=== PATIENT | female | born 1945 | race Caucasian/White ===

== ENCOUNTER 2018-02-02 08:00 | Outpatient (CLI) | payer MEDICARE, BC ==
[2018-02-02 12:15] LABS: BASOPHILS % (AUTO) 0.8 %; EOSINOPHILS # (AUTO) 0.1 10^3/uL (0.0-0.7); HGB - HEMOGLOBIN 13.8 g/dL (12.0-16.0); LYMPHOCYTES # (AUTO) 1.4 10^3/uL (1.5-3.5); LYMPHOCYTES % (AUTO) 22.5 %; MEAN CORPUSCULAR HEMOGLOBIN 28.7 pg (27.0-31.0); MEAN PLATELET VOLUME 8.8 fL (7.9-10.8); MONOCYTES # (AUTO) 0.5 10^3/uL (0.0-1.0); MONOCYTES % (AUTO) 8.4 %; NEUTROPHILS % (AUTO) 66.3 %; PLT - PLATELET COUNT 241 10^3/uL (130-450); RED BLOOD COUNT 4.82 10^6/uL (4.20-5.40); RED CELL DISTRIBUTION WIDTH 13.5 % (12.0-15.0)
[2018-02-02 12:53] LABS: ALBUMIN 4.2 g/dL (3.2-5.5); ALBUMIN/GLOBULIN RATIO 1.6 (1.0-2.2); ALKALINE PHOSPHATASE 60 IU/L (42-121); ALT ALANINE AMINOTRANSFERASE 17 IU/L (10-60); AST ASPARTATE AMINOTRANSFERASE 19 IU/L (10-42); BILIRUBIN,TOTAL 0.9 mg/dL (0.2-1.0); BUN - BLOOD UREA NITROGEN 18 mg/dL (6-20); CALCIUM 9.2 mg/dL (8.5-10.3); CARBON DIOXIDE - CO2 29 mmol/L (21-32); CHLORIDE 104 mmol/L (101-111); CHOL/HDL RATIO 4.7 (<4.4); CHOLESTEROL 228 mg/dL; CREATININE 0.8 mg/dL (0.4-1.0); GFR - MDRD 71 (>89); GLUCOSE 95 mg/dL (70-100); HDL CHOLESTEROL 49 mg/dL; LDL CHOLESTEROL,CALCULATED 141 mg/dL; LDL/HDL RATIO 2.9 (<4.4); SODIUM 140 mmol/L (135-145); TOTAL PROTEIN 6.8 g/dL (6.7-8.2); VLDL CHOLESTEROL 38 mg/dL
[2018-02-02 12:55] LABS: THYROID STIMULATING HORMONE 1.84 uIU/mL (0.34-5.60)
== END 2018-02-02 08:01 | disposition home or self-care (01) ==
LOC: LAB.WCP 08:00
PROVIDERS: ATTEND Family Medicine
DX: I10 Essential (primary) hypertension (principal); E78.5 Hyperlipidemia, unspecified
CPT/HCPCS: 36415; 80053; 80061; 82306; 82607; 82746; 83036; 83721; 83880; 84443; 85025

== ENCOUNTER 2018-02-04 08:03 | Outpatient (CLI) | payer MEDICARE, BC ==
--- NOTE | 2018-02-05 16:28 | Ultrasound Report ---
ANKLE/BRACHIAL INDICES: 02/04/2018 CLINICAL INDICATION: Venous insufficiency, stasis dermatitis. TECHNIQUE: Real-time sonographic vascular imaging was performed by the sprayer hand through the extremities utilizing both color-flow and Doppler flow analysis. Multiple roofing sales representative static images were saved for review. 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 IMPRESSION: NORMAL ASHWIN'S. MTDD
== END 2018-02-04 08:04 | disposition home or self-care (01) ==
LOC: DI 08:03
PROVIDERS: ATTEND Family Medicine
DX: I83.10 Varicose veins of unspecified lower extremity with inflammation (principal)
CPT/HCPCS: 93922

== ENCOUNTER 2018-11-26 07:33 | Outpatient (CLI) | payer MEDICARE, BC | END 2018-11-26 07:34 | disposition critical access hospital (66) | LOC: EMS 07:33 | PROVIDERS: ATTEND Surgery | DX: R53.1 Weakness (principal); R39.198 Other difficulties with micturition; R68.83 Chills (without fever); R10.30 Lower abdominal pain, unspecified; R19.8 Other specified symptoms and signs involving the digestive system and abdomen | CPT/HCPCS: A0425; A0427 ==

== ENCOUNTER 2018-11-26 08:04 | Inpatient (IN) | payer MEDICARE, BC ==
[2018-11-26] MEDS ORDERED: SODIUM CHLORIDE 0.9% 3,500 ML IV STA (09:00)
[2018-11-26] MEDS ORDERED: VANCOMYCIN INJ 2.5 GM in SODIUM CHLORIDE 0.9% 500 ML IV STA (09:00)
[2018-11-26] MEDS ORDERED: CEFEPIME 2 GM in SODIUM CHLORIDE 0.9% MINIBAG 100 ML IV STA (09:00)
[2018-11-26] MEDS ORDERED: ACETAMINOPHEN 325 MG TABLET PO STA (09:04)
--- NOTE | 2018-11-26 09:07 | ED Physician Documentation ---
History of Present Illness - Stated complaint Stated Complaint: GEN. WEAKNESS - Chief complaint Chief Complaint: Abd Pain - History obtained from History obtained from: Patient, Family () - History of Present Illness Timing: How many days ago (2) - Additonal information Additional information: The patient is a 73-year-old female who presents with generalized weakness that has been progressing over the past 2 days. She has had fever and chills, and was too weak to walk unassisted during the night. She reports urgency of urination, but denies dysuria. She denies cough or shortness of breath. She denies abdominal pain, nausea or vomiting. She has a history of chronic pedal edema with venous stasis ulcers. Ankle arm index done in January 2018 revealed a normal study. Review of Systems Constitutional: reports: Fever, Chills, Fatigue Eyes: denies: Irritation Ears: denies: Tinnitus/ringing Nose: denies: Congestion Throat: denies: Sore throat Cardiac: denies: Chest pain / pressure Respiratory: denies: Dyspnea, Cough GI: denies: Abdominal Pain, Nausea, Vomiting : reports: Hesitancy, Unable to Void. denies: Dysuria Skin: denies: Rash Musculoskeletal: reports: Extremity swelling (chronic). denies: Back pain Neurologic: reports: Generalized weakness. denies: Focal weakness, Numbness, Headache PD PAST MEDICAL HISTORY - Past Medical History Cardiovascular: Hypertension - Present Medications Home Medications: Ambulatory Orders Medication Instructions Recorded Confirmed Acetaminophen [Tylenol Extra 500 mg PO BID 11/26/18 11/26/18 Strength] Aspirin [Adult Aspirin] 81 mg PO DAILY 11/26/18 11/26/18 Carvedilol 25 mg PO BID 11/26/18 11/26/18 Lisinopril 20 mg PO DAILY 11/26/18 11/26/18 Spironolactone 12.5 mg PO DAILY 11/26/18 11/26/18 - Allergies Allergies/Adverse Reactions: Allergies Allergy/AdvReac Type Severity Reaction Status Date / Time No Known Drug Allergies Allergy Verified 11/26/18 08:21 - Living Situation Living Situation: reports: With spouse/s.o. Living Arrangement: reports: At home - Social History Does the pt smoke?: No PD ED PE NORMAL - Vitals Vital signs reviewed: Yes (febrile and hypotensive) - General General: Alert and oriented X 3, Well developed/nourished, Other (overweight) - HEENT HEENT: Atraumatic, Moist mucous membranes, Pharynx benign - Neck Neck: Supple, no meningeal sign, No adenopathy, No JVD - Cardiac Cardiac: RRR, No murmur - Respiratory Respiratory: No respiratory distress, Clear bilaterally - Abdomen Abdomen: Soft, Non tender, Other (rotund abdomen) - Back Back: No CVA TTP, No spinal TTP - Derm Derm: No rash - Extremities Extremities: No calf tenderness / cord, Other (1-2+ pedal edema bilaterally, with venous stasis ulcers bilaterally.) - Neuro Neuro: Alert and oriented X 3, No motor deficit, No sensory deficit, Normal speech, Other (Generalized weakness, without focal motor or sensory deficit.) Eye Opening: Spontaneous Motor: Obeys Commands Verbal: Oriented GCS Score: 15 Results - Vitals Vitals: Vital Signs - 24 hr 11/26/18 11/26/18 11/26/18 08:11 10:14 10:17 Temperature 38.2 C H 37.2 C Heart Rate 93 79 Respiratory 20 20 Rate Blood Pressure 92/59 L 94/49 L O2 Saturation 95 96 11/26/18 11/26/18 11/26/18 11:59 12:49 12:50 Temperature Heart Rate 79 78 78 Respiratory 16 18 18 Rate Blood Pressure 92/50 L 95/54 L 95/52 L O2 Saturation 97 99 99 11/26/18 11/26/18 14:01 14:19 Temperature 37.5 C Heart Rate 78 84 Respiratory 18 24 Rate Blood Pressure 97/65 97/65 O2 Saturation 100 96 Oxygen O2 Source Room air - Labs Labs: Microbiology 11/26/18 13:50 Wound Culture - Preliminary Left Lower Extremity - Wound Laboratory Tests 11/26/18 11/26/18 11/26/18 09:20 09:20 09:20 WBC 23.5 H RBC 4.34 Hgb 12.2 Hct 37.2 MCV 85.6 MCH 28.0 MCHC 32.7 RDW 13.4 Plt Count 227 MPV 8.7 Neut # (Auto) 21.6 H Lymph # (Auto) 0.7 L [place] # (Auto) 1.1 H Eos # (Auto) 0.0 Baso # (Auto) 0.1 Absolute Nucleated RBC 0.02 Nucleated RBC % 0.1 RBC Morph Micro Appear 1+ ANISOCYTOSIS Sodium 134 L Potassium 3.5 Chloride 99 L Carbon Dioxide 25 Anion Gap 10.0 BUN 27 H Creatinine 1.6 H Estimated GFR (MDRD) 32 L Glucose 93 Lactic Acid 0.8 Calcium 8.5 Total Bilirubin 0.8 AST 23 ALT 22 Alkaline Phosphatase 62 Total Protein 6.2 L Albumin 3.4 Globulin 2.8 Albumin/Globulin Ratio 1.2 Lipase 29 Urine Color Urine Clarity Urine pH Ur Specific [place] Urine Protein Urine Glucose (UA) Urine Ketones Urine Occult Blood Urine Nitrite Urine Bilirubin Urine Urobilinogen Ur Leukocyte Esterase Urine RBC Urine WBC Ur Epithelial Cells Ur Squamous Epith Cells Urine Bacteria Urine Casts Ur Microscopic Review Urine Culture Comments 11/26/18 09:41 WBC RBC Hgb Hct MCV MCH MCHC RDW Plt Count MPV Neut # (Auto) Lymph # (Auto) [place] # (Auto) Eos # (Auto) Baso # (Auto) Absolute Nucleated RBC Nucleated RBC % RBC Morph Micro Appear Sodium Potassium Chloride Carbon Dioxide Anion Gap BUN Creatinine Estimated GFR (MDRD) Glucose Lactic Acid Calcium Total Bilirubin AST ALT Alkaline Phosphatase Total Protein Albumin Globulin Albumin/Globulin Ratio Lipase Urine Color DARK YELLOW Urine Clarity HAZY Urine pH 5.0 Ur Specific [place] >=1.030 H Urine Protein 30 H Urine Glucose (UA) NEGATIVE Urine Ketones TRACE Urine Occult Blood NEGATIVE Urine Nitrite NEGATIVE Urine Bilirubin NEGATIVE Urine Urobilinogen 1 (NORMAL) Ur Leukocyte Esterase TRACE H Urine RBC 0-5 Urine WBC 0-3 Ur Epithelial Cells RARE Transitional Ur Squamous Epith Cells RARE Squamous Urine Bacteria Moderate H Urine Casts 0-2 Granular Casts Ur Microscopic Review INDICATED Urine Culture Comments INDICATED - Rads (name of study) CXR Radiology: Prelim report reviewed, EMP read contemporaneously, See rad report (Within limitations of the examination, no acute cardiopulmonary abnormality) PD MEDICAL DECISION MAKING - ED course Complexity details: reviewed old records, reviewed results, re-evaluated patient, considered differential, d/w patient, d/w family, d/w building consultant ED course: The patient's presentation is most consistent with sepsis, with hypotension in the low to mid 90s systolic. The source of infection is not certain, but wounds on her lower legs are the most likely source. Her symptoms and her chest x-ray do not suggest pneumonia, and based on her urinalysis, urinary source is unlikely. Her abdomen is benign on examination. CBC reveals an elevated white count of 23.5. Chemistry panel reveals elevated BUN and creatinine of 27 and 1.6. Lactate level is normal at 0.8. Blood cultures 2 were drawn and are pending. Treatment in the emergency department included administration of 3-1/2 L normal saline IV, acetaminophen 650 mg orally, cefepime 2 g IV, and vancomycin 2.5 g IV. A Marcano catheter was inserted to monitor urine output. She had very little urine output until her third liter of normal saline have been administered. Her blood pressure at that point remained low with systolic blood pressure of 95. Anesthesiology was consulted for central line placement. I discussed her condition with Dr. Pratt, the hospitalist, who accepted her for further evaluation and treatment. She was admitted to the intensive care unit. - Critical Care Time(min): 60 Time Includes: Direct patient care, Review records, Reassess patient, Document care, Coordinate care, Medical consult Data interpretation: Labs, Pulse ox, CXR Procedures excluded from critical care time: EKG Departure - Departure Disposition: 66 [facility] DC/Xfer Clinical Impression: Venous stasis dermatitis of both lower extremities Sepsis Qualifiers: Sepsis type: sepsis due to unspecified organism Qualified Code(s): A41.9 - Sepsis, unspecified organism Wound, open, leg Qualifiers: Encounter type: initial encounter Laterality: left Qualified Code(s): S81.802A - Unspecified open wound, left lower leg, initial encounter Discharge Date/Time: 11/26/18 15:55
[2018-11-26 09:33] LABS: BASOPHILS # (AUTO) 0.1 10^3/uL (0.0-0.1); BASOPHILS % (AUTO) 0.3 %; HGB - HEMOGLOBIN 12.2 g/dL (12.0-16.0); LYMPHOCYTES # (AUTO) 0.7 10^3/uL (1.5-3.5); LYMPHOCYTES % (AUTO) 3.1 %; MEAN CORPUSCULAR HGB CONC 32.7 g/dL (32.0-36.0); MEAN CORPUSCULAR VOLUME 85.6 fL (81.0-99.0); MEAN PLATELET VOLUME 8.7 fL (7.9-10.8); MONOCYTES # (AUTO) 1.1 10^3/uL (0.0-1.0); MONOCYTES % (AUTO) 4.7 %; NEUTROPHILS # (AUTO) 21.6 10^3/uL (1.5-6.6); NEUTROPHILS % (AUTO) 91.9 %; PLT - PLATELET COUNT 227 10^3/uL (130-450); RED BLOOD COUNT 4.34 10^6/uL (4.20-5.40); RED CELL DISTRIBUTION WIDTH 13.4 % (12.0-15.0); WHITE BLOOD COUNT 23.5 x10^3/uL (4.8-10.8)
[2018-11-26 09:41] LABS: ALBUMIN 3.4 g/dL (3.2-5.5); ALBUMIN/GLOBULIN RATIO 1.2 (1.0-2.2); BILIRUBIN,TOTAL 0.8 mg/dL (0.2-1.0); CALCIUM 8.5 mg/dL (8.5-10.3); CREATININE 1.6 mg/dL (0.4-1.0); TOTAL PROTEIN 6.2 g/dL (6.7-8.2)
[2018-11-26 09:53] LABS: RBC MORPHOLOGY (MULTIPLE) 1+ ANISOCYTOSIS (NORMAL)
[2018-11-26 10:32] LABS: GLUCOSE, URINE (UA) NEGATIVE (NEGATIVE); KETONES,URINE (UA) TRACE mg/dL (NEGATIVE); LEUKOCYTE ESTERASE, URINE TRACE (NEGATIVE); NITRITE,URINE NEGATIVE (NEGATIVE); OCCULT BLOOD,URINE NEGATIVE (NEGATIVE); PROTEIN,URINE 30 mg/dL (NEGATIVE); UROBILINOGEN,URINE 1 (NORMAL) E.U./dL (NORMAL)
[2018-11-26 10:37] LABS: BILIRUBIN,URINE NEGATIVE (NEGATIVE); ICTOTEST,URINE NEGATIVE
[2018-11-26 10:38] LABS: CLARITY,URINE HAZY (CLEAR)
[2018-11-26 10:46] LABS: EPITHELIAL CELLS,UR RARE Transitional /HPF (<= Few); RBC,URINE 0-5 /HPF (0-5); SQUAMOUS EPITHELIAL CELL,UR RARE Squamous (<= Few)
[2018-11-26 10:47] LABS: BACTERIA,URINE Moderate /HPF (None Seen); CASTS, URINE 0-2 Granular Casts /LPF
--- NOTE | 2018-11-26 12:43 | XRAY Report ---
Reason: sepsis, uncertain cause Procedure Date: 11/26/2018 Accession Number: [id number] / [id number] Procedure: XR - Chest 1 View X-Ray CPT Code: 83808 FULL RESULT: EXAM: CHEST RADIOGRAPHY EXAM DATE: 11/26/2018 12:20 PM. CLINICAL HISTORY: Sepsis, uncertain cause. COMPARISON: None. TECHNIQUE: 1 view. FINDINGS: Exam limited by semiupright AP portable technique with rotated lordotic positioning. Lungs/Pleura: No focal opacities evident. No pleural effusion. No pneumothorax. Mediastinum: Within exam limitations, the cardiomediastinal contour is normal. Other: None. IMPRESSION: Within the exam limitations, no acute cardiopulmonary abnormality. RADIA
--- NOTE | 2018-11-26 14:51 | HISTORY & PHYSICAL EXAMINATION ---
Chief Complaint - Chief Complaint Chief Complaint: Patient presents with generalized weakness with associated abd pain, fevers History of Present Illness - Admitted From Admitted From:: ED - History Obtained From Records Reviewed: yes History obtained from: Patient Exam Limitations: none - History of Present Illness HPI Comment/Other: The patient is a 73-year-old female With a past medical history of hyperlipidemia, bilateral lower extremity venous stasis dermatitis with edema and open wounds for past 3 months, hypertension, meningitis, prior surgeries of cholecystectomy//craniotomy who presents with generalized weakness that has been progressing over the past 2 days. She has had fever and chills, and was too weak to walk unassisted during the night. She reports urgency of urination, but denies dysuria. She denies cough or shortness of breath. She denies abdominal pain, nausea or vomiting. She has a history of chronic pedal edema with venous stasis ulcers. Ankle arm index done in January 2018 revealed a normal study. Upon further review on labs WBC 23.5, hemoglobin 12.2, platelets of 227, lactic acid 0.8, sodium 134, BUN of 27, creatinine 1.6 with a glucose of 93. Patient's chest x-ray shows no acute cardia pulmonary process. UA showed 3+ protein with trace ketones leukocyte Estrace positive trace with negative nitrites. 0-5 RBCs per high-power field 03 WBCs per high-power field and 0-2 granular casts per high-powered field. Despite 3 L of IV fluid resuscitation and ERP patient continues to have 97 or 65 blood pressure With a map of 76 calculated. However patient will likely require CVP line placement for more accurate mean arterial pressure. Pressor support indicated. Patient will be admitted for sepsis secondary to likely source of venous stasis with coexisting soft tissue infection/cellulitis. 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 - POLST Patient has POLST: No Meds/Allgy - Home Medications Home Medications: Ambulatory Orders Medication Instructions Recorded Confirmed Acetaminophen [Tylenol Extra 500 mg PO BID 11/26/18 11/26/18 Strength] Aspirin [Adult Aspirin] 81 mg PO DAILY 11/26/18 11/26/18 Carvedilol 25 mg PO BID 11/26/18 11/26/18 Lisinopril 20 mg PO DAILY 11/26/18 11/26/18 Spironolactone 12.5 mg PO DAILY 11/26/18 11/26/18 - Allergies Allergies/Adverse Reactions: Allergies Allergy/AdvReac Type Severity Reaction Status Date / Time No Known Drug Allergies Allergy Verified 11/26/18 08:21 Review of Systems - All Other Systems All Other Systems: reports: Reviewed and negative Prior Level of Functionality: Patient has unknown baseline for home ADLs Exam - Vital Signs Vital Signs: Vital Signs x48h Temp Pulse Resp BP Pulse Ox 11/26/18 14:19 37.5 C 84 24 97/65 96 11/26/18 14:01 78 18 97/65 100 11/26/18 12:50 78 18 95/52 L 99 11/26/18 12:49 78 18 95/54 L 99 11/26/18 11:59 79 16 92/50 L 97 11/26/18 10:17 37.2 C 11/26/18 10:14 79 20 94/49 L 96 11/26/18 08:11 38.2 C H 93 20 92/59 L 95 - Physical Exam General Appearance: positive: No acute distress, Alert Eyes Bilateral: positive: Normal inspection, PERRL, EOMI ENT: positive: ENT inspection nml, Pharynx nml, No signs of dehydration Neck: positive: Nml inspection, Thyroid nml, No JVD, Trachea midline, Thyromegaly Respiratory: positive: Chest non-tender, No respiratory distress, Breath sounds nml Cardiovascular: positive: Regular rate & rhythm, No murmur, No gallop. negative: JVD present, Gallop/S4 Peripheral Pulses: positive: Other (1+ DP Right foot, 2+ DP left foot) Abdomen: positive: Non-tender, No organomegaly, Nml bowel sounds, No distention. negative: Tenderness Skin: positive: Color nml, Warm Extremities: positive: Non-tender, Full ROM, Calf tenderness (to right popliteal fossa), Sanam's sign/cords, Other (Bilateral edema with ulcers to R>L with erytheamatous pretibial aspect along with lymphedema and hyperpi gmented/hyperkeratois seent to feet) Neurologic/Psychiatric: positive: Oriented x3, CN's nml (2-12) Sepsis Event Note (H) - Evaluation Current Stage of Sepsis: Septic shock Possible source of Sepsis: positive: Skin/soft tissue (Likely source of infection is bilateral lower extremity infected venous stasis open ulcerative wounds) - Sepsis Criteria Sepsis Criteria: WBC count greater than 10% bands, SBP less than 90 mmHg, Renal: urine output less than 0.5ml/kg/hr for 2 hours or creatinine gr Conclusion/Plan - Problem List (1) Septic shock Conclusion/Plan: Patient was admitted for septic shock as it pertains likely to the source of infection of her bilateral lower extremity stases ulcers that are infected currently received a right IJ by anesthesia to record maps and start early goal directed therapy with aggressive IV fluid resuscitation with LR to run at 200 mL's an hour along with pressor support levo fed to start at 2 mcg/per minute and titrate to a map above 60, IV Zosyn to cover for broad-spectrum empiric antibiotic of choice with wound cultures blood cultures as well as urine culture sent. Query on the fact that patient took her coreg, aldactone, and lisinopril this am and may be somewhat refractory hypotensive as a result. Would HOLD her BP meds as well as aldactone for now. Will maximize and optimize medical management to perfuse kidneys as patient presented with acute renal insufficiency as it relates to patient's continued hypoperfusion and hypo- tension related to septic shock. Patient was given cefepime and vancomycin in the emergency department but continued to have refractory systolic blood pressures in the upper 90s despite aggressive 3 L Normal saline boluses. Lactic acid not elevated. Marcano catheter is in place now with adequate urine output. We will continue to monitor for mental status changes as well as daily labs. Total critical time: 30 minutes (2) Cellulitis Conclusion/Plan: Bilateral cellulitis with chronic venous stasis infected ulcers which have been open for approximately 3 months. Wound culture to follow. Will obtain a wound care consult with the MAC service for further recommendations on possible debridement of tissue. Continue with empiric IV antibiotics with Zosyn. Likely polymicrobial wound culture and may be necessary to obtain a deep tissue biopsy. Qualifiers: Site of cellulitis of extremity: lower extremity Laterality: unspecified laterality (3) Acute renal insufficiency Conclusion/Plan: Likely combined from septic shock and pre-renal component from aldactone, lisinopril and coreg use. Patient has some component of chronic kidney disease as evidence of UA showing 3+ proteins as well as granular casts. However no prior creatinine other than the one on [employer] that showed 0.8. Current creatinine is 1.6. Marcano catheter in place with minimal UO. Obtain a serum uric acid level. Aggressive IV fluid resuscitation as part of early goal-directed therapy for septic shock to perfuse kidneys and maintain map above 60 with pressor support will likely adequately perfuse kidneys and continued renal monitoring and correction of underlying electrolyte disturbances. Avoid nephrotoxic agents. (4) Generalized weakness Conclusion/Plan: Secondary to septic shock. Address underlying infectious etiology. Will likely need to be assessed by physical therapy if patient is unable to adequately sustained gait, balance or strength. (5) Abdominal pain Conclusion/Plan: UA was essentially unremarkable with no suprapubic pain on deep palpation unlikely that this is a UTI. May need to do a retroperitoneal ultrasound to rule out for hydronephrosis stone formations or any other abnormalities or masses. Qualifiers: Abdominal location: generalized Qualified Code(s): R10.84 - Generalized abdominal pain (6) Venous stasis dermatitis of both lower extremities Conclusion/Plan: Superimposed on bilateral cellulitis likely the source of patient's sepsis with likely seeding into the bloodstream. Of note patient had a ankle-brachial index on 02/04/18 was essentially normal. Patient is morbidly obese with a BMI of 42.6 likely predisposing to poor venous return and likely chronic lymphatic edema. (7) Morbid obesity with BMI of 40.0-44.9, adult Conclusion/Plan: Would address patients nutritional caloric intake and overall skilled nursing complications such as diabetes, HTN and other CV comorbidites. (8) Chronic acquired lymphedema Conclusion/Plan: Chronic hyperkeratois/hyperpigmentation as well as edema seen that would otherwise be challenging to treat active infection with BLLE cellulites, would wait to treat infection before placing on JENNIFER's or compression stockings. - Lab Results Fish Bones: 11/26/18 09:20 11/26/18 09:20 - Diagnostic Imaging Results Diagnostic Imaging Results: positive: Final report reviewed - EKG Results EKG Interpreted Independently: No Core Measures - Anticipated LOS I expect patient to be DC'd or transferred within 96 hours.: Yes - Issues Hospital Issues and Management Plan: She will be admitted for septic shock and placed on early goal-directed therapy. - DVT/VTE - Prophylaxis VTE/DVT Device ordered at admit?: No Not Ordered - Medical Reason: Contraindicated (Secondary to infected venous stasis ulcers) VTE/DVT Prophylaxis med ordered at admit?: Yes - Stroke - Rehab Assessment Rehab services assessment to be ordered?: No Not Ordered - Medical Reason: Not indicated - AMI - Statin at Admit Aspirin Prescribed on Admit: No Not Ordered - Medical Reason: Not indicated
[2018-11-26] MEDS ORDERED: HYDROcod/ACETAM 5/325 MG TABLET PO PRN (14:56)
[2018-11-26] MEDS ORDERED: ONDANSETRON 4 MG/2 ML VIAL IVP PRN (14:56)
[2018-11-26] MEDS ORDERED: ONDANSETRON ODT 4 MG TABLET TL PRN (14:56)
[2018-11-26] MEDS ORDERED: PIPERACILLIN/TAZOBACTAM 4.5 GM in SODIUM CHLORIDE 0.9% MINIBAG 100 ML IV STA (15:00)
--- NOTE | 2018-11-26 15:55 | XRAY Report ---
Reason: triple lumen right IJ placed Procedure Date: 11/26/2018 Accession Number: [id number] / [id number] Procedure: XR - Chest for Line Placement CPT Code: FULL RESULT: EXAM: CHEST RADIOGRAPHY EXAM DATE: 11/26/2018 03:23 PM. CLINICAL HISTORY: Triple lumen right IJ placed. COMPARISON: CHEST 1 VIEW 11/26/2018 12:09 PM. TECHNIQUE: 1 view. FINDINGS: Lungs/Pleura: No focal opacities evident. No pleural effusion. No pneumothorax. Mediastinum: Within exam limitations, the cardiomediastinal contour is unchanged, mild borderline cardiomegaly. Other: Right IJ approach central venous catheter terminates with the tip in the SVC. IMPRESSION: Appropriate position of right IJ central venous line with no radiographic evidence of complication. RADIA
[2018-11-26] MEDS: LACTATED RINGERS 1,000 ML IV SCH ×2 (16:50→21:00)
[2018-11-26] MEDS: SODIUM CHLORIDE FLUSH 0.9% 10 ML SYRINGE IVP SCH (18:42)
[2018-11-26] MEDS: FAMOTIDINE 20 MG/2 ML VIAL IVP SCH (21:31)
[2018-11-26] MEDS: PIPERACILLIN/TAZOBACTAM 3.375 GM in SODIUM CHLORIDE 0.9% MINIBAG 100 ML IV SCH (23:45)
--- NOTE | 2018-11-27 00:38 | Ultrasound Report ---
Reason: right calf pain with BL edema Procedure Date: 11/26/2018 Accession Number: [id number] / [id number] Procedure: US - Duplex Ext Veins Bilateral CPT Code: FULL RESULT: EXAM: BILATERAL LOWER EXTREMITY VENOUS ULTRASOUND EXAM DATE: 11/26/2018 11:50 PM. CLINICAL HISTORY: Right calf pain with bilateral edema. COMPARISON: None. TECHNIQUE: Real-time sonographic vascular imaging was performed by the cloth examiner hand through the lower extremities utilizing both color-flow and Doppler spectral analysis. Multiple termite control service representative static images were saved for review. FINDINGS: Right: Common Femoral Vein (CFV): Normal. CFV-GSV Junction: Normal. Profunda Femoral Vein (PFV): Normal. Femoral Vein (FV) Prox: Normal. Femoral Vein (FV) Mid: Normal. Femoral Vein (FV) Dist: Normal. Popliteal Vein: Normal. Posterior Tibial Veins: Normal. Peroneal Veins: Normal. Left: Common Femoral Vein (CFV): Normal. CFV-GSV Junction: Normal. Profunda Femoral Vein (PFV): Normal. Femoral Vein (FV) Prox: Normal. Femoral Vein (FV) Mid: Normal. Femoral Vein (FV) Dist: Normal. Popliteal Vein: Normal. Posterior Tibial Veins: Normal. Peroneal Veins: Normal. Other: Bilateral subcutaneous edema. Images are somewhat degraded due to body habitus and swelling. Prominent right inguinal lymph nodes measuring up to 4.7 x 1.4 cm. IMPRESSION: No evidence for deep venous thrombosis bilaterally. RADIA
[2018-11-27] MEDS: LACTATED RINGERS 1,000 ML IV SCH ×5 (01:05→22:43)
[2018-11-27] MEDS: SODIUM CHLORIDE FLUSH 0.9% 10 ML SYRINGE IVP SCH ×3 (01:12→16:54)
[2018-11-27] MEDS: PIPERACILLIN/TAZOBACTAM 3.375 GM in SODIUM CHLORIDE 0.9% MINIBAG 100 ML IV SCH ×4 (05:30→22:44)
[2018-11-27 05:35] LABS: BASOPHILS % (AUTO) 0.2 %; HGB - HEMOGLOBIN 10.9 g/dL (12.0-16.0); LYMPHOCYTES % (AUTO) 6.2 %; MEAN CORPUSCULAR HEMOGLOBIN 28.4 pg (27.0-31.0); MEAN CORPUSCULAR HGB CONC 33.3 g/dL (32.0-36.0); MEAN CORPUSCULAR VOLUME 85.4 fL (81.0-99.0); MEAN PLATELET VOLUME 8.3 fL (7.9-10.8); MONOCYTES # (AUTO) 1.1 10^3/uL (0.0-1.0); MONOCYTES % (AUTO) 6.8 %; NEUTROPHILS # (AUTO) 14.2 10^3/uL (1.5-6.6); NEUTROPHILS % (AUTO) 86.8 %; PLT - PLATELET COUNT 192 10^3/uL (130-450); RED BLOOD COUNT 3.83 10^6/uL (4.20-5.40); RED CELL DISTRIBUTION WIDTH 13.6 % (12.0-15.0); WHITE BLOOD COUNT 16.4 x10^3/uL (4.8-10.8)
[2018-11-27 05:49] LABS: ALBUMIN 2.8 g/dL (3.2-5.5); CALCIUM 8.1 mg/dL (8.5-10.3); PHOSPHORUS 2.4 mg/dL (2.5-4.6)
[2018-11-27] MEDS: POTASSIUM CHLOR 20 MEQ/100 ML 20 MEQ/100 ML BAG IV SCH ×2 (07:52→08:57)
[2018-11-27] MEDS: NEUTRA-PHOS 250 MG TABLET PO SCH ×2 (08:57→09:37)
[2018-11-27] MEDS: FAMOTIDINE 20 MG/2 ML VIAL IVP SCH ×2 (10:25→19:57)
[2018-11-27] MEDS: POTASSIUM CHLORIDE 20 MEQ TABLET PO SCH (10:38)
[2018-11-27] MEDS: ASPIRIN EC 81 MG TABLET PO SCH (11:06)
[2018-11-27] MEDS: ENOXAPARIN 40 MG/0.4 ML SYRINGE SUBQ SCH (11:17)
[2018-11-27] MEDS: ACETAMINOPHEN 325 MG TABLET PO PRN ×3 (11:27→19:54)
[2018-11-27] MEDS: SODIUM CHLORIDE FLUSH 0.9% 10 ML SYRINGE IVP PRN ×4 (16:55→22:43)
--- NOTE | 2018-11-27 18:09 | MISCELLANEOUS PROVIDER NOTE ---
Miscellaneous Provider Note - - Note: Subjective: Patient feels much better today with generalized weakness and bilateral lower extremity edema still present which she does complain a complaint of a right Calf tenderness after being given an ultrasound to rule out DVT. Otherwise she has no complaints of fevers chills nausea vomiting cough GI or symptoms. Appetite is good. Next Objective: Vital signs are hemodynamically stable afebrile, heart rate of 85, blood pressure 121/69 with a respiratory rate of 18 and 96% O2 saturation on room air General: Patient is morbidly obese and in no acute respiratory distress speaking full sentences. HEENT: No buccal lesions NCAT Neck: No JVD no bruits no lymphadenopathy. Right IJ is clean dry and intact with no surrounding erythema. CV/lungs: RRR. Decreased breath sounds with mild expiratory rhonchi no wheezing no rales no increased work of breath Abdomen: Soft nontender nondistended positive bowel sounds all quadrants no HSM Extremities/skin bilateral erythematous portions pretibial aspect with demarcation of previous drawn line. Ulcerative lesions still present at the right lower aspect of anterior tibia without drainage with no purulent drainage or necrotic borders. Chronic lymphedema with associated hyperpigmentation and hyperkeratosis visible to the pretibial and foot plantar portion of bilateral feet. Neuro: Grossly intact Labs: Reviewed Imaging studies: Reviewed Assessment/plan: (1) Sepsis. Patient presented with septic shock this is now resolving. Map is well above 60 and no need to start any Levophed. White count is now down to 16.4 from 20 3.5K hemoglobin slightly decreased at 10.9 appears to be hemodilution with normocytic normochromic with no bleeding no organ dysfunction otherwise LFTs were normal and improved acute renal insufficiency. (2) Cellulitis Conclusion/Plan: Bilateral cellulitis with chronic venous stasis infected ulcers which have been open for approximately 3 months. Wound culture to follow. Will obtain a wound care consult with the MAC service for further recommendations on possible debridement of tissue. Continue with empiric IV antibiotics with Zosyn. Likely polymicrobial wound culture and may be necessary to obtain a deep tissue biopsy. Qualifiers: Site of cellulitis of extremity: lower extremity Laterality: unspecified laterality (3) Acute renal insufficiency Conclusion/Plan: Significantly improved after aggressive IV fluid resuscitation. We will continue with LR but decrease fluid rate to 150 mL/HR.Likely combined from septic shock and pre-renal component from aldactone, lisinopril and coreg use. Patient has some component of chronic kidney disease as evidence of UA showing 3+ proteins as well as granular casts. Uric acid level was essentially normal. Continue to perfuse kidneys. Avoid nephrotoxic agents. (4) Generalized weakness Conclusion/Plan: We will order physical therapy. Currently has not gotten out of bed but will continue to monitor. Address underlying infectious etiology. (5) Hypokalemia secondary to insensible losses We will continue with LR and replace potassium with oral supplementation. (6) Venous stasis dermatitis of both lower extremities Conclusion/Plan: Patient with bilateral chronic lymphedema superimposed on venous insufficiency likely contributing factors to patient's cellulitis and stasis ulcers. Wound care to continue. Of note patient had a ankle-brachial index on 02/04/18 was essentially normal. Patient is morbidly obese with a BMI of 42.6 likely predisposing to poor venous return and likely chronic lymphatic edema. (7) Morbid obesity with BMI of 40.0-44.9, adult Conclusion/Plan: Would address patients nutritional caloric intake and overall fci complications such as diabetes, HTN and other CV comorbidites. (8) Chronic acquired lymphedema Conclusion/Plan: Patient was previously on compression stockings however currently contraindicated due to existing active bilateral lower extremity cellulitis. Chronic hyperkeratois/hyperpigmentation as well as edema seen that would otherwise be challenging to treat active infection with BLLE cellulites. (9) Reactive lymphadenopathy Secondary to infection, continue with pain control, elevation of RLE as well as addressing underlying cellulitis with IV abx, PT to ambulate and improve venous return. CODE STATUS: DNR.
[2018-11-28] MEDS: SODIUM CHLORIDE FLUSH 0.9% 10 ML SYRINGE IVP SCH ×3 (00:39→17:18)
[2018-11-28] MEDS: ACETAMINOPHEN 325 MG TABLET PO PRN ×2 (04:19→20:33)
[2018-11-28] MEDS: SODIUM CHLORIDE FLUSH 0.9% 10 ML SYRINGE IVP PRN ×9 (04:26→22:22)
[2018-11-28] MEDS: PIPERACILLIN/TAZOBACTAM 3.375 GM in SODIUM CHLORIDE 0.9% MINIBAG 100 ML IV SCH ×3 (04:33→17:14)
[2018-11-28 05:41] LABS: BASOPHILS % (AUTO) 0.3 %; EOSINOPHILS % (AUTO) 0.3 %; HGB - HEMOGLOBIN 10.6 g/dL (12.0-16.0); LYMPHOCYTES # (AUTO) 0.9 10^3/uL (1.5-3.5); LYMPHOCYTES % (AUTO) 5.6 %; MEAN CORPUSCULAR HEMOGLOBIN 28.1 pg (27.0-31.0); MEAN CORPUSCULAR HGB CONC 32.5 g/dL (32.0-36.0); MEAN CORPUSCULAR VOLUME 86.4 fL (81.0-99.0); MEAN PLATELET VOLUME 8.6 fL (7.9-10.8); MONOCYTES # (AUTO) 1.2 10^3/uL (0.0-1.0); MONOCYTES % (AUTO) 7.6 %; NEUTROPHILS # (AUTO) 13.3 10^3/uL (1.5-6.6); NEUTROPHILS % (AUTO) 86.2 %; PLT - PLATELET COUNT 191 10^3/uL (130-450); RED BLOOD COUNT 3.79 10^6/uL (4.20-5.40); RED CELL DISTRIBUTION WIDTH 13.8 % (12.0-15.0); WHITE BLOOD COUNT 15.5 x10^3/uL (4.8-10.8)
[2018-11-28] MEDS: LACTATED RINGERS 1,000 ML IV SCH ×3 (05:41→23:01)
[2018-11-28 05:50] LABS: ALBUMIN 2.6 g/dL (3.2-5.5); CALCIUM 8.2 mg/dL (8.5-10.3); CREATININE 0.7 mg/dL (0.4-1.0); PHOSPHORUS 1.9 mg/dL (2.5-4.6)
[2018-11-28] MEDS: ASPIRIN EC 81 MG TABLET PO SCH (09:06)
[2018-11-28] MEDS: POTASSIUM CHLORIDE 20 MEQ TABLET PO SCH (09:06)
[2018-11-28] MEDS: ENOXAPARIN 40 MG/0.4 ML SYRINGE SUBQ SCH (09:06)
[2018-11-28] MEDS: FAMOTIDINE 20 MG/2 ML VIAL IVP SCH ×2 (09:06→22:18)
[2018-11-28 09:41] LABS: % IRON SATURATION 3 % (20-50); IRON 7 ug/dL (28-170); TOTAL IRON BINDING CAPACITY 218 ug/dL (250-450); TRANSFERRIN 156 mg/dL (192-382)
[2018-11-28] MEDS ORDERED: HYDROCORTISONE 25 MG SUPPOSITORY PR PRN (11:07)
[2018-11-28] MEDS ORDERED: POLYETHYLENE GLYCOL 3350 17 GM PACKET PO PRN (11:09)
[2018-11-28] MEDS: CARVEDILOL 3.125 MG TABLET PO SCH ×2 (12:29→22:20)
[2018-11-28] MEDS: SPIRONOLACTONE 25 MG TABLET PO SCH (12:29)
[2018-11-28] MEDS: DOCUSATE SODIUM 250 MG CAPSULE PO SCH ×2 (12:36→12:37)
[2018-11-28] MEDS: FERRIC GLUCONATE 125 MG in SODIUM CHLORIDE 0.9% 100ML 100 ML IV SCH (12:40)
--- NOTE | 2018-11-28 18:28 | MISCELLANEOUS PROVIDER NOTE ---
Miscellaneous Provider Note - - Note: Subjective: Patient is remarkably better today in terms of her lower extremity pain and swelling however continues to have some issues with her right lower extremity which at times is painful and has been still erythematous and with edema. Objective: Vital signs are hemodynamically stable afebrile, Heart rate 87 bpm, blood pressure 137/68, respiratory rate 20, 93% O2 saturation on room air and exception: Patient is morbidly obese and in no acute respiratory distress. Next HEENT: NCAT next breath neck: No JVD no bruits no lymphadenopathy no thyromegaly next CV/lungs: RRR. No murmurs gallops clicks or rubs. Mild decrease expiratory rhonchi with no rales no wheezing no increased work breath Abdomen: Soft nontender nondistended possible sounds are carcinoid symptoms were extremities/skin: Erythematous anterior tibial region with some calf tenderness to the right versus left the right has ulcerative weepy wounds 2+ pulses dorsalis pedis bilaterally with chronic lymphedema superimposed with hyperpigmentation hyperkeratosis. Demarcation markedly improved on the left versus the right. General: Patient is morbidly obese and in no acute respiratory distress speaking full sentences. HEENT: No buccal lesions NCAT Neck: No JVD no bruits no lymphadenopathy. Neck: no jvd, no bruits CV/lungs: RRR. Decreased breath sounds with mild expiratory rhonchi no wheezing no rales no increased work of breath Abdomen: Soft nontender nondistended positive bowel sounds all quadrants no HSM Extremities/skin bilateral erythematous portions pretibial aspect with demarcation of previous drawn line. Ulcerative lesions still present at the right lower aspect of anterior tibia without drainage with no purulent drainage or necrotic borders. Chronic lymphedema with associated hyperpigmentation and hyperkeratosis visible to the pretibial and foot plantar portion of bilateral feet. Neuro: Grossly intact Labs: Reviewed Imaging studies: Reviewed Assessment/plan: (1) Cellulitis Conclusion/Plan: Septic shock is resolved with a WBC of 15.5. Patient with improvement to erythema and edema to the left versus the right with demarcation of the line. Currently receiving IV Zosyn however growing MSSA to wound culture which would be now D escalated to IV Ancef with antimicrobial stewardship per pharmacy. MAC to follow patient tomorrow and provide further recommendation for wound care. (3) Left bundle branch block with paradoxical septal motion seen on echocardiogram. We will continue with medical management placed back on low- dose Coreg 6.250 g p.o. twice daily. Lisinopril at 20 mg p.o. every afternoon. Patient does have evidence of right ventricular enlargement with a normal ejection fraction of 50-55% on echo with RVSP of 63 mmHg. Likely has underlying MYRON. Patient will likely need a new appointment to see a coach tour driver as patient lives in [place] and likely will need a referral for sleep study. (4) Generalized weakness Conclusion/Plan: We will order physical therapy. Currently has not gotten out of bed but will continue to monitor. Address underlying infectious etiology. (5) Hypophosphatemia secondary to insensible losses. Replace electrolyte. (6) Venous stasis dermatitis of both lower extremities Conclusion/Plan: Patient has no evidence of DVT. There is a reactive right lymph node present. Patient with bilateral chronic lymphedema superimposed on venous insufficiency likely contributing factors to patient's cellulitis and stasis ulcers. Wound care to continue. Of note patient had a ankle-brachial index on 02/04/18 was essentially normal. Patient is morbidly obese with a BMI of 42.6 likely predisposing to poor venous return and likely chronic lymphatic edema. (7) Morbid obesity with BMI of 40.0-44.9, adult Conclusion/Plan: Likely contributing to patient's MYRON undiagnosed. Would address patients nutritional caloric intake and overall terminal make up operator complications such as diabetes, HTN and other CV comorbidites. (8) Chronic acquired lymphedema Conclusion/Plan: Patient was previously on compression stockings however currently contraindicated due to existing active bilateral lower extremity cellulitis. Chronic hyperkeratois/hyperpigmentation as well as edema seen that would otherwise be challenging to treat active infection with BLLE cellulites. Bilateral lower extremity ultrasound shows no DVT other than a right reactive lymph node to the right lower extremity. (9) Undiagnosed obstructive sleep apnea. Will perform a nocturnal pulse oximetry. Likely contributing to patient's right ventricular enlargement with mild pulmonary artery hypertension (10) Normocytic normochromic anemia, Iron panel to follow and if indicated IV iron to start. Would likely benefit from 3 days worth. (11) Internal hemorrhoids with guaiac positive Anusol HC and stool softeners. CODE STATUS: DNR.
[2018-11-28] MEDS ORDERED: ceFAZolin 1 GM in SODIUM CHLORIDE 0.9% MINIBAG 100 ML IV SCH (19:00)
[2018-11-28] MEDS ORDERED: SODIUM CHLORIDE FLUSH 0.9% 10 ML SYRINGE ONE (22:11)
[2018-11-28] MEDS: ceFAZolin 3 GM in SODIUM CHLORIDE 0.9% 100ML 100 ML IV SCH (22:13)
[2018-11-28] MEDS: LISINOPRIL 20 MG TABLET PO SCH (22:21)
[2018-11-28] MEDS: NEUTRA-PHOS 250 MG TABLET PO SCH (22:28)
[2018-11-29] MEDS: SODIUM CHLORIDE FLUSH 0.9% 10 ML SYRINGE IVP SCH ×4 (01:30→21:47)
[2018-11-29] MEDS: SODIUM CHLORIDE FLUSH 0.9% 10 ML SYRINGE IVP PRN ×6 (01:31→21:47)
[2018-11-29 01:41] LABS: BILIRUBIN,URINE NEGATIVE (NEGATIVE); GLUCOSE, URINE (UA) NEGATIVE (NEGATIVE); KETONES,URINE (UA) NEGATIVE (NEGATIVE); LEUKOCYTE ESTERASE, URINE NEGATIVE (NEGATIVE); NITRITE,URINE NEGATIVE (NEGATIVE); OCCULT BLOOD,URINE MODERATE (NEGATIVE); PROTEIN,URINE NEGATIVE (NEGATIVE); UROBILINOGEN,URINE 0.2 (NORMAL) E.U./dL (NORMAL)
[2018-11-29 01:46] LABS: CLARITY,URINE CLEAR (CLEAR)
[2018-11-29 01:48] LABS: BACTERIA,URINE None Seen /HPF (None Seen); RBC,URINE 0-5 /HPF (0-5); SQUAMOUS EPITHELIAL CELL,UR NONE SEEN (<= Few)
[2018-11-29] MEDS: ACETAMINOPHEN 325 MG TABLET PO PRN ×2 (05:04→12:31)
[2018-11-29] MEDS: ceFAZolin 3 GM in SODIUM CHLORIDE 0.9% 100ML 100 ML IV SCH ×3 (05:57→21:44)
[2018-11-29 06:11] LABS: BASOPHILS % (AUTO) 0.3 %; EOSINOPHILS # (AUTO) 0.1 10^3/uL (0.0-0.7); HGB - HEMOGLOBIN 10.9 g/dL (12.0-16.0); LYMPHOCYTES # (AUTO) 1.2 10^3/uL (1.5-3.5); LYMPHOCYTES % (AUTO) 8.6 %; MEAN CORPUSCULAR HEMOGLOBIN 27.9 pg (27.0-31.0); MEAN CORPUSCULAR HGB CONC 32.3 g/dL (32.0-36.0); MEAN CORPUSCULAR VOLUME 86.5 fL (81.0-99.0); MONOCYTES # (AUTO) 1.4 10^3/uL (0.0-1.0); MONOCYTES % (AUTO) 10.5 %; NEUTROPHILS # (AUTO) 10.7 10^3/uL (1.5-6.6); NEUTROPHILS % (AUTO) 79.6 %; PLT - PLATELET COUNT 214 10^3/uL (130-450); RED BLOOD COUNT 3.89 10^6/uL (4.20-5.40); WHITE BLOOD COUNT 13.5 x10^3/uL (4.8-10.8)
[2018-11-29 06:23] LABS: ALBUMIN 2.6 g/dL (3.2-5.5); CALCIUM 8.8 mg/dL (8.5-10.3); CREATININE 0.7 mg/dL (0.4-1.0); PHOSPHORUS 2.1 mg/dL (2.5-4.6)
[2018-11-29] MEDS ORDERED: CARVEDILOL 3.125 MG TABLET PO SCH (07:04)
[2018-11-29] MEDS: NEUTRA-PHOS 250 MG TABLET PO SCH ×3 (08:26→17:24)
[2018-11-29] MEDS: SPIRONOLACTONE 25 MG TABLET PO SCH ×2 (08:28→21:44)
[2018-11-29] MEDS: ASPIRIN EC 81 MG TABLET PO SCH (08:28)
[2018-11-29] MEDS: ENOXAPARIN 40 MG/0.4 ML SYRINGE SUBQ SCH (08:31)
[2018-11-29] MEDS: DOCUSATE SODIUM 250 MG CAPSULE PO SCH (08:34)
[2018-11-29] MEDS: FAMOTIDINE 20 MG/2 ML VIAL IVP SCH ×2 (08:36→21:43)
[2018-11-29] MEDS: FERRIC GLUCONATE 125 MG in SODIUM CHLORIDE 0.9% 100ML 100 ML IV SCH (09:17)
--- NOTE | 2018-11-29 12:05 | MISCELLANEOUS PROVIDER NOTE ---
Miscellaneous Provider Note - - Note: Subjective: Patient With some improvements to bilateral lower extremity swelling and redness, Questionable spiking temps by RN. Patient denies fevers, chest pain, shortness of breath, GI/ symptoms. Objective: Vital signs are hemodynamically stable, Afebrile, Heart rate of 91 bpm, respiratory rate of 23, blood pressure 134/68, breathing at 92% O2 saturation on room air. General: Patient is morbidly obese and in no acute respiratory distress speaking full sentences. HEENT: No buccal lesions NCAT Neck: No JVD no bruits no lymphadenopathy. Neck: no jvd, no bruits CV/lungs: RRR. Decreased breath sounds with mild expiratory rhonchi no wheezing no rales no increased work of breath Abdomen: Soft nontender nondistended positive bowel sounds all quadrants no HSM Extremities/skin; Improvement to bilateral erythematous portions pretibial aspect with demarcation of previous drawn line. Ulcerative lesions still present at the right lower aspect of anterior tibia without drainage with no purulent drainage or necrotic borders. Chronic lymphedema with associated hyperpigmentation and hyperkeratosis visible to the pretibial and foot plantar portion of bilateral feet. Neuro: Grossly intact Labs: Reviewed Imaging studies: Reviewed Assessment/plan: (1) Cellulitis Conclusion/Plan: Septic shock is resolved with a WBC of 15.5.>13.5. Patient still requiring IV antibiotics with questionable spiking of temperatures per RN last night. Zosyn has been discontinued and de-escalation based on MSSA of wound culture currently on IV Ancef to continue. MAC to follow patient and provide further recommendations on underlying ulcerative lesions that are draining. (3) Left bundle branch block with paradoxical septal motion seen on echocardiogram., Preserved ejection fraction. We will continue with medical management Up titration of Coreg 12.5 mg p.o. twice daily. Lisinopril at 20 mg p.o. qpm. Patient does have evidence of right ventricular enlargement with a normal ejection fraction of 50-55% on echo with RVSP of 63 mmHg. Likely has underlying MYRON. Patient will likely need a new appointment to see a clinical support manager as patient lives in [place] and likely will need a referral for sleep study. (4) Generalized weakness Conclusion/Plan: Patient was able to ambulate approximately 100 feet with a front wheel walker. Patient qualifies for home health physical therapy and this will be ordered. Continue with mobility program with physical therapy and has OOB with TID ambulating orders. Address underlying infectious etiology. (5) Hypophosphatemia secondary to insensible losses. Replace electrolyte. (6) Venous stasis dermatitis of both lower extremities Conclusion/Plan: Patient has no evidence of DVT. There is a reactive right lymph node present. Patient with bilateral chronic lymphedema superimposed on venous insufficiency likely contributing factors to patient's cellulitis and stasis ulcers. Wound care to continue. Of note patient had a ankle-brachial index on 02/04/18 was essentially normal. Patient is morbidly obese with a BMI of 42.6 likely predisposing to poor venous return and likely chronic lymphatic edema. (7) Morbid obesity with BMI of 40.0-44.9, adult Conclusion/Plan: Likely contributing to patient's MYRON undiagnosed. Would address patients nutritional caloric intake and overall correction complications such as diabetes, HTN and other CV comorbidites. (8) Chronic acquired lymphedema Conclusion/Plan: Patient was previously on compression stockings however currently contraindicated due to existing active bilateral lower extremity cellulitis. Chronic hyperkeratois/hyperpigmentation as well as edema seen that would otherwise be challenging to treat active infection with BLLE cellulites. Bilateral lower extremity ultrasound shows no DVT other than a right reactive lymph node to the right lower extremity. (9) Undiagnosed obstructive sleep apnea. Nocturnal pulse oximetry was ordered however RT unclear if this test was performed. Likely contributing to patient's right ventricular enlargement with mild pulmonary artery hypertension (10) Normocytic normochromic anemia, Iron panel to follow and if indicated IV iron to start. Would likely benefit from 3 days worth. (11) Internal hemorrhoids with guaiac positive Anusol HC and stool softeners. CODE STATUS: DNR.
[2018-11-29] MEDS: CARVEDILOL 12.5 MG TABLET PO SCH (21:43)
[2018-11-29] MEDS: LISINOPRIL 20 MG TABLET PO SCH (21:43)
[2018-11-30] MEDS: ACETAMINOPHEN 325 MG TABLET PO PRN ×2 (00:24→08:20)
[2018-11-30 05:51] LABS: BASOPHILS % (AUTO) 0.3 %; EOSINOPHILS # (AUTO) 0.1 10^3/uL (0.0-0.7); HGB - HEMOGLOBIN 11.2 g/dL (12.0-16.0); LYMPHOCYTES # (AUTO) 1.3 10^3/uL (1.5-3.5); LYMPHOCYTES % (AUTO) 9.4 %; MEAN CORPUSCULAR HEMOGLOBIN 27.8 pg (27.0-31.0); MEAN CORPUSCULAR HGB CONC 32.4 g/dL (32.0-36.0); MEAN CORPUSCULAR VOLUME 85.7 fL (81.0-99.0); MEAN PLATELET VOLUME 8.7 fL (7.9-10.8); MONOCYTES # (AUTO) 1.3 10^3/uL (0.0-1.0); MONOCYTES % (AUTO) 9.4 %; NEUTROPHILS # (AUTO) 10.7 10^3/uL (1.5-6.6); NEUTROPHILS % (AUTO) 79.9 %; PLT - PLATELET COUNT 249 10^3/uL (130-450); RED BLOOD COUNT 4.04 10^6/uL (4.20-5.40); RED CELL DISTRIBUTION WIDTH 13.8 % (12.0-15.0); WHITE BLOOD COUNT 13.4 x10^3/uL (4.8-10.8)
[2018-11-30] MEDS: ceFAZolin 3 GM in SODIUM CHLORIDE 0.9% 100ML 100 ML IV SCH (05:56)
[2018-11-30] MEDS: SODIUM CHLORIDE FLUSH 0.9% 10 ML SYRINGE IVP PRN ×3 (05:57→08:22)
[2018-11-30 06:04] LABS: ALBUMIN 2.7 g/dL (3.2-5.5); CALCIUM 8.9 mg/dL (8.5-10.3); CREATININE 0.6 mg/dL (0.4-1.0); PHOSPHORUS 2.6 mg/dL (2.5-4.6)
[2018-11-30 08:03] VITALS: BP 152/75
[2018-11-30] MEDS: ENOXAPARIN 40 MG/0.4 ML SYRINGE SUBQ SCH (08:21)
[2018-11-30] MEDS: SPIRONOLACTONE 25 MG TABLET PO SCH (08:21)
[2018-11-30] MEDS: ASPIRIN EC 81 MG TABLET PO SCH (08:21)
[2018-11-30] MEDS: CARVEDILOL 12.5 MG TABLET PO SCH (08:21)
[2018-11-30] MEDS: SODIUM CHLORIDE FLUSH 0.9% 10 ML SYRINGE IVP SCH (08:22)
[2018-11-30] MEDS: FAMOTIDINE 20 MG/2 ML VIAL IVP SCH (08:22)
[2018-11-30] MEDS: NEUTRA-PHOS 250 MG TABLET PO SCH ×2 (08:22→11:55)
[2018-11-30] MEDS: DOCUSATE SODIUM 250 MG CAPSULE PO SCH (08:23)
[2018-11-30] MEDS: FERRIC GLUCONATE 125 MG in SODIUM CHLORIDE 0.9% 100ML 100 ML IV SCH (09:42)
--- NOTE | 2018-11-30 10:35 | Discharge Plan ---
Discharge Plan Disposition: Home Health Service Condition: Stable Prescriptions: Ferrous Gluconate [Iron] 240 mg PO DAILY #30 tablet Sulfamethox/Trimeth 800/160 [Bactrim Ds] 1 tab PO BID #28 tablet Diet: Low Sodium Activity Restrictions: Activity as Tolerated Shower Restrictions: No Assistance Devices: Walker Weight Bearing: Full Weight Instruction Topics: ED CHF Right Side, Chronic Venous Insufficiency, Chronic Venous Insufficiency Ulcer, Hypertension Pulmonary Additional Instructions or Follow Up instructions: You were admitted in septic shock from a blood infection, that likely started in the leg wounds. You are being discharged with several more days of antibiotics, orders for wound care to be done by Home Health nurses and to do rehab with Home Health Physical Therapy and Occupational Therapy. A front wheel walker has been prescribed. New Iron replacement has been ordered for you, take this with Metamucil to help prevent constipation. You need evaluation of Pulmonary Hypertension and Right-sided Heart Failure, including evaluation for sleep apnea. See your PCP in the next 5-10 days for hospital follow-up and the [facility] here as well. If you have new or worsening symptoms, call your PCP or come to the ER. No Smoking: If you smoke, Please STOP! Call for help. Follow-up with: Merritt Chavez MD [Primary Care Provider] -
[2018-11-30] MEDS ORDERED: SULFAMETH/TRIMETH DS 800/160 MG TABLET PO SCH (21:00)
--- NOTE | 2018-11-30 23:52 | DISCHARGE SUMMARY ---
Physician: Marina Tena MD DATE OF ADMISSION: 11/26/2018 DATE OF DISCHARGE: 11/30/2018 HISTORY OF PRESENT ILLNESS: This is a 73-year-old white female with a history of morbid obesity, venous stasis dermatitis of legs and edema, open wounds on the legs for three months, history of hypertension, cardiomyopathy, cholecystectomy, , who presented with rapidly progressive weakness over the previous two days, with fever and chills. too weak to get out of bed without assistance and in the emergency room, she was noted to have leg cellulitis along with venous stasis ulcers of the lower extremities and hypotension. Her blood pressure was 65 systolic. She started to get aggressive IV saline hydration, which only improved her blood pressure into the 90 range. Blood tests showed a white count of 23.5 with greater than 10% bands, lactic acid was normal, BUN of 27, creatinine 1.6, and the patient was admitted to the ICU for management of septic shock with cellulitis and leg ulcers as the presumed source. HOSPITAL COURSE AND DISCHARGE DIAGNOSES 1. Septic shock. The patient required IV pressors, along with IV crystalloids. On the second day, the pressors were able to be titrated to off and she maintain a blood pressure in the 120s. She was fully cultured; the blood cultures had no growth throughout the course. The patient was placed on empiric iv Vancomycin with cellulitis being the presumed source. She was eventually moved out of the ICU and started physical therapy. She did have the strength to get out of bed and ambulate in her room, although required a new front-wheeled walker. When she was discharged, it was to home under the care of Home Health with a nurse, PT and OT. 2. Cellulitis. The lower extremities, on presentation were red, warm, and she had management of these first by ICU nurses and then by the [facility] nurse and was sent home with orders to have her wounds rinsed, patted dry, apply Xeroform gauze to the wounds, wrap the entire lower extremities with Kerlix, then apply Tubigrip size E over the entire lower extremity from the base of the toes to below the knee. This was to be done bilaterally. 3. Leg ulcer. A culture was taken of this wound and grew methicillin-sensitive Staphylococcus aureus. She was on IV Vancomycin for her entire course of four days here. She was transitioned to oral antibiotics for an additional 2 weeks of treatment. Per this Staph sensitivities, Bactrim-DS was chosen as the antibiotic. She is to see her PCP or may come to the [facility] in follow- up. 4. Acute kidney injury. Her admission, BUN and creatinine were 27 and 1.6, which improved daily with the IV hydration until at discharge, her BUN was 10 and creatinine 0.6. 5. Generalized weakness. The patient reported regaining some of her strength at least to arise out of bed, but was to undergo physical therapy with Home Health. A [id number] exam was done and she was felt to be homebound. 6. Iron deficiency anemia. Her hemoglobin on admission was 12.2, which dropped to 10.6 at its lowest and she underwent lab test and was found to have iron deficiency anemia. She was given IV iron replacement and sent home with oral ferrous gluconate 240 mg daily for at least a one-month course. She was advised to see her PCP in followup of this anemia. 7. Venous stasis dermatitis of both legs. The patient describes a long history of this, likely secondary to her morbid obesity and poor venous return. 8. Morbid obesity, BMI 40-44.9. The patient herself admits to excessive calorie intake and minimal activity in the house. 9. Chronic acquired lymphedema. This may be a separate problem or related to the above problem. She was advised to keep her legs elevated to aid in venous return whenever possible and was kept on her diuretic. 10. Pulmonary hypertension. As part of the septic shock workup, she underwent an Echo while here, which showed normal LV size, LVH, LVEF lower limits of normal at 50-55%. The right ventricle was moderately enlarged, but RV function was normal. There was associated pulmonary hypertension measured at 63 mmHg. The impression was that she might have undiagnosed sleep apnea because of her morbid obesity leading to these findings on Echo of cor pulmonale with pulmonary hypertension. She should have workup for these diagnoses; she was made aware of that. LABORATORY AND IMAGING: Reviewed and summarized above. ALLERGIES: NONE. MEDICATIONS AT DISCHARGE 1. Tylenol 500 mg p.o. b.i.d. p.r.n. 2. Baby aspirin daily. 3. Carvedilol 25 mg b.i.d. 4. Lisinopril 20 mg daily. 5. Spironolactone 12.5 mg daily. 6. Ferrous gluconate 240 mg daily. 7. Trimethoprim sulfa 1 p.o. b.i.d. for a 2-week course. CONDITION AT DISCHARGE: Stable. PHYSICAL EXAMINATION VITAL SIGNS: Blood pressure 120/65, heart rate 83 in sinus rhythm, respiratory rate 20, afebrile, room air saturation 97%. HEENT: Unremarkable. NECK: Obese, JVD cannot be appreciated therefore. LUNGS: Chest clear, but very distant breath sounds. HEART: Sounds distant. BREASTS: Pendulous. ABDOMEN: Obese with a pannus, soft, nontender. I cannot rule out organomegaly. EXTREMITIES: 2+ lymphedema to the groin. The lower extremities of both legs are in bandages, from the knees down to the base of her toes. NEUROLOGIC: Grossly intact. FOLLOWUP: She is advised to see her PCP in five to seven days and to start evaluation of the pulmonary hypertension and possible sleep apnea. She was offered to return to [facility] and [facility]. CODE STATUS: DNR (this is from a previous Advanced Directive in her record). Time required to complete this entire discharge, dictation, chart review, patient education, prescription orders: 60 minutes. cc: Merritt Chavez MD TD: 11/30/2018 20:03 MTDNina
[2018-12-01] MEDS ORDERED: FERROUS GLUCONATE 324 MG TABLET PO SCH (08:00)
== END 2018-11-30 12:55 | disposition home health service (06) | DRG 871 ==
LOC: ED 08:04 → ICU 14:56 → MS3 11-27 15:39
PROVIDERS: ADMIT Family Medicine; ATTEND Family Medicine
PROC: 02HV33Z Insertion of Infusion Device into Superior Vena Cava, Percutaneous Approach (ICD-10-PCS; principal; 2018-11-26)
DX: A41.9 Sepsis, unspecified organism (principal); I10 Essential (primary) hypertension; A41.01 Sepsis due to Methicillin susceptible Staphylococcus aureus; R65.21 Severe sepsis with septic shock; L03.116 Cellulitis of left lower limb; L03.115 Cellulitis of right lower limb; L97.829 Non-pressure chronic ulcer of other part of left lower leg with unspecified severity; L97.819 Non-pressure chronic ulcer of other part of right lower leg with unspecified severity; Z68.42 Body mass index [BMI] 45.0-49.9, adult; I42.9 Cardiomyopathy, unspecified; N17.9 Acute kidney failure, unspecified; I27.23 Pulmonary hypertension due to lung diseases and hypoxia; G47.33 Obstructive sleep apnea (adult) (pediatric); I12.9 Hypertensive chronic kidney disease with stage 1 through stage 4 chronic kidney disease, or unspecified chronic kidney disease; N18.9 Chronic kidney disease, unspecified; I87.2 Venous insufficiency (chronic) (peripheral); E66.01 Morbid (severe) obesity due to excess calories; I89.0 Lymphedema, not elsewhere classified; I44.7 Left bundle-branch block, unspecified; D50.9 Iron deficiency anemia, unspecified; E87.6 Hypokalemia; E83.39 Other disorders of phosphorus metabolism; E78.5 Hyperlipidemia, unspecified; R10.84 Generalized abdominal pain; K64.8 Other hemorrhoids; L85.9 Epidermal thickening, unspecified; Z66 Do not resuscitate; Z86.61 Personal history of infections of the central nervous system; Z79.82 Long term (current) use of aspirin
CPT/HCPCS: 36415; 51702; 51798; 71045; 80053; 80069; 81001; 82272; 83540; 83605; 83690; 83735; 83880; 84466; 84550; 85025; 85379; 87040; 87070; 87086; 87150; 87181; 87205; 93306; 93970; 96361; 96365; 96367; 97110; 97116; 97161; 97530; 99284; 99291; A9270; J1650; J2916; J3370; J7120; 36556; 81003

== ENCOUNTER 2019-01-05 10:50 | Outpatient (CLI) | payer MEDICARE, BC | END 2019-01-05 10:51 | disposition home or self-care (01) | LOC: DI 10:50 | PROVIDERS: ATTEND Internal Medicine Cardiovascular Disease | DX: I27.20 Pulmonary hypertension, unspecified (principal); I51.7 Cardiomegaly | CPT/HCPCS: 93306 ==

== ENCOUNTER 2019-08-10 09:47 | Day surgery (SDC) | payer MEDICARE, BC ==
[2019-08-10] MEDS ORDERED: LACTATED RINGERS 1,000 ML IV ONE (09:56)
[2019-08-10] MEDS ORDERED: MIDAZOLAM 2 MG/2 ML VIAL IVP ONE (10:50)
[2019-08-10] MEDS ORDERED: fentaNYL 250 MCG/5 ML VIAL IVP ONE (10:50)
[2019-08-10 11:56] VITALS: BP 132/84
[2019-08-10] MEDS ORDERED: IOVERSOL 320 100 ML VIAL IVP ONE ×2 (12:05→14:11)
[2019-08-10] MEDS ORDERED: IOVERSOL 320 50 ML VIAL ONE (12:05)
[2019-08-10 12:52] LABS: BILIRUBIN,TOTAL 0.7 mg/dL (0.2-1.0); CALCIUM 9.3 mg/dL (8.5-10.3); CREATININE 0.8 mg/dL (0.4-1.0); TOTAL PROTEIN 6.9 g/dL (6.7-8.2)
[2019-08-10 12:53] LABS: ALBUMIN 4.2 g/dL (3.2-5.5); ALBUMIN/GLOBULIN RATIO 1.6 (1.0-2.2)
[2019-08-10] MEDS ORDERED: IOVERSOL 320 50 ML VIAL PO ONE (14:11)
--- NOTE | 2019-08-10 15:21 | CT Report ---
Reason: Sigmoid Colon MAss Procedure Date: 08/10/2019 Accession Number: [id number] / [id number] Procedure: CT - Abdomen/Pelvis W CPT Code: Final Report FULL RESULT: EXAM: CT ABDOMEN AND PELVIS EXAM DATE: 08/10/2019 02:06 PM. CLINICAL HISTORY: Sigmoid colonic mass. COMPARISONS: None. TECHNIQUE: Routine helical CT imaging was performed through the abdomen and pelvis. IV contrast: 100 mL Optiray 320. Enteric contrast: Yes. Reconstructions: Coronal and sagittal. In accordance with CT protocol optimization, one or more of the following dose reduction techniques were utilized for this exam: automated exposure control, adjustment of mA and/or KV based on patient size, or use of iterative reconstructive technique. FINDINGS: Lung Bases: Unremarkable. Liver: Normal. No masses. Gallbladder/Bile Ducts: Status post cholecystectomy. Spleen: Normal. Pancreas: Normal. Adrenal Glands: Normal. Kidneys: The left kidney contains simple cysts as well as hypodensities too small to characterize and a 1.3 x 1.4 cm left upper pole fat-containing mass with radiographic features most consistent with angiomyolipoma. Peritoneal Cavity/Bowel: The known distal sigmoid mass measures approximately 4 cm in length with a maximal colonic caliber of 3.8 cm, circumferential mass. The distal end of the mass is approximately 15-16 cm from the external anus, please note that this estimate is given a general localization and not accurate enough for staging or surgical approach decisions. There is a fat-containing approximally 2.8 cm wide right lower quadrant ventral abdominal wall hernia as well as a fat and bowel-containing infraumbilical ventral abdominal hernia with the neck measuring approximately 3.7 cm near midline. There is no small bowel obstruction. There is no free air or free fluid. By size criteria, there is no abdominopelvic lymphadenopathy. Pelvic Organs: Remaining pelvic organs are within normal limits. A few prominent pelvic lymph nodes do not meet size criteria. Vasculature: No aneurysms or other significant abnormality. Bones: No aggressive osseous lesions are detected. Other: None. IMPRESSION: Distal sigmoid mass near the rectal sigmoid junction, circumferential in nature for length of approximately [address] No evidence of hepatic metastases or locoregional lymphadenopathy by size criteria. 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 [facility]
== END 2019-08-10 09:48 | disposition home or self-care (01) ==
LOC: SDS 09:47
PROVIDERS: ATTEND Surgery
PROC: 3E0H8GC Introduction of Other Therapeutic Substance into Lower GI, Via Natural or Artificial Opening Endoscopic (ICD-10-PCS; 2019-08-10)
PROC: 0DBN8ZX Excision of Sigmoid Colon, Via Natural or Artificial Opening Endoscopic, Diagnostic (ICD-10-PCS; principal; 2019-08-10 11:00)
DX: Z12.11 Encounter for screening for malignant neoplasm of colon (principal); C18.7 Malignant neoplasm of sigmoid colon; K57.30 Diverticulosis of large intestine without perforation or abscess without bleeding; R23.3 Spontaneous ecchymoses; G47.30 Sleep apnea, unspecified; I27.20 Pulmonary hypertension, unspecified; I10 Essential (primary) hypertension
CPT/HCPCS: 36415; 45380; 45381; 74177; 80053; 82378; J3010; J7120; Q9967

== ENCOUNTER 2019-08-25 15:35 | Outpatient (CLI) | payer MEDICARE, BC | END 2019-08-25 15:36 | disposition home or self-care (01) | LOC: RT 15:35 | PROVIDERS: ATTEND Nurse Anesthetist, Certified Registered | DX: Z01.810 Encounter for preprocedural cardiovascular examination (principal); I27.20 Pulmonary hypertension, unspecified | CPT/HCPCS: 93005 ==

== ENCOUNTER 2019-08-30 07:23 | Inpatient (IN) | payer MEDICARE, BC ==
[~2019-08-30 07:23] MED LIST: CEFOTETAN DISODIUM 1 GM VIAL ONE; metroNIDAZOLE 500 MG/100 ML 500 MG/100 ML BAG ONE
[2019-08-30] MEDS ORDERED: LACTATED RINGERS 1,000 ML IV ONE ×3 (07:33→12:04)
[2019-08-30] MEDS ORDERED: BUPIVACAINE 0.5% PF 30 ML VIAL ONE (07:43)
[2019-08-30] MEDS ORDERED: LIDOCAINE 1%-EPI 1:100000 20 ML MDV ONE (07:43)
--- NOTE | 2019-08-30 07:53 | ANESTHESIA ---
Pre-Anesthesia VS, & Labs - Diagnosis colon cancer, incision hernia - Procedure laparoscopic colectomy, incisional hernia repair Vital Signs: Temp Pulse Resp BP Pulse Ox 36.3 C L 71 14 143/71 H 99 08/30/19 07:34 08/30/19 07:34 08/30/19 07:34 08/30/19 07:34 08/30/19 07:34 Height 5 ft 7 in Weight (kg) 117.4 kg Body Mass Index 41.1 - Is Patient ?: No Home Medications and Allergies Home Medications: Ambulatory Orders Cholecalciferol (Vitamin D3) [Vitamin D3] 2,000 unit PO DAILY 08/25/19 Multivitamin [Multiple Vitamins] 1 each PO DAILY 08/25/19 Vitamin E 400 unit PO DAILY 08/25/19 Acetaminophen [Tylenol Extra Strength] 500 mg PO BID 11/26/18 Lisinopril 20 mg PO DAILY 11/26/18 Spironolactone 12.5 mg PO DAILY 11/26/18 carvediloL [Carvedilol] 25 mg PO BID 11/26/18 Cholecalciferol (Vitamin D3) [Vitamin D3] 2,000 unit PO DAILY 08/25/19 Multivitamin [Multiple Vitamins] 1 each PO DAILY 08/25/19 Vitamin E 400 unit PO DAILY 08/25/19 Allergies/Adverse Reactions: Allergies Allergy/AdvReac Type Severity Reaction Status Date / Time No Known Drug Allergies Allergy Verified 08/17/19 09:27 Anes History & Medical History - Anesthetic History Anesthesia Complications: reports: No previous complications Family history of Anesthesia Complications: Denies Family history of Malignant Hyperthermia: Denies - Medical History Cardiovascular: reports: Hypertension, Other (left bundle branch block) Pulmonary: reports: Sleep apnea Gastrointestinal: reports: GERD, Other Urinary: reports: Incontinence, Other Neuro: reports: None Musculoskeletal: reports: Osteoarthritis Endocrine/Autoimmune: reports: None Skin: reports: Other Smoking Status: Never smoker Psychosocial: reports: No issues indicated - Surgical History General: Cholecystectomy, Colonoscopy Gynecologic: section Neurologic: Craniotomy (march 2017) Results - EKG Results EKG Comparison: Reviewed EKG (EKG shows left bundle branch block. pt reports she has had left BBB since she was 57 years old. Denies ever having a heart attack, denies chest pain /pressure.) Exam General: Alert, Oriented x3, Cooperative, No acute distress Dental: WNL Mouth Openin Fingerbreadth Neck Mobility: Normal Mallampati classification: II Thyromental Distance: 4-6 cm Respiratory: Lungs clear, Normal breath sounds, No respiratory distress, No accessory muscle use Cardiovascular: Regular rate, Normal S1, Normal S2, No murmurs Abdomen: Normal bowel sounds, Soft, No tenderness, No hepatospenomegaly, No masses Extremities: No clubbing, No cyanosis, No edema, Normal pulses, No tenderness/swelling Neurological: Normal gait, Normal speech, Strength at 5/5 X4 ext, Normal tone, Sensation intact, Cranial nerves 3-12 NL, Reflexes 2+ Mental/Cognitive Status: Alert/Oriented X3, Normal for patient Cognitive Status: Within normal limits Plan Anesthesia Type: General Consent for Procedure(s) Verified and Reviewed: Yes Code Status: Attempt Resuscitation ASA classification: 2-Mild systemic disease Is this case an emergency?: No
[2019-08-30] MEDS ORDERED: LIDOCAINE 1%-EPI 1:100000 20 ML MDV SUBQ ONE (09:55)
[2019-08-30] MEDS ORDERED: BUPIVACAINE 0.5% PF 30 ML VIAL INFIL ONE (09:55)
[2019-08-30] MEDS ORDERED: SUGAMMADEX 200 MG/2 ML VIAL IVP ONE (11:33)
[2019-08-30] MEDS ORDERED: ONDANSETRON 4 MG/2 ML VIAL IVP PRN ×2 (11:42→12:26)
[2019-08-30] MEDS ORDERED: LORazepam 2 MG/ML VIAL IVP PRN (11:42)
[2019-08-30] MEDS ORDERED: ceFAZolin 2 GM in SODIUM CHLORIDE 0.9% 100ML 100 ML IV SCH (12:00)
[2019-08-30] MEDS ORDERED: metroNIDAZOLE 500 MG/100 ML 500 MG/100 ML BAG IV SCH (12:00)
[2019-08-30] MEDS ORDERED: NALBUPHINE 10 MG/ML AMP IVP PRN (12:26)
[2019-08-30] MEDS ORDERED: diphenhydrAMINE INJ 50 MG/ML VIAL IVP PRN (12:26)
[2019-08-30] MEDS ORDERED: ROPIVACAINE 0.2% 200 MG/100 ML BAG EP PRN (12:26)
--- NOTE | 2019-08-30 12:57 | OPERATIVE REPORT ---
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 Tumor is at the distal end Estimated Blood Loss (mL): 150 Indications: Biopsy proven malignancy at the recto-sigmoid junction Findings: Final anastamosis 9 cm from the anal verge. Complications: Unable to complete the procedure laparoscopically due to multiple abdominal wall hernias and patient body habitus - Other Other Information/Narrative: After obtaining informed consent, the patient was brought to the operating room and placed in the supine position on the operating table. Following successful induction of general endotracheal anesthesia, appropriate padding of all bony prominences and placement of appropriate monitors, the patient was placed in lithotomy position and the abdomen prepped and draped in the standard surgical fashion. A time out was held per SCOPE protocol. All elements of the surgical safety checklist were followed before, during, and after the procedure. Following infiltration with local anesthetic to create a field block, an incision was created over the hernia and carried gently through the skin. The hernia sack was entered carefully and was found to contain omentum and small bowel. The opening in the fascia was noted to be 6 x 4 cm. The omentum was eased back into the abdominal cavity. Palpation of the abdominal wall revealed a second midline hernia superior to the first and two other right upper quadrant abdominal wall defects. A 10 mm port was placed in the midline 10 cm superior to the umbilicus. A hand port was placed in the defect and the abdomen was insufflated to 15 mm of mercury pressure. The patient was placed in Trendelenbe rg position with the left side rotated toward the floor. The camera was placed in the abdominal cavity and we noted fairly dense adhesions in the right upper quadrant. We were able to address these sharply and visualize the pelvis. The sigmoid colon was identified and multiple very large diverticula were noted. No displayed significant inflammation. We moved the small bowel gently into the right upper quadrant in an effort to improve exposure. The recto-sigmoid junction was identified. The peritoneal reflection was gently incised allowed greater mobility of the colon and subsequent visualization of the tattoo. The surgeon's hand was then placed in the abdominal cavity and the rectosigmoid junction and tumor were palpated. Multiple attempts were made to reposition ports and personnel to provide adequate visualization of the operative site but we were not successful. Attempt was made to identify the left ureter and NORA but we were not able to do so due to the amount of associated adipose tissue. At this time, we made the decision to abort laparoscopy and proceed with open low anterior resection. Following infiltration with local anesthetic, a lower midline incision was created and carried throught the skin and subcutaneous tissue. The fascia was opened sharply and the abdomen entered under direct vision. A Corey retractor was placed and lap were placed strategically to provide bowel and bladder retraction. The sigmoid colon was examined carefully. A window was created in the mesentery in the mid sigmod colon. A HUMAIRA stapling device was used to ligate and divide the bowel at this location. This site was chosen because it allowed us to include the largest divertula and most abnormal appearing bowel while allowing adequate sigmoid colon to remain for anastamosis. Once the bowel was divided, the mesentery of the sigmoid colon was divided straight down to the root of the mesentery using the Ligasure device. The retroperitoneum on the left was reflected laterally and we were able to identify the left ureter as it crossed the iliac artery and continued caudally. It was carefully preserved. We continued with mesorectal excision dividing the vessels in the presacral space. We continued the dissection until the entire mass was palpable and visible. Lateral attachments were dealt with using the Ligasure. The anterior peritoneum was then incised allowing greater mobility and elevation of the palpable tumor. This allowed placement of the the Contour stapling device. The rectum was divided and the specimen liberated. It was opened on the back table revealing at least a 1.5 cm distal margin from gross tumor. The pelvis was irrigated with saline solution and aspirated free off all fluid and particulate matter. The proximal end of the colon was now prepared for reanastamosis. With [place] clamps on the end of the colon at the staple line, the overlying fat and EpiPen disease were carefully dissected from its surface. A pursestring device was used to place a 2-0 Prolene pursestring suture approximately 5 mm proximal to the staple line. The staple line was then removed and the bowel held onto with [place] clamps. EEA sizers were then used to determine the appropriate size of reconstructing stapler. The largest permissible opening was 25 mm. We therefore selected this extraintestinal anastomotic device for reconstruction. TheDisc was placed into the bowel and the pursestring device closed over the stem. The pelvis was checked once again for hemostasis. The pursestring device was tied so that the sutures marked the right lateral aspect of the bowel allowing us to avoid twisting. Dr. Moreira went below. The 25 mm EEA stapling device was then lubricated and placed in the patient's anus.It was advanced to the stapled and of the rectum, approximately 10 cm from the anal verge. Watching from the internal viewpoint, the anvil was then brought through the bowel wall anteriorly. Once it was completely through, the disc was snapped onto the anvil and the device closed and fired. The donuts were checked on the back table and were found to be complete. The anastomosis was then checked for leaks using both dilute Betadine solution and air. In both cases, the bowel was noted to be distended but no leaks were identified.The bowel was then desufflated. The abdomen was irrigated with warm saline solution and aspirated free of all fluid and particulate matter.The abdominal incision was extended somewhat superiorly to include the entire hernia sac. The hernia sac was stripped out of the subcutaneous tissue. The incision was then closed with running looped PDS suture from either end. The subcutaneous tissue was irrigated with warm saline solution. Skin clips were applied in the skin. All sponge, needle, and instrument counts were correct at the conclusion of the case. The patient was allowed to awake from anesthesia without difficulty and taken to the post anesthesia care unit in good condition.
[2019-08-30] MEDS: LACTATED RINGERS 1,000 ML IV SCH (13:09)
[2019-08-30] MEDS ORDERED: SODIUM CHLORIDE FLUSH 0.9% 10 ML SYRINGE ONE ×4 (13:13→17:25)
[2019-08-30] MEDS: ACETAMINOPHEN 325 MG TABLET PO SCH ×3 (13:26→21:01)
[2019-08-30] MEDS ORDERED: ROPIVACAINE 0.5% PF 20 ML AMPULE ONE ×2 (15:19)
--- NOTE | 2019-08-30 16:30 | ANESTHESIA PROCEDURE NOTE ---
Diagnosis: post op pain after colectomy Height and Weight: Height 5 ft 7 in Weight (kg) 117.4 kg Body Mass Index 41.1 Vital Signs: Temp Pulse Resp BP Pulse Ox 34.8 C L 76 16 118/67 97 08/30/19 14:00 08/30/19 15:00 08/30/19 15:00 08/30/19 15:00 08/30/19 15:00 Allergies No Known Drug Allergies Allergy (Verified 08/17/19 09:27) Requesting Provider: laura ASA classification: 2-Mild systemic disease Anes. Monitoring and Equipment: Non-invasive BP, Pulse oximetery Anes. Procedure Start Time: 15:00 Anes. Procedure Stop Time: 16:15 Procedure Notes: patient had a lower thorax epidural placed in the OR by an bus cleaner. Pt transferred to the room and I went to start the epidural pump, but upon aspirating the catheter, blood was noticed. I pulled the catheter back but continued to get blood upon aspiration. I Spoke with the the patient and her family about the need to remove the epidural catheter. I Spoke with the patient about bilateral tap block for pain control, pt and her both agreed. TAP block done using US, 150mm stimuplux needle ( patient is obese with BMI 40.5) cleaned the site with chloroprep using sterile technique. Used 20ml of ropivacain 0.5% diluted with 20 ml of NS on each side for TAP block
[2019-08-30] MEDS: metroNIDAZOLE 500 MG/100 ML 500 MG/100 ML BAG IV SCH (17:25)
[2019-08-30] MEDS: ceFAZolin 2 GM in SODIUM CHLORIDE 0.9% 100ML 100 ML IV SCH ×2 (17:37→20:03)
[2019-08-30] MEDS: ENOXAPARIN 40 MG/0.4 ML SYRINGE SUBQ SCH (21:01)
[2019-08-31] MEDS: metroNIDAZOLE 500 MG/100 ML 500 MG/100 ML BAG IV SCH (00:17)
[2019-08-31] MEDS: ACETAMINOPHEN 325 MG TABLET PO SCH ×6 (00:17→20:33)
[2019-08-31] MEDS: LACTATED RINGERS 1,000 ML IV SCH ×2 (01:26→20:33)
[2019-08-31] MEDS: ceFAZolin 2 GM in SODIUM CHLORIDE 0.9% 100ML 100 ML IV SCH (01:26)
[2019-08-31 05:23] LABS: BASOPHILS % (AUTO) 0.4 %; EOSINOPHILS % (AUTO) 0.1 %; HGB - HEMOGLOBIN 12.3 g/dL (12.0-16.0); LYMPHOCYTES % (AUTO) 11.7 %; MEAN CORPUSCULAR HEMOGLOBIN 28.6 pg (27.0-31.0); MEAN CORPUSCULAR HGB CONC 31.9 g/dL (32.0-36.0); MEAN CORPUSCULAR VOLUME 89.5 fL (81.0-99.0); MEAN PLATELET VOLUME 10.1 fL (7.9-10.8); MONOCYTES # (AUTO) 0.9 10^3/uL (0.0-1.0); NEUTROPHILS # (AUTO) 6.9 10^3/uL (1.5-6.6); NEUTROPHILS % (AUTO) 77.4 %; PLT - PLATELET COUNT 239 10^3/uL (130-450); RED CELL DISTRIBUTION WIDTH 13.3 % (12.0-15.0); WHITE BLOOD COUNT 8.9 x10^3/uL (4.8-10.8)
[2019-08-31 05:30] LABS: CALCIUM 8.4 mg/dL (8.5-10.3); CREATININE 0.7 mg/dL (0.4-1.0)
[2019-08-31] MEDS ORDERED: SODIUM CHLORIDE FLUSH 0.9% 10 ML SYRINGE ONE ×2 (06:17→10:50)
[2019-08-31] MEDS: PANTOPRAZOLE 40 MG VIAL IVP SCH (06:21)
--- NOTE | 2019-08-31 07:30 | PROVIDER PROGRESS NOTE ---
Subjective - General Admit Date: 08/30/19 Procedure Date: 08/30/19 Post Op Days: 1 Procedure Performed: Low Anterior Resection - Review of Systems Wound/Incisions: positive: Dressing dry and intact General: positive: No symptoms HEENT: positive: No symptoms Pulmonary: positive: No symptoms Cardiovascular: positive: No symptoms Gastrointestinal: positive: Abdominal pain (At incision site. Patient reports pain only with movement). negative: Nausea, Vomiting Genitourinary: positive: No symptoms Musculoskeletal: positive: Back pain Skin: positive: No symptoms Objective - Patient Data Reviewed Vital Signs: Yes Vital Signs: Vital Signs x48h Temp Pulse Resp BP Pulse Ox 08/31/19 04:00 37.0 C 102 H 16 122/72 98 08/31/19 00:00 36.6 C 102 H 16 122/66 97 Weight: Weight 08/29/19 08/30/19 08/31/19 23:59 23:59 23:59 Weight (kg) 117.4 kg Intake & Output: Intake and Output Totals x24h 08/29/19 08/30/19 08/31/19 23:59 23:59 23:59 Intake Total 1875 814.167 Output Total 870 350 Balance 1005 464.167 - Lab Results Lab Results: 08/31/19 05:15 08/31/19 05:15 Other Lab Results: Lab Results x24hrs 08/31/19 08/31/19 08/30/19 Range/Units 05:15 05:15 21:09 WBC 8.9 (4.8-10.8) x10^3/uL RBC 4.30 (4.20-5.40) 10^6/uL Hgb 12.3 (12.0-16.0) g/dL Hct 38.5 (37.0-47.0) % MCV 89.5 (81.0-99.0) fL MCH 28.6 (27.0-31.0) pg MCHC 31.9 L (32.0-36.0) g/dL RDW 13.3 (12.0-15.0) % Plt Count 239 (130-450) 10^3/uL MPV 10.1 (7.9-10.8) fL Neut # (Auto) 6.9 H (1.5-6.6) 10^3/uL Lymph # (Auto) 1.0 L (1.5-3.5) 10^3/uL Dewitt # (Auto) 0.9 (0.0-1.0) 10^3/uL Eos # (Auto) 0.0 (0.0-0.7) 10^3/uL Baso # (Auto) 0.0 (0.0-0.1) 10^3/uL Absolute Nucleated RBC 0.00 x10^3/uL Nucleated RBC % 0.0 /100WBC Sodium 139 (135-145) mmol/L Potassium 3.6 (3.5-5.0) mmol/L Chloride 107 (101-111) mmol/L Carbon Dioxide 26 (21-32) mmol/L Anion Gap 6.0 (6-13) BUN 16 (6-20) mg/dL Creatinine 0.7 (0.4-1.0) mg/dL Estimated GFR (MDRD) 82 L (>89) Glucose 107 H (70-100) mg/dL POC Whole Bld Glucose 118 H (70 - 100) mg/dL Calcium 8.4 L (8.5-10.3) mg/dL 08/30/19 Range/Units 18:30 WBC (4.8-10.8) x10^3/uL RBC (4.20-5.40) 10^6/uL Hgb (12.0-16.0) g/dL Hct (37.0-47.0) % MCV (81.0-99.0) fL MCH (27.0-31.0) pg MCHC (32.0-36.0) g/dL RDW (12.0-15.0) % Plt Count (130-450) 10^3/uL MPV (7.9-10.8) fL Neut # (Auto) (1.5-6.6) 10^3/uL Lymph # (Auto) (1.5-3.5) 10^3/uL Dewitt # (Auto) (0.0-1.0) 10^3/uL Eos # (Auto) (0.0-0.7) 10^3/uL Baso # (Auto) (0.0-0.1) 10^3/uL Absolute Nucleated RBC x10^3/uL Nucleated RBC % /100WBC Sodium (135-145) mmol/L Potassium (3.5-5.0) mmol/L Chloride (101-111) mmol/L Carbon Dioxide (21-32) mmol/L Anion Gap (6-13) BUN (6-20) mg/dL Creatinine (0.4-1.0) mg/dL Estimated GFR (MDRD) (>89) Glucose (70-100) mg/dL POC Whole Bld Glucose 81 (70 - 100) mg/dL Calcium (8.5-10.3) mg/dL - Current Medications Current Medications: Current Medications Generic Name Dose Route Start Last Admin Trade Name Freq PRN Reason Stop Dose Admin Acetaminophen 650 mg 08/30/19 13:00 08/31/19 05:10 Tylenol PO 650 mg Q4HR JEM Administration Enoxaparin Sodium 40 mg 08/30/19 21:00 08/30/19 21:01 Lovenox SUBQ 40 mg Q24H JEM Administration Lactated Ringer's 1,000 mls @ 50 mls/hr 08/30/19 12:00 08/31/19 01:26 Lr IV 50 mls/hr .Q20H JEM Administration Pantoprazole Sodium 40 mg 08/31/19 07:00 08/31/19 06:21 Protonix IVP 40 mg QDAC JEM Administration - Physical Exam Wound/Incisions: positive: Dressing dry and intact, Drainage (minimal shadow drainage) General Appearance: positive: Alert, Mild distress Eyes Bilateral: positive: Normal inspection, PERRL ENT: positive: ENT inspection nml, Pharynx nml, No signs of dehydration Neck: positive: Nml inspection Respiratory: positive: Chest non-tender, No respiratory distress, Breath sounds nml Cardiovascular: positive: Regular rate & rhythm Abdomen: positive: Tenderness (appropriately tender with hypo active bowel sounds) Skin: positive: Color nml, No rash Neurologic/Psychiatric: positive: Oriented x3, CN's nml (2-12) ABX Reporting Has patient been on IV antibiotics over the past 48 hours?: Yes Impression/Plan - Problem List Problem List: 1. Epidural stopped working last evening and patient received a VINCE block. It worked well overnight but has since worn off. She reports she is uncomfortable only when she moves - Will give IV hydromorphone prn and start Oxycodone when she is tolerating po 2. D/c aleman catheter this AM 3. Continue ERAS protocol
--- NOTE | 2019-08-31 08:45 | PHARMACY PROGRESS NOTE ---
- Best Possible Medication History Admit Date and Time: 08/30/19 0723 Processed by: Nursing Medication History completed: Yes As the person ultimately responsible for medication therapy, providers are able to order a medication from an existing home medication list in [facility] via the "Reconcile Routine" prior to Confirmation of that medication by bioinformatics support specialist. Such practice is discouraged except when the physician, in their clinical judgment, deems that a medical need exists for a medication without regard to previous use.
[2019-08-31] MEDS ORDERED: HYDROmorphone 0.5 MG/0.5 ML SYRINGE IVP PRN (10:32)
[2019-08-31] MEDS: oxyCODONE 5 MG TABLET PO PRN ×3 (12:05→20:33)
[2019-08-31] MEDS ORDERED: PROPOFOL 200 MG/20 ML VIAL IVP ONE (14:16)
[2019-08-31] MEDS ORDERED: ePHEDrine 50 MG/ML VIAL IVP ONE (14:16)
[2019-08-31] MEDS ORDERED: ROCURONIUM 50 MG/5 ML VIAL IVP ONE (14:16)
[2019-08-31] MEDS ORDERED: MIDAZOLAM 2 MG/2 ML VIAL IVP ONE (14:16)
[2019-08-31] MEDS ORDERED: fentaNYL 100 MCG/2 ML VIAL IVP ONE (14:16)
[2019-08-31] MEDS ORDERED: NEOSTIGMINE 1 MG/1 ML 10 ML MDV IVP ONE (14:16)
[2019-08-31] MEDS: ENOXAPARIN 40 MG/0.4 ML SYRINGE SUBQ SCH (20:33)
[2019-09-01] MEDS: ACETAMINOPHEN 325 MG TABLET PO SCH ×6 (02:00→23:35)
[2019-09-01] MEDS ORDERED: SODIUM CHLORIDE FLUSH 0.9% 10 ML SYRINGE ONE ×2 (05:54→23:29)
[2019-09-01] MEDS: PANTOPRAZOLE 40 MG VIAL IVP SCH (06:01)
[2019-09-01] MEDS: POLYETHYLENE GLYCOL 3350 17 GM PACKET PO SCH (08:32)
--- NOTE | 2019-09-01 10:13 | PROVIDER PROGRESS NOTE ---
Subjective - General Admit Date: 08/30/19 Procedure Date: 08/30/19 Post Op Days: 2 Procedure Performed: Low Anterior Resection - Review of Systems Wound/Incisions: positive: Dressing dry and intact, Drainage (minimal shadow drainage) General: positive: No symptoms HEENT: positive: No symptoms Pulmonary: positive: No symptoms Cardiovascular: positive: No symptoms Gastrointestinal: positive: Abdominal pain (At incision site. Patient reports pain only with movement). negative: Nausea, Vomiting Genitourinary: positive: No symptoms Musculoskeletal: positive: Back pain Skin: positive: No symptoms - Other Other Information/Narrative: Pain is better every day. Afebrile. No flatus but feels lots of movement in her abdomen. Objective - Patient Data Vital Signs: Vital Signs x48h Temp Pulse Resp BP Pulse Ox 09/01/19 07:58 36.2 C L 106 H 20 141/87 H 95 09/01/19 03:53 36.4 C L 100 18 147/94 H 93 Weight: Weight 08/30/19 08/31/19 09/01/19 23:59 23:59 23:59 Weight (kg) 117.4 kg Intake & Output: Intake and Output Totals x24h 08/30/19 08/31/19 09/01/19 23:59 23:59 23:59 Intake Total 1875 2730.000 614.167 Output Total 870 400 350 Balance 1005 2330.000 264.167 - Lab Results Lab Results: 08/31/19 05:15 08/31/19 05:15 Other Lab Results: Lab Results x24hrs 09/01/19 08/31/19 08/31/19 Range/Units 07:44 20:34 16:37 POC Whole Bld Glucose 86 88 88 (70 - 100) mg/dL 08/31/19 Range/Units 11:20 POC Whole Bld Glucose 85 (70 - 100) mg/dL - Current Medications Current Medications: Current Medications Generic Name Dose Route Start Last Admin Trade Name Freq PRN Reason Stop Dose Admin Acetaminophen 650 mg 08/30/19 13:00 09/01/19 06:01 Tylenol PO 650 mg Q4HR JEM Administration Enoxaparin Sodium 40 mg 08/30/19 21:00 08/31/19 20:33 Lovenox SUBQ 40 mg Q24H JEM Administration Hydromorphone HCl 0.5 mg 08/31/19 10:32 08/31/19 10:54 Dilaudid Inj Syringe IVP 0.5 mg Q30M PRN Administration Breakthrough Pain Oxycodone HCl 5 mg 08/31/19 10:31 08/31/19 20:33 Roxicodone PO 5 mg Q4HR PRN Administration PAIN Pantoprazole Sodium 40 mg 08/31/19 07:00 09/01/19 06:01 Protonix IVP 40 mg QDAC JEM Administration Polyethylene Glycol 17 gm 09/01/19 09:00 09/01/19 08:32 Miralax PO 17 gm DAILY JEM Administration - Physical Exam Wound/Incisions: positive: Healing well General Appearance: positive: No acute distress, Alert Eyes Bilateral: positive: Normal inspection, PERRL, EOMI ENT: positive: ENT inspection nml, Pharynx nml, No signs of dehydration Neck: positive: Nml inspection, Thyroid nml, No JVD Respiratory: positive: Chest non-tender, No respiratory distress, Breath sounds nml Cardiovascular: positive: Regular rate & rhythm, No murmur Abdomen: positive: Nml bowel sounds, Tenderness, Other (soft and appropriately tender with normal active bowel sounds) Back: positive: Nml inspection Skin: positive: Color nml Neurologic/Psychiatric: positive: Oriented x3, CN's nml (2-12) Impression/Plan - Problem List Problem List: Healing well pod #2 after low anterior resection. Increase activity today and walk in the halls. Discontinue IV fluid. Try to stay to only oral pain medications. Plan for discharge to home tomorrow if she continues to do well.
[2019-09-01] MEDS: ENOXAPARIN 40 MG/0.4 ML SYRINGE SUBQ SCH (20:27)
[2019-09-01] MEDS: carvediloL 12.5 MG TABLET PO SCH (20:27)
[2019-09-01] MEDS ORDERED: lisinopriL 20 MG TABLET PO SCH (21:00)
[2019-09-02] MEDS: ACETAMINOPHEN 325 MG TABLET PO SCH ×3 (02:58→11:22)
[2019-09-02] MEDS: PANTOPRAZOLE 40 MG VIAL IVP SCH (06:31)
[2019-09-02] MEDS: carvediloL 12.5 MG TABLET PO SCH (08:30)
[2019-09-02] MEDS: POLYETHYLENE GLYCOL 3350 17 GM PACKET PO SCH (08:31)
[2019-09-02] MEDS ORDERED: lisinopriL 20 MG TABLET PO SCH (09:00)
[2019-09-02] MEDS ORDERED: SPIRONOLACTONE 25 MG TABLET PO SCH (09:00)
[2019-09-02 09:28] LABS: BASOPHILS % (AUTO) 0.4 %; EOSINOPHILS # (AUTO) 0.3 10^3/uL (0.0-0.7); EOSINOPHILS % (AUTO) 2.9 %; HGB - HEMOGLOBIN 11.8 g/dL (12.0-16.0); LYMPHOCYTES # (AUTO) 1.1 10^3/uL (1.5-3.5); LYMPHOCYTES % (AUTO) 11.2 %; MEAN CORPUSCULAR HEMOGLOBIN 28.7 pg (27.0-31.0); MEAN CORPUSCULAR HGB CONC 32.2 g/dL (32.0-36.0); MEAN CORPUSCULAR VOLUME 89.3 fL (81.0-99.0); MEAN PLATELET VOLUME 10.3 fL (7.9-10.8); MONOCYTES # (AUTO) 0.8 10^3/uL (0.0-1.0); MONOCYTES % (AUTO) 8.2 %; NEUTROPHILS # (AUTO) 7.3 10^3/uL (1.5-6.6); NEUTROPHILS % (AUTO) 76.7 %; PLT - PLATELET COUNT 254 10^3/uL (130-450); RED BLOOD COUNT 4.11 10^6/uL (4.20-5.40); RED CELL DISTRIBUTION WIDTH 13.3 % (12.0-15.0); WHITE BLOOD COUNT 9.6 x10^3/uL (4.8-10.8)
[2019-09-02 09:41] LABS: CREATININE 0.6 mg/dL (0.4-1.0)
[2019-09-02 11:41] VITALS: BP 114/57
--- NOTE | 2019-09-02 12:20 | Discharge Plan ---
Discharge Plan Problem Reviewed?: Yes Disposition: Home, Self Care Condition: Good Prescriptions: oxyCODONE [Roxicodone] 5 mg PO Q4HR PRN #30 tablet PRN Reason: Pain Polyethylene Glycol 3350 [Miralax] 17 gm PO DAILY #30 packet Diet: Regular Activity Restrictions: do not lift more than 10 pounds Shower Restrictions: No Driving Restrictions: Yes (do not drive until followup appointment) Weight Bearing: Full Weight Assessment: Improving daily after low anterior resection No Smoking: If you smoke, Please STOP! Call for help. Follow-up with: Marcelino Snyder MD [Provider Admit Priv/Credential] -
--- NOTE | 2019-09-02 12:25 | DISCHARGE SUMMARY ---
"Discharge Summary Admit Date: 08/30/19 Discharge Date: 09/02/19 Discharging Provider: Claudio Primary Care Provider: Scott Carlson Status: Attempt Resuscitation Condition at Discharge: Good Discharge Disposition: 01 Home, Self Care - DIAGNOSES Admission Diagnoses: Colon Cancer Discharge Diagnoses with Status of Each Condition: Improving daily after low anterior resection - HPI History of Present Illness: Malka is a wonderful 74 year old lady who recently underwent colonoscopy and was found to have a mass at 15 - 20 cm from the anal verge. 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 - CONSULTS | PROCEDURES Consultations: None Procedures: Low Anterior Colon Resection - HOSPITAL COURSE Hospital Course: The patient was admitted through outpatient surgery and had an uneventful procedure. She was returned to the med/surg unit postoperatively for convalesence and supportive care. She has done remarkably well. Pain control is adequate with oral medications and she is ambulating without assistance. Bowel function has returned and she is urinating without difficulty. She is tolerating a regular diet. - ALLERGIES Allergies/Adverse Reactions: Allergies Allergy/AdvReac Type Severity Reaction Status Date / Time No Known Drug Allergies Allergy Verified 08/17/19 09:27 - MEDICATIONS Home Medications: Ambulatory Orders Medication Instructions Recorded Confirmed Acetaminophen [Tylenol Extra 500 mg PO BID 11/26/18 08/30/19 Strength] Lisinopril 20 mg PO DAILY 11/26/18 08/30/19 Spironolactone 12.5 mg PO DAILY 11/26/18 08/30/19 carvediloL [Carvedilol] 25 mg PO BID 11/26/18 08/30/19 Cholecalciferol (Vitamin D3) 2,000 unit PO DAILY 08/25/19 08/30/19 [Vitamin D3] Multivitamin [Multiple Vitamins] 1 each PO DAILY 08/25/19 08/30/19 Vitamin E 400 unit PO DAILY 08/25/19 08/30/19 Polyethylene Glycol 3350 [Miralax] 17 gm PO DAILY #30 packet 09/02/19 Spironolactone [Aldactone] 12.5 mg PO DAILY tablet 09/02/19 carvediloL [Coreg] 25 mg PO BID tablet 09/02/19 oxyCODONE [Roxicodone] 5 mg PO Q4HR PRN #30 tablet 09/02/19 - PHYSICAL EXAM AT DISCHARGE General Appearance: positive: No acute distress, Alert, Mild distress Eyes Bilateral: positive: PERRL, EOMI ENT: positive: ENT inspection nml, Pharynx nml, No signs of dehydration Neck: positive: Nml inspection, Thyroid nml, No JVD, Trachea midline Respiratory: positive: Chest non-tender, No respiratory distress, Breath sounds nml Cardiovascular: positive: Regular rate & rhythm, No murmur Peripheral Pulses: positive: 0, Other Abdomen: positive: Other (Appropriately tender to palpation. Active bowel sounds. The wounds edges are clan and dry and well approximated. ) Extremities: positive: Pedal edema (trace) - LABS Result Diagrams: 09/02/19 09:25 09/02/19 09:25 - QUALITY (Female Hip Fx Only) Was patient sent home on osteoporosis medication?: No - FOLLOW UP Follow Up: [facility] next Thursday. - TIME SPENT Time Spent in Discharge (Minutes): 30"
== END 2019-09-02 13:18 | disposition home or self-care (01) | DRG 330 ==
LOC: MS2 07:23
PROVIDERS: ADMIT Surgery; ATTEND Surgery
PROC: 0DBN0ZZ Excision of Sigmoid Colon, Open Approach (ICD-10-PCS; principal; 2019-08-30 08:30)
PROC: 0DJD4ZZ Inspection of Lower Intestinal Tract, Percutaneous Endoscopic Approach (ICD-10-PCS; 2019-08-30 08:30)
DX: C19 Malignant neoplasm of rectosigmoid junction (principal); Z68.41 Body mass index [BMI] 40.0-44.9, adult; C77.5 Secondary and unspecified malignant neoplasm of intrapelvic lymph nodes; K43.2 Incisional hernia without obstruction or gangrene; K57.30 Diverticulosis of large intestine without perforation or abscess without bleeding; I10 Essential (primary) hypertension; G47.30 Sleep apnea, unspecified; I27.20 Pulmonary hypertension, unspecified; E66.01 Morbid (severe) obesity due to excess calories; Z79.899 Other long term (current) drug therapy; Z90.49 Acquired absence of other specified parts of digestive tract; Z53.31 Laparoscopic surgical procedure converted to open procedure
CPT/HCPCS: 36415; 80048; 85025; A9270; J1170; J1650; J7120

== ENCOUNTER 2019-09-03 14:05 | Inpatient (IN) | payer MEDICARE, BC ==
[2019-09-03] MEDS ORDERED: SODIUM CHLORIDE 0.9% 1,000 ML IV ONE (14:23)
[2019-09-03] MEDS ORDERED: ONDANSETRON 4 MG/2 ML VIAL IVP STA (14:23)
--- NOTE | 2019-09-03 14:24 | ED Physician Documentation ---
PD HPI ABD PAIN - Stated complaint Stated Complaint: POST SURGICAL COMPLICATIONS - Chief complaint Chief Complaint: Abd Pain - History obtained from History obtained from: Patient - History of Present Illness Timing - onset: Last night (She is a few bit days out from a colon resection for cancer. She was released from the hospital last night, she was passing gas. Last evening she started having vomiting and diarrhea. Pain is minimal. She had some dark vomitus. She was called in some Zofran and Reglan, they helped for a while but is worse now. Feeling weak and dizzy.) Review of Systems Ten Systems: 10 systems reviewed and negative Constitutional: denies: Fever, Chills Cardiac: denies: Chest pain / pressure, Palpitations Respiratory: denies: Dyspnea, Cough GI: reports: Abdominal Pain, Nausea, Vomiting, Diarrhea PD PAST MEDICAL HISTORY - Past Medical History Cardiovascular: Hypertension, Other (left bundle branch block) Respiratory: Sleep apnea Neuro: None Endocrine/Autoimmune: None GI: GERD, Other : Incontinence, Other HEENT: Chronic vision loss, Macular degeneration Psych: None Musculoskeletal: Osteoarthritis Derm: Other - Past Surgical History Past Surgical History: Yes General: Cholecystectomy, Colonoscopy /[employer]: section Neuro: Craniotomy (march 2017) - Present Medications Home Medications: Ambulatory Orders Medication Instructions Recorded Confirmed Acetaminophen [Tylenol Extra 500 mg PO BID 11/26/18 08/30/19 Strength] Lisinopril 20 mg PO DAILY 11/26/18 08/30/19 Spironolactone 12.5 mg PO DAILY 11/26/18 08/30/19 carvediloL [Carvedilol] 25 mg PO BID 11/26/18 08/30/19 Cholecalciferol (Vitamin D3) 2,000 unit PO DAILY 08/25/19 08/30/19 [Vitamin D3] Multivitamin [Multiple Vitamins] 1 each PO DAILY 08/25/19 08/30/19 Vitamin E 400 unit PO DAILY 08/25/19 08/30/19 Polyethylene Glycol 3350 [Miralax] 17 gm PO DAILY #30 packet 09/02/19 Spironolactone [Aldactone] 12.5 mg PO DAILY tablet 09/02/19 carvediloL [Coreg] 25 mg PO BID tablet 09/02/19 oxyCODONE [Roxicodone] 5 mg PO Q4HR PRN #30 tablet 09/02/19 - Allergies Allergies/Adverse Reactions: Allergies Allergy/AdvReac Type Severity Reaction Status Date / Time No Known Drug Allergies Allergy Verified 09/03/19 14:08 - Social History Does the pt smoke?: No Smoking Status: Never smoker Does the pt drink ETOH?: No Does the pt have substance abuse?: No - Immunizations Immunizations are current?: Yes - POLST Patient has POLST: No PD ED PE NORMAL - Vitals Vital signs reviewed: Yes - General General: Alert and oriented X 3, No acute distress - HEENT HEENT: PERRL, EOMI - Neck Neck: Supple, no meningeal sign, No bony TTP - Cardiac Cardiac: RRR, No murmur - Respiratory Respiratory: No respiratory distress, Clear bilaterally - Abdomen Abdomen: Other (Surgical incisions upper and lower in the midline are well approximated with candelaria, no evidence of infection. Belly is soft with somewhat diminished tinkling bowel tones but not absent. No tenderness.) - Back Back: No CVA TTP, No spinal TTP - Derm Derm: Other (Venous stasis changes of the legs) - Extremities Extremities: No edema - Neuro Neuro: Alert and oriented X 3, Normal speech Results - Vitals Vitals: Vital Signs - 24 hr 09/03/19 09/03/19 09/03/19 14:08 14:55 16:07 Temperature 36.6 C Heart Rate 124 H 110 H 114 H Respiratory 14 18 18 Rate Blood Pressure 121/75 110/67 111/61 O2 Saturation 95 93 94 Oxygen O2 Source [With Activity] Room air O2 Source [Without Activity] Room air O2 Source Room air - Labs Labs: Laboratory Tests 09/03/19 09/03/19 14:35 14:35 WBC 12.5 H RBC 4.69 Hgb 13.1 Hct 41.9 MCV 89.3 MCH 27.9 MCHC 31.3 L RDW 13.5 Plt Count 382 MPV 9.9 Neut # (Auto) 10.5 H Lymph # (Auto) 1.0 L [place] # (Auto) 0.9 Eos # (Auto) 0.1 Baso # (Auto) 0.1 Absolute Nucleated RBC 0.00 Nucleated RBC % 0.0 Sodium 138 Potassium 3.6 Chloride 96 L Carbon Dioxide 29 Anion Gap 13.0 BUN 27 H Creatinine 0.9 Estimated GFR (MDRD) 62 L Glucose 120 H Calcium 10.0 Total Bilirubin 1.2 H AST 36 ALT 32 Alkaline Phosphatase 63 Total Protein 6.9 Albumin 3.5 Globulin 3.4 Albumin/Globulin Ratio 1.0 Lipase 45 PD MEDICAL DECISION MAKING - ED course ED course: 74-year-old woman with postoperative nausea vomiting, potentially an ileus. She was treated with some Zofran and IV fluids, still having a lot of nausea and subsequently Reglan. We tried a GI cocktail to, but had a large volume of emesis and Dr. Snyder will place her in observation. Departure - Departure Disposition: ED Place in Observation Clinical Impression: Postoperative ileus, Intractable nausea and vomiting Condition: Stable
[2019-09-03 14:42] LABS: BASOPHILS # (AUTO) 0.1 10^3/uL (0.0-0.1); BASOPHILS % (AUTO) 0.4 %; EOSINOPHILS # (AUTO) 0.1 10^3/uL (0.0-0.7); EOSINOPHILS % (AUTO) 0.6 %; HGB - HEMOGLOBIN 13.1 g/dL (12.0-16.0); LYMPHOCYTES % (AUTO) 7.6 %; MEAN CORPUSCULAR HEMOGLOBIN 27.9 pg (27.0-31.0); MEAN CORPUSCULAR HGB CONC 31.3 g/dL (32.0-36.0); MEAN CORPUSCULAR VOLUME 89.3 fL (81.0-99.0); MEAN PLATELET VOLUME 9.9 fL (7.9-10.8); MONOCYTES # (AUTO) 0.9 10^3/uL (0.0-1.0); MONOCYTES % (AUTO) 7.1 %; NEUTROPHILS # (AUTO) 10.5 10^3/uL (1.5-6.6); NEUTROPHILS % (AUTO) 83.7 %; PLT - PLATELET COUNT 382 10^3/uL (130-450); RED BLOOD COUNT 4.69 10^6/uL (4.20-5.40); RED CELL DISTRIBUTION WIDTH 13.5 % (12.0-15.0); WHITE BLOOD COUNT 12.5 x10^3/uL (4.8-10.8)
[2019-09-03 14:57] LABS: ALBUMIN 3.5 g/dL (3.2-5.5); BILIRUBIN,TOTAL 1.2 mg/dL (0.2-1.0); CREATININE 0.9 mg/dL (0.4-1.0); TOTAL PROTEIN 6.9 g/dL (6.7-8.2)
[2019-09-03] MEDS ORDERED: METOCLOPRAMIDE 10 MG/2 ML VIAL IVP STA (15:45)
[2019-09-03] MEDS ORDERED: LIDOCAINE VISCOUS 2% 15 ML UDC MM STA (16:25)
[2019-09-03] MEDS ORDERED: MAG HYDROX/AL HYDROX/SIMETH 30 ML UDC PO STA (16:25)
[2019-09-03] MEDS: D5NS W/20 MEQ KCL 1,000 ML IV SCH (17:45)
[2019-09-03] MEDS: PANTOPRAZOLE 40 MG VIAL IVP SCH (17:45)
[2019-09-03] MEDS: METOCLOPRAMIDE 10 MG/2 ML VIAL IVP SCH (17:45)
[2019-09-03] MEDS: SODIUM CHLORIDE FLUSH 0.9% 10 ML SYRINGE IVP SCH (17:46)
[2019-09-03] MEDS ORDERED: NON FORMULARY MED (Carvedilol [Carvedilol] 25 MG) PO SCH (21:00)
[2019-09-03] MEDS: carvediloL 12.5 MG TABLET PO SCH (21:09)
[2019-09-03] MEDS: ONDANSETRON 4 MG/2 ML VIAL IVP PRN (21:19)
[2019-09-04] MEDS: METOCLOPRAMIDE 10 MG/2 ML VIAL IVP SCH ×4 (00:30→18:16)
[2019-09-04] MEDS: SODIUM CHLORIDE FLUSH 0.9% 10 ML SYRINGE IVP SCH ×3 (00:31→15:52)
[2019-09-04] MEDS: D5NS W/20 MEQ KCL 1,000 ML IV SCH ×3 (03:11→22:19)
[2019-09-04] MEDS: PANTOPRAZOLE 40 MG VIAL IVP SCH (05:59)
[2019-09-04] MEDS: SODIUM CHLORIDE FLUSH 0.9% 10 ML SYRINGE IVP PRN ×2 (05:59→18:17)
--- NOTE | 2019-09-04 06:13 | XRAY Report ---
Reason: nausea and vomiting Procedure Date: 09/04/2019 Accession Number: [id number] / [id number] Procedure: XR - Abdomen 2 View X-Ray CPT Code: 30391 Final Report FULL RESULT: EXAM: ABDOMEN RADIOGRAPHY EXAM DATE: 09/04/2019 06:03 AM. CLINICAL HISTORY: Nausea and vomiting. COMPARISON: None. TECHNIQUE: 2 views. FINDINGS: Lung Bases: Unremarkable. Bowel Gas Pattern: There is moderate gas distention of the stomach with air-fluid levels and there are a few loops of mid small bowel with air-fluid levels. There is some air seen in the rectum. There is no free or the gallbladder has been resected. Other: None. IMPRESSION: Findings most compatible with changes of ileus. [facility]
[2019-09-04] MEDS: carvediloL 12.5 MG TABLET PO SCH ×2 (08:10→22:18)
[2019-09-04] MEDS: ENOXAPARIN 40 MG/0.4 ML SYRINGE SUBQ SCH (08:10)
[2019-09-04] MEDS: ONDANSETRON 4 MG/2 ML VIAL IVP PRN ×2 (10:52→17:06)
[2019-09-04] MEDS: LORazepam 2 MG/ML VIAL IVP PRN ×3 (11:26→18:16)
--- NOTE | 2019-09-04 11:31 | SURGERY HX AND PHYSICAL(T) ---
Surgical History & Physical - Chief Complaint/HPI Chief Complaint: Nausea and vomitin History of Present Illness: Patient discharged on post op day 3. Initially did well at home and then developed nausea and vomiting. She has only been taking tylenol for pain. Continues to pass a small amount of flatus and has had a couple of diarrhea stools. Took Zofran and reglan at home and it wasn't effective so she presented to the ED. She is afebrile. Labs in the ED were reassurring. Xrays consistent with mild ileus. - PMH/PSH/Social Hx Does the pt have a hx of MRSA?: No Neurological History: None Eyes, Ears, Nose, Throat: Chronic vision loss, Macular degeneration Cardiovascular: Hypertension, Other Respiratory: Sleep apnea Skin: Other Endocrine/Autoimmune: None Gastrointestinal: GERD, Other Is Patient ?: No Urinary: Incontinence, Other Musculoskeletal: Osteoarthritis Psychiatric: None General: Cholecystectomy, Bowel surgery, Colonoscopy Neurologic: Craniotomy Smoking Status: Never smoker Does the pt drink ETOH?: No Does the pt have substance abuse?: No - Home Meds and Allergies Home Medications: Acetaminophen [Tylenol Extra Strength] 500 mg PO BID 11/26/18 Lisinopril 20 mg PO DAILY 11/26/18 Cholecalciferol (Vitamin D3) [Vitamin D3] 2,000 unit PO DAILY 08/25/19 Multivitamin [Multiple Vitamins] 1 each PO DAILY 08/25/19 Vitamin E 400 unit PO DAILY 08/25/19 Allergies/Adverse Reactions: Allergies Allergy/AdvReac Type Severity Reaction Status Date / Time No Known Drug Allergies Allergy Verified 09/03/19 14:08 - Review of Systems Constitutional: Fatigue, Weakness, Poor appetite. No: Fever, Chills HEENT: No: Headaches, Visual changes, Dysphasia, Sore throat Skin: No: Bruising, Rash Cardiac: HTN. No: Syncope Respiratory: No: Shortness of breath Gastrointestinal: Nausea, Vomiting, Flatus, Diarrhea. No: Difficulty swallowing, Abdominal pain Gentinourinary: No: Dysuria, Frequency Neurological: No: Dizziness Musculoskeletal: No: Muscle pain - Vital Signs Heart Rate: 116 Blood Pressure: 106/70 Temperature: 36.9 C Respiratory Rate: 16 O2 Saturation: 93 Weight (kg): 116.5 kg Height: 1.7 m - Physical Exam General Appearance: positive: Alert, Moderate distress, Lethargic Eyes Bilatera: positive: Normal inspection, PERRL, EOMI ENT: positive: ENT inspection nml, Pharynx nml, No signs of dehydration Neck: positive: Nml inspection, Thyroid nml, No JVD, Trachea midline Respiratory: positive: Chest non-tender, No respiratory distress, Breath sounds nml Cardiovascular: positive: Regular rate & rhythm Peripheral Pulses: positive: 0 Abdomen: positive: Other (Appropriately tender to palpation. No rebound. Hypoactive bowel tones but present.) Back: positive: Nml inspection Skin: positive: Color nml Extremities: positive: Non-tender, Nml appearance Neurologic/Psychiatric: positive: Oriented x3, CN's nml (2-12) - Patient Review Patient Review: Problems were reviewed with the patient during this visit. Medications were reviewed with the patient during this visit. Allergies were reviewed this patient during this visit. Pertinent Tests Reviewed: All pertitent test for this patient were reviewed. - Assessment & Plan Assessment and Plan: Post operative ileus after low anterior resection. Admit for hydration, nausea control, bowel rest, and supportive care. Recheck labs in the AM.
[2019-09-05] MEDS: METOCLOPRAMIDE 10 MG/2 ML VIAL IVP SCH ×3 (00:06→12:49)
[2019-09-05] MEDS: SODIUM CHLORIDE FLUSH 0.9% 10 ML SYRINGE IVP PRN ×3 (00:07→12:49)
[2019-09-05] MEDS: SODIUM CHLORIDE FLUSH 0.9% 10 ML SYRINGE IVP SCH ×3 (00:07→17:06)
[2019-09-05 05:43] LABS: BASOPHILS # (AUTO) 0.1 10^3/uL (0.0-0.1); BASOPHILS % (AUTO) 0.5 %; EOSINOPHILS # (AUTO) 0.3 10^3/uL (0.0-0.7); EOSINOPHILS % (AUTO) 2.9 %; HGB - HEMOGLOBIN 11.2 g/dL (12.0-16.0); LYMPHOCYTES # (AUTO) 1.2 10^3/uL (1.5-3.5); LYMPHOCYTES % (AUTO) 12.7 %; MEAN CORPUSCULAR HEMOGLOBIN 28.2 pg (27.0-31.0); MEAN CORPUSCULAR HGB CONC 30.9 g/dL (32.0-36.0); MEAN CORPUSCULAR VOLUME 91.4 fL (81.0-99.0); MEAN PLATELET VOLUME 9.9 fL (7.9-10.8); MONOCYTES % (AUTO) 10.4 %; NEUTROPHILS % (AUTO) 73.1 %; PLT - PLATELET COUNT 322 10^3/uL (130-450); RED BLOOD COUNT 3.97 10^6/uL (4.20-5.40); RED CELL DISTRIBUTION WIDTH 13.3 % (12.0-15.0); WHITE BLOOD COUNT 9.5 x10^3/uL (4.8-10.8)
[2019-09-05 05:55] LABS: ALBUMIN 2.9 g/dL (3.2-5.5); ALKALINE PHOSPHATASE 67 IU/L (42-121); ALT ALANINE AMINOTRANSFERASE 29 IU/L (10-60); AST ASPARTATE AMINOTRANSFERASE 25 IU/L (10-42); BILIRUBIN,TOTAL 0.4 mg/dL (0.2-1.0); BUN - BLOOD UREA NITROGEN 22 mg/dL (6-20); CARBON DIOXIDE - CO2 30 mmol/L (21-32); CHLORIDE 107 mmol/L (101-111); CREATININE 0.7 mg/dL (0.4-1.0); GFR - MDRD 82 (>89); GLUCOSE 109 mg/dL (70-100); SODIUM 144 mmol/L (135-145); TOTAL PROTEIN 5.7 g/dL (6.7-8.2)
[2019-09-05] MEDS: PANTOPRAZOLE 40 MG VIAL IVP SCH (06:17)
[2019-09-05] MEDS: D5NS W/20 MEQ KCL 1,000 ML IV SCH ×2 (08:18→17:38)
[2019-09-05] MEDS: carvediloL 12.5 MG TABLET PO SCH ×2 (09:09→21:04)
[2019-09-05] MEDS: ENOXAPARIN 40 MG/0.4 ML SYRINGE SUBQ SCH (09:09)
--- NOTE | 2019-09-05 12:00 | PROVIDER PROGRESS NOTE ---
Subjective - Prog Note Date Prog Note Date: 09/05/19 Prog Note Time: 11:55 - Subjective Pt reports feeling: Improved Subjective: Patient reports feeling much better today. Nausea has resolved and she is passing flatus and having diarrhea. She denies any abdominal pain. She says she is missing her bicycle and her knees are feeling stiff and weak. She feels a bit unsteady Current Medications - Current Medications Current Medications: Medications Summary Carvedilol (Coreg) 25 mg PO BID [facility] Last Admin: 09/05/19 09:09 Dose: 25 mg Enoxaparin Sodium (Lovenox) 40 mg SUBQ DAILY [facility] Last Admin: 09/05/19 09:09 Dose: 40 mg Subcutaneous Injection Site Document 09/05/19 09:09 KF (Rec: 09/05/19 09:09 KF [id number]) Site Subcutaneous Injection Site Left Abdomen Potassium Chloride/Dextrose/Sod Cl () 1,000 mls @ 100 mls/hr IV .Q10H [facility] Last Admin: 09/05/19 08:18 Dose: 100 mls/hr Medication Titration Document 09/05/19 08:18 KF (Rec: 09/05/19 08:18 KF [id number]) Titration Intake Container Volume 1,000 Elapsed Time 38h 33m Titration Dosing IV Rate 100 Increase/Decrease Started/Running Cumulative Dose Not Applicable Total Intake (Rx) 3,855 Volume Adjustment/Waste 0 Lorazepam (Ativan Inj (Vial)) 0.5 mg IVP Q2H PRN PRN Reason: Nausea / Vomiting Last Admin: 09/04/19 18:16 Dose: 0.5 mg CIWA-Ar Score Document 09/04/19 18:16 WF (Rec: 09/04/19 18:16 WF [id number]) Regimen Current Score Not Applicable Re-Assess: General PRN Medication Reasses Document 09/04/19 18:46 (Rec: 09/04/19 18:50 AH [id number]) Reassessment Effective/Ineffective Effective Metoclopramide HCl (Reglan Inj) 10 mg IVP Q6HR [facility] Last Admin: 09/05/19 06:17 Dose: 10 mg Ondansetron HCl (Zofran Inj) 4 mg IVP Q6HR PRN PRN Reason: Nausea / Vomiting Last Admin: 09/04/19 17:06 Dose: 4 mg Re-Assess: General PRN Medication Reasses Document 09/04/19 17:36 WF (Rec: 09/04/19 18:15 [id number]) Reassessment Effective/Ineffective Ineffective Pantoprazole Sodium (Protonix) 40 mg IVP QDAC [facility] Last Admin: 09/05/19 06:17 Dose: 40 mg Sodium Chloride (Normal Saline Flush 0.9%) 10 ml IVP PRN PRN PRN Reason: NEEDED PER PROVIDER ORDERS Last Admin: 09/05/19 06:17 Dose: 10 ml Sodium Chloride (Normal Saline Flush 0.9%) 10 ml IVP 0100,0900,1700 JEM Last Admin: 09/05/19 08:19 Dose: Not Given Non-Admin Reason: Patient has fluids running Discontinued Medications Al Hydroxide/Mg Hydroxide (Mylanta Plus) 30 ml PO ONCE STA Stop: 09/03/19 16:26 Last Admin: 09/03/19 16:29 Dose: 30 ml Sodium Chloride (Normal Saline 0.9%) 1,000 mls @ 0 mls/hr IV .Q0M ONE Stop: 09/03/19 14:24 Last Infusion: 09/03/19 17:09 Dose: 0 mls/hr Medication Titration Document 09/03/19 17:09 RB (Rec: 09/03/19 17:09 RB [id number]) Titration Intake Titration Intake 1,000 Cumulative Intake 1,000 Container Volume 0 Elapsed Time 2h 22m Titration Dosing IV Rate 0 Increase/Decrease Infused Cumulative Dose Not Applicable Total Intake (Rx) 1,000 Volume Adjustment/Waste 0 Lidocaine HCl (Xylocaine Viscous 2%) 10 ml MM ONCE STA Stop: 09/03/19 16:26 Last Admin: 09/03/19 16:29 Dose: 10 ml Metoclopramide HCl (Reglan Inj) 10 mg IVP ONCE STA Stop: 09/03/19 15:46 Last Admin: 09/03/19 15:50 Dose: 10 mg Metoclopramide HCl (Reglan Inj) 5 mg IVP Q6HR [facility] Last Admin: 09/04/19 18:16 Dose: 5 mg Ondansetron HCl (Zofran Inj) 4 mg IVP ONCE STA Stop: 09/03/19 14:24 Last Admin: 09/03/19 14:47 Dose: 4 mg Objective - Vital Signs/Intake & Output Reviewed Vital Signs: Yes Vital Signs: Vital Signs x48h Temp Pulse Resp BP Pulse Ox 09/05/19 08:37 36.6 C 101 H 13 116/65 94 09/05/19 04:14 36.5 C 101 H 19 133/71 H 95 Intake & Output: Intake & Output 09/02/19 09/03/19 09/04/19 09/05/19 23:59 23:59 23:59 23:59 Intake Total 1000 3256.666 998.334 Output Total 875 1440 250 Balance 125 1816.666 748.334 - Objective General Appearance: positive: No acute distress, Alert Eyes Bilateral: positive: Normal inspection, PERRL, EOMI ENT: positive: ENT inspection nml, No signs of dehydration Neck: positive: Nml inspection, No JVD Respiratory: positive: Chest non-tender, No respiratory distress, Breath sounds nml Cardiovascular: positive: Regular rate & rhythm, No murmur Abdomen: positive: Non-tender, Nml bowel sounds, Other (Incision is clean and dry) Skin: positive: Color nml, No rash Extremities: positive: Non-tender. negative: Pedal edema Neurologic/Psychiatric: positive: Oriented x3, CN's nml (2-12) - Lab Results Fish Bones: 09/05/19 05:15 09/05/19 05:15 Other Labs: Lab Results x24hrs 09/05/19 09/05/19 Range/Units 05:15 05:15 WBC 9.5 (4.8-10.8) x10^3/uL RBC 3.97 L (4.20-5.40) 10^6/uL Hgb 11.2 L (12.0-16.0) g/dL Hct 36.3 L (37.0-47.0) % MCV 91.4 (81.0-99.0) fL MCH 28.2 (27.0-31.0) pg MCHC 30.9 L (32.0-36.0) g/dL RDW 13.3 (12.0-15.0) % Plt Count 322 (130-450) 10^3/uL MPV 9.9 (7.9-10.8) fL Neut # (Auto) 7.0 H (1.5-6.6) 10^3/uL Lymph # (Auto) 1.2 L (1.5-3.5) 10^3/uL [place] # (Auto) 1.0 (0.0-1.0) 10^3/uL Eos # (Auto) 0.3 (0.0-0.7) 10^3/uL Baso # (Auto) 0.1 (0.0-0.1) 10^3/uL Absolute Nucleated RBC 0.00 x10^3/uL Nucleated RBC % 0.0 /100WBC Sodium 144 (135-145) mmol/L Potassium 3.8 (3.5-5.0) mmol/L Chloride 107 (101-111) mmol/L Carbon Dioxide 30 (21-32) mmol/L Anion Gap 7.0 (6-13) BUN 22 H (6-20) mg/dL Creatinine 0.7 (0.4-1.0) mg/dL Estimated GFR (MDRD) 82 L (>89) Glucose 109 H (70-100) mg/dL Calcium 9.0 (8.5-10.3) mg/dL Ionized Calcium NO Total Bilirubin 0.4 (0.2-1.0) mg/dL AST 25 (10-42) IU/L ALT 29 (10-60) IU/L Alkaline Phosphatase 67 (42-121) IU/L Total Protein 5.7 L (6.7-8.2) g/dL Albumin 2.9 L (3.2-5.5) g/dL Globulin 2.8 (2.1-4.2) g/dL Albumin/Globulin Ratio 1.0 (1.0-2.2) Assessment/Plan - Problem List (1) Postoperative ileus Impression: Improving but not ready for discharge. We will advance her to a soft diet today. Will consult PT for ambulation. Continue all current medications. Change to inpatient status.
[2019-09-05] MEDS: LORazepam 2 MG/ML VIAL IVP PRN ×2 (17:35→19:56)
[2019-09-05] MEDS: ONDANSETRON 4 MG/2 ML VIAL IVP PRN (19:17)
[2019-09-05] MEDS ORDERED: METOCLOPRAMIDE 10 MG/2 ML VIAL IVP SCH ×2 (22:00)
[2019-09-06] MEDS: SODIUM CHLORIDE FLUSH 0.9% 10 ML SYRINGE IVP SCH ×4 (02:24→23:56)
[2019-09-06] MEDS: METOCLOPRAMIDE 10 MG/2 ML VIAL IVP SCH ×4 (03:03→21:00)
[2019-09-06] MEDS: D5NS W/20 MEQ KCL 1,000 ML IV SCH ×2 (04:22→15:52)
[2019-09-06] MEDS: SODIUM CHLORIDE FLUSH 0.9% 10 ML SYRINGE IVP PRN ×2 (06:14→13:49)
[2019-09-06] MEDS: PANTOPRAZOLE 40 MG VIAL IVP SCH (06:14)
[2019-09-06] MEDS: ENOXAPARIN 40 MG/0.4 ML SYRINGE SUBQ SCH (08:50)
[2019-09-06] MEDS: carvediloL 12.5 MG TABLET PO SCH ×2 (08:50→21:00)
--- NOTE | 2019-09-06 09:06 | PROVIDER PROGRESS NOTE ---
Subjective - Prog Note Date Prog Note Date: 09/06/19 Prog Note Time: 09:04 - Subjective Pt reports feeling: Improved Subjective: Another episode of emesis last evening but feeling better now. Ate about 50% of breakfast and denies any nausea thus far. Denies any pain. Continues to pass flatus and have diarrhea Current Medications - Current Medications Current Medications: Medications Summary Carvedilol (Coreg) 25 mg PO BID [facility] Last Admin: 09/06/19 08:50 Dose: 25 mg Enoxaparin Sodium (Lovenox) 40 mg SUBQ DAILY [facility] Last Admin: 09/06/19 08:50 Dose: 40 mg Subcutaneous Injection Site Document 09/06/19 08:50 KF (Rec: 09/06/19 08:50 KF [id number]) Site Subcutaneous Injection Site Left Abdomen Potassium Chloride/Dextrose/Sod Cl () 1,000 mls @ 100 mls/hr IV .Q10H [facility] Last Admin: 09/06/19 04:22 Dose: 100 mls/hr Medication Titration Document 09/06/19 04:22 [facility] (Rec: 09/06/19 04:22 DMS [id number]) Titration Intake Container Volume 1,000 Elapsed Time 57h 53m Titration Dosing IV Rate 100 Increase/Decrease Started/Running Cumulative Dose Not Applicable Total Intake (Rx) 5,788.333 Volume Adjustment/Waste 0 Lorazepam (Ativan Inj (Vial)) 0.5 mg IVP Q2H PRN PRN Reason: Nausea / Vomiting Last Admin: 09/05/19 19:56 Dose: 0.5 mg CIWA-Ar Score Document 09/05/19 19:56 (Rec: 09/05/19 19:56 [id number]) Regimen Current Score Not Applicable Re-Assess: General PRN Medication Reasses Document 09/05/19 20:26 (Rec: 09/05/19 21:04 [id number]) Reassessment Effective/Ineffective Effective Metoclopramide HCl (Reglan Inj) 10 mg IVP Q6H [facility] Last Admin: 09/06/19 08:50 Dose: 10 mg Ondansetron HCl (Zofran Inj) 4 mg IVP Q6HR PRN PRN Reason: Nausea / Vomiting Last Admin: 09/05/19 19:17 Dose: 4 mg Re-Assess: General PRN Medication Reasses Document 09/05/19 19:47 (Rec: 09/05/19 21:01 [id number]) Reassessment Effective/Ineffective Ineffective Pantoprazole Sodium (Protonix) 40 mg IVP QDAC [facility] Last Admin: 09/06/19 06:14 Dose: 40 mg Sodium Chloride (Normal Saline Flush 0.9%) 10 ml IVP PRN PRN PRN Reason: NEEDED PER PROVIDER ORDERS Last Admin: 09/06/19 06:14 Dose: 10 ml Sodium Chloride (Normal Saline Flush 0.9%) 10 ml IVP 0100,0900,1700 [facility] Last Admin: 09/06/19 08:44 Dose: Not Given Non-Admin Reason: Patient has fluids running Discontinued Medications Al Hydroxide/Mg Hydroxide (Mylanta Plus) 30 ml PO ONCE STA Stop: 09/03/19 16:26 Last Admin: 09/03/19 16:29 Dose: 30 ml Sodium Chloride (Normal Saline 0.9%) 1,000 mls @ 0 mls/hr IV .Q0M ONE Stop: 09/03/19 14:24 Last Infusion: 09/03/19 17:09 Dose: 0 mls/hr Medication Titration Document 09/03/19 17:09 RB (Rec: 09/03/19 17:09 RB [id number]) Titration Intake Titration Intake 1,000 Cumulative Intake 1,000 Container Volume 0 Elapsed Time 2h 22m Titration Dosing IV Rate 0 Increase/Decrease Infused Cumulative Dose Not Applicable Total Intake (Rx) 1,000 Volume Adjustment/Waste 0 Lidocaine HCl (Xylocaine Viscous 2%) 10 ml MM ONCE STA Stop: 09/03/19 16:26 Last Admin: 09/03/19 16:29 Dose: 10 ml Metoclopramide HCl (Reglan Inj) 10 mg IVP ONCE STA Stop: 09/03/19 15:46 Last Admin: 09/03/19 15:50 Dose: 10 mg Metoclopramide HCl (Reglan Inj) 5 mg IVP Q6HR [facility] Last Admin: 09/04/19 18:16 Dose: 5 mg Metoclopramide HCl (Reglan Inj) 10 mg IVP Q6HR [facility] Last Admin: 09/05/19 12:49 Dose: 10 mg Metoclopramide HCl (Reglan Inj) 10 mg IVP Q6HR [facility] Last Admin: 09/05/19 21:20 Dose: 10 mg Ondansetron HCl (Zofran Inj) 4 mg IVP ONCE STA Stop: 09/03/19 14:24 Last Admin: 09/03/19 14:47 Dose: 4 mg Objective - Vital Signs/Intake & Output Reviewed Vital Signs: Yes Vital Signs: Vital Signs x48h Temp Pulse Resp BP Pulse Ox 09/06/19 07:40 37.0 C 97 18 112/59 L 92 Intake & Output: Intake & Output 09/03/19 09/04/19 09/05/19 09/06/19 23:59 23:59 23:59 23:59 Intake Total 1000 3256.666 2431.667 1240 Output Total 875 1440 2200 475 Balance 125 1816.666 231.667 765 - Objective General Appearance: positive: No acute distress, Alert Eyes Bilateral: positive: Normal inspection, PERRL, EOMI ENT: positive: ENT inspection nml, Pharynx nml, No signs of dehydration Neck: positive: Nml inspection, No JVD Respiratory: positive: Chest non-tender, No respiratory distress, Breath sounds nml Cardiovascular: positive: Regular rate & rhythm Abdomen: positive: Non-tender, Nml bowel sounds, No distention, Other (Incision is clean and dry the edges are well approximated. No erythema and no drainage). negative: Guarding, Rebound Skin: positive: Color nml Extremities: positive: Non-tender, Nml appearance, Pedal edema (trace only) Neurologic/Psychiatric: positive: Oriented x3, CN's nml (2-12) - Lab Results Fish Bones: 09/05/19 05:15 09/05/19 05:15 Assessment/Plan - Problem List (1) Postoperative ileus Impression: Improving but not resolved. She had taken minimal PO and we are still battling nausea. Will check stool for c.diff. Continue reglan and zofran. Continue soft mechanical diet as patient reports she felt hungry this AM and scambled eggs settled well. Recheck labs in the AM.
[2019-09-06] MEDS ORDERED: IOVERSOL 320 100 ML VIAL IVP ONE ×2 (09:48→13:37)
[2019-09-06] MEDS: ONDANSETRON 4 MG/2 ML VIAL IVP PRN (13:49)
--- NOTE | 2019-09-06 13:57 | CT Report ---
Reason: Post colectomy ileus Procedure Date: 09/06/2019 Accession Number: [id number] / [id number] Procedure: CT - Abdomen/Pelvis W CPT Code: Addended Final Report FULL RESULT: EXAM: CT ABDOMEN AND PELVIS EXAM DATE: 09/06/2019 10:50 AM. CLINICAL HISTORY: Post colectomy ileus. COMPARISONS: ABDOMEN/PELVIS W/ 08/10/2019 1:42 PM. TECHNIQUE: Routine helical CT imaging was performed through the abdomen and pelvis. IV contrast: OPTI 320 100ML. Enteric contrast: No. Reconstructions: Coronal and sagittal. In accordance with CT protocol optimization, one or more of the following dose reduction techniques were utilized for this exam: automated exposure control, adjustment of mA and/or KV based on patient size, or use of iterative reconstructive technique. FINDINGS: Lung Bases: Unremarkable. Solid organs: The liver is without evidence of an enhancing mass. There are postoperative changes consistent with the Colace ectomy. The spleen, pancreas, and adrenal glands are without evidence of a mass. Kidneys are without evidence of a mass or hydronephrosis. A fatty lesion is noted in the superior pole of the left kidney measuring approximately 1.4 cm (image 28 series 3). 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 The appearance is similar to the previous study. Peritoneal Cavity/Bowel: The stomach is distended. Moderately dilated loops of small bowel are seen within the abdomen and upper pelvis. There appears to be a transition zone in the upper pelvis (image 58 through 51 of series 3). The appendix is normal in appearance. Diverticulosis of the visualized colon is noted without evidence of diverticulitis. There are postoperative changes consistent with a partial colectomy. Gas density and fluid are noted at the surgical site within the anterior abdominal wall. Pelvic Organs: No mass or cyst is seen within the pelvis. Vasculature: There is no periaortic or pelvic lymphadenopathy. Bones: Degenerative changes of the thoracic and lumbar spine are noted IMPRESSION: Dilated stomach and small bowel with a transition zone in the upper pelvis. This may be secondary to an obstruction and less likely an ileus. 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 [facility] ADDENDUM: 09/06/19 15:16 The above call report findings of a possible small bowel obstruction were discussed with Dr. Moreira by Dr. Romi Raymond at 03:16 PM on 09/06/2019.
[2019-09-06] MEDS ORDERED: BENZOCAINE/MENTHOL LOZENGE MM PRN (16:01)
--- NOTE | 2019-09-06 16:08 | PROVIDER PROGRESS NOTE ---
Subjective - Prog Note Date Prog Note Date: 09/06/19 Prog Note Time: 16:06 - Subjective Pt reports feeling: Worse Subjective: Patient vomited 1200 mls after a soft breakfast and lunch. CT scan shows early small bowel obstruction with a transition zone in the upper pelvis. NGT will be placed. Will request a PICC line and start TPN. May consider gastrograffin challenge tomorrow or Thursday. Objective - Vital Signs/Intake & Output Vital Signs: Vital Signs x48h Temp Pulse Resp BP Pulse Ox 09/06/19 15:50 36.9 C 86 18 119/65 93 Intake & Output: Intake & Output 09/03/19 09/04/19 09/05/19 09/06/19 23:59 23:59 23:59 23:59 Intake Total 1000 3256.666 2431.667 2460 Output Total 875 1440 2200 1875 Balance 125 1816.666 231.667 585 - Lab Results Fish Bones: 09/05/19 05:15 09/05/19 05:15
--- NOTE | 2019-09-06 19:46 | XRAY Report ---
Reason: NG TUBE PLACEMENT Procedure Date: 09/06/2019 Accession Number: [id number] / [id number] Procedure: XR - Chest for Line Placement CPT Code: Final Report FULL RESULT: EXAM: CHEST RADIOGRAPHY EXAM DATE: 09/06/2019 05:02 PM. CLINICAL HISTORY: NG TUBE PLACEMENT. COMPARISON: CHEST 1 VIEW 11/26/2018 3:14 PM. TECHNIQUE: 1 view. FINDINGS: Lungs/Pleura: No focal opacities evident. No pleural effusion. No pneumothorax. Mediastinum: There is aortic unfolding. The heart and mediastinum appear otherwise unremarkable. Other: NG tube is seen terminating inferior to the lower limit of the image, consistent with appropriate NG tube position. The tip of the NG tube is not visualized. IMPRESSION: NG tube terminates in the stomach. Its tip has not been identified but [facility]
[2019-09-07] MEDS: D5NS W/20 MEQ KCL 1,000 ML IV SCH ×2 (02:24→13:14)
[2019-09-07] MEDS: SODIUM CHLORIDE FLUSH 0.9% 10 ML SYRINGE IVP SCH ×2 (04:06→06:03)
[2019-09-07] MEDS: METOCLOPRAMIDE 10 MG/2 ML VIAL IVP SCH ×4 (04:06→21:23)
[2019-09-07 05:49] LABS: BASOPHILS # (AUTO) 0.1 10^3/uL (0.0-0.1); BASOPHILS % (AUTO) 0.8 %; EOSINOPHILS # (AUTO) 0.4 10^3/uL (0.0-0.7); EOSINOPHILS % (AUTO) 5.2 %; HGB - HEMOGLOBIN 10.9 g/dL (12.0-16.0); LYMPHOCYTES # (AUTO) 1.2 10^3/uL (1.5-3.5); LYMPHOCYTES % (AUTO) 14.9 %; MEAN CORPUSCULAR HEMOGLOBIN 28.4 pg (27.0-31.0); MEAN CORPUSCULAR HGB CONC 30.9 g/dL (32.0-36.0); MEAN CORPUSCULAR VOLUME 91.9 fL (81.0-99.0); MONOCYTES # (AUTO) 0.9 10^3/uL (0.0-1.0); MONOCYTES % (AUTO) 11.3 %; NEUTROPHILS # (AUTO) 5.6 10^3/uL (1.5-6.6); NEUTROPHILS % (AUTO) 67.3 %; PLT - PLATELET COUNT 317 10^3/uL (130-450); RED BLOOD COUNT 3.84 10^6/uL (4.20-5.40); RED CELL DISTRIBUTION WIDTH 13.2 % (12.0-15.0); WHITE BLOOD COUNT 8.3 x10^3/uL (4.8-10.8)
[2019-09-07 05:54] LABS: CREATININE 0.6 mg/dL (0.4-1.0)
[2019-09-07] MEDS: PANTOPRAZOLE 40 MG VIAL IVP SCH (06:03)
[2019-09-07] MEDS: carvediloL 12.5 MG TABLET PO SCH ×2 (08:48→21:20)
[2019-09-07] MEDS: ENOXAPARIN 40 MG/0.4 ML SYRINGE SUBQ SCH (08:49)
[2019-09-07] MEDS: SODIUM CHLORIDE FLUSH 0.9% 10 ML SYRINGE IVP PRN ×4 (08:49→21:24)
--- NOTE | 2019-09-07 11:31 | ANESTHESIA PROCEDURE NOTE ---
Anesth Central Line Template - Central Line Central Line Preparation: Consent Obtained, Time out completed, Ultrasound used, Sterile prep and drape Central line type: Other Central line catheter tip site resides: Superior vena cava (SVC) (lower 1/3) Central line aftercare: Secured, Placement confirmed, No complications, Pt tolerated well Other Info/Details: After informed consent obtained and time-out completed, the patient's right arm was prepped. She has a history of a previously placed right PICC. Full sterile gown, gloves, mask and drape utilized. The right brachial vein was identified under ultrasound and accessed 3 times, but was unable to advance the wire. The left arm was prepped and draped. The left brachial vein was identified under ultrasound and was accessed with 20G needle. The wire advanced with ease. A 5Fr peel away sheath was inserted over the wire and wire was removed. The PICC was trimmed to 45cm and wire tracking indicated the tip was directed towards the heart. Confirmation of the tip in the 1/3 lower SVC was obtained using P-wave analysis. There were 0cm of catheter exposed. Both ports aspirated blood and were flushed with normal saline. Line was secured with stat lock and opsite. Patient tolerated the procedure well.
--- NOTE | 2019-09-07 11:50 | PROVIDER PROGRESS NOTE ---
Subjective - Prog Note Date Prog Note Date: 09/07/19 Prog Note Time: 11:48 - Subjective Pt reports feeling: Improved Subjective: Denies any pain or nausea today. PICC has been placed by anesthesia. Continues to pass flatus and had a small, soft bowel movement this AM early. Reports she slept ok. Current Medications - Current Medications Current Medications: Active Medications Generic Name Dose Route Start Last Admin Trade Name Freq PRN Reason Stop Dose Admin Carvedilol 25 mg 09/03/19 21:00 09/07/19 08:48 Coreg PO 25 mg BID JEM Administration Enoxaparin Sodium 40 mg 09/04/19 09:00 09/07/19 08:49 Lovenox SUBQ 40 mg DAILY JEM Administration Potassium Chloride/Dextrose/Sod Cl 1,000 mls @ 100 mls/hr 09/03/19 17:00 09/07/19 02:24 IV 100 mls/hr .Q10H JEM Administration Acetaminophen 100 mls @ 400 mls/hr 09/03/19 16:49 Ofirmev IV Q6HR PRN PAIN Lorazepam 0.5 mg 09/03/19 16:47 09/05/19 19:56 Ativan Inj (Vial) IVP 0.5 mg Q2H PRN Administration Nausea / Vomiting Metoclopramide HCl 10 mg 09/06/19 02:43 09/07/19 08:49 Reglan Inj IVP 10 mg Q6H JEM Administration Ondansetron HCl 4 mg 09/03/19 16:40 09/06/19 13:49 Zofran Inj IVP 4 mg Q6HR PRN Administration Nausea / Vomiting Pantoprazole Sodium 40 mg 09/03/19 17:00 09/07/19 06:03 Protonix IVP 40 mg QDAC JEM Administration Sodium Chloride 10 ml 09/03/19 16:40 09/07/19 08:49 Normal Saline Flush 0.9% IVP 10 ml PRN PRN Administration NEEDED PER PROVIDER ORDERS Sodium Chloride 10 ml 09/03/19 17:00 09/07/19 06:03 Normal Saline Flush 0.9% IVP 10 ml 0100,0900,1700 JEM Administration Throat Lozenges 1 lozenge 09/06/19 16:01 Cepacol MM Q2HR PRN Mouth Sore Pain Acetaminophen [Tylenol Extra Strength] 500 mg PO BID 11/26/18 Lisinopril 20 mg PO DAILY 11/26/18 Cholecalciferol (Vitamin D3) [Vitamin D3] 2,000 unit PO DAILY 08/25/19 Multivitamin [Multiple Vitamins] 1 each PO DAILY 08/25/19 Vitamin E 400 unit PO DAILY 08/25/19 Objective - Vital Signs/Intake & Output Reviewed Vital Signs: Yes Vital Signs: Vital Signs x48h Temp Pulse Resp BP Pulse Ox 09/07/19 08:00 37.0 C 87 18 119/56 L 93 Intake & Output: Intake & Output 09/04/19 09/05/19 09/06/19 09/07/19 23:59 23:59 23:59 23:59 Intake Total 3256.666 2431.667 2550 1030 Output Total 1440 2200 3025 1150 Balance 1816.666 231.667 -475 -120 - Objective General Appearance: positive: No acute distress, Alert Eyes Bilateral: positive: Normal inspection, PERRL, EOMI Respiratory: positive: Chest non-tender, No respiratory distress, Breath sounds nml Cardiovascular: positive: Regular rate & rhythm Abdomen: positive: Non-tender, Nml bowel sounds, Other (Incision is clean and dry. Patient reports some itching) - Lab Results Fish Bones: 09/07/19 05:20 09/07/19 05:20 Other Labs: Lab Results x24hrs 09/07/19 09/07/19 Range/Units 05:20 05:20 WBC 8.3 (4.8-10.8) x10^3/uL RBC 3.84 L (4.20-5.40) 10^6/uL Hgb 10.9 L (12.0-16.0) g/dL Hct 35.3 L (37.0-47.0) % MCV 91.9 (81.0-99.0) fL MCH 28.4 (27.0-31.0) pg MCHC 30.9 L (32.0-36.0) g/dL RDW 13.2 (12.0-15.0) % Plt Count 317 (130-450) 10^3/uL MPV 10.0 (7.9-10.8) fL Neut # (Auto) 5.6 (1.5-6.6) 10^3/uL Lymph # (Auto) 1.2 L (1.5-3.5) 10^3/uL [place] # (Auto) 0.9 (0.0-1.0) 10^3/uL Eos # (Auto) 0.4 (0.0-0.7) 10^3/uL Baso # (Auto) 0.1 (0.0-0.1) 10^3/uL Absolute Nucleated RBC 0.00 x10^3/uL Nucleated RBC % 0.0 /100WBC Sodium 142 (135-145) mmol/L Potassium 3.5 (3.5-5.0) mmol/L Chloride 106 (101-111) mmol/L Carbon Dioxide 30 (21-32) mmol/L Anion Gap 6.0 (6-13) BUN 12 (6-20) mg/dL Creatinine 0.6 (0.4-1.0) mg/dL Estimated GFR (MDRD) 98 (>89) Glucose 102 H (70-100) mg/dL Calcium 9.0 (8.5-10.3) mg/dL Assessment/Plan - Problem List (1) Postoperative ileus Impression: Symptomatically improved today. Will start TPN tonight. Try gastrograffin challenge in AM if she does well today. Repeat labs.
[2019-09-07] MEDS: FAT EMULSION 20% 250 ML IV SCH (19:20)
[2019-09-07] MEDS: TPN (CLINIMIX E 5/15) 2,000 ML with MULTIVITAMIN 10 ML, TRACE ELEMENTS V CONC 1 ML IV SCH ×3 (19:24)
[2019-09-08] MEDS: METOCLOPRAMIDE 10 MG/2 ML VIAL IVP SCH ×4 (03:03→21:02)
[2019-09-08] MEDS: SODIUM CHLORIDE FLUSH 0.9% 10 ML SYRINGE IVP PRN ×2 (06:54→21:02)
[2019-09-08] MEDS: PANTOPRAZOLE 40 MG VIAL IVP SCH (06:54)
[2019-09-08] MEDS: ENOXAPARIN 40 MG/0.4 ML SYRINGE SUBQ SCH (09:10)
[2019-09-08] MEDS: SODIUM CHLORIDE FLUSH 0.9% 10 ML SYRINGE IVP SCH ×3 (09:10→18:21)
[2019-09-08] MEDS: carvediloL 12.5 MG TABLET PO SCH ×2 (09:10→21:02)
[2019-09-08 11:35] LABS: ALBUMIN 2.9 g/dL (3.2-5.5); ALBUMIN/GLOBULIN RATIO 1.1 (1.0-2.2); ALKALINE PHOSPHATASE 69 IU/L (42-121); ALT ALANINE AMINOTRANSFERASE 34 IU/L (10-60); AST ASPARTATE AMINOTRANSFERASE 32 IU/L (10-42); BILIRUBIN,TOTAL < 0.2 mg/dL (0.2-1.0); BUN - BLOOD UREA NITROGEN 13 mg/dL (6-20); CALCIUM 8.8 mg/dL (8.5-10.3); CARBON DIOXIDE - CO2 30 mmol/L (21-32); CHLORIDE 104 mmol/L (101-111); CREATININE 0.6 mg/dL (0.4-1.0); GFR - MDRD 98 (>89); GLUCOSE 138 mg/dL (70-100); MAGNESIUM 1.9 mg/dL (1.7-2.8); PHOSPHORUS 2.7 mg/dL (2.5-4.6); PREALBUMIN 23 mg/dL (18-45); SODIUM 141 mmol/L (135-145); TOTAL PROTEIN 5.6 g/dL (6.7-8.2)
--- NOTE | 2019-09-08 14:19 | PROVIDER PROGRESS NOTE ---
Subjective - Prog Note Date Prog Note Date: 09/08/19 Prog Note Time: 14:17 - Subjective Pt reports feeling: Improved Subjective: Feeling well today. Denies any nausea and reports copious flatus and one bowel movement today. She "sneezed out" her NGT last evening and it has not been replaced. Taking ice chips only. Reports a lot of "gurgling" and movement in her abdomen today. An occasional pain in the right lower quadrant but minimal at worst. Current Medications - Current Medications Current Medications: Active Medications Generic Name Dose Route Start Last Admin Trade Name Freq PRN Reason Stop Dose Admin Carvedilol 25 mg 09/03/19 21:00 09/08/19 09:10 Coreg PO 25 mg BID JEM Administration Enoxaparin Sodium 40 mg 09/04/19 09:00 09/08/19 09:10 Lovenox SUBQ 40 mg DAILY JEM Administration Acetaminophen 100 mls @ 400 mls/hr 09/03/19 16:49 Ofirmev IV Q6HR PRN PAIN Multivitamins 10 ml/ Chromium/ 2,011 mls @ 83 mls/hr 09/07/19 19:00 09/08/19 07:30 Copper/Manganese/Seleni/Zn 1 IV 83 mls/hr ml/ Amino Ac/Electrol/Dextrose Q24H JEM Infusion /Calcium Protocol Fat Emulsion Intravenous 250 mls @ 21 mls/hr 09/07/19 19:00 09/08/19 07:15 Intralipid 20% IV Infused Q24H JEM Infusion Lorazepam 0.5 mg 09/03/19 16:47 09/05/19 19:56 Ativan Inj (Vial) IVP 0.5 mg Q2H PRN Administration Nausea / Vomiting Metoclopramide HCl 10 mg 09/06/19 02:43 09/08/19 14:14 Reglan Inj IVP 10 mg Q6H JEM Administration Ondansetron HCl 4 mg 09/03/19 16:40 09/06/19 13:49 Zofran Inj IVP 4 mg Q6HR PRN Administration Nausea / Vomiting Pantoprazole Sodium 40 mg 09/03/19 17:00 09/08/19 06:54 Protonix IVP 40 mg QDAC JEM Administration Sodium Chloride 10 ml 09/03/19 16:40 09/08/19 06:54 Normal Saline Flush 0.9% IVP 20 ml PRN PRN Administration NEEDED PER PROVIDER ORDERS Sodium Chloride 10 ml 09/03/19 17:00 09/08/19 14:14 Normal Saline Flush 0.9% IVP 10 ml 0100,0900,1700 JEM Administration Throat Lozenges 1 lozenge 09/06/19 16:01 Cepacol MM Q2HR PRN Mouth Sore Pain Acetaminophen [Tylenol Extra Strength] 500 mg PO BID 11/26/18 Lisinopril 20 mg PO DAILY 11/26/18 Cholecalciferol (Vitamin D3) [Vitamin D3] 2,000 unit PO DAILY 08/25/19 Multivitamin [Multiple Vitamins] 1 each PO DAILY 08/25/19 Vitamin E 400 unit PO DAILY 08/25/19 Objective - Vital Signs/Intake & Output Reviewed Vital Signs: Yes Vital Signs: Vital Signs x48h Temp Pulse Resp BP Pulse Ox 09/08/19 08:25 37.5 C 82 18 136/71 H 93 Intake & Output: Intake & Output 09/05/19 09/06/19 09/07/19 09/08/19 23:59 23:59 23:59 23:59 Intake Total 2431.667 2550 2640 734 Output Total 2200 3025 1450 200 Balance 231.667 -475 1190 534 - Objective General Appearance: positive: No acute distress, Alert, Mild distress Eyes Bilateral: positive: Normal inspection, PERRL, EOMI ENT: positive: ENT inspection nml, Pharynx nml, No signs of dehydration Respiratory: positive: Chest non-tender, No respiratory distress, Breath sounds nml Cardiovascular: positive: Regular rate & rhythm Abdomen: positive: Non-tender, Nml bowel sounds, Other (Incision is clean and dry.) Back: positive: Nml inspection Extremities: positive: Nml appearance Neurologic/Psychiatric: positive: Oriented x3, CN's nml (2-12) - Lab Results Fish Bones: 09/07/19 05:20 09/08/19 11:13 Other Labs: Lab Results x24hrs 09/08/19 09/08/19 09/08/19 Range/Units 11:13 11:01 07:29 Sodium 141 (135-145) mmol/L Potassium 3.4 L (3.5-5.0) mmol/L Chloride 104 (101-111) mmol/L Carbon Dioxide 30 (21-32) mmol/L Anion Gap 7.0 (6-13) BUN 13 (6-20) mg/dL Creatinine 0.6 (0.4-1.0) mg/dL Estimated GFR (MDRD) 98 (>89) Glucose 138 H (70-100) mg/dL POC Whole Bld Glucose 127 H 101 H (70 - 100) mg/dL Calcium 8.8 (8.5-10.3) mg/dL Phosphorus 2.7 (2.5-4.6) mg/dL Magnesium 1.9 (1.7-2.8) mg/dL Total Bilirubin < 0.2 L (0.2-1.0) mg/dL AST 32 (10-42) IU/L ALT 34 (10-60) IU/L Alkaline Phosphatase 69 (42-121) IU/L Total Protein 5.6 L (6.7-8.2) g/dL Albumin 2.9 L (3.2-5.5) g/dL Globulin 2.7 (2.1-4.2) g/dL Albumin/Globulin Ratio 1.1 (1.0-2.2) Prealbumin 23 (18-45) mg/dL Triglycerides 161 H ( - 149) mg/dL 09/08/19 09/08/19 Range/Units 05:40 00:04 Sodium (135-145) mmol/L Potassium (3.5-5.0) mmol/L Chloride (101-111) mmol/L Carbon Dioxide (21-32) mmol/L Anion Gap (6-13) BUN (6-20) mg/dL Creatinine (0.4-1.0) mg/dL Estimated GFR (MDRD) (>89) Glucose (70-100) mg/dL POC Whole Bld Glucose 111 H 103 H (70 - 100) mg/dL Calcium (8.5-10.3) mg/dL Phosphorus (2.5-4.6) mg/dL Magnesium (1.7-2.8) mg/dL Total Bilirubin (0.2-1.0) mg/dL AST (10-42) IU/L ALT (10-60) IU/L Alkaline Phosphatase (42-121) IU/L Total Protein (6.7-8.2) g/dL Albumin (3.2-5.5) g/dL Globulin (2.1-4.2) g/dL Albumin/Globulin Ratio (1.0-2.2) Prealbumin (18-45) mg/dL Triglycerides ( - 149) mg/dL Assessment/Plan - Problem List (1) Postoperative ileus Impression: Generally improving. Will continue NPO with TPN today. Plan to recheck xrays in the AM. Had planned for gastrograffin challenge but will hold off as she no longer has an NGT. If nausea and vomiting recurs, will consider replacing it. She has been participating well with PT and has been walking in the halls frequently. Overall, slow but steady improvement
[2019-09-08] MEDS: FAT EMULSION 20% 250 ML IV SCH (18:21)
[2019-09-08] MEDS: TPN (CLINIMIX E 5/15) 2,000 ML with MULTIVITAMIN 10 ML, TRACE ELEMENTS V CONC 1 ML IV SCH ×3 (18:21)
[2019-09-09] MEDS: SODIUM CHLORIDE FLUSH 0.9% 10 ML SYRINGE IVP SCH ×3 (01:06→16:15)
[2019-09-09] MEDS: METOCLOPRAMIDE 10 MG/2 ML VIAL IVP SCH ×4 (02:35→20:58)
[2019-09-09 06:00] LABS: ALBUMIN 2.7 g/dL (3.2-5.5); ALBUMIN/GLOBULIN RATIO 1.1 (1.0-2.2); BILIRUBIN,TOTAL 0.2 mg/dL (0.2-1.0); CALCIUM 8.6 mg/dL (8.5-10.3); CREATININE 0.5 mg/dL (0.4-1.0); PHOSPHORUS 3.6 mg/dL (2.5-4.6); TOTAL PROTEIN 5.2 g/dL (6.7-8.2)
[2019-09-09] MEDS: PANTOPRAZOLE 40 MG VIAL IVP SCH (06:30)
[2019-09-09] MEDS: ENOXAPARIN 40 MG/0.4 ML SYRINGE SUBQ SCH (08:02)
[2019-09-09] MEDS: carvediloL 12.5 MG TABLET PO SCH ×2 (08:02→21:04)
[2019-09-09] MEDS: ACETAMINOPHEN 1,000 MG/100 ML 100 ML IV PRN ×2 (08:03→21:11)
[2019-09-09] MEDS: POTASSIUM CHLOR 10 MEQ/100 ML 10 MEQ/100 ML BAG IV SCH ×4 (09:59→13:41)
--- NOTE | 2019-09-09 13:38 | XRAY Report ---
Reason: Post operative ileus/bowel obstruction Procedure Date: 09/09/2019 Accession Number: [id number] / [id number] Procedure: XR - Abdomen 2 View X-Ray CPT Code: 23480 Final Report FULL RESULT: EXAM: ABDOMEN RADIOGRAPHY EXAM DATE: 09/09/2019 09:35 AM. CLINICAL HISTORY: Post operative ileus/bowel obstruction. COMPARISON: ABDOMEN 2 VIEW 09/04/2019 5:26 AM ABDOMEN/PELVIS W/ 09/06/2019 10:40 AM. TECHNIQUE: 2 views. FINDINGS: Lung Bases: Minimal basilar opacities. Bowel Gas Pattern: Mild decrease in fluid and gaseous distention of small bowel. Mild gaseous distention of the colon. No portal venous gas or pneumatosis. Status post cholecystectomy. Small volume of stool in the colon. Free Air: None. Other: Surgical candelaria are noted. Degenerative changes of the lower thoracic and lumbar spine. IMPRESSION: 1. Mild decrease in gaseous distention of the small bowel. 2. No free air. RADIA
[2019-09-09] MEDS: SODIUM CHLORIDE FLUSH 0.9% 10 ML SYRINGE IVP PRN ×3 (14:46→21:02)
[2019-09-09] MEDS: TPN (CLINIMIX E 5/15) 2,000 ML with MULTIVITAMIN 10 ML, TRACE ELEMENTS V CONC 1 ML IV SCH ×3 (19:52)
[2019-09-09] MEDS: FAT EMULSION 20% 250 ML IV SCH (19:58)
[2019-09-10] MEDS: SODIUM CHLORIDE FLUSH 0.9% 10 ML SYRINGE IVP SCH ×3 (01:48→20:03)
[2019-09-10] MEDS: SODIUM CHLORIDE FLUSH 0.9% 10 ML SYRINGE IVP PRN ×2 (02:42→06:30)
[2019-09-10] MEDS: METOCLOPRAMIDE 10 MG/2 ML VIAL IVP SCH ×3 (02:42→14:11)
[2019-09-10] MEDS: PANTOPRAZOLE 40 MG VIAL IVP SCH (06:30)
[2019-09-10] MEDS: ENOXAPARIN 40 MG/0.4 ML SYRINGE SUBQ SCH (09:19)
[2019-09-10] MEDS: carvediloL 12.5 MG TABLET PO SCH ×2 (09:20→20:03)
[2019-09-10 10:09] LABS: ALBUMIN 2.9 g/dL (3.2-5.5); ALBUMIN/GLOBULIN RATIO 1.1 (1.0-2.2); BILIRUBIN,TOTAL 0.4 mg/dL (0.2-1.0); CALCIUM 8.6 mg/dL (8.5-10.3); CREATININE 0.7 mg/dL (0.4-1.0); TOTAL PROTEIN 5.6 g/dL (6.7-8.2)
[2019-09-10] MEDS: ACETAMINOPHEN 1,000 MG/100 ML 100 ML IV PRN (14:11)
--- NOTE | 2019-09-10 15:36 | PROVIDER PROGRESS NOTE ---
Assessment/Plan - Problem List (1) Small bowel obstruction due to postoperative adhesions Assessment/Plan: clinically resolving; doing well; plan: advance diet; d/c tpn, OOB more, oral meds. - Current Meds Current Meds: Current Medications Generic Name Dose Route Start Last Admin Trade Name Freq PRN Reason Stop Dose Admin Carvedilol 25 mg 09/03/19 21:00 09/10/19 09:20 Coreg PO 25 mg BID JEM Administration Enoxaparin Sodium 40 mg 09/04/19 09:00 09/10/19 09:19 Lovenox SUBQ 40 mg DAILY JEM Administration Lorazepam 0.5 mg 09/03/19 16:47 09/05/19 19:56 Ativan Inj (Vial) IVP 0.5 mg Q2H PRN Administration Nausea / Vomiting Ondansetron HCl 4 mg 09/03/19 16:40 09/06/19 13:49 Zofran Inj IVP 4 mg Q6HR PRN Administration Nausea / Vomiting Sodium Chloride 10 ml 09/03/19 16:40 09/10/19 06:30 Normal Saline Flush 0.9% IVP 20 ml PRN PRN Administration NEEDED PER PROVIDER ORDERS Sodium Chloride 10 ml 09/03/19 17:00 09/10/19 09:21 Normal Saline Flush 0.9% IVP 10 ml 0100,0900,1700 JEM Administration - Lab Result Fish Bone Diagrams: 09/07/19 05:20 09/10/19 09:50 - Diagnostic Imaging Results Diagnostic Imaging Results: Final report reviewed, Read independently (plain films yesterday show significant improvement with gas in both small and large bowel with minimal a/f levels in small bowel and minimal small bowel dilation.) - Additional Planning Condition/Complexity: Improved My Orders: My Active Orders 09/10/19 15:31 Miscellaenous Nursing Order [RC] ONCE Acetaminophen [Tylenol] 650 mg PO Q4HR PRN 09/10/19 15:32 Miscellaenous Nursing Order [RC] ONCE 09/11/19 05:00 CBC - COMP BLD CT W/AUTO DIFF [HEME] DAILYLAB Plan Discussed with:: Patient Time Spent: 15-30 minutes Subjective - Subjective Patient Reports: Feeling Better, Resting Comfortably, No Complaints (no abd pain, nause or vomiting; passing small soft nonbloody stools; tolerating cl liq well po) Objective Vital Signs: Vital Signs - 24 hr 09/09/19 09/09/19 09/10/19 16:20 21:05 00:15 Temperature 36.8 C 37.1 C 37.0 C Heart Rate [ 74 84 86 Brachial] Respiratory 18 16 18 Rate Blood Pressure 132/78 H [Left Brachial artery] Blood Pressure 134/62 H 124/62 [Right Brachial artery] Blood Pressure [Right Radial artery] O2 Saturation 98 97 94 09/10/19 07:53 Temperature 37.2 C Heart Rate [ 78 Brachial] Respiratory 18 Rate Blood Pressure [Left Brachial artery] Blood Pressure [Right Brachial artery] Blood Pressure 124/64 [Right Radial artery] O2 Saturation 97 Oxygen O2 Source [With Activity] Room air O2 Source [Without Activity] Room air O2 Source Room air I&O (Last 24 Hrs): Intake and Output Totals x24h 09/08/19 09/09/19 09/10/19 23:59 23:59 23:59 Intake Total 1634.55 2961 460 Output Total 200 Balance 1434.55 2961 460 General: Alert, Oriented x3, Cooperative, No acute distress HEENT: Mucous membr. moist/pink Neck: No JVD Neuro: Alert Cardiovascular: Regular rate, Normal S1, Normal S2 Respiratory: Chest non-tender, No respiratory distress, Breath sounds nml Abdomen: Normal bowel sounds, Soft, No tenderness, No hepatospenomegaly, No masses, Other (incisions healing well; marked truncal obesity) Extremities: No edema, No tenderness/swelling Skin: No rashes - Results Results: Laboratory Results WBC 8.3 x10^3/uL (4.8-10.8) 09/07/19 05:20 RBC 3.84 10^6/uL (4.20-5.40) L 09/07/19 05:20 Hgb 10.9 g/dL (12.0-16.0) L 09/07/19 05:20 Hct 35.3 % (37.0-47.0) L 09/07/19 05:20 MCV 91.9 fL (81.0-99.0) 09/07/19 05:20 MCH 28.4 pg (27.0-31.0) 09/07/19 05:20 MCHC 30.9 g/dL (32.0-36.0) L 09/07/19 05:20 RDW 13.2 % (12.0-15.0) 09/07/19 05:20 Plt Count 317 10^3/uL (130-450) 09/07/19 05:20 MPV 10.0 fL (7.9-10.8) 09/07/19 05:20 Neut # (Auto) 5.6 10^3/uL (1.5-6.6) 09/07/19 05:20 Lymph # (Auto) 1.2 10^3/uL (1.5-3.5) L 09/07/19 05:20 [place] # (Auto) 0.9 10^3/uL (0.0-1.0) 09/07/19 05:20 Eos # (Auto) 0.4 10^3/uL (0.0-0.7) 09/07/19 05:20 Baso # (Auto) 0.1 10^3/uL (0.0-0.1) 09/07/19 05:20 Absolute Nucleated RBC 0.00 x10^3/uL 09/07/19 05:20 Nucleated RBC % 0.0 /100WBC 09/07/19 05:20 Sodium 140 mmol/L (135-145) 09/10/19 09:50 Potassium 3.6 mmol/L (3.5-5.0) 09/10/19 09:50 Chloride 102 mmol/L (101-111) 09/10/19 09:50 Carbon Dioxide 28 mmol/L (21-32) 09/10/19 09:50 Anion Gap 10.0 (6-13) 09/10/19 09:50 BUN 18 mg/dL (6-20) 09/10/19 09:50 Creatinine 0.7 mg/dL (0.4-1.0) 09/10/19 09:50 Estimated GFR (MDRD) 82 (>89) L 09/10/19 09:50 Glucose 109 mg/dL (70-100) H 09/10/19 09:50 POC Whole Bld Glucose 137 mg/dL (70 - 100) H 09/10/19 11:58 Calcium 8.6 mg/dL (8.5-10.3) 09/10/19 09:50 Ionized Calcium NO 09/05/19 05:15 Phosphorus 3.6 mg/dL (2.5-4.6) 09/09/19 05:25 Magnesium 2.0 mg/dL (1.7-2.8) 09/09/19 05:25 Total Bilirubin 0.4 mg/dL (0.2-1.0) 09/10/19 09:50 AST 20 IU/L (10-42) 09/10/19 09:50 ALT 28 IU/L (10-60) 09/10/19 09:50 Alkaline Phosphatase 74 IU/L (42-121) 09/10/19 09:50 Total Protein 5.6 g/dL (6.7-8.2) L 09/10/19 09:50 Albumin 2.9 g/dL (3.2-5.5) L 09/10/19 09:50 Globulin 2.7 g/dL (2.1-4.2) 09/10/19 09:50 Albumin/Globulin Ratio 1.1 (1.0-2.2) 09/10/19 09:50 Prealbumin 23 mg/dL (18-45) 09/09/19 05:25 Triglycerides 269 mg/dL (-149) H 09/09/19 05:25 Lipase 45 U/L (22-51) 09/03/19 14:35 - Procedures Procedures: Procedures EXCISION OF SIGMOID COLON, ENDO, DIAGN (08/10/19) INSERTION OF INFUSION DEV INTO SUP VENA CAVA, PERC APPROACH (11/26/18) INTRODUCTION OF OTH THERAP SUBST INTO LOW GI, ENDO (08/10/19) ABX Reporting Has patient been on IV antibiotics over the past 48 hours?: No
[2019-09-11] MEDS ORDERED: SODIUM CHLORIDE FLUSH 0.9% 10 ML SYRINGE IVP PRN (04:23)
[2019-09-11] MEDS: ACETAMINOPHEN 325 MG TABLET PO PRN ×4 (05:03→20:59)
[2019-09-11] MEDS: SODIUM CHLORIDE FLUSH 0.9% 10 ML SYRINGE IVP PRN ×2 (05:04→09:53)
[2019-09-11] MEDS: SODIUM CHLORIDE FLUSH 0.9% 10 ML SYRINGE IVP SCH ×3 (05:05→17:16)
[2019-09-11 05:27] LABS: BASOPHILS # (AUTO) 0.1 10^3/uL (0.0-0.1); BASOPHILS % (AUTO) 0.6 %; EOSINOPHILS # (AUTO) 0.4 10^3/uL (0.0-0.7); EOSINOPHILS % (AUTO) 4.2 %; HGB - HEMOGLOBIN 10.8 g/dL (12.0-16.0); LYMPHOCYTES # (AUTO) 1.9 10^3/uL (1.5-3.5); LYMPHOCYTES % (AUTO) 20.2 %; MEAN CORPUSCULAR HEMOGLOBIN 27.8 pg (27.0-31.0); MEAN CORPUSCULAR HGB CONC 30.9 g/dL (32.0-36.0); MEAN PLATELET VOLUME 10.8 fL (7.9-10.8); MONOCYTES # (AUTO) 0.7 10^3/uL (0.0-1.0); MONOCYTES % (AUTO) 7.1 %; NEUTROPHILS # (AUTO) 6.2 10^3/uL (1.5-6.6); NEUTROPHILS % (AUTO) 67.4 %; PLT - PLATELET COUNT 353 10^3/uL (130-450); RED BLOOD COUNT 3.89 10^6/uL (4.20-5.40); RED CELL DISTRIBUTION WIDTH 13.4 % (12.0-15.0); WHITE BLOOD COUNT 9.3 x10^3/uL (4.8-10.8)
[2019-09-11 05:42] LABS: ALBUMIN 2.9 g/dL (3.2-5.5); ALBUMIN/GLOBULIN RATIO 1.1 (1.0-2.2); BILIRUBIN,TOTAL 0.3 mg/dL (0.2-1.0); CALCIUM 9.1 mg/dL (8.5-10.3); CREATININE 0.6 mg/dL (0.4-1.0); PHOSPHORUS 3.6 mg/dL (2.5-4.6); TOTAL PROTEIN 5.5 g/dL (6.7-8.2)
[2019-09-11] MEDS: carvediloL 12.5 MG TABLET PO SCH ×2 (09:52→21:00)
[2019-09-11] MEDS: ENOXAPARIN 40 MG/0.4 ML SYRINGE SUBQ SCH (09:53)
--- NOTE | 2019-09-11 11:16 | PROVIDER PROGRESS NOTE ---
Subjective - General Admit Date: 09/05/19 Procedure Date: 08/30/19 Post Op Days: 12 Procedure Performed: low anterior resection - Review of Systems Wound/Incisions: positive: Healing well, No drainage General: positive: No symptoms Pulmonary: positive: No symptoms Cardiovascular: positive: No symptoms Gastrointestinal: positive: Other (occ mild crampy pains) Musculoskeletal: positive: Joint pain, Other (c/o diffuse left upper ext swelling over the past several days; no pain; has PICC in E x 4 days) Objective - Patient Data Reviewed Vital Signs: Yes Vital Signs: Vital Signs x48h Temp Pulse Resp BP Pulse Ox 09/11/19 08:27 36.4 C L 87 18 123/62 95 Weight: Weight 09/09/19 09/10/19 09/11/19 23:59 23:59 23:59 Weight (kg) 117 kg 118 kg Intake & Output: Intake and Output Totals x24h 09/09/19 09/10/19 09/11/19 23:59 23:59 23:59 Intake Total 2961 3443 590 Balance 2961 3443 590 - Lab Results Lab Results: 09/11/19 04:30 09/11/19 04:30 Other Lab Results: Lab Results x24hrs 09/11/19 09/11/19 09/11/19 Range/Units 05:07 04:30 04:30 WBC 9.3 (4.8-10.8) x10^3/uL RBC 3.89 L (4.20-5.40) 10^6/uL Hgb 10.8 L (12.0-16.0) g/dL Hct 35.0 L (37.0-47.0) % MCV 90.0 (81.0-99.0) fL MCH 27.8 (27.0-31.0) pg MCHC 30.9 L (32.0-36.0) g/dL RDW 13.4 (12.0-15.0) % Plt Count 353 (130-450) 10^3/uL MPV 10.8 (7.9-10.8) fL Neut # (Auto) 6.2 (1.5-6.6) 10^3/uL Lymph # (Auto) 1.9 (1.5-3.5) 10^3/uL [place] # (Auto) 0.7 (0.0-1.0) 10^3/uL Eos # (Auto) 0.4 (0.0-0.7) 10^3/uL Baso # (Auto) 0.1 (0.0-0.1) 10^3/uL Absolute Nucleated RBC 0.00 x10^3/uL Nucleated RBC % 0.0 /100WBC Sodium 140 (135-145) mmol/L Potassium 3.4 L (3.5-5.0) mmol/L Chloride 102 (101-111) mmol/L Carbon Dioxide 30 (21-32) mmol/L Anion Gap 8.0 (6-13) BUN 15 (6-20) mg/dL Creatinine 0.6 (0.4-1.0) mg/dL Estimated GFR (MDRD) 98 (>89) Glucose 78 (70-100) mg/dL POC Whole Bld Glucose 79 (70 - 100) mg/dL Calcium 9.1 (8.5-10.3) mg/dL Phosphorus 3.6 (2.5-4.6) mg/dL Magnesium 2.0 (1.7-2.8) mg/dL Total Bilirubin 0.3 (0.2-1.0) mg/dL AST 19 (10-42) IU/L ALT 25 (10-60) IU/L Alkaline Phosphatase 72 (42-121) IU/L Total Protein 5.5 L (6.7-8.2) g/dL Albumin 2.9 L (3.2-5.5) g/dL Globulin 2.6 (2.1-4.2) g/dL Albumin/Globulin Ratio 1.1 (1.0-2.2) Prealbumin 22 (18-45) mg/dL Triglycerides 371 H ( - 149) mg/dL 09/11/19 09/10/19 09/10/19 Range/Units 00:14 21:51 21:16 WBC (4.8-10.8) x10^3/uL RBC (4.20-5.40) 10^6/uL Hgb (12.0-16.0) g/dL Hct (37.0-47.0) % MCV (81.0-99.0) fL MCH (27.0-31.0) pg MCHC (32.0-36.0) g/dL RDW (12.0-15.0) % Plt Count (130-450) 10^3/uL MPV (7.9-10.8) fL Neut # (Auto) (1.5-6.6) 10^3/uL Lymph # (Auto) (1.5-3.5) 10^3/uL [place] # (Auto) (0.0-1.0) 10^3/uL Eos # (Auto) (0.0-0.7) 10^3/uL Baso # (Auto) (0.0-0.1) 10^3/uL Absolute Nucleated RBC x10^3/uL Nucleated RBC % /100WBC Sodium (135-145) mmol/L Potassium (3.5-5.0) mmol/L Chloride (101-111) mmol/L Carbon Dioxide (21-32) mmol/L Anion Gap (6-13) BUN (6-20) mg/dL Creatinine (0.4-1.0) mg/dL Estimated GFR (MDRD) (>89) Glucose (70-100) mg/dL POC Whole Bld Glucose 104 H 102 H 71 (70 - 100) mg/dL Calcium (8.5-10.3) mg/dL Phosphorus (2.5-4.6) mg/dL Magnesium (1.7-2.8) mg/dL Total Bilirubin (0.2-1.0) mg/dL AST (10-42) IU/L ALT (10-60) IU/L Alkaline Phosphatase (42-121) IU/L Total Protein (6.7-8.2) g/dL Albumin (3.2-5.5) g/dL Globulin (2.1-4.2) g/dL Albumin/Globulin Ratio (1.0-2.2) Prealbumin (18-45) mg/dL Triglycerides ( - 149) mg/dL 09/10/19 09/10/19 09/10/19 Range/Units 20:49 16:41 11:58 WBC (4.8-10.8) x10^3/uL RBC (4.20-5.40) 10^6/uL Hgb (12.0-16.0) g/dL Hct (37.0-47.0) % MCV (81.0-99.0) fL MCH (27.0-31.0) pg MCHC (32.0-36.0) g/dL RDW (12.0-15.0) % Plt Count (130-450) 10^3/uL MPV (7.9-10.8) fL Neut # (Auto) (1.5-6.6) 10^3/uL Lymph # (Auto) (1.5-3.5) 10^3/uL [place] # (Auto) (0.0-1.0) 10^3/uL Eos # (Auto) (0.0-0.7) 10^3/uL Baso # (Auto) (0.0-0.1) 10^3/uL Absolute Nucleated RBC x10^3/uL Nucleated RBC % /100WBC Sodium (135-145) mmol/L Potassium (3.5-5.0) mmol/L Chloride (101-111) mmol/L Carbon Dioxide (21-32) mmol/L Anion Gap (6-13) BUN (6-20) mg/dL Creatinine (0.4-1.0) mg/dL Estimated GFR (MDRD) (>89) Glucose (70-100) mg/dL POC Whole Bld Glucose 70 98 137 H (70 - 100) mg/dL Calcium (8.5-10.3) mg/dL Phosphorus (2.5-4.6) mg/dL Magnesium (1.7-2.8) mg/dL Total Bilirubin (0.2-1.0) mg/dL AST (10-42) IU/L ALT (10-60) IU/L Alkaline Phosphatase (42-121) IU/L Total Protein (6.7-8.2) g/dL Albumin (3.2-5.5) g/dL Globulin (2.1-4.2) g/dL Albumin/Globulin Ratio (1.0-2.2) Prealbumin (18-45) mg/dL Triglycerides ( - 149) mg/dL - Current Medications Current Medications: Current Medications Generic Name Dose Route Start Last Admin Trade Name Freq PRN Reason Stop Dose Admin Acetaminophen 650 mg 09/10/19 15:31 09/11/19 09:52 Tylenol PO 650 mg Q4HR PRN Administration Pain or Fever > 38C (100.4F) Carvedilol 25 mg 09/03/19 21:00 09/11/19 09:52 Coreg PO 25 mg BID JEM Administration Enoxaparin Sodium 40 mg 09/04/19 09:00 09/11/19 09:53 Lovenox SUBQ 40 mg DAILY JEM Administration Lorazepam 0.5 mg 09/03/19 16:47 09/05/19 19:56 Ativan Inj (Vial) IVP 0.5 mg Q2H PRN Administration Nausea / Vomiting Ondansetron HCl 4 mg 09/03/19 16:40 09/06/19 13:49 Zofran Inj IVP 4 mg Q6HR PRN Administration Nausea / Vomiting Sodium Chloride 10 ml 09/03/19 16:40 09/11/19 09:53 Normal Saline Flush 0.9% IVP 10 ml PRN PRN Administration NEEDED PER PROVIDER ORDERS Sodium Chloride 10 ml 09/03/19 17:00 09/11/19 09:53 Normal Saline Flush 0.9% IVP 10 ml 0100,0900,1700 JEM Administration Sodium Chloride 20 ml 09/11/19 04:23 09/11/19 05:04 Normal Saline Flush 0.9% IVP 20 ml PRN PRN Administration After Blood Draw - Physical Exam Wound/Incisions: positive: Healing well, No drainage General Appearance: positive: No acute distress Eyes Bilateral: positive: Normal inspection ENT: positive: ENT inspection nml Neck: positive: Nml inspection Respiratory: positive: Chest non-tender, No respiratory distress, Breath sounds nml Cardiovascular: positive: Regular rate & rhythm, No murmur Abdomen: positive: Non-tender, Nml bowel sounds, Other (obese, incisions healing well) Skin: positive: Warm, Dry. negative: Cyanosis Extremities: positive: No pedal edema, Other (LUE mildly diffusely swollen, nontender; PICC exit site in medial aspect of upper arm). negative: Calf tenderness Neurologic/Psychiatric: positive: Oriented x3 Comments/Other: tolerating full liq diet well and passing flatus and stool. Impression/Plan - Problem List Problem List: 1. Resolving postop SBO 2. LUE edema in same arm as PICC; need to assess for LUE DVT Plan: advance to regular diet, avoiding nuts and fresh veggies; increase activity; US LUE
--- NOTE | 2019-09-11 12:57 | Ultrasound Report ---
Reason: LUE welling; s/p PICC Procedure Date: 09/11/2019 Accession Number: [id number] / [id number] Procedure: US - Duplex Ext Veins Left CPT Code: Final Report FULL RESULT: EXAM: LEFT UPPER EXTREMITY VENOUS ULTRASOUND EXAM DATE: 09/11/2019 12:38 PM. CLINICAL HISTORY: JUAN CARLOS pan; s/p PICC. COMPARISON: None. TECHNIQUE: Real-time sonographic vascular imaging was performed by the freight and passenger agent through the upper extremity utilizing both color-flow and Doppler spectral analysis. Multiple practice representative static images were saved for review. FINDINGS: Internal Jugular Vein (IJV): Normal. Subclavian Vein (SCV): Normal. Axillary Vein : Mildly limited visualization on color imaging. No definite thrombus seen. Cephalic Vein (superficial vein): Normal. Basilic Vein (superficial vein): Normal. Brachial Vein: Normal. Contralateral Side: Subclavian Vein: Normal. Other: Left upper extremity PICC is noted. IMPRESSION: 1. Left upper arm PICC. 2. No evidence for deep vein thrombosis. RADIA
[2019-09-12] MEDS: SODIUM CHLORIDE FLUSH 0.9% 10 ML SYRINGE IVP SCH ×2 (02:07→12:44)
[2019-09-12] MEDS: ACETAMINOPHEN 325 MG TABLET PO PRN ×2 (06:08→11:29)
[2019-09-12 09:07] VITALS: BP 128/68
[2019-09-12] MEDS: carvediloL 12.5 MG TABLET PO SCH (09:08)
[2019-09-12] MEDS: ENOXAPARIN 40 MG/0.4 ML SYRINGE SUBQ SCH (09:08)
[2019-09-12] MEDS ORDERED: PETROLATUM WHITE 5 GM PACKET TOP PRN (11:50)
--- NOTE | 2019-09-12 12:04 | Discharge Plan ---
Discharge Plan Problem Reviewed?: Yes Disposition: Home, Self Care Condition: Good Diet: Regular Activity Restrictions: Do not lift more than 10 pounds Shower Restrictions: No Plan of Treatment: Discharge to care of family for continued convalesence. Has appointment with Oncology already scheduled Care Goals: Improve strength Assessment: Improving daily after low anterior resection complicated by post operative small bowel obstruction. Obstruction has resolved No Smoking: If you smoke, Please STOP! Call for help. Follow-up with: ASHTYN RM MD [Primary Care Provider] - Marcelino Snyder MD [Provider Admit Priv/Credential] -
--- NOTE | 2019-09-12 12:05 | DISCHARGE SUMMARY ---
"Discharge Summary Admit Date: 09/03/19 Discharge Date: 09/12/19 Discharging Provider: Claudio Primary Care Provider: Scott Carlson Status: Attempt Resuscitation Condition at Discharge: Good Discharge Disposition: 01 Home, Self Care - DIAGNOSES Admission Diagnoses: Post operative ileus after low anterior resection Discharge Diagnoses with Status of Each Condition: Post operative small bowel obstruction - resolved - HPI History of Present Illness: Patient discharged on post op day 3 after an uncomplicated low anterior resection for biopsy proven colo-rectal cancer. Initially did well at home and then developed nausea and vomiting. She has only been taking tylenol for pain. Continues to pass a small amount of flatus and has had a couple of diarrhea stools. Took Zofran and reglan at home and it wasn't effective so she presented to the ED. She is afebrile. Labs in the ED were reassurring. Xrays consistent with mild ileus. - CONSULTS | PROCEDURES Consultations: Anesthesia service Procedures: Imaging Bowel rest Supportive care PICC line placement for TPN - HOSPITAL COURSE Hospital Course: The patient was admitted and placed on reglan. Her nausea improved during the day but then would return every evening with large volume emesis. CT scan of the abdomen and pelvis revealed findings consistent with post operative small bowel obstruction. The patient had a PICC line placed and TPN was started. She improved daily and continued to have bowel movements. Nausea completely resolved and she was able to tolerate a regular diet. She is discharged to her home in the care of her family. We will see her back in our office in 2 weeks. She already has an appointment scheduled with Oncology . - ALLERGIES Allergies/Adverse Reactions: Allergies Allergy/AdvReac Type Severity Reaction Status Date / Time No Known Drug Allergies Allergy Verified 09/03/19 14:08 - MEDICATIONS Home Medications: Ambulatory Orders Medication Instructions Recorded Confirmed Acetaminophen [Tylenol Extra 500 mg PO BID 11/26/18 09/04/19 Strength] Lisinopril 20 mg PO DAILY 11/26/18 09/04/19 Cholecalciferol (Vitamin D3) 2,000 unit PO DAILY 08/25/19 09/04/19 [Vitamin D3] Multivitamin [Multiple Vitamins] 1 each PO DAILY 08/25/19 09/04/19 Vitamin E 400 unit PO DAILY 08/25/19 09/04/19 Polyethylene Glycol 3350 [Miralax] 17 gm PO DAILY #30 packet 09/02/19 09/04/19 Spironolactone [Aldactone] 12.5 mg PO DAILY tablet 09/02/19 09/04/19 carvediloL [Coreg] 25 mg PO BID tablet 09/02/19 09/04/19 oxyCODONE [Roxicodone] 5 mg PO Q4HR PRN #30 tablet 09/02/19 09/04/19 - PHYSICAL EXAM AT DISCHARGE General Appearance: positive: No acute distress, Alert Eyes Bilateral: positive: Normal inspection, PERRL, EOMI ENT: positive: ENT inspection nml, Pharynx nml, No signs of dehydration Neck: positive: Nml inspection, Thyroid nml, No JVD Respiratory: positive: Chest non-tender, No respiratory distress, Breath sounds nml Cardiovascular: positive: Regular rate & rhythm, No murmur, No gallop Peripheral Pulses: positive: 0 Abdomen: positive: Non-tender, Nml bowel sounds, Other (Incisions are clean, dry and in tact) Back: positive: Nml inspection Skin: positive: Color nml Extremities: positive: Non-tender Neurologic/Psychiatric: positive: Oriented x3, CN's nml (2-12) - LABS Result Diagrams: 09/11/19 04:30 09/11/19 04:30 - SEPSIS Current Stage of Sepsis: Ruled out - QUALITY (Female Hip Fx Only) Was patient sent home on osteoporosis medication?: No - FOLLOW UP Follow Up: [address] Snyder - TIME SPENT Time Spent in Discharge (Minutes): 30"
== END 2019-09-12 13:43 | disposition home or self-care (01) | DRG 389 ==
LOC: ED 14:05 → MS2 16:40 → OBSVTOIN 09-05 11:48
PROVIDERS: ADMIT Surgery; ATTEND Surgery
PROC: 02HV33Z Insertion of Infusion Device into Superior Vena Cava, Percutaneous Approach (ICD-10-PCS; principal; 2019-09-07)
PROC: B548ZZA Ultrasonography of Superior Vena Cava, Guidance (ICD-10-PCS; 2019-09-07)
DX: K56.7 Ileus, unspecified (principal); K91.30 Postprocedural intestinal obstruction, unspecified as to partial versus complete; C19 Malignant neoplasm of rectosigmoid junction; Y83.6 Removal of other organ (partial) (total) as the cause of abnormal reaction of the patient, or of later complication, without mention of misadventure at the time of the procedure; Y92.234 Operating room of hospital as the place of occurrence of the external cause; I10 Essential (primary) hypertension; G47.30 Sleep apnea, unspecified; K57.30 Diverticulosis of large intestine without perforation or abscess without bleeding; K21.9 Gastro-esophageal reflux disease without esophagitis; Z90.49 Acquired absence of other specified parts of digestive tract; H35.30 Unspecified macular degeneration; M19.90 Unspecified osteoarthritis, unspecified site; R60.9 Edema, unspecified; Z79.899 Other long term (current) drug therapy
CPT/HCPCS: 36415; 74019; 74177; 80048; 80053; 83690; 83735; 84100; 84134; 84478; 85025; 93971; 96361; 96372; 96374; 96375; 96376; 97116; 97161; 99284; 99285; A9270; C1751; J0131; J1650; J2060; J2765; J3490; Q9967; 71045

== ENCOUNTER 2020-08-02 11:11 | Day surgery (SDC) | payer MEDICARE, BC ==
[2020-08-02] MEDS ORDERED: fentaNYL 100 MCG/2 ML VIAL IVP ONE (11:12)
[2020-08-02] MEDS ORDERED: MIDAZOLAM 2 MG/2 ML VIAL IVP ONE (11:12)
[2020-08-02] MEDS: LACTATED RINGERS 1,000 ML IV ONE ×2 (11:42→13:25)
[2020-08-02 13:49] VITALS: BP 108/52
== END 2020-08-02 11:12 | disposition home or self-care (01) ==
LOC: SDS 11:11
PROVIDERS: ATTEND Surgery
DX: Z08 Encounter for follow-up examination after completed treatment for malignant neoplasm (principal); Z85.038 Personal history of other malignant neoplasm of large intestine; Z90.49 Acquired absence of other specified parts of digestive tract; Z98.0 Intestinal bypass and anastomosis status; K57.30 Diverticulosis of large intestine without perforation or abscess without bleeding; I10 Essential (primary) hypertension; G47.33 Obstructive sleep apnea (adult) (pediatric)
CPT/HCPCS: 45378; J7120

== ENCOUNTER 2020-10-22 07:00 | Outpatient (CLI) | payer MEDICARE, BC | END 2020-10-22 23:59 | disposition home or self-care (01) | LOC: LAB 07:00 | PROVIDERS: ATTEND Surgery | DX: Z01.812 Encounter for preprocedural laboratory examination (principal); C18.9 Malignant neoplasm of colon, unspecified; Z20.822 Contact with and (suspected) exposure to COVID-19 ==

== ENCOUNTER 2020-10-25 10:48 | Day surgery (SDC) | payer MEDICARE, BC ==
[2020-10-25] MEDS ORDERED: LACTATED RINGERS 1,000 ML IV ONE ×2 (11:13→14:25)
--- NOTE | 2020-10-25 11:48 | ANESTHESIA ---
Pre-Anesthesia VS, & Labs - Diagnosis colon CA - Procedure port placement Vital Signs: Temp Pulse Resp BP Pulse Ox 36.2 C L 78 16 168/88 H 96 10/25/20 11:07 10/25/20 11:07 10/25/20 11:07 10/25/20 11:07 10/25/20 11:07 Height: 5 ft 7 in Weight (kg): 116 kg Body Mass Index: 40.0 BMI Classification: Morbidly Obese - NPO >8 hours - Is Patient ?: No - Lab Results Lab results reviewed: Yes Home Medications and Allergies Home Medications: Ambulatory Orders Aspirin [Aspirin EC] 81 mg PO DAILY 10/22/20 Acetaminophen [Tylenol] 650 mg PO DAILY 10/25/20 lisinopriL [Lisinopril] 20 mg PO DAILY 11/26/18 Multivitamin [Multiple Vitamins] 1 each PO DAILY 08/25/19 Vitamin E (Dl,Tocopheryl Acet) [Vitamin E] 400 unit PO DAILY 08/25/19 Aspirin [Aspirin EC] 81 mg PO DAILY 10/22/20 Acetaminophen [Tylenol] 650 mg PO DAILY 10/25/20 Allergies/Adverse Reactions: Allergies Allergy/AdvReac Type Severity Reaction Status Date / Time No Known Drug Allergies Allergy Verified 10/17/20 13:22 Anes History & Medical History - Anesthetic History Anesthesia Complications: reports: No previous complications Family history of Anesthesia Complications: Denies Family history of Malignant Hyperthermia: Denies - Medical History Cardiovascular: reports: Hypertension, High cholesterol Pulmonary: reports: None Gastrointestinal: reports: Colon polyps Urinary: reports: None Neuro: reports: None, Other (hx bacterial menegitis resulting in decreased mobilty t/o body and "New arthritic pains") Musculoskeletal: reports: Rheumatoid arthritis Endocrine/Autoimmune: reports: None Skin: reports: None Smoking Status: Never smoker Psychosocial: reports: No issues indicated History of Cancer?: Yes (colon) - Surgical History General: Cholecystectomy, Bowel surgery Gynecologic: section Neurologic: Other Exam General: Alert, Oriented x3, Cooperative Dental: WNL Mouth Openin Fingerbreadth Neck Mobility: Normal Mallampati classification: II Thyromental Distance: 4-6 cm Respiratory: Lungs clear, Normal breath sounds, No respiratory distress Cardiovascular: Regular rate Neurological: Normal speech Mental/Cognitive Status: Alert/Oriented X3, Normal for patient Cognitive Status: Within normal limits Plan Anesthesia Type: MAC Consent for Procedure(s) Verified and Reviewed: Yes Code Status: Attempt Resuscitation ASA classification: 3-Severe systemic disease Is this case an emergency?: No
[2020-10-25] MEDS ORDERED: PROPOFOL 200 MG/20 ML VIAL IVP ONE ×2 (12:42→14:14)
[2020-10-25] MEDS ORDERED: MIDAZOLAM 2 MG/2 ML VIAL ONE (12:42)
[2020-10-25] MEDS ORDERED: LIDOCAINE-MPF 2% 5 ML VIAL ONE (12:42)
[2020-10-25] MEDS ORDERED: fentaNYL 100 MCG/2 ML VIAL ONE (12:42)
[2020-10-25] MEDS ORDERED: BUPIVACAINE 0.5% PF 30 ML VIAL INFIL ONE ×2 (12:48→14:19)
[2020-10-25] MEDS ORDERED: LIDOCAINE 2%-EPI 1:100000 20 ML MDV SUBQ ONE ×2 (12:49→14:19)
[2020-10-25] MEDS ORDERED: LIDOCAINE 2%-EPI 1:100000 20 ML MDV ONE (12:56)
[2020-10-25] MEDS ORDERED: BUPIVACAINE 0.5% PF 30 ML VIAL ONE (12:57)
[2020-10-25] MEDS ORDERED: ceFAZolin 1 GM VIAL ONE (13:44)
[2020-10-25] MEDS ORDERED: ONDANSETRON 4 MG/2 ML VIAL IVP PRN ×2 (13:49→14:40)
[2020-10-25] MEDS ORDERED: ePHEDrine 50 MG/ML VIAL IVP PRN (13:49)
[2020-10-25] MEDS ORDERED: ATROPINE ABBOJECT 1 MG/10 ML SYRINGE IVP PRN (13:49)
[2020-10-25] MEDS ORDERED: METOCLOPRAMIDE 10 MG/2 ML VIAL IVP PRN (13:49)
[2020-10-25] MEDS ORDERED: NALOXONE 0.4 MG/ML VIAL IVP PRN (13:49)
[2020-10-25] MEDS ORDERED: fentaNYL 100 MCG/2 ML VIAL IVP PRN (13:49)
[2020-10-25] MEDS ORDERED: HYDROmorphone 0.5 MG/0.5 ML SYRINGE IVP PRN (13:49)
[2020-10-25] MEDS ORDERED: MORPHINE 2 MG/ML CARPUJECT IVP PRN (13:49)
[2020-10-25] MEDS ORDERED: LACTATED RINGERS 1,000 ML IV SCH (14:00)
[2020-10-25] MEDS ORDERED: oxyCODONE 5 MG TABLET PO PRN (14:40)
--- NOTE | 2020-10-25 14:44 | OPERATIVE REPORT ---
Operative Report - General Procedure Date: 10/25/20 Planned Procedure: 1. Ultrasound-guided left internal jugular central venous access 2. Radiographically assisted left internal jugular central venous catheter placement 3. Left Mediport placement Pre-Op Diagnosis: Metastatic colorectal cancer; need for reliable central venous access Procedure Performed: 1. Ultrasound-guided left internal jugular central venous access 2. Radiographically assisted left internal jugular central venous catheter placement 3. Left Mediport placement Post Op Diagnosis: Same; line at the atriocaval junction - Procedure Note Primary Surgeon: Valentin Secondary Surgeon: Edward Anesthesia Provider: Homer Anesthesia Technique: Local, MAC Pathology: None Estimated Blood Loss (mL): 10 Indications: Need for reliable central venous access in anticipation of palliative chemotherapy in the setting of stage IV colon cancer. Findings: 1. Left internal jugular successfully cannulated ultrasonographically 2. Left internal jugular central venous catheter with line within the atriocaval junction Complications: NONE - Other Other Information/Narrative: Report pending.
[2020-10-25 15:26] VITALS: BP 136/71
--- NOTE | 2020-10-25 15:54 | XRAY Report ---
PROCEDURE: Post Port Placement 1V CXR INDICATIONS: LINE PLACEMENT TECHNIQUE: One view of the chest was acquired. COMPARISON: CT chest dated 10/10/2020 FINDINGS: Surgical changes and devices: Left chest wall Port-A-Cath tip is seen projecting in the expected loca tion of SVC.. Lungs and pleura: No pleural effusions or pneumothorax. Mild pulmonary vascular congestion is seen. No definite focal infiltrate. Mediastinum: Mediastinal contours appear normal. Heart size is enlarged. Bones and chest wall: No suspicious bony lesions. Overlying soft tissues appear unremarkable. IMPRESSION: Left chest wall Port-A-Cath tip is in SVC. No gross pneumothorax. Mild pulmonary vascular congestion. Reviewed by: Agusto Steven MD on 10/25/2020 2:53 PM AKST Approved by: Agusto Steven MD on 10/25/2020 2:53 PM AKST Station ID: [id number]
== END 2020-10-25 10:49 | disposition home or self-care (01) ==
LOC: SDS 10:48
PROVIDERS: ATTEND Surgery
DX: C18.9 Malignant neoplasm of colon, unspecified (principal); E66.01 Morbid (severe) obesity due to excess calories; Z68.41 Body mass index [BMI] 40.0-44.9, adult; I10 Essential (primary) hypertension; I27.20 Pulmonary hypertension, unspecified; G47.30 Sleep apnea, unspecified; D50.9 Iron deficiency anemia, unspecified
CPT/HCPCS: 36561; 71045; C1788; J7120

== ENCOUNTER 2020-12-13 14:00 | Outpatient (CLI) | payer MEDICARE, BC ==
--- NOTE | 2020-12-13 15:59 | CONSULTATION NOTE ---
Palliative Care Consultation - Referral Referring Provider: Gilda Stoll PA-C Time of Visit: [id number] Referral setting: Home Referral Reason: Metastatic stage IV of sigmoid colon - Information Sources Records reviewed: Previous records reviewed History/Review of Systems obtained from: Patient, Family (spouse, Waqas and daughter, Mahi) Exam limitations: No limitations - History of Present Illness Brief History of Present Illness: This is a 75-year-old female who was seen and evaluated today within her home for initial palliative care consultation with her and daughter present due to relapsed newly metastatic sigmoid: Adenocarcinoma and advance care planning. In 2018 the patient noted blood on toilet paper after defecation for several months before undergoing a evaluation. In July 2019 she was diagnosed with stage IIIb moderately differentiated adenocarcinoma of the sigmoid colon with final pathology after tumor resection August 2019 as pT3N1A. 1 out of 11 lymph node were positive. She declined to undergo adjunctive chemotherapy and was on a monitoring schedule for follow-up. On chest CT she was noted to have pulmonary nodules x2 with request for follow-up in February 2021 for surveillance. In July 2020 the patient was due for a repeat colonoscopy with no concerning findings. And on August 02, 2020 her CEA was 39.4 with recommendation for repeat check for potential serologic relapse with chest CT, abdomen and pelvis. October 10, 2020 her CEA increased to [address] of the chest and pelvis displayed evidence for recurrence with multiple hepatic lesions greater than 20 as well as pulmonary metastases. She underwent a liver biopsy October 29, 2020 that was positive for metastatic adenocarcinoma of colonic origin. She began FOLFOX treatment on 11/21/2020 with CEA 118.5 and on 12/05 the CEA decreased to 57.5. She reports her bowel movements are regular. She initially experienced constipation with use of ondenstran This is been controlled with increasing her MiraLAX to 1 cap from half a cap and use of Colace on the days of her chemotherapy treatment. She denies any blood with defecation or on toilet paper. There has been no change to her appetite. She denies abdominal pain. Her clothes are fitting her well. She does report some cold sensitivity since initiation of FOLFOX and recently the cold was too much for her taking a container of grapes out of the fridge rater resulting in her drop in the container. She does have gloves available for her use besides refrigerator but has not utilized them. 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 She reports that the discomfort intensifies after chemotherapy but it is very intermittent and not prolonged and at the present time she does not wish to initiate any medication for this. She has been told that she has some mild anemia and her daughter has obtained folic acid and vitamin B12 supplementation to begin for management. She does report that in the past she had some anemia due to blood loss and was taking ferrous sulfate but did not tolerate that type of supplementation. Prior to initiation of FOLFOX therapy she was on her exercise bike outside on a routine basis however, due to increased cold sensitivity after beginning FOLFOX therapy she has had a reduction in her outdoor activity due to the sensitivity. She is reporting today that she is utilizing the exercise bike approximately 20 minutes/day. She has not been out for any additional walks with her spouse. Due to a past injury to her right knee with potential ACL tear she does have some underlying gait impairment on the right side due to that right knee. The patient is seen and examined today her kitchen table appears well groomed, no evidence of acute distress and is articulate. Medical/Surgical History - Past Medical History Cardiovascular: reports: Hypertension, High cholesterol, Other (pulmonary HTN; LBBB) Respiratory: reports: Other (MYRON) Neuro: Other (meningoencephalcele; bacterial spinal meningitis 2016) Endocrine/Autoimmune: reports: None GI: reports: Colon polyps, Other : reports: None HEENT: reports: Macular degeneration Psych: reports: None Derm: reports: Herpes zoster MRSA Hx?: No Other Past Medical History: Iron Deficiency Anemia; Skull deterioration above left ear; Stage IIIb moderately differentiated adenocarcinoma of sigmoid colon 07/2109 with relapsed metastatic sigmoid colon adenocarcinoma 09/2020; septic shock due to cellulitis from chronic venous stasis ulcers 11/2018. 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 Support System: Grew up in [place], [place]. 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 She has made all her and her 's own clothes for years. She and her have been for 51 years. They have one daughter, Mahi, who is the patient's gericare aide teacher and coordinator with contact number [phone]. Her daughter is an [employer] school counsellor. The patient and her moved to [facility] on the property of her daughter's property in 2018 after she had bacterial spinal menginitis. She has one grandson, Michael. She presently enjoys paint by numbers that she tweaks to personalize and building small modules. The patient's daughter plans to attend appointments with the patient when she meets with Dr. Su for ease of care coordination and management. The patient's spouse will attend appointments with the patient on opposite weeks. Family History - Family History Family History: Mother: , Father: , Sister: Family History Comment/Other: Father-Alzheimer's dementia Mother-Dementia Sister-Down Syndrome Medications/Allergies - Medications Home Medications: Ambulatory Orders Medication Instructions Recorded Confirmed lisinopriL [Lisinopril] 20 mg PO DAILY 11/26/18 12/16/20 Multivitamin [Multiple Vitamins] 1 each PO DAILY 08/25/19 12/16/20 Vitamin E (Dl,Tocopheryl Acet) 400 unit PO DAILY 08/25/19 12/16/20 [Vitamin E] Spironolactone [Aldactone] 12.5 mg PO DAILY tablet 09/02/19 12/16/20 carvediloL [Coreg] 25 mg PO BID tablet 09/02/19 12/16/20 Acetaminophen [Tylenol] 650 mg PO DAILY 10/25/20 12/16/20 Lidocaine/Prilocain 2.5% Cream 5 applic TOP UD #1 gm 11/13/20 12/16/20 [Emla 2.5% Cream] Olanzapine [Zyprexa] 5 mg PO UD #24 tab 11/13/20 12/16/20 Ondansetron HCl [Zofran] 4 mg PO Q6HR PRN #30 tab 11/13/20 12/16/20 Prochlorperazine Maleate 10 mg PO Q6HR PRN #30 tab 11/13/20 12/16/20 [Compazine] polyethylene glycoL 3350 [Miralax] 8.5 g PO DAILY 12/16/20 12/16/20 - Allergies Allergies/Adverse Reactions: Allergies Allergy/AdvReac Type Severity Reaction Status Date / Time No Known Drug Allergies Allergy Verified 12/16/20 13:47 Review of Systems - Constitutional Constitutional: reports: Weight stable (clothes are fitting well). denies: Fever - Eyes Eyes: reports: Corrective lenses. denies: Irritation - Ears, Nose & Throat Ears, Nose & Throat: reports: Hearing loss (after skull detrioration) - Cardiovascular Cardiovascular: denies: Palpitations, Chest pain - Respiratory Respiratory: denies: Cough - Gastrointestinal Gastrointestinal: reports: Good appetite. denies: Constipation (controlled, see HPI), Diarrhea, Rectal bleeding, Black stools, Nausea (controlled during chemo with zofran) - Genitourinary Genitourinary: denies: Dysuria - Musculoskeletal Musculoskeletal: reports: Stiffness, Assistive devices - Integumentary Integumentary: denies: Rash - Neurological Neurological: reports: Other (neuropathy to hands, intermittent). denies: Headache, Dizziness - Psychiatric Psychiatric: denies: Depression - Hematologic/Lymphatic Hematologic/Lymph: reports: Anemia (mild anemia due to chemotherapy) - All Other Systems All Other Systems: reports: Reviewed and negative Physical Exam - Vital Signs Temperature: 36.7 C Pulse Rate: 73 O2 Saturation: 98 (on RA) Blood Pressure: 125/82 (left wrist) - Physical Exam General Appearance: positive: No acute distress, Alert, Other (overweight) Eyes Bilateral: positive: Normal inspection ENT: positive: No signs of dehydration, Other (B/l TMs intact without effusion or scarring noted) Neck: positive: Trachea midline. negative: Lymphadenopathy (R), Lymphadenopathy (L) Cardiovascular: positive: Regular rate & rhythm. negative: No murmur Respiratory: positive: No respiratory distress, Breath sounds nml. negative: Rales Abdomen: positive: Non-tender, Soft, Nml bowel sounds, Obese. negative: Guarding Skin: positive: Other (venous stasis dermatitis to BLE with hypopigmentation 2/2 scarring from ulcers to BLE; defined, well healed scar to left chestwall from port placement.) Extremities: positive: No pedal edema (compression stockings in place BLE) Neurologic/Psychiatric: positive: Oriented x3, Other (resversed in affect; ambulates with mild gait ataxia) Palliative Care - POLST Patient has POLST: No Pain: Comment (mild, arthritis to knees) Drowsiness/Sedation: Mild (1-3) (occurs following chemo) Nausea: None Anorexia: None Dyspnea: None Depression: None Anxiety: None Feelings of wellbeing/Perceived Quality of Life: Good Constipation: No, Managed - Palliative Care Discussion: The patient has unfortunately developed relapsed newly metastatic sigmoid colon adenocarcinoma after she had a tumor resection in August 2019. With her full fax palliative treatment she reports fatigue following the therapy and increased neuropathic pain that is intermittent and not to the point that she wishes to introduce a new medication such as gabapentin at the present time. Overall, she presently has minimal symptom burden related to her oncologic diagnosis. However, the patient's daughter and previous encounter had reported separately that the patient often will minimize her symptoms even when directly asked. She has had some functional decline with the initiation of FOLFOX treatment due to her increased sensitivity to cold where she is not utilizing her exercise stationary bike like she wants was. She is not inclined to relocate her exercise bike into the home environment where she would have increased warmth and reduction of her symptoms. We will continue to encourage utilization of her exercise bike inside for comfort and maintaining her energy and physical functioning. In regards to her recent diagnosis of metastatic stage IV sigmoid colon adenocarcinoma the patient is very pragmatic in her plan moving forward. She plans to complete chemotherapy and with repeat imaging in February for discussion and reassessment for the next steps. The patient presently is only looking at each steps moving forward and does not wish to look further into the future at this time beyond her present step. Results - Lab Results Lab results reviewed: Yes Lab and Imaging Results: 12/05/2020 CEA 57.5 11/21/2020 CEA 118.5 10/10/2020 CEA 72.6 Impression and Recommendations - Palliative Care Impression: This is a 75-year-old female who presents with relapse newly metastatic stage IV sigmoid colon adenocarcinoma of the sigmoid colon with pulmonary and hepatic metastases presently undergoing FOLFOX therapy. She has some underlying cold sensitivity and neuropathy that she is managing related to her treatment. Otherwise, at the present time she has minimal symptom burden that she is reporting. Has her diagnosis is palliative and not curative she will need continue to advance care planning as she allows moving forward. Palliative care will continue to provide support for symptom management, care coordination, and anticipatory guidance. Recommendations/Counseling Done: 1. Relapsed newly metastatic sigmoid colon adenocarcinoma. Diagnosed 09/2020. Began FOLFOX therapy with initial treatment 11/21/2020. Continue to be followed by oncology for management with restaging planned in February 2021. Discussed maintaining some degree of physical activity during her FOLFOX therapy to reduce fatigue symptoms and maintaining her strength. 2. Constipation due to Zofran. Controlled being managed with increase of MiraLAX from half a cap to 1 cap on in therapy days and utilization of Colace also on therapy days. Reviewed with the patient, spouse and daughter the utilization of MiraLAX for "much" and senna for" push" and dose titration for symptom management. 3. Neuropathy to bilateral hands. Potentially exacerbated by FOLFOX therapy. Intermittent. Likely has some underlying carpal tunnel syndrome however, Tinel's sign negative today. Introduced to the patient today if symptoms worsen then would consider utilization of medication such as gabapentin for symptom management in the future. 4.Advance care planning. Patient has a living will in place. She is pragmatic in her treatment plan moving forward only looking ahead one step. At the present time, she is focused on completing her FOLFOX therapy and restaging in February 2021 and not looking past that. Given her diagnosis and treatment is palliative in nature and not curative we will need to provide advanced care planning in the future. However, we will need to build rapport with the patient prior to introduction of advance care planning and to follow her lead regarding introduction of these topics. The patient's daughter, Mahi is very supportive and is taking the lead in management of the patient's medical concerns and is the patient's advocate. Total time spent 70 minutes with greater than 50% of this spent in counseling and coordination of care with the patient, daughter and spouse; review of palliative philosophy;examination of patient; review of pain and symptom management and anticipatory guidance. Disclaimer: The chart note was formulated using voice recognition technology and unfortunately sound alike errors may occur.
== END 2020-12-13 14:01 | disposition home or self-care (01) ==
LOC: PC 14:00
PROVIDERS: ATTEND Nurse Practitioner Family
DX: Z51.5 Encounter for palliative care (principal); C18.7 Malignant neoplasm of sigmoid colon; C78.7 Secondary malignant neoplasm of liver and intrahepatic bile duct; C78.00 Secondary malignant neoplasm of unspecified lung; K59.03 Drug induced constipation; T45.0X5A Adverse effect of antiallergic and antiemetic drugs, initial encounter; Z79.899 Other long term (current) drug therapy; G62.9 Polyneuropathy, unspecified
CPT/HCPCS: 99344

== ENCOUNTER 2021-01-02 09:52 | Outpatient (CLI) | payer MEDICARE, BC ==
--- NOTE | 2021-01-02 17:10 | CONSULTATION NOTE ---
Palliative Care Follow Up - Referral Referring Provider: Gilda Stoll PA-C Time of Visit: [id number] [place] [facility] [place] Reason: Joint Pain/Nasal dryness/Metastatic stage IV of sigmoid colon - Information Sources Records reviewed: Previous records reviewed History/Review of Systems obtained from: Patient, Family (daughter, Mahi) Exam limitations: No limitations - History of Present Illness Update Brief HPI Update: This is a steve 75-year-old female who is seen in the oncology clinic for follow-up regarding joint pain with underlying osteoarthritis, nasal dryness, and advanced care planning due to metastatic sigmoid adenocarcinoma. Please see detailed history dictated in HPI from 12/13/2020. The patient is presently on FOLFOX treatment that was initiated on 12/19/2020. Her CEA a on 11/21 was 118.5 and today has decreased to 63.9. With each FOLFOX treatment she had been noticing increased joint discomfort more specifically with her hands and knees. She has some likely underlying carpal tunnel with neuropathy. She was initiated by this ELECTRICAL TECH/PROJECT MANAGER 1 Voltaren gel to be applied to the affected joints as needed. She has noted great improvement with initiation. She also continues on acetaminophen routinely during the day. She reports that she continues to exercise regularly on her stationary bike. She has not had any recent falls. She reports that her bowel movements are regular and formed with out noted diarrhea. She does have approximately 3-4 bowel movements per day. Since initiation of FOLFOX therapy she has noticed some increased fatigue that tends to occur 3 to 4 days after her initial treatment which may be due to the waning of her initial dose of dexamethasone. She is able to fall asleep easily during the night but does toss and turn sometimes. She does have at least one episode of nocturia during the night. She typically has difficulty falling back asleep easily after getting up initially. She had been told previously that she may have MYRON but has never had a formal sleep study. She snores during the night but does not have morning headaches. She does note some nasal dryness and has been using Neosporin with a Q-tip. She has not had any epistaxis but has had some Trace amount of blood intermittently due to the dryness.She has also had some cracking and dryness to her hands and has begun utilizing Aquaphor with positive effect. 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 Support System: The patient grew up in [place]. She and her , Waqas have been for 51 years. They have 1 daughter, Mahi smith was the patient's assistant child care teacher coordinator with contact number [phone]. The patient and her moved to [facility] on the property of her daughter in 2017 after she had bacterial spinal meningitis. She has 1 grandson, Michael. The patient's daughter attends provider appointments to provide ease of care coordination and management. Medications/Allergies - Medications Home Medications: Ambulatory Orders Medication Instructions Recorded Confirmed lisinopriL [Lisinopril] 20 mg PO DAILY 11/26/18 01/02/21 Multivitamin [Multiple Vitamins] 1 each PO DAILY 08/25/19 01/02/21 Vitamin E (Dl,Tocopheryl Acet) 400 unit PO DAILY 08/25/19 01/02/21 [Vitamin E] Spironolactone [Aldactone] 12.5 mg PO DAILY tablet 09/02/19 01/02/21 carvediloL [Coreg] 25 mg PO BID tablet 09/02/19 01/02/21 Acetaminophen [Tylenol] 500 mg PO QID MDD NTE 3g/day 10/25/20 01/02/21 Lidocaine/Prilocain 2.5% Cream 5 applic TOP UD #1 gm 11/13/20 12/16/20 [Emla 2.5% Cream] Olanzapine [Zyprexa] 5 mg PO UD #24 tab 11/13/20 12/16/20 Ondansetron HCl [Zofran] 4 mg PO Q6HR PRN #30 tab 11/13/20 12/16/20 Prochlorperazine Maleate 10 mg PO Q6HR PRN #30 tab 11/13/20 12/16/20 [Compazine] polyethylene glycoL 3350 [Miralax] 8.5 g PO DAILY 12/16/20 01/02/21 Diclofenac Sodium [Voltaren] 2 - 4 g TP TID PRN MDD NTE 12/20/20 01/02/21 32g/day/all sources Naproxen Sodium [Aleve] 220 mg PO BID PRN 01/02/21 01/02/21 - Allergies Allergies/Adverse Reactions: Allergies Allergy/AdvReac Type Severity Reaction Status Date / Time No Known Drug Allergies Allergy Verified 01/02/21 10:39 Review of Systems - Constitutional Constitutional: reports: Fatigue, Weight stable. denies: Fever - Eyes Eyes: reports: Corrective lenses. 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 denies: Nosebleeds - Cardiovascular Cardiovascular: denies: Chest pain - Respiratory Respiratory: denies: Cough - Gastrointestinal Gastrointestinal: reports: Other (Decreased appetite reported). denies: Constipation (controlled), Rectal bleeding, Nausea (controlled during chemo with zofran) - Genitourinary Genitourinary: denies: Dysuria - Musculoskeletal Musculoskeletal: reports: Stiffness, Joint pain (specfically to knees and hands), Assistive devices (uses cane) - Integumentary Integumentary: reports: Dryness (to hands, see HPI, improved) - Neurological Neurological: reports: Other (neuropathy to hands, intermittent--not worsened per her report and remains at baseline). denies: Headache - Endocrine Endocrine: denies: Diabetes type 2 - Hematologic/Lymphatic Hematologic/Lymph: reports: Anemia (mild anemia due to chemotherapy) - All Other Systems All Other Systems: reports: Reviewed and negative Physical Exam - Vital Signs Temperature: 36.5 C Pulse Rate: 74 O2 Saturation: 97 (on RA) Blood Pressure: 144/64 (left wrist) - Physical Exam General Appearance: positive: No acute distress, Alert, Other (overweight) Eyes Bilateral: positive: Other (+corrective lenses) ENT: positive: No signs of dehydration Neck: positive: Trachea midline Cardiovascular: positive: Regular rate & rhythm Respiratory: positive: No respiratory distress, Breath sounds nml. negative: Rales Abdomen: positive: Non-tender, Soft, Nml bowel sounds, Obese. negative: Guarding Skin: positive: Other (venous stasis dermatitis to BLE with hypopigmentation 2/2 scarring from ulcers to BLE; +left chestwall port) Extremities: positive: No pedal edema (compression stockings in place BLE) Neurologic/Psychiatric: positive: Oriented x3, Mood/affect nml (will defer some questions to be answered by her daughter, more relaxed during this visit), Other ( ambulates with mild gait ataxia) Palliative Care - POLST Patient has POLST: No Pain: Pain improved (with routine tylenol and use of voltaren gel) Tiredness/Fatigue: Mild (1-3) Drowsiness/Sedation: None Nausea: None Anorexia: Mild (1-3) Dyspnea: None Depression: None Anxiety: None Feelings of wellbeing/Perceived Quality of Life: Good Sleep: Variable sleep pattern (see HPI) Constipation: Managed - Palliative Care Discussion: The patient is pleased with her positive response to the use of Voltaren gel application to her affected joints that are causing underlying arthritic pain. Discussed that this is multifactorial due to her chemotherapy as well as underlying arthritic pain. Recommended use of [id number] NSAID such as Aleve to be utilized as needed as an additional tool in the patient's toolbox for managing her symptoms but to ensure that she takes this with food. Discussed at length with the patient and her daughter regarding healthy choices to optimize her function. This includes routine exercise, lack of processed foods with more whole foods, drinking fluids throughout the day as well as adequate sleep. Discussed that with the patient's underlying fatigue this may be due to not only her chemotherapy but also underlying MYRON. The patient has not pursued a sleep study in the past and advised that she may obtain at home if she so desires and would help coordinate with this. The patient is not open to moving forward with this at this time. Results - Lab Results Lab results reviewed: Yes Lab and Imaging Results: 01/02/2021 Sodium 145, potassium 4.3, BUN 16, creatinine 0.6, AST 26, ALT 23, alk phos 76, WBC 5.8, hemoglobin 12.1, hematocrit 38.5, platelet 190, and neutrophil count 9.8, TSH 1.53 CEA 63.9 12/19/2020 CEA 66.9 Impression and Recommendations - Palliative Care Impression: This is a steve 75-year-old female who presents with relapsed metastatic stage IV sigmoid colon adenocarcinoma with pulmonary and hepatic metastases presently undergoing FOLFOX therapy. She is moving forward with managing her symptoms due to chemotherapy. She has underlying arthritic pain specifically to her hands and knees that have responded well to topical Voltaren gel. She continues to overall have minimal symptom burden. Palliative care will continue to build rapport, provide support for symptom management, care coordination and anticipatory guidance. Recommendations/Counseling Done: 1. Arthritic pain to hands and knees. Multifactorial has the patient is undergoing chemotherapy and has underlying arthritis prior to initiation. Continue routine acetaminophen not to exceed 3000 mg daily from all sources. Continue as needed use of Voltaren gel topically has prescribed. Introduced today the use of naproxen 220 mg twice a day as needed for pain for additional relief and strongly encouraged to take with food to minimize GI upset with understanding verbalized. Continued encouragement of routine exercise for mobilization, general strengthening and wellbeing. 2. Nasal dryness. Recommended use of a white are nasal gel which is o [id number] to provide moisturization to the inside of the patient's naris. Would discontinue Neosporin. 3. Xerosis. Most specifically to the patient's hands. Has responded well to application of Aquaphor. Recommended continuation of Aquaphor with utilization of cotton gloves in the evening to lock in moisture locally. No evidence hand- foot syndrome. 4.Neuropathy to bilateral hands. Presently remains stable and intermittent. Patient may have underlying carpal tunnel syndrome. Strongly encouraged the patient is in make providers aware if she is having worsening symptoms to interv hemalatha with symptom management with use of medication such as gabapentin and patient verbalized understanding. 5. Advanced care planning. Patient has a living will in place. Discussed ways to optimize the patient's wellbeing as she undergoes treatment with chemotherapy such as whole food eating, avoidance of processed foods, continued exercise, sleep hygiene and made recommendations regarding healthy recipes as well as utilization of Meals on Wheels. The patient has a Letter to remain independent but does appreciate the support that her daughter, Mahi has been providing and taking the lead in her medical management. Supportive listening provided and will continue to build rapport. Total time spent 55 minutes with greater than 50% of the spent in counseling and coordination of care with the patient and her daughter, Mahi; examination of patient; review of pain and symptom management as well as anticipatory guidance. Disclaimer: The chart note was formulated using voice recognition technology and unfortunately sound alike errors may occur.
== END 2021-01-02 09:53 | disposition home or self-care (01) ==
LOC: PC 09:52
PROVIDERS: ATTEND Nurse Practitioner Family
DX: Z51.5 Encounter for palliative care (principal); M25.542 Pain in joints of left hand; M25.541 Pain in joints of right hand; M25.562 Pain in left knee; M25.561 Pain in right knee; T45.1X5A Adverse effect of antineoplastic and immunosuppressive drugs, initial encounter; M17.0 Bilateral primary osteoarthritis of knee; M19.042 Primary osteoarthritis, left hand; M19.041 Primary osteoarthritis, right hand; J34.89 Other specified disorders of nose and nasal sinuses; L85.3 Xerosis cutis; G62.9 Polyneuropathy, unspecified; R53.83 Other fatigue; G47.33 Obstructive sleep apnea (adult) (pediatric); C18.7 Malignant neoplasm of sigmoid colon; C78.00 Secondary malignant neoplasm of unspecified lung; C78.7 Secondary malignant neoplasm of liver and intrahepatic bile duct
CPT/HCPCS: 99215

== ENCOUNTER 2021-01-16 11:55 | Outpatient (CLI) | payer MEDICARE, BC ==
--- NOTE | 2021-01-16 14:50 | CONSULTATION NOTE ---
Palliative Care Follow Up - Referral Referring Provider: Gilda Stoll PA-C Time of Visit: [id number] Referral setting: [facility] [place] Referral Reason: Skin rash/Generalized skin/Nasal dryness/metastatic stage IV of sigmoid - Information Sources Records reviewed: Previous records reviewed History/Review of Systems obtained from: Patient, Family (spouse, Waqas present) Exam limitations: No limitations - History of Present Illness Update Brief HPI Update: This is a steve 75-year-old female who was seen in the oncology clinic for follow-up regarding recent rash to her bilateral cheeks and chest wall, nasal dryness, and review of skin care regimen at the request of the patient and her daughter/advocate Mahi in the setting of metastatic sigmoid adenocarcinoma. Please see detailed history dictated in HPI from 12/13/2020. The patient is presently on FOLFOX treatment that was initiated on 12/19/2020. Her CEA on 11/21 was 2018.5 and today it is 64.1. Discussed with 5-FU there is an increased risk of photosensitivity and she is at risk of developing phototoxic reactions which is clearly present on her bilateral cheeks and left upper chest wall. The patient reports that last week she was utilizing her exercise bike that is on the [employer] and the son was streaming in hitting her on the left side. Since that time she has been more diligent about applying sunscreen that her daughter, Mahi has purchased for her that is broad-spectrum. Yesterday evening she went outside when the sun was lower after 4 PM. She also relates she is having increased difficulty intermittently with swallowing. She never has any difficulty with With breathing. She notes that this started developing after she was intubated in October 2016 when she developed bacterial spinal meningitis. She took approximately 3 days to be extubated per her spouse's report. After that time he was very intermittent that she would feel like there was a closure spasm going on in the back of her throat when she was swallowing food items. In the last 6 months or so the frequency has increased and sometimes it will be once a day. And now it can either be water or food is a trigger. She denies any food getting caught. She is scheduled to see ENT and was referred by her PCP early next week for further evaluation. She reports to early satiety in the evening around dinnertime. If she consumes something past 7 PM she will have increased reflux and need to be more propped up prior to bed. She is also reporting a decrease in her overall taste. She has been utilizing [place] nasal gel that has been effective for her nasal dryness. She is also having some cracking to her fingertips and has been applying Aquaphor to her hands. She denies any peeling of the skin to the palms of her hands or feet. She does have a history of peripheral neuropathy to her bilateral hands with some symptoms of carpal tunnel likely contributing. She reports that her symptoms are stable and not troublesome and she does not wish to proceed with any oral medication at this time. Patient is seen in the treatment chair with premedications infusing to her left chest wall port. Well groomed and no evidence of distress. 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 Social History - Living Situation Living arrangement: At home Living Situation: With spouse/s.o. Support System: The patient grew up in [place]. She and her , Waqas have been for 51 years. They have 1 daughter, Mahi who is the patient's health care attorney coordinator with contact number [phone]. The patient and her moved to [facility] on the property of her daughter in 2017 after she recovered from bacterial spinal meningitis. She has 1 grandson, Michael. The patient tries to be active on her exercise bike that she has outside on their porch. Medications/Allergies - Medications Home Medications: Ambulatory Orders Medication Instructions Recorded Confirmed lisinopriL [Lisinopril] 20 mg PO DAILY 11/26/18 01/02/21 Multivitamin [Multiple Vitamins] 1 each PO DAILY 08/25/19 01/02/21 Vitamin E (Dl,Tocopheryl Acet) 400 unit PO DAILY 08/25/19 01/02/21 [Vitamin E] Spironolactone [Aldactone] 12.5 mg PO DAILY tablet 09/02/19 01/02/21 carvediloL [Coreg] 25 mg PO BID tablet 09/02/19 01/02/21 Acetaminophen [Tylenol] 500 mg PO QID MDD NTE 3g/day 10/25/20 01/02/21 Lidocaine/Prilocain 2.5% Cream 5 applic TOP UD #1 gm 11/13/20 12/16/20 [Emla 2.5% Cream] Olanzapine [Zyprexa] 5 mg PO UD #24 tab 11/13/20 12/16/20 Ondansetron HCl [Zofran] 4 mg PO Q6HR PRN #30 tab 11/13/20 12/16/20 Prochlorperazine Maleate 10 mg PO Q6HR PRN #30 tab 11/13/20 12/16/20 [Compazine] polyethylene glycoL 3350 [Miralax] 8.5 g PO DAILY 12/16/20 01/02/21 Diclofenac Sodium [Voltaren] 2 - 4 g TP TID PRN MDD NTE 12/20/20 01/02/21 32g/day/all sources Naproxen Sodium [Aleve] 220 mg PO BID PRN 01/02/21 01/02/21 - Allergies Allergies/Adverse Reactions: Allergies Allergy/AdvReac Type Severity Reaction Status Date / Time No Known Drug Allergies Allergy Verified 01/02/21 10:39 Review of Systems - Constitutional Constitutional: reports: Fatigue, Weight stable. 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 denies: Nosebleeds - Cardiovascular Cardiovascular: denies: Chest pain - Respiratory Respiratory: denies: Cough, Wheezing - Gastrointestinal Gastrointestinal: reports: Other (Decreased appetite reported with decreased taste). denies: Abdominal pain, Constipation, Nausea (controlled during chemo with zofran), Vomiting - Genitourinary Genitourinary: denies: Dysuria - Musculoskeletal Musculoskeletal: reports: Stiffness, Joint pain, Assistive devices (uses cane) - Integumentary Integumentary: reports: Dryness (to hands, see HPI) - Neurological Neurological: reports: Other (neuropathy to hands, intermittent--not worsened pe r her report and remains at baseline). denies: Headache - Endocrine Endocrine: denies: Diabetes type 2 - Hematologic/Lymphatic Hematologic/Lymph: reports: Anemia (mild anemia due to chemotherapy) - All Other Systems All Other Systems: reports: Reviewed and negative Physical Exam - Vital Signs Temperature: 36.5 C Pulse Rate: 73 O2 Saturation: 98 (on RA) Blood Pressure: 126/67 - Physical Exam General Appearance: positive: No acute distress, Alert, Other (overweight) Eyes Bilateral: positive: Other (+corrective lenses) ENT: positive: No signs of dehydration Neck: positive: Trachea midline Cardiovascular: positive: Regular rate & rhythm Respiratory: positive: No respiratory distress, Breath sounds nml. negative: Rales Abdomen: positive: Non-tender, Soft, Nml bowel sounds, Obese. negative: Guarding Skin: positive: Other (venous stasis dermatitis to BLE with hypopigmentation 2/2 scarring from ulcers to BLE; +left chestwall port; +erythema to b/l cheeks and left chestwall consistent with a phototoxic reaction to sun exposure with no blistering or weeping; mild cracking to fingertips; no peeling to palms hands or feet) Extremities: positive: No pedal edema (compression stockings in place BLE) Neurologic/Psychiatric: positive: Oriented x3, Mood/affect nml Palliative Care - POLST Patient has POLST: No Pain: Comment (Pain stable) Nausea: None Anorexia: Mild (1-3) Dyspnea: None Depression: None Anxiety: None Feelings of wellbeing/Perceived Quality of Life: Good (Offers up no concerns) Sleep: Other (Falls asleep easily but has nocturia wakes her up appx 2-3AM then difficult to fall back to sleep) Constipation: Managed - Palliative Care Discussion: The patient clearly presents with a phototoxic reaction due to her 5a few due t o sun exposure with erythema to her bilateral cheeks and chest wall. The patient has education from this provider as well as her daughter in wearing sunscreen application as well as utilizing hat. The patient relays that this is not something that has been part of her routine even living in [place] in the past and will take time to adjust but given this recent exposure she plans to be diligent and has a hat available in multiple places for easy access. She is being diligent in applying her sunscreen for daytime use and additional application if she is going to have more further direct exposure. The patient is demonstrating some evidence of dysphagia that may be due to her past history of intubation but this is not entirely clear. She has had no breathing alterations during the incidences of dysphagia with either liquids or solids. She is expressing some difficulty with administration of her medications and advised to utilize putting them in either pudding, applesauce or a substance which is jelly for ease of administration and strongly encouraged follow-up with ENT for further evaluation and management. Provided supportive listening and setting gentle expectations regarding side effects of chemotherapy. Results - Lab Results Lab results reviewed: Yes Impression and Recommendations - Palliative Care Impression: A 75-year-old female who presents with relapsed metastatic stage IV sigmoid colon adenocarcinoma with pulmonary and hepatic metastases presently undergoing FOLFOX therapy. She unfortunately has had a phototoxic reaction due to sun exposure and the erythematous rash to her bilateral cheeks and left chest wall are slowly resolving and she is starting to implement routine sunscreen application into her routine. She is having some evidence of dysphagia that is becoming more recurrent and strongly encouraged follow-up with ENT for further evaluation as her past history of intubation and will be contributing to her symptomatology. Supportive listening provided. Palliative care will continue to build rapport, provide symptom support for symptom management, care coordination and anticipatory guidance. Recommendations/Counseling Done: 1. Phototoxic reaction to bilateral cheeks and left chest wall due to sun exposure and due to chemotherapy. May continue to apply hydrocortisone 1% cream to affected areas to reduce pruritus. Would continue to utilize broad-spectrum sunscreen to limit sun exposure. Would also utilize SPF to lips in the form of lipstick or Chapstick. Discussed with the patient to avoid midday sun exposure when the sun is at its most prominent between 10 AM and 3 PM. Continue utilization of a hat when outside for further reduction of sun exposure. 2. Dysphagia. Intermittent with either liquids or solids. No respiratory concerns reported. Patient has a history of prior intubation that may be contributing. Having increased difficulty with swallowing her pills. Made recommendation of taking her medications with applesauce, pudding, or jelly to coat her throat when swallowing. Strongly encouraged follow-up with ENT with appointment pending early next week. 3. Xerosis most pacifically to fingertips. Continued encouragement of application of Aquaphor for hydration and moisturization to be continued. Strongly encouraged continue oral hydration throughout the day. 4. Taste changes. Normal lie a this symptom in the setting of chemotherapy. Advised the patient to continue small frequent meals throughout the day for calories consumption. 5. Neuropathy to bilateral hands. Presently remains stable and intermittent. Patient may have underlying carpal tunnel symptoms. Again strongly encouraged the patient to make providers aware if she has any worsening symptoms to intervene with symptom management the use of medication such as gabapentin or pregabalin and the patient verbalized understanding. Follow-up May 12th or PRN. Total time spent 40 minutes with greater than 50% of this spent in counseling and coordination of care with patient and spouse, Waqas; examination of patient; review of labwork; review of pain and symptom management and anticipatory guidance. Disclaimer: The chart note was formulated using voice recognition technology and unfortunately sound alike errors may occur.
== END 2021-01-16 11:56 | disposition home or self-care (01) ==
LOC: PC 11:55
PROVIDERS: ATTEND Nurse Practitioner Family
DX: Z51.5 Encounter for palliative care (principal); G62.9 Polyneuropathy, unspecified; R43.8 Other disturbances of smell and taste; L56.0 Drug phototoxic response; R21 Rash and other nonspecific skin eruption; L27.1 Localized skin eruption due to drugs and medicaments taken internally; T45.1X5A Adverse effect of antineoplastic and immunosuppressive drugs, initial encounter; L25.8 Unspecified contact dermatitis due to other agents; X32.XXXA Exposure to sunlight, initial encounter; Y93.A1 Activity, exercise machines primarily for cardiorespiratory conditioning; Y92.008 Other place in unspecified non-institutional (private) residence as the place of occurrence of the external cause; R13.10 Dysphagia, unspecified; C18.7 Malignant neoplasm of sigmoid colon; C78.7 Secondary malignant neoplasm of liver and intrahepatic bile duct; L85.3 Xerosis cutis; Z79.899 Other long term (current) drug therapy
CPT/HCPCS: 99215

== ENCOUNTER 2021-01-30 13:10 | Outpatient (CLI) | payer MEDICARE, BC ==
--- NOTE | 2021-01-30 15:20 | CONSULTATION NOTE ---
Palliative Care Follow Up - Referral Referring Provider: Gilda Stoll PA-C Time of Visit: [id number] Referral setting: [facility] Referral Reason: Arthralgias/Dysphagia/Neuropathy/Metastatic stage IV of sigmoid - Information Sources Records reviewed: Previous records reviewed History/Review of Systems obtained from: Patient, Family (daughter, Mahi) Exam limitations: No limitations - History of Present Illness Update Brief HPI Update: This is a steve 75-year-old female who was seen in the [facility] clinic for follow-up due to her arthralgias, cold sensitivity and neuropathy, dysphagia, in the setting of metastatic sigmoid adenocarcinoma with her daughter/advocate Mahi present. Please see detailed history dictated in HPI from 12/13/2020. The patient is presently on FOLFOX treatment that was initiated on 12/19/2020 is on cycle 6 today. She continues to report the greatest symptoms Due to her FOLFOX treatment beginning on Thursday to Thursday. This last cycle, cycle 5 she had increased difficulty walking and reported extra fatigue. She had to cut back on her stationary bicycle to 15 minutes due to discomfort. She is using Voltaren gel application to her bilateral knees in the morning and evening with positive effect. She is using Aleve on an approximate once daily basis again, to positive effect. She reports that the Voltaren gel typically works in about 20 minutes. She reports to feeling "more stiff" with each cycle of FOLFOX. She continues to have ongoing cold sensitivity in her hands and feet as well as some neuropathy. She continues to declining oral medication management as it is tolerable to her. She been having increased difficulty with swallowing. She is now noting increas ed symptoms with a swing in cold items. The initial difficulty began after she was intubated in October 2016 and has gotten progressively worse where she feels like there is a spasm. She never has any difficulty with breathing. She is now reporting that the discomfort per is occurring on a weekly basis 1 before it was much more intermittent and months would go at a time. She has been seen and evaluated by ENT and likely laryngoscopy preformed in office without abnormality per the patient and daughter's report with recommendation to follow- up with INTERNET SALES REPRESENTATIVE as well as a sleep study. Is to have a sleep study for potential MYRON in the past have been recommended but the patient has declined. She continues to report early CAD in the evening around dinnertime. She is more heavy in food consumption earlier in the day. She reports to increased gurgling later in the evening. It has been suggested that she trial a PPI in the evening for postprandial acid reflux symptoms. The patient is open to trialing something [id number] versus a prescription. She typically has an increase in her bowel movements on Thursday and Thursday after completion of her FOLFOX. No reports of blood in her stools. She denies nausea or vomiting. She has also developed a loss of taste and smell which is also contributing to her appetite. Her daughter has gotten her protein drinks to try for additional calorie supplementation. Lastly, the patient is reporting gum irritation intermittently with no sores. She reports that it is more of an awareness of her mouth. No gum bleeding. The patient is seen in the treatment pair with infusion into her left chest wall port. Well groomed no evidence of distress. 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 Social History - Living Situation Living arrangement: At home Living Situation: With spouse/s.o. Support System: Grew up in [place]. She and her , Waqas have been for 51 years. They have 1 daughter, Mahi who is the patient's critical care registered nurse coordinator with contact number [phone]. The patient and her moved to [facility] on the property of third daughter in 2017 after the patient recovered from bacterial spinal meningitis. She has 1 grandson, Michael. The patient continues to be active on her exercise bike that she uses outside on the porch. She has been compliant with watching the sun, you wearing her hat and utilizing sunscreen to prevent reoccurrence of sunburn due to photosensitivity from chemotherapy. Since daughterMahi will be out of town March 21 to March 29 and would appreciate palliative care to check in in follow-up. Medications/Allergies - Medications Home Medications: Ambulatory Orders Medication Instructions Recorded Confirmed lisinopriL [Lisinopril] 20 mg PO DAILY 11/26/18 01/30/21 Multivitamin [Multiple Vitamins] 1 each PO DAILY 08/25/19 01/30/21 Vitamin E (Dl,Tocopheryl Acet) 400 unit PO DAILY 08/25/19 01/30/21 [Vitamin E] Spironolactone [Aldactone] 12.5 mg PO DAILY tablet 09/02/19 01/30/21 carvediloL [Coreg] 25 mg PO BID tablet 09/02/19 01/30/21 Acetaminophen [Tylenol] 500 mg PO QID MDD NTE 3g/day 10/25/20 01/30/21 Lidocaine/Prilocain 2.5% Cream 5 applic TOP UD #1 gm 11/13/20 01/30/21 [Emla 2.5% Cream] Olanzapine [Zyprexa] 5 mg PO UD #24 tab 11/13/20 01/30/21 Ondansetron HCl [Zofran] 4 mg PO Q6HR PRN #30 tab 11/13/20 01/30/21 Prochlorperazine Maleate 10 mg PO Q6HR PRN #30 tab 11/13/20 01/30/21 [Compazine] polyethylene glycoL 3350 [Miralax] 8.5 g PO DAILY 12/16/20 01/30/21 Diclofenac Sodium [Voltaren] 2 - 4 g TP TID PRN MDD NTE 12/20/20 01/30/21 32g/day/all sources Naproxen Sodium [Aleve] 220 mg PO BID PRN 01/02/21 01/30/21 Omeprazole Magnesium 20 mg PO .BEFORE DINNER 01/30/21 01/30/21 - Allergies Allergies/Adverse Reactions: Allergies Allergy/AdvReac Type Severity Reaction Status Date / Time No Known Drug Allergies Allergy Verified 01/30/21 10:51 Review of Systems - Constitutional Constitutional: reports: Fatigue, Poor appetite, Weight stable. 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 denies: Abdominal pain, Constipation, Nausea (controlled during chemo with zofran), Vomiting - Genitourinary Genitourinary: denies: Dysuria - Musculoskeletal Musculoskeletal: reports: Stiffness, Joint pain, Assistive devices (uses cane) - Integumentary Integumentary: reports: Other (resolution of sunburn) - Neurological Neurological: reports: Other (neuropathy to hands, intermittent--at baseline). denies: Headache - Endocrine Endocrine: reports: Intolerance to cold - Hematologic/Lymphatic Hematologic/Lymph: reports: Anemia (anemia due to chemotherapy) - All Other Systems All Other Systems: reports: Reviewed and negative (ROS supplemented by patient's daughter, Mahi) Physical Exam - Vital Signs Temperature: 36.3 C Pulse Rate: 70 O2 Saturation: 97 (on RA at rest) Blood Pressure: 139/80 (right wrist) - Physical Exam General Appearance: positive: No acute distress, Alert, Other (overweight) Eyes Bilateral: positive: Other (+corrective lenses) ENT: positive: No signs of dehydration. negative: Pharyngeal erythema, Oral lesions Neck: positive: Trachea midline Cardiovascular: positive: Regular rate & rhythm Respiratory: positive: No respiratory distress, Breath sounds nml Abdomen: positive: Non-tender, Soft, Nml bowel sounds, Obese. negative: Distended Skin: positive: Other (venous stasis dermatitis to BLE with hypopigmentation 2/2 scarring from ulcers to BLE; +left chestwall port) Extremities: positive: No pedal edema (compression stockings in place BLE) Neurologic/Psychiatric: positive: Oriented x3, Mood/affect nml Palliative Care - POLST Patient has POLST: No Pain: Comment (Pain stable but reports increased "stiffness" with each FOLFOX cycle) Tiredness/Fatigue: Moderate (4-6) Drowsiness/Sedation: None Nausea: None Anorexia: Moderate (4-6) Dyspnea: None Sleep: Other (6 hours of "good sleep") Constipation: No, Managed - Palliative Care Discussion: With a cycle of FOLFOX therapy the patient is having increased symptom burden that she does not always adequately expressed to her daughter and . The patient's daughter, Mahi is a very strong advocate for the patient and Mahi can only relay what has been told to her through the patient. The patient herself is not 1 to complain and often is very stoic and therefore would consider some of her symptoms may be more pronounced than an ROP utilized. However, the patient is not in acute distress and is taking things day by day. She expresses being grateful for the presence of her daughter to recall information for her from each of her doctors appointments. Both the patient and daughter are anxious for the patient's next CT scan to have restaging and knowing "where we go from here" with her management. 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 She presents with symptom burden of neuropathy, treatment related anemia, and arthralgias in the setting of underlying osteoarthritis with decreased in calorie consumption due to chemotherapy. Normalized the patient's symptoms for both her and her daughter. Supportive listening provided. She continues to have some evidence of dysphagia and has been seen by ENT with recommendations of a sleep study as well as INTERNET SALES REPRESENTATIVE. Palliative care will continue to build rapport, provide symptom management, care coordination and anticipatory guidance. Recommendations/Counseling Done: 1. GERD, postprandial typically in the evening hours. Recommend initiation of omeprazole 20 mg taken 30 minutes prior to the evening meal to per provide support in the evening and overnight. Continue to encourage small frequent meals. 2. Decreased oral intake due to taste changes in the setting of chemotherapy. She is also experiencing smell changes which would also impact her ability to enjoy food. Encourage small frequent meals. Recommendation of a protein drink or utilization of pea protein powder in the evenings for additional calorie support as lunch tends to be her largest meal. Albumin remains stable. We will continue to monitor. 3. Arthralgias, most pacifically to bilateral knees. Treatment related and underlying osteoarthritis. Continue topical Voltaren gel as prescribed. May continue to use of Aleve as needed with food and to attempt to use sparingly. Continue acetaminophen To exceed 3000 mg daily from all sources. Continue routine exercise for mobilization, general strengthening and wellbeing. Introduced the role of duloxetine at a low dose not only for her underlying neuropathy but osteoarthritis as well. Patient declines utilization at this time but may consider in the future. 4. Dysphagia. Intermittent with either liquids or solids. No respiratory concerns reported. This began in after she was intubated. Has made switch to either chewable or liquid forms of medications that are feasible. Continue to utilize applesauce or pudding to coat her throat when swallowing. Status post ENT with no abnormalities noted. Follow-up with INTERNET SALES REPRESENTATIVE as recommended for additional support. Labs newly metastatic sigmoid colon adenocarcinoma. Diagnosed 09/2020. Began FOLFOX therapy with initial treatment 11/21/2020. Continue to be followed by oncology for management with restaging planned in February [address] scan on 02/19 with follow-up with oncologist 02/27 for review and plan moving forward. Although she is tolerating treatment she does is experiencing symptom burden from the effects of chemotherapy. Of note, she is reporting oral discomfort with no evidence of mucositis mucositis oral or oral lesions. Strongly encouraged the patient to make her daughter aware of any symptomatology that may require dose reduction of her chemotherapy with understanding verbalized. Also introduced the role of salt water swishes using 1 teaspoon of salt dissolved in 4 cups of water to swish and spit if needed 3 times per day and follow-up as needed. Offered to have palliative care follow up on a different day after meeting with oncology but both the patient and daughter declined and wished to have palliative care follow up in the afternoon of 02/27. 5. Advanced care planning. Patient has living will in place. She continues to be a stoic individual nod relying likely all of her symptom burden to all parties. Her daughter, Mahi continues to be a strong advocate for the patient. Will continue to build rapport and tease out goals of care most pacifically in light of this next step with restaging for plan moving forward. Supportive listening provided. Total time spent 60 minutes with greater than 50% of this spent in counseling and coordination of care with patient, daughter and oncology team; examination of patient; review of labwork with patient and daughter; review of pain and symptom management and anticipatory guidance. Disclaimer: The chart note was formulated using voice recognition technology and unfortunately sound alike errors may occur.
== END 2021-01-30 13:11 | disposition home or self-care (01) ==
LOC: PC 13:10
PROVIDERS: ATTEND Nurse Practitioner Family
DX: Z51.5 Encounter for palliative care (principal); R13.10 Dysphagia, unspecified; G62.9 Polyneuropathy, unspecified; C18.7 Malignant neoplasm of sigmoid colon; C78.7 Secondary malignant neoplasm of liver and intrahepatic bile duct; C78.00 Secondary malignant neoplasm of unspecified lung; Z74.09 Other reduced mobility; M19.90 Unspecified osteoarthritis, unspecified site; K21.9 Gastro-esophageal reflux disease without esophagitis; R43.9 Unspecified disturbances of smell and taste; H91.90 Unspecified hearing loss, unspecified ear; H54.7 Unspecified visual loss; R53.83 Other fatigue; T45.1X5A Adverse effect of antineoplastic and immunosuppressive drugs, initial encounter; Z79.899 Other long term (current) drug therapy
CPT/HCPCS: 99215

== ENCOUNTER 2021-02-13 09:45 | Outpatient (CLI) | payer MEDICARE, BC ==
--- NOTE | 2021-02-13 15:04 | CONSULTATION NOTE ---
Palliative Care Follow Up - Referral Referring Provider: Gilda Stoll PA-C Time of Visit: [id number] [place] [facility] [place] Reason: Arthalgias/BLE edema/Neuropathy/Metastatic stage IV of sigmoid - Information Sources Records reviewed: Previous records reviewed History/Review of Systems obtained from: Patient, Family (spouse, Waqas) Exam limitations: No limitations - History of Present Illness Update Brief HPI Update: This is a steve 75-year-old female who was seen in the [facility] [place] for follow-up due to her arthralgias, neuropathy, and bilateral lower extremity edema in the setting of metastatic sigmoid adenocarcinoma with her spouse, Waqas present. Please see detailed history dictated in HPI from 12/13/2020. The patient is presently on FOLFOX treatment that was initiated on 12/19/2020. She continues to report fatigue and decrease in taste with a lack of appetite. Her CEA continues to slowly trend down. Before she began FOLFOX treatment her CEA was 118.5 and presently today is 46. The patient continues to report feeling "stiff" with her joints. She is still able to get up out of a chair and do activities that she enjoys. Previously introduced use of duloxetine for management of her arthralgias as well as her underlying neuropathy however, the patient does not perceive her burden to be too high to initiate oral medications at this point in time and she is fearful of potential side effects. Therefore, she was just to continue to utilize her scheduled acetaminophen and as needed as Aleve. She also has Voltaren gel which she applies with positive effect which makes her less stiff and if there is any localized pain it resolves the pain. The patient's daughter had reached out to this [facility] over a week ago with increased lower extremity edema. The patient was initiated on furosemide 20 mg daily in addition to her spironolactone 12.5 mg daily. The patient perceived that she was having increased dryness in her nose and tearing to her eye due to the addition of furosemide and stop therapy only to find that her edema returns and therefore resumed the furosemide. Today, the patient reports that swelling has gone down in her hands to positive benefit. She also reports that the edema in her lower extremities appears to be less. She also relays that the swelling in her right lower extremity has always been slightly more than her left lower extremity due to a past injury. In the last 4 days she reports to her left eye tearing. She is not having any blurred vision or double vision. She denies any foreign body sensation. There has not been any discharge from the left eye. She notes that it is improved. She denies increased sensitivity to pollens given the seasonal change. Patient is seen in treatment chair in the [facility] with her left chest wall port access. Well groomed and no evidence of distress. 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 Social History - Living Situation Living arrangement: At home Living Situation: With spouse/s.o. Support System: Grew up in [place]. She and her , Waqas have been for 51 years. They have 1 daughter, Mahi who is the patient's healthcare management coordinator with contact number [phone]. The patient and her moved to [facility] on the property of third daughter in 2017 after the patient recovered from bacterial spinal meningitis. She has 1 grandson, Michael. The patient continues to be active on her exercise bike that she uses outside on the porch. She is presently working on care including a jacket for herself and is lining it. With the reduction in the swelling to her hands she has increased dexterity to work on this project. Medications/Allergies - Medications Home Medications: Ambulatory Orders Medication Instructions Recorded Confirmed lisinopriL [Lisinopril] 20 mg PO DAILY 11/26/18 01/30/21 Multivitamin [Multiple Vitamins] 1 each PO DAILY 08/25/19 01/30/21 Vitamin E (Dl,Tocopheryl Acet) 400 unit PO DAILY 08/25/19 01/30/21 [Vitamin E] Spironolactone [Aldactone] 12.5 mg PO DAILY tablet 09/02/19 01/30/21 carvediloL [Coreg] 25 mg PO BID tablet 09/02/19 01/30/21 Acetaminophen [Tylenol] 500 mg PO QID MDD NTE 3g/day 10/25/20 01/30/21 Lidocaine/Prilocain 2.5% Cream 5 applic TOP UD #1 gm 11/13/20 01/30/21 [Emla 2.5% Cream] Olanzapine [Zyprexa] 5 mg PO UD #24 tab 11/13/20 01/30/21 Ondansetron HCl [Zofran] 4 mg PO Q6HR PRN #30 tab 11/13/20 01/30/21 Prochlorperazine Maleate 10 mg PO Q6HR PRN #30 tab 11/13/20 01/30/21 [Compazine] polyethylene glycoL 3350 [Miralax] 8.5 g PO DAILY 12/16/20 01/30/21 Diclofenac Sodium [Voltaren] 2 - 4 g TP TID PRN MDD NTE 12/20/20 01/30/21 32g/day/all sources Naproxen Sodium [Aleve] 220 mg PO BID PRN 01/02/21 01/30/21 Furosemide [Lasix] 20 mg PO DAILY 02/13/21 02/13/21 - Allergies Allergies/Adverse Reactions: Allergies Allergy/AdvReac Type Severity Reaction Status Date / Time No Known Drug Allergies Allergy Verified 01/30/21 10:51 Review of Systems - Constitutional Constitutional: reports: Fatigue, Poor appetite, Other (weight appx 261 today; previous at home on 02/04 weight 263lb). 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 denies: Nosebleeds - Cardiovascular Cardiovascular: reports: Edema. denies: Chest pain, Lightheadedness - Respiratory Respiratory: denies: SOB at rest - Gastrointestinal Gastrointestinal: reports: Other (decreased smell and taste with GERD symptoms in evening and did not continue PPI in the evenings). denies: Abdominal pain, Constipation, Nausea (controlled during chemo with zofran), Vomiting - Genitourinary Genitourinary: denies: Dysuria - Musculoskeletal Musculoskeletal: reports: Stiffness, Joint pain (most specifically b/l knees), Assistive devices (uses cane) - Integumentary Integumentary: reports: Other (dryness to fingers using aquaphor at night) - Neurological Neurological: reports: Other (neuropathy to fingers at baseline; cold sensitivity to b/l fingertips with left greater than right). denies: Headache - Endocrine Endocrine: reports: Intolerance to cold - Hematologic/Lymphatic Hematologic/Lymph: reports: Anemia (anemia due to chemotherapy) - All Other Systems All Other Systems: reports: Reviewed and negative Physical Exam - Vital Signs Temperature: 36.6 C Pulse Rate: 64 O2 Saturation: 99 (on RA) Blood Pressure: 135/76 - Physical Exam General Appearance: positive: No acute distress, Alert, Other (overweight) Eyes Bilateral: positive: PERRL, No lid inflammation, Other (+tearing to left eye without discharge and mild injection to left conjunctiva) ENT: positive: No signs of dehydration Neck: positive: Trachea midline Cardiovascular: positive: Regular rate & rhythm Respiratory: positive: No respiratory distress, Breath sounds nml. negative: Rales Abdomen: positive: Non-tender, Soft, Nml bowel sounds, Obese. negative: Distended Skin: positive: Other (+left chestwall port) Extremities: positive: Pedal edema (+1 BLE edema with RLE slightly larger than LLE (baseline) with compression stockings in place) Neurologic/Psychiatric: positive: Oriented x3, Mood/affect nml Palliative Care - POLST Patient has POLST: No Pain: Comment (Pain 1/10 to b/l knees that is controlled with routine acetaminophen, as needed aleeve and) Tiredness/Fatigue: Mild (1-3) Drowsiness/Sedation: None Nausea: None Anorexia: Mild (1-3) Dyspnea: None Depression: None Anxiety: None Feelings of wellbeing/Perceived Quality of Life: Fair Constipation: Managed - Palliative Care Discussion: The patient herself perceives that she is doing as well as can be expected with her full fax therapy and symptom burden. She does note arthralgias most specifically to her bilateral knees due to treatment as well as underlying ost eoarthritis. However, the patient does not perceive these as symptoms that warrant an oral treatment at this time when duloxetine was introduced for control of her arthralgias and underlying neuropathy. She is still able to do activities that she enjoys and reports some increased stiffness but otherwise feels her symptoms are manageable. She is someone that is pragmatic and evaluate your symptoms in the moment it does not wish to look too far ahead. If she requires increased assistance for management of her symptoms in the future she will readdress initiation with palliative care and is aware that that this is a potential Tool in the tool box to optimize her comfort but at the present time medication side effects outweigh the benefits for the patient at this moment in time. She has resumed taking and completing furosemide 20 mg daily for a total of 7 doses in addition to her daily scheduled spironolactone 12.5 mg for her underlying lower extremity edema and some edema noted to her bilateral hands. The patient has noted benefit from initiation of furosemide and as it is contributing to her quality of life and comfort for her to be able to continue to so and utilize her hands and ease of donning and doffing her compression stockings will continue utilizing furosemide 20 mg daily moving forward in addition to her spironolactone. The patient recognizes that her daughter only wants the best for her and "wants everything to be better." The patient herself is one that she needs to weigh if the symptoms are bothersome enough after some time to request us instance and she recognizes and appreciates her daughter's care and advocacy. In discussion with the patient's daughter, separately via phone call with the patient's permission Mahi notes that she and her parents have begun discussion regarding some further advance care planning moving forward. The patient wishes to receive when it is needed additional caregiving services within their home environment versus facility placement. They have also completed living clement and Mahi will bring copies of this to the next appointment. Mahi herself recognizes that the patient's cancer diagnosis and chemotherapy is palliative in nature however, the patient to her family is giving indication that with her CEA numbers trending down that she will "beat this." We will need to further explore the patient's understanding regarding her treatments and her willingness to discuss her treatment related to her diagnosis. Impression and Recommendations - Palliative Care Impression: This is a steve 75-year-old female with relapsed metastatic stage IV sigmoid colon adenocarcinoma with pulmonary and hepatic metastases presently undergoing FOLFOX therapy. She continues with symptom burden of neuropathy, cold sensitivity to her distal fingers, treatment related anemia and arthralgias in the setting of underlying osteoarthritis. She has had a recent increase in bilateral lower extremity edema as well as hand edema that has responded to addition of furosemide 20 mg daily and will continue this moving forward. The patient is a pragmatic individual and wishes to focus on the here and now in her decision-making. Supportive listening provided. Palliative care will continue to build rapport, provide symptom management, care coordination and an ticipatory guidance. Recommendations/Counseling Done: 1. Bilateral lower extremity edema and edema to bilateral hands. Presently approximately 261 pounds. Has responded well to initiation of furosemide 20 mg daily. We will continue furosemide 20 mg daily in addition to her spironolactone 12.5 mg daily. Potassium remains stable at 3.7 today. Recommended utilization of 4 ounces of orange juice every other day for potassium supplementation and patient amenable. We will continue to monitor. Rx for furosemide 20 mg quantity of 90 sent to [facility] pharmacy. 2. Arthralgias, most specifically to bilateral knees. Treatment related and underlying osteoarthritis. Patient does not wish to initiate duloxetine at the present time after reviewing side effects in weighing benefits versus burdens she is still able to perform tasks that she finds enjoyable. When the burdens of the arthralgias outweigh the potential side effects of the duloxetine then she would be open to a trial of the medication. She does have duloxetine in the home for a tool in her toolbox but would wish to have a discussion with palliative care before proceeding. At the present time, patient feels that her symptoms are well managed with her present regimen. Continue topical Voltaren gel as prescribed. Continue to use Aleve as needed with food and to use sparingly. Continue acetaminophen not to exceed 3000 mg daily from all sources. Continue routine exercise for mobilization, general strengthening and wellbeing. Continue to monitor. 3.Left eye tearing. No evidence of bacterial conjunctivitis. Patient denies any seasonal allergies and there are no visual changes. Unclear if this is may be some underlying allergic conjunctivitis. However, the patient perceives that her symptoms are getting better. Recommended that she may utilize [id number] artificial tears to the left eye for any irritation and for soothing effect. Patient continue to monitor and notify if any new or worsening symptoms. 4. Relapsed metastatic sigmoid colon adenocarcinoma. Diagnosed 09/2020. Began FOLFOX therapy with initial treatment 12/19/2020. CEA 46 on 02/13/2021. Continue to be followed by oncology for management with restaging planned in early February 2021. 5. Advanced care planning. Patient has living will in place. Request that copies be brought to next visit. Continue to gently introduce the role of advanced care planning with the patient and have discussions with the patient based on her own readiness regarding therapy being palliative versus curative in nature. Supportive listening provided to the patient and spouse today. Total time spent 45 minutes with greater than 50% of the spent in counseling coordination of care with the patient, spouse and oncology team; examination of the patient; review of symptom management and medication side effects of duloxetine; review of pain and symptom management and anticipatory guidance. Contacted the patient's daughter, Mahi with the patient's permission at [phone] to review plan of care and discussion during office visit today. Mahi recognizes that the patient's treatment is palliative in nature and supportive listening provided to carry regarding caregiver burden and support for both her parents. Disclaimer: The chart note was formulated using voice recognition technology and unfortunately sound alike errors may occur.
== END 2021-02-13 09:46 | disposition home or self-care (01) ==
LOC: PC 09:45
PROVIDERS: ATTEND Nurse Practitioner Family
DX: Z51.5 Encounter for palliative care (principal); R60.0 Localized edema; M17.0 Bilateral primary osteoarthritis of knee; C18.7 Malignant neoplasm of sigmoid colon; C78.7 Secondary malignant neoplasm of liver and intrahepatic bile duct; C78.00 Secondary malignant neoplasm of unspecified lung; D64.81 Anemia due to antineoplastic chemotherapy; T45.1X5A Adverse effect of antineoplastic and immunosuppressive drugs, initial encounter; G62.9 Polyneuropathy, unspecified; R20.3 Hyperesthesia; Z79.899 Other long term (current) drug therapy
CPT/HCPCS: 99215

== ENCOUNTER 2021-02-22 11:06 | Emergency (ER) | payer MEDICARE, BC ==
--- OUTSIDE RECORDS SUMMARY | 2021-02-22 11:09 | EXTERNAL MEDICAL SUMMARY RPT | Continuity of Care Document ---
:1945 Demographics Phone Unavailable Preferred Language Iraqi Marital Status Unknown Islam Affiliation Unknown Race Unknown Ethnic Group Unknown Author Organization [place] Address [address] [phone] Phone Care Team Providers Name Role Phone Unavailable Unavailable Allergies Encounters Medications Problems date description facility [id number] Chronic venous hypertension (idiopathic ) with ulcer of [facility] left Results
--- OUTSIDE RECORDS SUMMARY | 2021-02-22 11:31 | EXTERNAL MEDICAL SUMMARY RPT | Continuity of Care Document ---
:1945 Demographics Phone Unavailable Preferred Language Yi Marital Status Unknown Orthodox Affiliation Unknown Race Unknown Ethnic Group Unknown Author Organization [place] Address [address] [phone] Phone Care Team Providers Name Role Phone Merritt Unavailable Unavailable Allergies Encounters Medications Problems date description facility [id number] Chronic venous hypertension (idiopathic ) with ulcer of [facility] left Results
[2021-02-22] MEDS ORDERED: cephALEXin 250 MG CAPSULE PO STA (11:41)
[2021-02-22 12:32] LABS: BASOPHILS % (AUTO) 0.6 %; EOSINOPHILS # (AUTO) 0.1 10^3/uL (0.0-0.7); EOSINOPHILS % (AUTO) 2.3 %; HCT - HEMATOCRIT 33.3 % (37.0-47.0); HGB - HEMOGLOBIN 10.6 g/dL (12.0-16.0); LYMPHOCYTES # (AUTO) 1.3 10^3/uL (1.5-3.5); LYMPHOCYTES % (AUTO) 28.1 %; MEAN CORPUSCULAR HEMOGLOBIN 29.9 pg (27.0-31.0); MEAN CORPUSCULAR HGB CONC 31.8 g/dL (32.0-36.0); MEAN CORPUSCULAR VOLUME 93.8 fL (81.0-99.0); MEAN PLATELET VOLUME 10.3 fL (7.9-10.8); MONOCYTES # (AUTO) 0.6 10^3/uL (0.0-1.0); MONOCYTES % (AUTO) 12.8 %; NEUTROPHILS # (AUTO) 2.7 10^3/uL (1.5-6.6); NEUTROPHILS % (AUTO) 55.8 %; PLT - PLATELET COUNT 143 10^3/uL (130-450); RED BLOOD COUNT 3.55 10^6/uL (4.20-5.40); RED CELL DISTRIBUTION WIDTH 19.5 % (12.0-15.0); WHITE BLOOD COUNT 4.8 x10^3/uL (4.8-10.8)
[2021-02-22 12:41] LABS: ALBUMIN 3.3 g/dL (3.2-5.5); ALBUMIN/GLOBULIN RATIO 1.4 (1.0-2.2); BILIRUBIN,TOTAL 0.4 mg/dL (0.2-1.0); CALCIUM 9.1 mg/dL (8.5-10.3); CREATININE 0.6 mg/dL (0.4-1.0); POTASSIUM 3.5 mmol/L (3.5-5.0); TOTAL PROTEIN 5.7 g/dL (6.7-8.2)
[2021-02-22 13:32] VITALS: BP 158/71
--- NOTE | 2021-02-22 13:32 | ED Physician Documentation ---
History of Present Illness - Stated complaint Stated Complaint: FT SWELLING/BLEEDING - Chief complaint Chief Complaint: Ext Problem - History obtained from History obtained from: Patient - Additonal information Additional information: 75-year-old woman with stage IV colon cancer on chemotherapy presents with bleeding, and swelling to the left foot after injuring it a month ago. She was sent from the oncology clinic for evaluation. 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 Neuro: Craniotomy - Present Medications Home Medications: Ambulatory Orders Medication Instructions Recorded Confirmed lisinopriL [Lisinopril] 20 mg PO DAILY 11/26/18 02/22/21 Multivitamin [Multiple Vitamins] 1 each PO DAILY 08/25/19 02/22/21 Vitamin E (Dl,Tocopheryl Acet) 400 unit PO DAILY 08/25/19 02/22/21 [Vitamin E] Spironolactone [Aldactone] 12.5 mg PO DAILY tablet 09/02/19 02/22/21 carvediloL [Coreg] 25 mg PO BID tablet 09/02/19 02/22/21 Acetaminophen [Tylenol] 500 mg PO QID MDD NTE 3g/day 10/25/20 02/22/21 Lidocaine/Prilocain 2.5% Cream 5 applic TOP UD #1 gm 11/13/20 02/22/21 [Emla 2.5% Cream] OLANZapine [Zyprexa] 5 mg PO UD #24 tab 11/13/20 02/22/21 Ondansetron HCl [Zofran] 4 mg PO Q6HR PRN #30 tab 11/13/20 02/22/21 Prochlorperazine Maleate 10 mg PO Q6HR PRN #30 tab 11/13/20 02/22/21 [Compazine] polyethylene glycoL 3350 [Miralax] 8.5 g PO DAILY 12/16/20 02/22/21 Diclofenac Sodium [Voltaren] 2 - 4 g TP TID PRN MDD NTE 12/20/20 02/22/21 32g/day/all sources Naproxen Sodium [Aleve] 220 mg PO DAILY 01/02/21 02/22/21 Furosemide [Lasix] 20 mg PO DAILY 02/13/21 02/22/21 Aspirin [[place] Aspirin] 1 tab PO DAILY 02/22/21 02/22/21 Mupirocin 2% Oint [Bactroban 2% 1 applic TOP BID #50 gm 02/22/21 Oint] cephALEXin [Keflex] 500 mg PO Q6H #28 02/22/21 - Allergies Allergies/Adverse Reactions: Allergies Allergy/AdvReac Type Severity Reaction Status Date / Time No Known Drug Allergies Allergy Verified 02/22/21 11:19 - Social History Does the pt smoke?: No Smoking Status: Never smoker Does the pt drink ETOH?: No Does the pt have substance abuse?: No - Immunizations Immunizations are current?: Yes - POLST Patient has POLST: No PD ED PE NORMAL - Vitals Vital signs reviewed: Yes - General General: Alert and oriented X 3, No acute distress, Well developed/nourished - HEENT HEENT: Atraumatic, PERRL, EOMI - Derm Derm: Other (erythema to L first toec/w cellulitis with toenail thickening) - Extremities Extremities: No deformity - Neuro Neuro: No motor deficit, No sensory deficit Results - Vitals Vitals: Vital Signs - 24 hr 02/22/21 02/22/21 11:12 13:32 Temperature 36.5 C 37.1 C Heart Rate 74 76 Respiratory 16 18 Rate Blood Pressure 158/76 H 158/71 H O2 Saturation 99 100 Oxygen O2 Source [With Activity] Room air O2 Source [Without Activity] Room air O2 Source Room air - Labs Labs: Laboratory Tests 02/22/21 02/22/21 12:11 12:11 WBC 4.8 RBC 3.55 L Hgb 10.6 L Hct 33.3 L MCV 93.8 MCH 29.9 MCHC 31.8 L RDW 19.5 H Plt Count 143 MPV 10.3 Neut # (Auto) 2.7 Lymph # (Auto) 1.3 L Cameron # (Auto) 0.6 Eos # (Auto) 0.1 Baso # (Auto) 0.0 Absolute Nucleated RBC 0.00 Nucleated RBC % 0.0 Sodium 141 Potassium 3.5 Chloride 107 Carbon Dioxide 25 Anion Gap 9.0 BUN 19 Creatinine 0.6 Estimated GFR (MDRD) 98 Glucose 99 Calcium 9.1 Total Bilirubin 0.4 AST 26 ALT 19 Alkaline Phosphatase 84 Total Protein 5.7 L Albumin 3.3 Globulin 2.4 Albumin/Globulin Ratio 1.4 Lipase 153 H PD MEDICAL DECISION MAKING - ED course ED course: 75-year-old woman presents with mild cellulitis and thickening of the toenail. I recommended warm soapy foot soaks over the next couple of days until she can follow-up with podiatry. Also will prescribe antibiotics. Return precautions given. Departure - Departure Disposition: Home, Self Care Clinical Impression: Cellulitis, Peripheral vascular disease Instructions: Cellulitis Dc Prescriptions: Mupirocin 2% Oint [Bactroban 2% Oint] 1 applic TOP BID #50 gm cephALEXin [Keflex] 500 mg PO Q6H #28 Comments: You were seen in the emergency department for cellulitis of the lower extremities. You should follow-up with your primary doctor for referral to podiatry. Take your antibiotics as prescribed. Your platelet levels were normal. Return if you have any new or worsening symptoms or other concerns. Cori Chinchilla DPM Validation Scientist [address] [place] Discharge Date/Time: 02/22/21 13:53
== END 2021-02-22 13:53 | disposition home or self-care (01) ==
LOC: ED 11:06
DX: L03.032 Cellulitis of left toe (principal); I73.9 Peripheral vascular disease, unspecified; C18.9 Malignant neoplasm of colon, unspecified; I10 Essential (primary) hypertension
CPT/HCPCS: 36415; 80053; 83690; 85025; 96374; 99283; A9270

== ENCOUNTER 2021-03-11 15:10 | Outpatient (CLI) | payer MEDICARE, BC ==
--- NOTE | 2021-03-11 17:14 | CONSULTATION NOTE ---
Palliative Care Follow Up - Referral Referring Provider: Gilda Stoll PA-C Time of Visit: [id number] Referral setting: Home Referral Reason: Arthalgias/Metastatic stage IV of sigmoid - Information Sources Records reviewed: Previous records reviewed History/Review of Systems obtained from: Patient, Family (daughterMahi and spouse,Waqas) - History of Present Illness Update Brief HPI Update: This is a steve 75-year-old female who was seen within her home today for follow-up regarding arthralgias, neuropathy, advance care planning in the setting and metastatic sigmoid adenocarcinoma with her spouse, Waqas and daughter, Mahi present. Please see detailed history dictated in HPI from 12/13/2020 for full details. Patient recently underwent repeat CT scan of her abdomen/pelvis for restaging on 02/19 that demonstrated improvement of her numerous liver metastases and she continues to have a steady, slow reduction of her CEA level to 41.9 on prior to treatment was 118.5. She continues on FOLFOX every 14 days with oxaliplatin at 20% reduction. She continues to report stiffness more specifically to her knees and arthralgias. However, she states that she is still able to do the tasks that she wants to do and enjoy. 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 She does not always want to ask for help and wants to maintain her ability to be independent. She had recently cut out her daily walking because of increased fatigue and has now gotten back into it again and is slow and steady. She utilizes a cane for stability. She has not had any falls. She reports that she has some tingling in her toes she does not have any loss of sensation and is able to feel the ground when she is placing her feet. She does report that when all the tips of her fingers of her left hand these are all completely numb. She does have tingling to her right hand without numbness. She is still not open to the idea of trying duloxetine for assistance not only with her arthralgia but also her underlying neuropathy as the symptoms are not troublesome enough for her to take another medication. She does find the V oltaren gel effective when applied to her knees. She is requesting a refill today. She recently had a soft tissue infection to her foot and completed antibiotic course. She is still applying mupirocin ointment that was recommended by wound care whom she saw at [facility]. She also has a dressing to her right morales and right fourth finger. She is to follow-up on Thursday with wound care and podiatry referral has been placed for further consultation. Patient is seen in her recliner in the living room of her home. Well-groomed no evidence of acute distress. 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 Social History - Living Situation Living arrangement: At home Living Situation: With spouse/s.o. Support System: Grew up in [place]. She and her , Waqas have been for 51 years. They have 1 daughter, Mahi who is the patient's health care social worker coordinator with contact number [phone]. The patient and her moved to [facility] on the property of third daughter in 2017 after the patient recovered from bacterial spinal meningitis. She has 1 grandson, Michael. Medications/Allergies - Medications Home Medications: Ambulatory Orders Medication Instructions Recorded Confirmed lisinopriL [Lisinopril] 20 mg PO DAILY 11/26/18 03/08/21 Multivitamin [Multiple Vitamins] 1 each PO DAILY 08/25/19 03/08/21 Vitamin E (Dl,Tocopheryl Acet) 400 unit PO DAILY 08/25/19 03/08/21 [Vitamin E] Spironolactone [Aldactone] 12.5 mg PO DAILY tablet 09/02/19 03/08/21 carvediloL [Coreg] 25 mg PO BID tablet 09/02/19 03/08/21 Acetaminophen [Tylenol] 500 mg PO QID MDD NTE 3g/day 10/25/20 03/08/21 Lidocaine/Prilocain 2.5% Cream 5 applic TOP UD #1 gm 11/13/20 03/08/21 [Emla 2.5% Cream] OLANZapine [Zyprexa] 5 mg PO UD #24 tab 11/13/20 03/08/21 Ondansetron HCl [Zofran] 4 mg PO Q6HR PRN #30 tab 11/13/20 03/08/21 Prochlorperazine Maleate 10 mg PO Q6HR PRN #30 tab 11/13/20 03/08/21 [Compazine] polyethylene glycoL 3350 [Miralax] 8.5 g PO DAILY 12/16/20 03/08/21 Diclofenac Sodium [Voltaren] 2 - 4 g TP TID PRN MDD NTE 12/20/20 03/08/21 32g/day/all sources Naproxen Sodium [Aleve] 220 mg PO DAILY 01/02/21 03/08/21 Furosemide [Lasix] 20 mg PO DAILY 02/13/21 03/08/21 Aspirin [Louann Aspirin] 1 tab PO DAILY 02/22/21 03/08/21 Mupirocin 2% Oint [Bactroban 2% 1 applic TOP BID #50 gm 02/22/21 03/08/21 Oint] - Allergies Allergies/Adverse Reactions: Allergies Allergy/AdvReac Type Severity Reaction Status Date / Time No Known Drug Allergies Allergy Verified 02/27/21 10:11 Review of Systems - Constitutional Constitutional: reports: Fatigue, Weight stable. 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 denies: Dry mouth - Cardiovascular Cardiovascular: reports: Edema (controlled with compression hose to BLE and diuretics). denies: Chest pain, Lightheadedness - Respiratory Respiratory: denies: Wheezing - Gastrointestinal Gastrointestinal: denies: Abdominal pain, Abdominal distention, Constipation, Diarrhea, Nausea (controlled during chemo with zofran), Vomiting - Genitourinary Genitourinary: denies: Dysuria - Musculoskeletal Musculoskeletal: reports: Stiffness, Joint pain (most specifically b/l knees), Assistive devices (uses cane) - Integumentary Integumentary: reports: Other (resolved cellulitus to right foot and following wound care with podiatry referral pending) - Neurological Neurological: reports: Numbness (see HPI for full details) - Psychiatric Psychiatric: denies: Depression - Endocrine Endocrine: reports: Intolerance to cold - Hematologic/Lymphatic Hematologic/Lymph: reports: Anemia (anemia due to chemotherapy) - All Other Systems All Other Systems: reports: Reviewed and negative Physical Exam - Vital Signs Temperature: 36.5 C Pulse Rate: 75 O2 Saturation: 98 (on RA) Blood Pressure: 139/77 (right wrist) - Physical Exam General Appearance: positive: No acute distress, Alert, Other (overweight) Eyes Bilateral: positive: Other (+corrective lenses) ENT: positive: No signs of dehydration Neck: positive: Trachea midline Cardiovascular: positive: Regular rate & rhythm, No murmur Respiratory: positive: No respiratory distress, Breath sounds nml. negative: Rales Abdomen: positive: Non-tender, Soft, Nml bowel sounds, Obese. negative: Organomegaly, Distended Skin: positive: Wound (scab to posterior aspect of right 4th finger without erythema along the margins or s/s of infection; dressing to right morales without s/s of infection), Other (+left chestwall port) Extremities: positive: Pedal edema (+trace BLE edema with RLE slightly larger than LLE (baseline) with compression stockings in place) Neurologic/Psychiatric: positive: Oriented x3, Other (Became tearful when discussing advanced care planning) Palliative Care - POLST Patient has POLST: No Pain: Comment (Pain to b/l knees that is controlled with routine acetaminophen and PRN voltargen gel and PRN aleeve) Tiredness/Fatigue: Mild (1-3) Sleep: Sleeps well Constipation: No - Palliative Care Discussion: Patient continues to perceive that she is doing well in regards to chemotherapy and symptom burden. Her take away is from her last oncologist visit was that she was responding to therapy and not much was change in medication regimen. The patient herself perceives the things right now are "livable." When questions were relayed regarding chemotherapy and forward in the future the patient had some surprise regarding reorientation at her permission that the chemotherapy is not curative in intent given the advancement of her metastatic disease. We will continue to check in with the patient weighing benefits versus burdens. The patient vocalized that if the burdens of chemotherapy began to outweigh the benefits than she is willing to have the vocal about this with her healthcare team. Due to recent events resulting in her having to be seen in the emergency department for cellulitis the summer her frustrations that she is not always felt that her voice is heard within the medical community. She relays that she has a sense of what needs to be done or not done for herself and wishes that others would hear her more thoroughly as she knows what is important and if not. The patient overall does not feel that any of the symptoms that she is experiencing warrant additional medication today and take medications that would contribute to burden. She does not wish to do well on anything and wishes to keep moving forward. 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 She continues to have symptom burden of neuropathy, treatment related anemia and arthralgias in the setting osteoarthritis. She does not wish to do well on anything and continues to desire putting 1 foot instead of the other forward. Palliative care will continue to build rapport, provide symptom management, care coordination and anticipatory guidance. Recommendations/Counseling Done: 1. Arthralgias, specifically to bilateral knees. Treatment related underlying osteoarthritis. Patient continues to not wish to initiate duloxetine at this time after she had reviewed side effects and will benefits versus burdens. She is able to still perform tasks that she enjoys and gives meaning in her life and therefore does not perceive that this warrants medication at this time. She continues to report that her present regimen is effective. Continue Voltaren gel as prescribed and Rx with refills sent to [facility] pharmacy at patient's request. Continue acetaminophen not to exceed 3000 mg daily from all sources. To use Aleve as needed with food sparingly. Continue routine exercise regimen. Continue to monitor. 2. Soft tissue infection. Has completed oral antibiotic therapy, resolving, and followed by wound care at [facility]. Reviewed signs and symptoms of infection with understanding verbalized when to contact for reevaluation or assessment. 3. Bilateral lower extremity edema. Appears euvolemic. Continue furosemide 20 mg daily. Continue spironolactone 12.5 mg daily. Continue utilization of orange juice for potassium supplementation. Continue compression stockings to bilateral lower extremities apply in the morning and remove in the evening. Continue elevation of lower extremities when at rest. Continue to monitor. 4. Relapsed metastatic sigmoid colon adenocarcinoma. Diagnosed 09/2020. Began FOLFOX therapy with initial treatment 12/19/2020. Review today with the patient, daughter and spouse that her present regimen with chemotherapy is not curable and this is an ongoing process. Highlighted that at a certain point the burdens of chemotherapy may outweigh the benefits and at that time the patient verbalizes that she would speak up to make all healthcare providers and her family aware. Continues to have a steady, slow decline of her CEA. Continue to be followed by oncology. 5.Advance care planning. Patient reports that she has a living will in place, designated healthcare power of real estate attorney as well as DN [place]. Not accessible in the home today however, the patient's daughter is to provide copies to this SENIOR TECHNICAL PROJECT MANAGER for her reference. Supported the patient in her willingness to be vulnerable and sharing how she does not often feel that her voice is heard with medical staff as well as between her and her family. Assisted with acknowledging the patient's concerns and developing the start of tools to ensure that the patient feels that her opinion is a valued and supported. Total time spent 60 minutes with greater than 50% of the spent in counseling and coordination of care with the patient, spouse, and daughter Mahi; review of chemotherapy not being curative in reviewing pathophysiology of her diagnosis; review of symptom management and medication side effects; anticipatory guidance. Disclaimer: The chart note was formulated using voice recognition technology and unfortunately sound alike errors may occur.
== END 2021-03-11 15:11 | disposition home or self-care (01) ==
LOC: PC 15:10
PROVIDERS: ATTEND Nurse Practitioner Family
DX: Z51.5 Encounter for palliative care (principal); M25.562 Pain in left knee; M25.561 Pain in right knee; T45.1X5A Adverse effect of antineoplastic and immunosuppressive drugs, initial encounter; R60.0 Localized edema; C18.7 Malignant neoplasm of sigmoid colon; C78.00 Secondary malignant neoplasm of unspecified lung; C78.7 Secondary malignant neoplasm of liver and intrahepatic bile duct; Z79.899 Other long term (current) drug therapy
CPT/HCPCS: 99350

== ENCOUNTER 2021-03-27 08:58 | Outpatient (CLI) | payer MEDICARE, BC ==
--- NOTE | 2021-03-27 19:33 | CONSULTATION NOTE ---
Palliative Care Follow Up - Referral Referring Provider: Gilda Stoll PA-C Time of Visit: [id number] Referral setting: [facility] Referral Reason: Arthalgias/Neuropathy/Metastatic stage IV of sigmoid - Information Sources Records reviewed: Previous records reviewed History/Review of Systems obtained from: Patient, Family (spouse,Waqas), Other (Dr. Su, oncologist) Exam limitations: No limitations - History of Present Illness Update Brief HPI Update: This is a steve 75-year-old female who was seen within her home today for follow-up regarding arthralgias, neuropathy, in the setting of metastatic sigmoid adenocarcinoma with her spouse, Waqas present. Please see detailed history dictated in HPI from 12/13/2020 for full details. Last week, the patient was reporting double vision out of her right lateral gaze and oncology was made aware with CT of the head ordered due to her underlying metastatic colon cancer. She had a head CT performed on 03/21 that demonstrated no acute intracranial process and no areas of abnormal enhancement to suggest metastatic disease. Today, the patient reports that approximately 3 years ago she did develop herpes zoster to the right side of her face and scalp that did also result in shooting pain to her optic nerves. The area around her right eye was numb for approximately 2 years and in the last year she has regained sensation to that area. The patient's last CT scan of her abdomen/pelvis for restaging on 02/19 that demonstrated improvement of her numerous liver metastases. Her CEA today is 43.1 and prior to treatment her CEA was 118.5. She continues on FOLFOX every 14 days with oxaliplatin at 20% reduction. Today she reports with her that there may be a possible drug change in the future if her CEA increases which would then result in a repeat CT scan. She reports to feeling more fatigue first thing in the morning and is not as ready as she once was to get up and perform tasks. 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 She opted to initiate duloxetine 20 mg daily approximately 2 weeks ago and has noticed a mild improvement with her overall arthralgias but has not noticed an improvement as of yet to her neuropathy. She notes tingling most specifically to the tips of the finger on her left left hand versus her right. She periodically will be gripping something too tightly and then will drop things. She is also aware of her potential for falling and has now opted to utilize her cane when going outside. She continues to utilize her exercise bike on a daily basis however, the length of time has reduced from 25 minutes to 15 minutes/day. She reports that after that time her knees begin to get stiff. She has had a positive response to Voltaren gel and she uses this daily and finds that this allows her to be more flexible. Her overall lower extremity edema is much improved on visualization as well as per patient report. She continues on furosemide and spironolactone for management with stable renal function. Overall, the patient feels that she is doing quite well in navigating and managing. She is appreciative of the time that Dr. Su spends with her as well as palliative care to help navigate her options. Patient is seen in the [facility] treatment chair. Well-groomed no evidence of acute distress. 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 Social History - Living Situation Living arrangement: At home Living Situation: With spouse/s.o. Support System: Grew up in [place]. She and her , Waqas have been for 51 years. They have 1 daughter, Mahi who is the patient's director of healthcare systems coordinator with contact number [phone]. The patient and her moved to [facility] on the property of third daughter in 2017 after the patient recovered from bacterial spinal meningitis. She has 1 grandson, Michael. The patient's daughter, Mahi is presently out of town and was able to be present via telephone call for the oncology appointment with Dr. Su to have additional questions answered and addressed. Medications/Allergies - Medications Home Medications: Ambulatory Orders Medication Instructions Recorded Confirmed lisinopriL [Lisinopril] 20 mg PO DAILY 11/26/18 03/27/21 Multivitamin [Multiple Vitamins] 1 each PO DAILY 08/25/19 03/27/21 Vitamin E (Dl,Tocopheryl Acet) 400 unit PO DAILY 08/25/19 03/27/21 [Vitamin E] Spironolactone [Aldactone] 12.5 mg PO DAILY tablet 09/02/19 03/27/21 carvediloL [Coreg] 25 mg PO BID tablet 09/02/19 03/27/21 Acetaminophen [Tylenol] 500 mg PO QID MDD NTE 3g/day 10/25/20 03/27/21 Lidocaine/Prilocain 2.5% Cream 5 applic TOP UD #1 gm 11/13/20 03/27/21 [Emla 2.5% Cream] OLANZapine [Zyprexa] 5 mg PO UD #24 tab 11/13/20 03/27/21 Ondansetron HCl [Zofran] 4 mg PO Q6HR PRN #30 tab 11/13/20 03/27/21 Prochlorperazine Maleate 10 mg PO Q6HR PRN #30 tab 11/13/20 03/27/21 [Compazine] polyethylene glycoL 3350 [Miralax] 8.5 g PO DAILY 12/16/20 03/27/21 Diclofenac Sodium [Voltaren] 2 - 4 g TP TID PRN MDD NTE 12/20/20 03/27/21 32g/day/all sources Naproxen Sodium [Aleve] 220 mg PO DAILY 01/02/21 03/27/21 Furosemide [Lasix] 20 mg PO DAILY 02/13/21 03/27/21 Aspirin [[place] Aspirin] 1 tab PO DAILY 02/22/21 03/27/21 Mupirocin 2% Oint [Bactroban 2% 1 applic TOP BID #50 gm 02/22/21 03/27/21 Oint] DULoxetine [Cymbalta] 20 mg PO DAILY 03/27/21 03/27/21 - Allergies Allergies/Adverse Reactions: Allergies Allergy/AdvReac Type Severity Reaction Status Date / Time No Known Drug Allergies Allergy Verified 03/27/21 10:13 Review of Systems - Constitutional Constitutional: reports: Fatigue (see HPI), Weight stable. 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 denies: Mouth lesions - Cardiovascular Cardiovascular: reports: Edema (controlled with compression hose to BLE and diuretics--improved). denies: Chest pain - Respiratory Respiratory: reports: Other (throat spasm, intermittent with liquids or solids s/p ENTevaluation and began after intubation) - Gastrointestinal Gastrointestinal: denies: Abdominal pain, Abdominal distention, Constipation, Diarrhea, Nausea (controlled during chemo with zofran), Vomiting, Early satiety - Genitourinary Genitourinary: denies: Dysuria - Musculoskeletal Musculoskeletal: reports: Stiffness, Joint pain (most specifically b/l knees), Assistive devices (uses cane more frequently,see HPI) - Integumentary Integumentary: reports: Other (scheduled to see podiatry in April after recent cellulitis) - Neurological Neurological: reports: Numbness (see HPI for full details) - Endocrine Endocrine: reports: Intolerance to cold - Hematologic/Lymphatic Hematologic/Lymph: reports: Anemia (anemia due to chemotherapy) - All Other Systems All Other Systems: reports: Reviewed and negative Physical Exam - Vital Signs Temperature: 36.3 C Pulse Rate: 58 O2 Saturation: 98 Blood Pressure: 122/67 - Physical Exam General Appearance: positive: No acute distress, Alert, Other (overweight) Eyes Bilateral: positive: Other (+corrective lenses) ENT: positive: No signs of dehydration Neck: positive: Trachea midline Cardiovascular: positive: Regular rate & rhythm Respiratory: positive: No respiratory distress, Breath sounds nml. negative: Rales Abdomen: positive: Non-tender, Soft, Nml bowel sounds, Obese. negative: Distended Skin: positive: Other (+left chestwall port). negative: Wound Extremities: positive: Pedal edema (+trace BLE edema with RLE slightly larger than LLE (baseline) with compression stockings in place-much improved) Neurologic/Psychiatric: positive: Oriented x3, Mood/affect nml Palliative Care - POLST Patient has POLST: No Pain: Comment (Controlled with routine acetaminophen and use of voltaren gel for knees with PRN aleeve) Tiredness/Fatigue: Mild (1-3) Sleep: Sleeps well Constipation: No, Managed - Palliative Care Discussion: With recent reports ofDouble vision with no abnormalities noted on CT of the head the patient expresses relief. She is also feeling optimistic as her CEA trended back down but does it relay understanding that if her CEA were to trend up this would warrant restaging and modification to her chemotherapy regimen. She does report feeling that evaluation of her double vision was rushed and when exploring further today if pursuing any symptoms that are reported if she would prefer to have this go through herself versus to her daughter as she has been the designated advocate, the patient declines and wishes to have things continue to go through her daughter Mahi. The patient's spouse appears to have greater understanding in regards to the nature of the patient's disease being metastatic and not curable. The patient continues to perceive that she will have resolution of her cancer diagnosis. Continue to provide gentle support and reorienting regarding management of her cancer diagnosis now being a life long journey and process. 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 She continues to have symptom burden of neuropathy, treatment related anemia and arthralgias in the setting of osteoporosis. She has recently started duloxetine and has noted some minor improvement and provided encouragement for continuation to monitor her response. Palliative care will continue to build rapport, provide symptom management, care coordination and anticipatory guidance. Recommendations/Counseling Done: 1. Double vision with lateral gaze. Status post head CT on 03/21/2021 without evidence of metastatic disease or acute intracranial process. Symptomatology likely related to history of herpes zoster on the affected right side more specifically to the patient's optic nerve. Provide supportive care. 2. Neuropathy to bilateral hands. Has had dose reduction of oxaliplatin him. Continue to avoid extreme hot and cold due to sensitivity. Patient has initiated duloxetine 20 mg daily approximately 2 weeks ago. Continue to monitor her response and adjust dose accordingly for comfort and symptom management. 3. Arthralgias, most specifically to bilateral knees. Treatment related and due to underlying osteoarthritis. Continue topical Voltaren gel as prescribed. May continue use of Aleve as needed with food and to attempt to use sparingly. Continue acetaminophen not to exceed 3000 mg daily from all sources. Continued encouragement of routine exercise for mobilization, general strengthening and well being. And encourage continued use of duloxetine for underlying arthralgias. Encourage use of cane during ambulation for support. Offered physical therapy for balance and strengthening however, declines today but aware to readdress if open in the future. 4. Bilateral lower extremity edema. Overall appears euvolemic. Continue furosemide 20 mg daily. Continue spironolactone 12.5 mg daily. Continue compression stockings to bilateral lower extremities applied in the morning and removed in the evening. Continue elevation of lower extremities when at rest. Renal function remains stable. Continue to monitor. 5. Relapsed metastatic sigmoid colon adenocarcinoma. Diagnosed 09/2020. Began FOLFOX therapy with initial treatment 12/19/2020. Reviewed today with the patient and spouse that the chemotherapy is not curative in nature and is an ongoing process. Patient verbalized understanding that if CEA were to elevate this would require restaging and a new chemotherapy regimen. Continue to be followed by oncology. 6. Advanced care planning. Patient has a living will in place. Presently does not have a POLST and will continue to build rapport and address in the future. 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 Patient at times expresses that she may feel overwhelmed with medical information and may need to sit on the information before posing her questions. Provided support and normalization of the patient's feelings regarding disease process and feeling overwhelmed and providing an open space for the patient and her family to have her questions answered and addressed. Total time spent 50 minutes with greater than 50% of the spent in counseling and coordination of care with the patient and spouse, Waqas as well as coordination with oncologist; review of imaging and highlights from conversation with oncologist regarding plan of care with chemotherapy moving forward; review of symptom management and medication side effects, anticipatory guidance and supportive listening. Disclaimer: The chart note was formulated using voice recognition technology and unfortunately sound alike errors may occur.
== END 2021-03-27 08:59 | disposition home or self-care (01) ==
LOC: PC 08:58
PROVIDERS: ATTEND Nurse Practitioner Family
DX: Z51.5 Encounter for palliative care (principal); M25.562 Pain in left knee; M25.561 Pain in right knee; G62.0 Drug-induced polyneuropathy; T45.1X5A Adverse effect of antineoplastic and immunosuppressive drugs, initial encounter; H53.2 Diplopia; R60.0 Localized edema; C18.7 Malignant neoplasm of sigmoid colon; C78.7 Secondary malignant neoplasm of liver and intrahepatic bile duct; Z79.899 Other long term (current) drug therapy
CPT/HCPCS: 99215

== ENCOUNTER 2021-06-05 09:14 | Outpatient (CLI) | payer MEDICARE, BC ==
--- NOTE | 2021-06-05 11:31 | CONSULTATION NOTE ---
Palliative Care Follow Up - Referral Referring Provider: Gilda Stoll PA-C Time of Visit: [id number] [place] [facility] [place] Reason: Neuropathy/Fatigue/Right great toenail/Metastatic stage IV of sigmoid - Information Sources Records reviewed: Previous records reviewed History/Review of Systems obtained from: Patient, Family (spouse, Waqas) Exam limitations: No limitations - History of Present Illness Update Brief HPI Update: This is a steve 75-year-old female who was seen within [place] [facility] [place] for follow-up regarding arthralgias, peripheral neuropathy, concern regarding right great toenail in the setting of metastatic sigmoid adenocarcinoma with her spouse, Waqas present. Please see detailed history dictated in HPI from 12/13/2020 for full details. Patient had a repeat CT scan on 05/29 with review with oncologist that demonstrated improvement of hepatic lesions but increasing pulmonary nodularity. She remains off oxaliplatin due to neuropathy. She is to begin Avastin to her regimen today. She does report some trepidation about being able to void on demand and will request that urine specimen kits be provided to the patient at each [facility] [place] to be able to bring a specimen in on her next appointment prior to her fusion. She is to have a follow-up CT of her chest in 6 weeks for reevaluation of pulmonary nodularity. Last week on Thursday, the patient had acute diarrhea for approximately 24 hours that "caught her off guard." She had loose stools approximately every 1-1 and half hours. No nausea, vomiting, fever or abdominal pain. This is subsequently resolved. She continues to report neuropathy to both her hands and her feet. In her hands it is bilateral for the first 3 fingers distally. For her feet she finds that she often feels that she is slowing down to walk to ensure that her foot placement is accurate. She utilizes a cane when she is out of the home. She does not feel that she needs one in the house. She has not had any falls or near falls. She continues to report that her knees are stiff in the morning and she takes her Tylenol routinely that is effective. She typically takes 1 Aleve in the morning and not throughout the day. If she is too stiff despite getting up for the morning and loosening her joints she will then apply Voltaren gel with great success. She continues to try to utilize her stationary bike with pedaling on a routine basis but the extent of time on this has been reduced due to her fatigue. She is no longer walking at [facility] as the distance between resting points are too great. She does express concerns regarding her right great toe. It was cauterized by the steel fabricator and she notices some "drop-off" without drainage, redness, or tenderness. She is requesting this be evaluated today. Patient is seen in back treatment chair, well groomed and no evidence of acute distress. 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 Social History - Living Situation Living arrangement: At home Living Situation: With spouse/s.o. Support System: Grew up in [place]. She and her , Waqas have been for 51 years. They have 1 daughter, Mahi who is the patient's women's health care nurse practitioner coordinator with contact number [phone]. The patient and her moved to [facility] on the property of third daughter in 2017 after the patient recovered from bacterial spinal meningitis. She has 1 grandson, Michael. Enjoys her craft projects and sewing at home. Medications/Allergies - Medications Home Medications: Ambulatory Orders Medication Instructions Recorded Confirmed lisinopriL [Lisinopril] 20 mg PO DAILY 11/26/18 05/29/21 Multivitamin [Multiple Vitamins] 1 each PO DAILY 08/25/19 05/29/21 Vitamin E (Dl,Tocopheryl Acet) 400 unit PO DAILY 08/25/19 05/29/21 [Vitamin E] Spironolactone [Aldactone] 12.5 mg PO DAILY tablet 09/02/19 05/29/21 carvediloL [Coreg] 25 mg PO BID tablet 09/02/19 05/29/21 Acetaminophen [Tylenol] 500 mg PO QID MDD NTE 3g/day 10/25/20 05/29/21 Lidocaine/Prilocain 2.5% Cream 5 applic TOP UD #1 gm 11/13/20 05/29/21 [Emla 2.5% Cream] OLANZapine [Zyprexa] 5 mg PO UD #24 tab 11/13/20 05/29/21 Ondansetron HCl [Zofran] 4 mg PO Q6HR PRN #30 tab 11/13/20 05/29/21 Prochlorperazine Maleate 10 mg PO Q6HR PRN #30 tab 11/13/20 05/29/21 [Compazine] polyethylene glycoL 3350 [Miralax] 8.5 g PO DAILY 12/16/20 05/29/21 Diclofenac Sodium [Voltaren] 2 - 4 g TP TID PRN MDD NTE 12/20/20 05/29/21 32g/day/all sources Naproxen Sodium [Aleve] 220 mg PO DAILY 01/02/21 05/29/21 Furosemide [Lasix] 20 mg PO DAILY 02/13/21 05/29/21 Aspirin [[place] Aspirin] 1 tab PO DAILY 02/22/21 05/29/21 Mupirocin 2% Oint [Bactroban 2% 1 applic TOP BID #50 gm 02/22/21 05/29/21 Oint] DULoxetine [Cymbalta] 30 mg PO DAILY 03/27/21 05/29/21 - Allergies Allergies/Adverse Reactions: Allergies Allergy/AdvReac Type Severity Reaction Status Date / Time No Known Drug Allergies Allergy Verified 05/08/21 09:37 Review of Systems - Constitutional Constitutional: reports: Fatigue, Weight stable. denies: Fever, Poor appetite - Eyes Eyes: reports: Corrective lenses - Ears, Nose & Throat Ears, Nose & Throat: reports: Hearing loss. denies: Dentures - Cardiovascular Cardiovascular: reports: Edema. denies: Chest pain - Respiratory Respiratory: denies: Cough - Gastrointestinal Gastrointestinal: reports: Diarrhea (see HPI for details). denies: Abdominal pain, Nausea, Vomiting - Genitourinary Genitourinary: reports: Nocturia. denies: Dysuria - Musculoskeletal Musculoskeletal: reports: Stiffness, Joint pain (most specifically b/l knees), Assistive devices (uses cane more frequently,see HPI) - Integumentary Integumentary: reports: Other (right greattoe nail s/p Cauterized) - Neurological Neurological: reports: General weakness, Numbness (see HPI). denies: Headache, Dizziness - Endocrine Endocrine: reports: Intolerance to cold - Hematologic/Lymphatic Hematologic/Lymph: reports: Anemia (anemia due to chemotherapy) - All Other Systems All Other Systems: reports: Reviewed and negative Physical Exam - Vital Signs Temperature: 36.2 C Pulse Rate: 57 Blood Pressure: 121/63 - Physical Exam General Appearance: positive: No acute distress, Alert Eyes Bilateral: positive: Normal inspection, Other (+corrective lenses) ENT: positive: No signs of dehydration Neck: positive: Trachea midline Cardiovascular: positive: Regular rate & rhythm, No murmur, Other (Left chest wall port) Respiratory: positive: No respiratory distress, Breath sounds nml Abdomen: positive: Non-tender, Soft, Nml bowel sounds, Obese. negative: Distended Skin: positive: Other (Right greattoe nail with evidence of toenail not fully adherent to nailbed and dark debris to tip of nail resembling fabric from shoe without evidence of erythema, drainage or s/s of infection to skin) Extremities: positive: Pedal edema (Trace with compression hose in place) Neurologic/Psychiatric: positive: Oriented x3, Mood/affect nml Palliative Care - POLST Patient has POLST: No Pain: Comment (Controlled with routine acetaminophen, once daily aleeve, and use of voltaren gel for knees PRN) Tiredness/Fatigue: Moderate (4-6) Drowsiness/Sedation: Mild (1-3) Nausea: None Anorexia: None Feelings of wellbeing/Perceived Quality of Life: Fair Sleep: Sleeps well (once able to fall asleep) Constipation: Managed Performance Status: Patient feels that she is slowing down. Remains ambulatory and will utilize a cane outside of the home. No recent falls. Increased difficulty with preparing meals reported by patient's spouse although patient does not perceive this. Remains overall independent in IADLs and ADLs. Daughter is filling Medisets. - Palliative Care Discussion: Patient recognizes recent findings regarding CT scan of the abdomen, pelvis and chest. Today, she is to begin a Avastin therapy and to monitoring while on this therapy with both patient and spouse regarding concern for elevated blood pressure and risk for stroke with monitoring urine for proteinuria and blood pressure checks. Patient has a home blood pressure monitor and will continue to monitor her blood pressure at home. For ease and comfort, the patient will void prior to her [facility] appointment and infusion and will be provided urinary specimen cups each visit to use. The patient continues to report her greatest concern and symptom is related to neuropathy. This is impacting her ability to prepare meals and have a good physician relations representative on items that she is utilizing. Is amenable to doing a trial increase of duloxetine from 20 mg to 30 mg daily. Offered physical therapy for balance however, patient declines. Spouse brought up wanting to trial Meals on Wheels however, this is not something that the patient is presently amenable to but was open to allowing a this SECURITY AUDITOR to provide contact information for Meals on Wheels. It is important to note, that for a change to occur it is best to have the patient initiate the idea and have an open conversation. She prefers not to feel pushed in to a change or modification. 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 She continues to have primary symptom of neuropathy and arthralgias in the setting of osteoarthritis. Today, she is to begin Avastin with her regimen of intervention. Palliative care will continue to build rapport, provide symptom management, care coordination and anticipatory guidance. Recommendations/Counseling Done: 1. Right great toenail. No signs or symptoms of infection. Debris noted appears to be due to history of cauterization by steel fabricator as well as fabric adhering to the patient's jacket now. Will benefit for from follow-up with steel fabricator as scheduled. Reviewed signs and symptoms of infection and when to report. 2. Neuropathy to bilateral hands and feet. Persistent but has stabilized. Discussed and set expectations that though this was likely due to oxaliplatin him this may never completely resolve due to underlying nerve damage to set expectations. But would expect this to gradually improve over months. Patient amenable to increasing duloxetine from 20 mg to 30 mg daily. Reviewed purpose, dose and side effects with patient with understanding verbalized. New Rx sent to [facility] pharmacy at patient's request. Advised may take 2 to 3 weeks to see effect of medication. 3. Arthralgias, most specifically to bilateral knees. Treatment related and due to underlying osteoarthritis. Continue topical Voltaren gel as prescribed. May continue to use Aleve as needed with food and in an attempt to use sparingly. Continue acetaminophen not to exceed 3000 mg daily from all sources. Continued to encourage routine exercise for mobilization, general strengthening and wellbeing. Offered physical therapy for balance and strengthening however, declines. Continue to utilize cane when out of the home for support. We will continue use of duloxetine for under lying arthralgias. 4. Relapsed metastatic sigmoid colon adenocarcinoma. Diagnosed 09/2020. Began FOLFOX therapy with initial treatment 12/19/2020. Is to begin Avastin therapy today. Is to have a repeat CT of the chest in approximately 5 weeks time to reevaluate pulmonary nodularity for disease progression. Reviewed potential side effects of Avastin today and advised to monitor blood pressure at home with a goal blood pressure less than 150/90. Advised to check blood pressure every other day and record. If elevated to contact. Will request to have urine specimen cup be provided at each [facility] [place] so patient may bring in urine specimen from home for ease with each infusion for monitoring while on Avastin. Continue to be followed by oncology. 5. Advanced care planning. Patient has a living will in place. Patient does not have a POLST and will need to continue to build rapport and readdress in the future. Patient prefers to have new ideas and changes occur from her rather than feeling suggestions be placed upon her. Patient was not open to trialing Meals on Wheels despite 's suggestion today but was open to having contact information provided. Total time spent 55 minutes with greater than 50% of the spent in counseling coordination of care with the patient and spouse, Waqas as well as coordination with the [facility] staff; review of medical records and lab work; review of symptom management and medication side effects; anticipatory guidance and supportive listening. Disclaimer: The chart note was formulated using voice recognition technology and unfortunately sound alike errors may occur.
== END 2021-06-05 09:15 | disposition home or self-care (01) ==
LOC: PC 09:14
PROVIDERS: ATTEND Nurse Practitioner Family
DX: Z51.5 Encounter for palliative care (principal); G62.9 Polyneuropathy, unspecified; M17.0 Bilateral primary osteoarthritis of knee; C18.7 Malignant neoplasm of sigmoid colon; C79.9 Secondary malignant neoplasm of unspecified site; Z79.899 Other long term (current) drug therapy
CPT/HCPCS: 99215

== ENCOUNTER 2021-06-27 15:15 | Outpatient (CLI) | payer MEDICARE, BC ==
--- NOTE | 2021-06-27 19:08 | CONSULTATION NOTE ---
Palliative Care Follow Up - Referral Referring Provider: Gilda Stoll PA-C/Sterling Su MD Time of Visit: [id number] Referral setting: Home Referral Reason: Neuropathy/Metastatic stage IV of sigmoid/Advanced Care Planning - Information Sources Records reviewed: Previous records reviewed History/Review of Systems obtained from: Patient, Family (daughterMahi and spouse, Waqas) Exam limitations: No limitations - History of Present Illness Update Brief HPI Update: This is a steve 76-year-old female who is seen and evaluated today within her home regarding arthralgias, peripheral neuropathy, metastatic sigmoid adenocarcinoma and advance care planning with her spouse, Waqas and daughter, Mahi present. Please see detailed history dictated in HPI from 12/13/2020 for full details. Patient had a repeat CT scan on 05/29 that demonstrated improvement of hepatic lesions but increasing pulmonary nodularity. She remains off oxaliplatin him due to neuropathy. She has begun Avastin due to the results of her CT scan on 05/29. She had a repeat CT of the chest on 06/26/2021 with review of results with oncology on 07/05. She reports that she has some underlying fear regarding the results of the CT scan but is hopeful as her CEA levels have been trending down since addition of the Avastin. Last CEA on 06/19 was 23.3 and on 06/05 was 37.8. She continues to report neuropathy to both her hands and feet. On 06/05 her duloxetine was increased to 30 mg. She has not noticed any difference since he increase of the duloxetine. She has found that now all of her fingers are affected with the neuropathy versus previously just being a few of her fingers with the left hand being greater than the right. The neuropathy in her feet remains at baseline. She is now amenable to using a walker and she concedes that it was something that she should have agreed to sooner. She continues to have stiffness in her knees in the morning and takes her Tylenol routinely which is effective as well as utilization of her Voltaren gel. She has found quite beneficial as the addition of the Voltaren gel for her stiffness in her knees. She continues to utilize her stationary bike pedaling on a routine basis however, her daily time is typically between 15 to 20 minutes and she has a goal to get back to 25 minutes. Since initiation of Avastin she has been monitoring her blood pressure and it has ranged as follows: 146/76, 146/78, 144/76, 134/79, 134/72, 147/84. She has typically been taking on a regular basis and given that her blood pressure has been below 150/90 would recommend decreasing to once weekly evaluation and patient amenable. She is to follow-up with her tank riveter next week regarding her right great toenail with a hematoma that is growing out. The patient is seen out of bed in her recliner chair, well groomed and no evidence of acute distress. 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 Social History - Living Situation Living arrangement: At home Living Situation: With spouse/s.o. Support System: Grew up in [place]. She and her , Waqas have been for 51 years. They have 1 daughter, Mahi who is the patient's coronary care unit nurse coordinator with contact number [phone]. The patient and her moved to [facility] on the property of third daughter in 2017 after the patient recovered from bacterial spinal meningitis. She has 1 grandson, Michael. She has finished her project of sewing a jacket that she proudly showed off today. She continues to work on her [employer] projects. Medications/Allergies - Medications Home Medications: Ambulatory Orders Medication Instructions Recorded Confirmed lisinopriL [Lisinopril] 20 mg PO DAILY 11/26/18 05/29/21 Multivitamin [Multiple Vitamins] 1 each PO DAILY 08/25/19 05/29/21 Vitamin E (Dl,Tocopheryl Acet) 400 unit PO DAILY 08/25/19 05/29/21 [Vitamin E] Spironolactone [Aldactone] 12.5 mg PO DAILY tablet 09/02/19 05/29/21 carvediloL [Coreg] 25 mg PO BID tablet 09/02/19 05/29/21 Acetaminophen [Tylenol] 500 mg PO QID MDD NTE 3g/day 10/25/20 05/29/21 Lidocaine/Prilocain 2.5% Cream 5 applic TOP UD #1 gm 11/13/20 05/29/21 [Emla 2.5% Cream] OLANZapine [Zyprexa] 5 mg PO UD #24 tab 11/13/20 05/29/21 Ondansetron HCl [Zofran] 4 mg PO Q6HR PRN #30 tab 11/13/20 05/29/21 Prochlorperazine Maleate 10 mg PO Q6HR PRN #30 tab 11/13/20 05/29/21 [Compazine] polyethylene glycoL 3350 [Miralax] 8.5 g PO DAILY 12/16/20 05/29/21 Diclofenac Sodium [Voltaren] 2 - 4 g TP TID PRN MDD NTE 12/20/20 05/29/21 32g/day/all sources Naproxen Sodium [Aleve] 220 mg PO DAILY 01/02/21 05/29/21 Furosemide [Lasix] 20 mg PO DAILY 02/13/21 05/29/21 Aspirin [[place] Aspirin] 1 tab PO DAILY 02/22/21 05/29/21 Mupirocin 2% Oint [Bactroban 2% 1 applic TOP BID #50 gm 02/22/21 05/29/21 Oint] DULoxetine [Cymbalta] 30 mg PO DAILY 03/27/21 05/29/21 - Allergies Allergies/Adverse Reactions: Allergies Allergy/AdvReac Type Severity Reaction Status Date / Time No Known Drug Allergies Allergy Verified 05/08/21 09:37 Review of Systems - Constitutional Constitutional: reports: Fatigue (increased fatigue and resting---has been allowing her family to assist more with underwriting director.), Weight loss (reports a weight loss down to 239lb). denies: Fever - Eyes Eyes: reports: Corrective lenses - Ears, Nose & Throat Ears, Nose & Throat: reports: Hearing loss. denies: Hearing aids, Dentures - Cardiovascular Cardiovascular: reports: Edema (controlled with compression hose and oral diuretics). denies: Chest pain - Respiratory Respiratory: denies: Cough - Gastrointestinal Gastrointestinal: reports: Early satiety (mild in evening), Other (Reports appetite slightly decreased but overall close to baseline. Largest meal is lunch.). denies: Abdominal pain, Constipation, Nausea, Vomiting - Genitourinary Genitourinary: reports: Nocturia. denies: Dysuria - Musculoskeletal Musculoskeletal: reports: Stiffness, Joint pain (most specifically b/l knees), Assistive devices (rollator and cane) - Integumentary Integumentary: reports: Other (right greattoe nail s/p Cauterized) - Neurological Neurological: reports: General weakness, Numbness (see HPI). denies: Headache - Psychiatric Psychiatric: denies: Depression (Finds albert in waking up everyday and continues to enjoy her daily activities) - Endocrine Endocrine: reports: Intolerance to cold - Hematologic/Lymphatic Hematologic/Lymph: reports: Anemia (anemia due to chemotherapy) - All Other Systems All Other Systems: reports: Reviewed and negative Physical Exam - Vital Signs Temperature: 36.5 C Pulse Rate: 64 O2 Saturation: 97 (on RA) Blood Pressure: 136/78 (left wrist) - Physical Exam General Appearance: positive: No acute distress, Alert Eyes Bilateral: positive: Other (+corrective lenses) ENT: positive: No signs of dehydration Neck: positive: Trachea midline Cardiovascular: positive: Regular rate & rhythm, Other (Left chest wall port) Respiratory: positive: No respiratory distress, Breath sounds nml. negative: Rales Abdomen: positive: Non-tender, Soft, Nml bowel sounds, Obese. negative: Distended Skin: positive: Other (Right greattoe nail with evidence of toenail not fully adherent to nailbed and hematoma that is growing out and showing new nail at most distal aspect) Extremities: positive: Pedal edema (Trace BLE edema with compression hose in place) Neurologic/Psychiatric: positive: Oriented x3, Mood/affect nml, Other (Appropriately tearful when discussing terminality of diagnosis indepedently without family present.) Palliative Care - POLST Patient has POLST: No Pain: Comment (Controlled with routine acetaminophen, once daily aleeve and use of voltaren gel and cymbalta 30mg daily) Tiredness/Fatigue: Moderate (4-6) Drowsiness/Sedation: Mild (1-3) Nausea: None Anorexia: Mild (1-3) Feelings of wellbeing/Perceived Quality of Life: Fair Sleep: Sleeps well Constipation: Managed Performance Status: Perceives herself slowing down. Resume remains ambulatory and will utilize a cane outside of the home and now in the last week has a Rollator. She intends to use the Rollator to be able to be more independent and increase her activity outside of the home. No recent falls. Increased difficulty with preparing meals and is now allowing increased assistance from both her spouse and daughter for tasks within the home. Overall, remains independent in IADLs and ADLs. Her daughter is feeling metastatic and managing medications. She continues to manage the finances. - Palliative Care Discussion: Patient has tolerated addition of Avastin to her regiment. Her blood pressure remains less than 150/90 upon review of her blood glucose log. She finds it assistive to be able to provide her urine sample to be obtained at home and provide to the [facility] clinic as less stressful to void on demand. Independently, without her family present the patient was quite open today about excepting her diagnosis as being terminal. She watched both her parents and her 's parents at end of life and provided assistance with that oversight. She has found that she is at peace and excepting of her impending . She is hoping for additional time but if this is not the case she is obstructing of any continued time that she has left. She is a very analytical individual and sees things in black and white. She is now finding that with her cancer diagnosis that everything tends to be chandler. She has found that she has to shift and reset her expectations. By shifting her expectations this has allowed her to accept increased assistance from her spouse and her daughter with increased assistance with underwriting director and items. She does not feel that her daughter and spouse are as accepting of her potential terminal diagnosis. She wants her family to be taken care of when she is no longer present. She continues to wish to maintain her identity but allowing her daughter take a little bit more control in oversight and management as this is a way for her to process the changes and the patient has noticed a shift in dynamics for the better between mother and daughter. 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 She continues to primarily have symptom burden of peripheral neuropathy, fatigue, and arthralgias in the setting of osteoarthritis. Avastin has been added to her regimen of intervention and has been tolerating well with blood pressure below 150/90. Palliative care will continue to build rapport, explore goals of care, provide symptom management, care coordination and anticipatory guidance. Recommendations/Counseling Done: 1. Neuropathy to bilateral hands and feet. Persistent and And slightly worsened to bilateral hands. Discussed again expectations due to oxaliplatin and time to take time for any time of improvement. Presently on duloxetine 30 mg daily. Discussed increasing dose of duloxetine but at the present time, patient prefers to remain on present dose and readdress at next palliative care follow-up. Continue to follow. 2. Arthralgias. Most pacifically to bilateral knees. Treatment related and due to underlying osteoarthritis. Continue topical Voltaren gel as prescribed. May continue to use Aleve as needed with food in any in an attempt to use sparingly. Continue acetaminophen not to exceed 3000 mg daily from all sources. Continue to encourage routine exercise for mobilization, general strengthening and wellbeing. Continue to utilize Rollator specifically out of the home for support. Also continue duloxetine 30 mg daily for underlying arthralgias. 3. Relapsed metastatic sigmoid colon adenocarcinoma. Diagnosed 09/2020. Began FOLFOX therapy with initial treatment 12/19/2020. Began Avastin therapy on 06/05/2021. Had repeat CT of the chest when 06/26 to reevaluate pulmonary nodule Celerity for disease progression and follow-up with oncology on 07/05. To helen will to monitor her blood pressure at home on a weekly basis with a goal blood pressure less than 150/90. She is to contact if blood pressure above 150/90. Continue to obtain urine specimen at home and provide to back at each clinic visit. Continue to be followed by oncology. 4. Advanced care planning. Patient has living will in place. Does not have a POLST in place and will need to continue to build rapport and readiness in the future. Patient was very open in discussion today with this palliative care provider and relating her acknowledgment that she has a terminal diagnosis and she is accepting of this and has found peace. She did articulate that she is an individual that is quite analytical and sees things more and [id number] and recognizes that there is variability in her prognosis and life expectancy in a chandler area and she is learning to adjust her expectations regarding this. Normalized her feelings regarding loss of a prolonged future. Empathetic listening provided. She wishes to prepare and provide support to her family for a time when she is not able to be present. Palliative care to continue to offer support to the patient in these difficult discussions and available for any assistance with family mediation if possible and desired. Total time spent 90 minutes with greater than 50% of the spent in counseling and coordination of care with the patient, spouse Waqas and daughter, Mahi; review of the lab work; review of blood pressure log; supportive and empathetic listening; review of expectations and advance care planning; symptom management, anticipatory guidance. Disclaimer: The chart note was formulated using voice recognition technology and unfortunately sound alike errors may occur.
== END 2021-06-27 15:16 | disposition home or self-care (01) ==
LOC: PC 15:15
PROVIDERS: ATTEND Nurse Practitioner Family
DX: Z51.5 Encounter for palliative care (principal); C18.7 Malignant neoplasm of sigmoid colon; C78.7 Secondary malignant neoplasm of liver and intrahepatic bile duct; C78.00 Secondary malignant neoplasm of unspecified lung; G62.9 Polyneuropathy, unspecified; M17.0 Bilateral primary osteoarthritis of knee
CPT/HCPCS: 99350

== ENCOUNTER 2021-07-31 14:10 | Outpatient (CLI) | payer MEDICARE, BC ==
--- NOTE | 2021-07-31 15:00 | CONSULTATION NOTE ---
Palliative Care Follow Up - Referral Referring Provider: Gilda Stoll PA-C/Dr. Sterling Su Time of Visit: [id number] Referral setting: [facility] [place] [facility] Referral Reason: Neuropathy/Arthalgias due to OA/Metastatic stage IV of sigmoid - Information Sources Records reviewed: Previous records reviewed History/Review of Systems obtained from: Patient, Family (spouse, Waqas) Exam limitations: No limitations - History of Present Illness Update Brief HPI Update: This is a steve 76-year-old female who was seen and evaluated today at [facility] [place] clinic for follow-up regarding arthralgias, peripheral neuropathy, and metastatic sigmoid adenocarcinoma with her spouse, Waqas present. Provider wore N95 mask. Please see detailed history dictated in HPI from 12/13/2020. Patient's most recent CT scan demonstrated mild progression of bilateral pulmonary nodules and she continues on maintenance treatment with 5-FU infusional and Avastin with a cycle every 14 days. She has had trending down of her CEA with last result on 07/17 at 13.9. She is to have a repeat CT chest and pelvis for full restaging in early August 2021 and follow-up with her oncologist. She developed treatment related neuropathy and cold sensitivity to her hands secondary to oxaliplatin. She has had resolution of the cold sensitivity. She continues with neuropathy symptoms to her hands feet. On last evaluation with palliative care on 06/27 her duloxetine was increased to 30 mg daily. She states that her neuropathy is now down all the way into her toes. However, she does report that she has noticed an improvement in her overall neuropathy. She does perceive numbness. She has returned to being able to do some crafts. She is using a walker when she leaves the home. She is also watching where she is placing her feet for avoidance of a fall as she recognizes that this could lead to an adverse event. She is using her stationary bicycle most days. No fa lls reported. She continues to have stiffness in her knees in the morning and takes Tylenol routinely which is effective as well as utilization of Voltaren gel. She is requesting a refill of Voltaren gel today. She continues to monitor her blood pressure at home given initiation of Avastin. Blood pressure has been as follows 136/74, 144/85, 146/82, 144/88. Patient denies headache, chest pain, or dizziness. She does have a history of hypertension. Expressed that on Thursday she experienced a hot flash that was similar to when she had been through menopause that only lasted a few minutes. Patient is food infusion chair, well groomed and no evidence of acute distress. 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 Social History - Living Situation Living arrangement: At home Living Situation: With spouse/s.o. Support System: Grew up in [place]. She and her , Waqas have been for 51 years. They have 1 daughter, Mahi who is the patient's home care rn coordinator with contact number [phone]. The patient and her moved to [facility] on the property of third daughter in 2017 after the patient recovered from bacterial spinal meningitis. She has 1 grandson, Michael. Is working on her [employer] project presently, but takes more time to complete due to neuropathy in her hands. Medications/Allergies - Medications Home Medications: Ambulatory Orders Medication Instructions Recorded Confirmed lisinopriL [Lisinopril] 20 mg PO DAILY 11/26/18 07/03/21 Multivitamin [Multiple Vitamins] 1 each PO DAILY 08/25/19 07/03/21 Vitamin E (Dl,Tocopheryl Acet) 400 unit PO DAILY 08/25/19 07/03/21 [Vitamin E] Spironolactone [Aldactone] 12.5 mg PO DAILY tablet 09/02/19 07/03/21 carvediloL [Coreg] 25 mg PO BID tablet 09/02/19 07/03/21 Acetaminophen [Tylenol] 500 mg PO QID MDD NTE 3g/day 10/25/20 07/03/21 Lidocaine/Prilocain 2.5% Cream 5 applic TOP UD #1 gm 11/13/20 07/03/21 [Emla 2.5% Cream] OLANZapine [Zyprexa] 5 mg PO UD #24 tab 11/13/20 07/03/21 Ondansetron HCl [Zofran] 4 mg PO Q6HR PRN #30 tab 11/13/20 07/03/21 Prochlorperazine Maleate 10 mg PO Q6HR PRN #30 tab 11/13/20 07/03/21 [Compazine] polyethylene glycoL 3350 [Miralax] 8.5 g PO DAILY 12/16/20 07/03/21 Diclofenac Sodium [Voltaren] 2 - 4 g TP TID PRN MDD NTE 12/20/20 07/03/21 32g/day/all sources Naproxen Sodium [Aleve] 220 mg PO DAILY 01/02/21 07/03/21 Furosemide [Lasix] 20 mg PO DAILY 02/13/21 07/03/21 Aspirin [[place] Aspirin] 1 tab PO DAILY 02/22/21 07/03/21 Mupirocin 2% Oint [Bactroban 2% 1 applic TOP BID #50 gm 02/22/21 07/03/21 Oint] DULoxetine [Cymbalta] 30 mg PO DAILY 03/27/21 07/03/21 - Allergies Allergies/Adverse Reactions: Allergies Allergy/AdvReac Type Severity Reaction Status Date / Time No Known Drug Allergies Allergy Verified 05/08/21 09:37 Review of Systems - Constitutional Constitutional: reports: Fatigue (will take naps during the day), Weight stable. denies: Fever, Poor appetite - Eyes Eyes: reports: Corrective lenses - Ears, Nose & Throat Ears, Nose & Throat: reports: Hearing loss. denies: Hearing aids, Dentures - Cardiovascular Cardiovascular: reports: Edema (controlled with compression hose and oral diuretics). denies: Chest pain - Respiratory Respiratory: denies: Cough - Gastrointestinal Gastrointestinal: reports: Good appetite. denies: Abdominal pain, Abdominal d istention, Constipation, Change in bowel habits, Nausea, Vomiting - Genitourinary Genitourinary: reports: Nocturia. denies: Dysuria - Musculoskeletal Musculoskeletal: reports: Stiffness, Joint pain (most specifically b/l knees), Assistive devices (rollator and cane) - Neurological Neurological: reports: General weakness, Numbness (see HPI). denies: Headache, Dizziness - Psychiatric Psychiatric: denies: Depression - Endocrine Endocrine: denies: Intolerance to cold - Hematologic/Lymphatic Hematologic/Lymph: reports: Anemia (due to chemotherapy--stable) - All Other Systems All Other Systems: reports: Reviewed and negative Physical Exam - Vital Signs Temperature: 36.3 C Pulse Rate: 62 O2 Saturation: 95 (on RA) Blood Pressure: 139/86 (left arm) - Physical Exam General Appearance: positive: No acute distress, Alert Eyes Bilateral: positive: Other (+corrective lenses) ENT: positive: No signs of dehydration Neck: positive: Trachea midline Cardiovascular: positive: Regular rate & rhythm, No murmur, Other (Left chest wall port) Respiratory: positive: No respiratory distress, Breath sounds nml Abdomen: positive: Non-tender, Soft, Nml bowel sounds, Obese. negative: Distended Skin: positive: Dryness Extremities: positive: Pedal edema (Trace BLE edema with compression hose in place) Neurologic/Psychiatric: positive: Oriented x3, Mood/affect nml Palliative Care - POLST Patient has POLST: No Pain: Location (B/l knees), Severity (2/10), Comment (Controlled with routine acetaminohen, once daily aleeve and use of voltaren gel and cymbalta 30mg daily.) Tiredness/Fatigue: None Drowsiness/Sedation: None Nausea: None Anorexia: Mild (1-3) Dyspnea: None Depression: None Anxiety: None Feelings of wellbeing/Perceived Quality of Life: Good Sleep: Sleeps well Constipation: No, Managed - Palliative Care Discussion: Open discussion today given last conversation with the patient recognizing her terminal diagnosis to have more quality time outside of the home with her spouse. Suggestion made for weekly car rides to places that they enjoy. However, the patient prefers not to have an agenda and is quite happy the day of coming up with the plan. She does prefer to be doing something even if she is sitting. She prefers that if she is sitting she wants to be reading or performing any task such as finances or her crafts. She has repeat staging in August 2021 and as she is an analytical and [id number] individual would prefer time to process the results after her oncology appointment and allow palliative care to [place] back around to address any questions or concerns after the fact to assist with aligning treatment goals with personal fracture preferences and goals of care. 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 She continues to primarily have symptom burden related to peripheral neuropathy and arthralgias in the setting of arthritic osteoarthritis. Palliative care will continue to build rapport, explore goals of care, provide symptom management, care coordination and anticipatory guidance. Recommendations/Counseling Done: 1. Arthralgias. Most pacifically to bilateral knees. Treatment related and due to underlying osteoarthritis. Continue topical Voltaren gel as prescribed new Rx sent to [facility] pharmacy per patient request. Continue to use Aleve as needed with food and attempt to use sparingly. Continue acetaminophen not to exceed 3000 mg daily from all sources as needed. Continue to encourage routine exercise for mobilization, general strengthening and wellbeing. Continue duloxetine 30 mg daily for underlying arthralgias with positive benefit. Continue to monitor. Fall precautions. 2. Neuropathy to bilateral hands and feet. Mildly improved. Continue to set expectations due to history of oxaliplatin and time to see improvement. Presently on duloxetine 30 mg daily. Continue to monitor in room to increase if needed to optimize patient's comfort. 3. Relapsed metastatic sigmoid colon adenocarcinoma. Diagnosed 09/2020. Began FOLFOX therapy with initial treatment 12/19/2020. Began Avastin therapy on 06/05/2021. CT of the chest on 02/24/2021 showing mild disease progression with pulmonary nodules. She is to continue to monitor her blood pressure at home on a weekly basis due to Avastin therapy and aware to contact palliative care if systolic blood pressure greater than 150 on 2 occasions. Continue to obtain urine specimen at home of 5 to [facility] clinic each visit. Continue to be followed by oncology. 4. Advanced care planning. Patient has living will in place. Does not have a POLST in place and will need to continue to build rapport and readdress in the near future, potentially after next restaging visit. Patient is an individual that requires contemplation after receiving treatment options to weigh benefits versus burdens and have her questions addressed before ultimately making a decision. She has an analytical thought process. 5. Flu shot. Discussed with Dr. Su as patient had questions regarding when to receive flu vaccine, and preferable to be administered 3 days before her next cycle of chemotherapy. Palliative Care will attempt to assist in providing coordination to achieve this if next visit at home falls in this time frame. Otherwise, encourage to obtain outpatient at local pharmacy. Total time spent 40 minutes with greater than 50% of the spent in counseling and coordination of care with the patient and spouse Waqas; coordination with nursing staff at [facility]; review of available lab work; review of blood pressure log; review of expectations and symptom management; and anticipatory guidance. Disclaimer: The chart note was formulated using voice recognition technology and unfortunately sound alike errors may occur.
== END 2021-07-31 14:11 | disposition home or self-care (01) ==
LOC: PC 14:10
PROVIDERS: ATTEND Nurse Practitioner Family
DX: Z51.5 Encounter for palliative care (principal); C18.7 Malignant neoplasm of sigmoid colon; C78.00 Secondary malignant neoplasm of unspecified lung; M17.0 Bilateral primary osteoarthritis of knee; G62.9 Polyneuropathy, unspecified; G47.33 Obstructive sleep apnea (adult) (pediatric); H35.30 Unspecified macular degeneration; H91.90 Unspecified hearing loss, unspecified ear; D64.81 Anemia due to antineoplastic chemotherapy; T45.1X5A Adverse effect of antineoplastic and immunosuppressive drugs, initial encounter; Z79.1 Long term (current) use of non-steroidal anti-inflammatories (NSAID); Z79.82 Long term (current) use of aspirin; Z79.899 Other long term (current) drug therapy; Z86.19 Personal history of other infectious and parasitic diseases
CPT/HCPCS: 99215

== ENCOUNTER 2021-08-29 15:10 | Outpatient (CLI) | payer MEDICARE, BC ==
--- NOTE | 2021-08-29 18:19 | CONSULTATION NOTE ---
Palliative Care Follow Up - Referral Referring Provider: Gilda Stoll PA-C/ Dr. Sterling Su Time of Visit: [id number] Referral setting: Home Referral Reason: Neuropathy/Arthalgias/Mestatis stage IV of sigmoid - Information Sources Records reviewed: Previous records reviewed History/Review of Systems obtained from: Patient, Family (daughter, Mahi) Exam limitations: No limitations - History of Present Illness Update Brief HPI Update: This is a steve 76-year-old female who was seen and evaluated today within her home for follow-up regarding arthralgias, peripheral neuropathy, and metastatic sigmoid adenocarcinoma with her daughter, Mahi present. Provider wore N95 mask. Please see detailed history dictated in HPI from 12/13/2020. Patient had a repeat CT on 08/21/2021. CT of the chest demonstrated "mild interval progression of pulmonary metastatic disease. Slight increase in size of multiple pulmonary nodules. No new nodules identified. "The patient CT of the abdomen and chest demonstrated "interval progression of hepatic metastatic disease. Specifically, the posterior segment right lobe liver lesion previously measured 1.8 cm now to 2.6 cm. The patient's CEA has been trending down with last CEA on 08/28/2021 as 13.5. Given disease progression on most recent restaging scans she has been referred for interventional radiology consultation for Y 90. The patient's daughter reports there are times that the patient appears unstable on her feet. The patient herself notices subtle changes and finds that she is stable within the home as she holds onto things and grabs onto the wall. She has not had any falls. She does have a Rollator however, she does not use this consistently with outside of the home. She also has an exercise bike that she has not used in some time given it is outside it has been cold exacerbating her stiffness and arthritic symptoms to her joints. She is reluctant to move the exercise bike inside the home despite encouragement. She continues to utilize acetaminophen 500 mg tablets 4 times a day with positive effect. As well as her Voltaren gel that she places to her bilateral knees first thing in the morning as well as daily Aleve. She reports that she is more stiff first thing in the morning and when she is up and moving after some time she is fine. She reports that pain is not the primary issue it is the stiffness to the joints. Presently reports that her neuropathy is stable. This is secondary to oxaliplatin. She continues on duloxetine 30 mg daily for control of her symptoms of neuropathy as well as arthralgias. The patient does have questions today regarding if she should have a routine annual mammogram. 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 +influenza vaccine Social History - Living Situation Living arrangement: At home Living Situation: With spouse/s.o. Support System: Grew up in [place]. She and her , Waqas have been for 51 years. They have 1 daughter, Mahi who is the patient's healthcare customer service coordinator with contact number [phone]. The patient and her moved to [facility] on the property of third daughter in 2017 after the patient recovered from bacterial spinal meningitis. She has 1 grandson, Michael. She goes in the car for trips to stores with her , but often times will stay in the car. Medications/Allergies - Medications Home Medications: Ambulatory Orders Medication Instructions Recorded Confirmed lisinopriL [Lisinopril] 20 mg PO DAILY 11/26/18 08/28/21 Multivitamin [Multiple Vitamins] 1 each PO DAILY 08/25/19 08/28/21 Vitamin E (Dl,Tocopheryl Acet) 400 unit PO DAILY 08/25/19 08/28/21 [Vitamin E] Spironolactone [Aldactone] 12.5 mg PO DAILY tablet 09/02/19 08/28/21 carvediloL [Coreg] 25 mg PO BID tablet 09/02/19 08/28/21 Acetaminophen [Tylenol] 500 mg PO QID MDD NTE 3g/day 10/25/20 08/28/21 Lidocaine/Prilocain 2.5% Cream 5 applic TOP UD #1 gm 11/13/20 08/28/21 [Emla 2.5% Cream] OLANZapine [Zyprexa] 5 mg PO UD #24 tab 11/13/20 08/28/21 Ondansetron HCl [Zofran] 4 mg PO Q6HR PRN #30 tab 11/13/20 08/28/21 Prochlorperazine Maleate 10 mg PO Q6HR PRN #30 tab 11/13/20 08/28/21 [Compazine] polyethylene glycoL 3350 [Miralax] 8.5 g PO DAILY 12/16/20 08/28/21 Diclofenac Sodium [Voltaren] 2 - 4 g TP TID PRN MDD NTE 12/20/20 08/28/21 32g/day/all sources Naproxen Sodium [Aleve] 220 mg PO DAILY 01/02/21 08/28/21 Furosemide [Lasix] 20 mg PO DAILY 02/13/21 08/28/21 Aspirin [[place] Aspirin] 1 tab PO DAILY 02/22/21 08/28/21 Mupirocin 2% Oint [Bactroban 2% 1 applic TOP BID #50 gm 02/22/21 08/28/21 Oint] DULoxetine [Cymbalta] 30 mg PO DAILY 03/27/21 08/28/21 - Allergies Allergies/Adverse Reactions: Allergies Allergy/AdvReac Type Severity Reaction Status Date / Time No Known Drug Allergies Allergy Verified 05/08/21 09:37 Review of Systems - Constitutional Constitutional: reports: Fatigue (will take naps during the day), Weight stable (per report). denies: Fever - Eyes Eyes: reports: Corrective lenses - Ears, Nose & Throat Ears, Nose & Throat: reports: Hearing loss, Other (dry nares--using Julian and polysporin for moisture that has improved last few days). denies: Hearing aids - Cardiovascular Cardiovascular: reports: Edema (controlled with compression hose and oral diuretics). denies: Chest pain - Respiratory Respiratory: denies: Cough - Gastrointestinal Gastrointestinal: reports: Good appetite. denies: Abdominal pain, Constipation, Change in bowel habits, Nausea, Vomiting - Genitourinary Genitourinary: reports: Nocturia. denies: Dysuria - Musculoskeletal Musculoskeletal: reports: Stiffness (greatest first thing in AM), Joint pain (most specifically b/l knees), Assistive devices (rollator and cane). denies: Joint swelling - Neurological Neurological: reports: General weakness, Numbness (neuropathy). denies: Headache - Endocrine Endocrine: denies: Intolerance to cold - Hematologic/Lymphatic Hematologic/Lymph: reports: Anemia (due to chemotherapy--stable) - All Other Systems All Other Systems: reports: Reviewed and negative. denies: Other (Breast lumps, nipple discharge, breast pain) Physical Exam - Vital Signs Temperature: 36.7 C Pulse Rate: 61 O2 Saturation: 98 (on RA) Blood Pressure: 132/80 (left arm) - Physical Exam General Appearance: positive: No acute distress, Alert Eyes Bilateral: positive: Other (+corrective lenses) ENT: positive: No signs of dehydration Neck: positive: Trachea midline Cardiovascular: positive: Regular rate & rhythm, No murmur, Other (Left chest wall port) Respiratory: positive: No respiratory distress, Breath sounds nml Abdomen: positive: Non-tender, Soft, Nml bowel sounds, Obese. negative: Distended Skin: positive: Dryness Extremities: positive: Pedal edema (Trace BLE edema with compression hose in place) Neurologic/Psychiatric: positive: Oriented x3, Mood/affect nml Palliative Care - POLST Patient has POLST: No Pain: Pain unchanged (b/l knees controlled with tylenol, aleeve and voltaren gel with addition of duloxetine.) Feelings of wellbeing/Perceived Quality of Life: Good Sleep: Sleeps well Constipation: No, Managed - Palliative Care Discussion: In reflection regarding most recent restaging scans that demonstrated ongoing progression of disease the patient wishes to move forward with consultation with breathing interventional radiology and have all her questions answered and addressed to make an informed decision. At this time, she relays disappointment as she was hoping that this scan demonstrated no changes as her CEA had been decreasing therefore, she was hoping for a positive response with the addition of Avastin to her chemotherapy regimen. The patient's daughter acknowledges that she always wants the patient to be able to have a choice regarding treatment options. At the present time, the patient finds albert in her life and therefore wishes to extend her time. She acknowledges that if there is a point that she no longer had albert and the Burdens outweigh the benefits of interventions then she would opt to stop. The patient continues to acknowledge that she has a terminal diagnosis and voiced this freely today which was the first time that the patient's daughter had heard the patient acknowledged this. The patient shared some childhood memories that reflects some deep-seated emotions that she had previously thought she had worked through. Supportive and empathetic listening provided today and discussed typically at this point in time many people will reflect on their life. Offered counseling services for additional support however, the patient declines relying that she is worked through this before. 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 She continues to primarily have symptom burden related to peripheral neuropathy and arthralgias in the setting of arthritic osteoarthritis. Presently, patient reports symptoms are controlled with present pain regimen and does not wish to alter at the present time. Palliative care will continue to build rapport, explore goals of care, provide symptom management, care coordination and anticipatory guidance. Recommendations/Counseling Done: 1. Arthralgias. Most pacifically to bilateral knees. Treatment related and due to underlying osteoarthritis. Continue topical Dimitry Juliet gel as prescribed. Continue to use Aleve as needed with food and use sparingly. Continue acetaminophen not to exceed 3000 mg daily from all sources. Continue duloxetine 30 mg daily for underlying arthralgias. Strongly encouraged use of Rollator within the home however, declines. Also strongly encouraged to use Rollator outside of the home for ambulation and stability and is open to considering however, feels the present time she is "not quite ready." Did introduce today that at a point if her present pain regimen is not effective then would introduce a low-dose opioid such as oxycodone for additional support and comfort. Continue to monitor. Fall precautions. 2. Neuropathy to bilateral hands and feet. Stable. Continue to set expectations due to history of oxaliplatin and it takes time to see improvement. Presently on duloxetine 30 mg daily. Continue to monitor as there is room to increase if needed for duloxetine to optimize the patient's comfort. 3. Adjustment disorder. Multifactorial in the setting of stage IV cancer diagnosis and possible undiagnosed depression. Patient offering reflection of childhood experiences and normalized life reviewing grief process. Provided supportive listening. Offered utilization of counseling services however, declines at the present time. Continue to provide support. 4. Relapsed metastatic sigmoid colon adenocarcinoma. Diagnosed 09/2020. Began FOLFOX therapy with initial treatment 12/19/2020. Began Avastin therapy on 06/05/2021. Restaging scans on 08/21 demonstrated ongoing progression with liver metastasis disease and pulmonary metastases. Pending interventional radiology consult for Y 90. Blood pressure remains within normal range. Continue to be followed by oncology. 5. Advanced care planning. Patient has living will in place. Does not have a POLST in place and will need to continue to build rapport and readdress in the future. Patient is an individual that requires contemplation after receiving treatment options to weigh benefits versus burdens and have any and all questions addressed. Therefore, it is best not to be pressured to make an immediate decision. Patient has never had an abnormal mammogram and denies any abnormal symptoms pertaining to her bilateral breasts and therefore, as she is undergoing interventions that are palliative for stage IV sigmoid colon adenocarcinoma would recommend against obtaining a screening mammogram as time to benefit is limited. Discussed rationale with patient and daughter regarding annual mammogram and after weighing benefits versus burdens patient desires not to proceed with screening mammogram. Total time spent 70 minutes with greater than 50% of the spent in counseling and coordination of care with the patient and daughter, Mahi; supportive and empathetic listening; review of CT scans; examination of patient; pain and symptom management; and anticipatory guidance. Disclaimer: The chart note was formulated using voice recognition technology and unfortunately sound alike errors may occur.
== END 2021-08-29 15:11 | disposition home or self-care (01) ==
LOC: PC 15:10
PROVIDERS: ATTEND Nurse Practitioner Family
DX: Z51.5 Encounter for palliative care (principal); G62.0 Drug-induced polyneuropathy; T45.1X5A Adverse effect of antineoplastic and immunosuppressive drugs, initial encounter; M17.0 Bilateral primary osteoarthritis of knee; F43.20 Adjustment disorder, unspecified; C18.7 Malignant neoplasm of sigmoid colon; C78.7 Secondary malignant neoplasm of liver and intrahepatic bile duct; C78.00 Secondary malignant neoplasm of unspecified lung; Z79.899 Other long term (current) drug therapy
CPT/HCPCS: 99350

== ENCOUNTER 2021-10-01 13:50 | Outpatient (CLI) | payer MEDICARE, BC ==
--- NOTE | 2021-10-01 19:34 | CONSULTATION NOTE ---
Palliative Care Follow Up - Referral Referring Provider: Gilda Stoll PA-C/Dr. Sterling Su Time of Visit: [id number] Referral setting: Home Referral Reason: Neuropathy/Arthalgias/Metastic Stage IV of sigmoid - Information Sources Records reviewed: Previous records reviewed History/Review of Systems obtained from: Patient, Family (daughter, Mahi) Exam limitations: No limitations - History of Present Illness Update Brief HPI Update: This is a steve 76-year-old female who was seen and evaluated today within her home for follow-up regarding peripheral neuropathy, arthralgias,, metastatic sigmoid adenocarcinoma, and care coordination for upcoming Y 90 therapy with her daughter, Mahi present. Provider wore N95 mask. Please see detailed history dictated in HPI from 12/13/2020. Given the patient's disease progression on her last restaging scans she was referred to interventional radiology to consult for Y 90 therapy. She was seen in consultation with Dr. Rizo with [facility] interventional radiology in 09/25/2021 and after weighing benefits versus burdens she wishes to move forward with this intervention. This provider provided assistance with care coordination for scheduling abdominal MRI which is now scheduled for 08/03/2022. The patient reports with most recent chemotherapy. She does not feel "as knocked out" after treatment. She has a little bit more energy. Her daughter has been quite clear when they go for [facility] for the eye 90 therapy she is to utilize her walker for fall prevention and she is in agreement. The patient's is reporting neuropathy to the tips of her fingers and toes and would benefit from further dose adjustment of her duloxetine. Each time her duloxetine has been increased she has had improvement of some of these underlying symptoms. She continues to have arthralgias most specifically to her bilateral knees. She continues to find Voltaren gel effective. However, she recently noticed some increased stiffness with ambulation in the afternoon and attributed this to the quantity of Voltaren gel she was using and since she has scaled back on the q uantity but not the frequency she has not had this recurrence and symptoms remain stable. Patient is reporting some skin irritation under her bilateral breasts and is hoping for topical treatment. She denies any itching but does report that she was unable to wear at the present time due to discomfort. 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 +influenza vaccine Social History - Living Situation Living arrangement: At home Living Situation: With spouse/s.o. Support System: Grew up in [place]. She and her , Waqas have been for 51 years. They have 1 daughter, Mahi who is the patient's ostomy care nurse coordinator with contact number [phone]. The patient and her moved to [facility] on the property of third daughter in 2017 after the patient recovered from bacterial spinal meningitis. She has 1 grandson, Michael. Spouse spends alot of time in his outside hobby shed. Medications/Allergies - Medications Home Medications: Ambulatory Orders Medication Instructions Recorded Confirmed lisinopriL [Lisinopril] 20 mg PO DAILY 11/26/18 09/24/21 Multivitamin [Multiple Vitamins] 1 each PO DAILY 08/25/19 09/24/21 Vitamin E (Dl,Tocopheryl Acet) 400 unit PO DAILY 08/25/19 09/24/21 [Vitamin E] Spironolactone [Aldactone] 12.5 mg PO DAILY tablet 09/02/19 09/24/21 carvediloL [Coreg] 25 mg PO BID tablet 09/02/19 09/24/21 Acetaminophen [Tylenol] 500 mg PO QID MDD NTE 3g/day 10/25/20 09/24/21 Lidocaine/Prilocain 2.5% Cream 5 applic TOP UD #1 gm 11/13/20 09/24/21 [Emla 2.5% Cream] OLANZapine [Zyprexa] 5 mg PO UD #24 tab 11/13/20 09/24/21 Ondansetron HCl [Zofran] 4 mg PO Q6HR PRN #30 tab 11/13/20 09/24/21 Prochlorperazine Maleate 10 mg PO Q6HR PRN #30 tab 11/13/20 09/24/21 [Compazine] polyethylene glycoL 3350 [Miralax] 8.5 g PO DAILY 12/16/20 09/24/21 Diclofenac Sodium [Voltaren] 2 - 4 g TP TID PRN MDD NTE 12/20/20 09/24/21 32g/day/all sources Naproxen Sodium [Aleve] 220 mg PO DAILY 01/02/21 09/24/21 Furosemide [Lasix] 20 mg PO DAILY 02/13/21 09/24/21 Aspirin [[place] Aspirin] 1 tab PO DAILY 02/22/21 09/24/21 Mupirocin 2% Oint [Bactroban 2% 1 applic TOP BID #50 gm 02/22/21 09/24/21 Oint] DULoxetine [Cymbalta] 40 mg PO DAILY 03/27/21 09/24/21 Nystatin 1 applic TP BID MDD x2 weeks under 10/01/21 10/01/21 breasts - Allergies Allergies/Adverse Reactions: Allergies Allergy/AdvReac Type Severity Reaction Status Date / Time No Known Drug Allergies Allergy Verified 05/08/21 09:37 Review of Systems - Constitutional Constitutional: reports: Weight stable (per report). denies: Fever - Eyes Eyes: reports: Corrective lenses - Ears, Nose & Throat Ears, Nose & Throat: reports: Hearing loss. denies: Hearing aids - Cardiovascular Cardiovascular: reports: Edema (controlled with compression hose and oral diuretics). denies: Chest pain - Respiratory Respiratory: denies: Wheezing - Gastrointestinal Gastrointestinal: reports: Good appetite. denies: Abdominal pain, Constipation, Vomiting - Genitourinary Genitourinary: reports: Nocturia. denies: Dysuria - Musculoskeletal Musculoskeletal: reports: Stiffness (greatest first thing in AM), Joint pain (most specifically b/l knees), Assistive devices (rollator and cane) - Integumentary Integumentary: reports: Rash (under b/l breasts), Other (s/p remote sensing surveyor to right great toe) - Neurological Neurological: reports: General weakness, Numbness (neuropathy). denies: D izziness - Endocrine Endocrine: denies: Intolerance to cold - Hematologic/Lymphatic Hematologic/Lymph: reports: Anemia (due to chemotherapy--stable) - All Other Systems All Other Systems: reports: Reviewed and negative Physical Exam - Vital Signs Temperature: 36.7 C Pulse Rate: 66 O2 Saturation: 99 (on RA) Blood Pressure: 134/71 (left wrist) - Physical Exam General Appearance: positive: No acute distress, Alert Eyes Bilateral: positive: Other (+corrective lenses) ENT: positive: No signs of dehydration Neck: positive: Trachea midline Cardiovascular: positive: Regular rate & rhythm, Other (Left chest wall port) Respiratory: positive: No respiratory distress, Breath sounds nml Abdomen: positive: Non-tender, Soft, Nml bowel sounds, Obese. negative: Distended Skin: positive: Dryness (b/l toes with some cracking noted near toenails; removed bandaid from right greattoe nail with cracking skin and no erythema or discharge), Rash (Erythematous rash under b/l breasts consistent with candidasis with right greater than left) Extremities: positive: Pedal edema (Trace BLE edema with compression hose in place) Neurologic/Psychiatric: positive: Oriented x3, Mood/affect nml Palliative Care - POLST Patient has POLST: No Pain: Comment (controlled b/l knees with tylenol, aleeve and volgaren gel. WOuld benefit from increase of duloxetine for neuropathy symptoms.) - Palliative Care Discussion: In review of pending Y 90 therapy the patient denies any trepidation or increased anxiety as she felt that her questions were answered and they are en tirety by interventional radiologist, Dr. Parker. Reviewed with patient and daughter from Dr. Parker's music library assistant, Tonie that determination for scheduling will be made after the abdominal MRI with understanding verbalized. The patient feels that she wishes to move forward with this intervention as she has perceived the interventions thus far have placed her in a stagnant round neither worsening nor improving and she wishes to elicit more control in options and interventions. The patient is perceiving some increased symptoms related to neuropathy to her bilateral hands and feet and would benefit from further dose adjustment of her duloxetine from 30 mg to 40 mg daily. 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 She is overall in good spirits and would benefit from further dose adjustment of duloxetine for her peripheral neuropathy. Her arthralgias related to arthritic osteoarthritis are presently controlled. Palliative care will continue to build rapport, explore goals of care, provide care coordination and symptom management as well as anticipatory guidance. Recommendations/Counseling Done: 1. Neuropathy to bilateral hands and feet. History of oxaliplatin contributing. Increase duloxetine from 30 mg to 40 mg daily (20 mg capsules (. Continue to monitor and adjust dose accordingly to optimize the patient's comfort. 2. Candidiasis under bilateral breasts. Initiate nystatin ointment apply a pea-sized amount to skin under bilateral breasts twice a day x2 weeks. Discussed utilization of handkerchief or washcloths under the breasts at night for moisture wicking. 3. Arthralgias. Most specifically to bilateral knees. Treatment related and due to underlying osteoarthritis. Continue topical Voltaren gel as prescribed. Continue to use Aleve as needed with food and to use sparingly. Continue acetaminophen not to exceed 3000 mg daily from all sources. Preston increase du loxetine to 40 mg daily for underlying arthralgias. Strongly encouraged use of Rollator when outside of the home and was specifically when she travels to [facility]. Fall precautions. Continue to monitor. 4. Relapsed metastatic sigmoid colon adenocarcinoma. Diagnosed 09/2020. Began FOLFOX therapy with initial treatment 12/19/2020. Began Avastin therapy on 06/05/2021. Restaging scans on 08/21/2021 demonstrated ongoing progression with liver metastases and pulmonary metastases. Status post interventional radiology consult for Y 91 09/25/2021 with pending abdominal MRI on 10/04/2021. Continue to be followed by oncology. Total time spent 40 minutes with greater than 50% of the spent in counseling and coordination of care with the patient and daughter; supportive listening; medication adjustment and review; pain and symptom management and anticipatory guidance. Disclaimer: The chart note was formulated using voice recognition technology and unfortunately sound alike errors may occur.
== END 2021-10-01 13:51 | disposition home or self-care (01) ==
LOC: PC 13:50
PROVIDERS: ATTEND Nurse Practitioner Family
DX: Z51.5 Encounter for palliative care (principal); G62.9 Polyneuropathy, unspecified; B37.2 Candidiasis of skin and nail; M17.0 Bilateral primary osteoarthritis of knee; C18.7 Malignant neoplasm of sigmoid colon; C78.7 Secondary malignant neoplasm of liver and intrahepatic bile duct; C78.00 Secondary malignant neoplasm of unspecified lung
CPT/HCPCS: 99349

== ENCOUNTER 2021-10-03 09:42 | Outpatient (CLI) | payer MEDICARE, BC ==
[2021-10-03] MEDS ORDERED: GADOBUTROL 15 MMOL/15 ML VIAL ONE (10:03)
[2021-10-03] MEDS ORDERED: GADOBUTROL 15 MMOL/15 ML VIAL IVP ONE (12:51)
--- NOTE | 2021-10-04 11:05 | MRI Report ---
PROCEDURE: Abdomen W/WO INDICATIONS: COLON CA CONTRAST: IV CONTRAST: Gadavist ml: 11 TECHNIQUE: Coronal ultra fast SE, axial 2D spoiled GE in- and [id number]; axial breath-hold T2 fast SE. Dynam ic axial ultra fast GE during the administration of contrast; post-contrast coronal ultra fast GE or 2D spoiled GE with fat saturation from the hepatic dome to the iliac crests. Optional diffusion weig hted imaging and ADC may be performed. COMPARISON: CT abdomen pelvis 08/21/2021, 05/29/2021, 02/19/2021. FINDINGS: Image quality: There is mild motion artifact. Lung bases: There are small bilateral pleural effusions. Heart size is mildly enlarged. A moderate-si zed hiatal hernia is present. Solid organs: Numerous, at least 20, mass lesions are demonstrated throughout the liver involving all segments of the right and left lobes. These demonstrate T1 hypointensity and mild T2 hyperintensity with peripheral enhancement following contrast administration. 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 This measures approximately 3.5 cm in anterior posterior dimension. The previously reported lesion within left hepatic lobe between segments 2 and 3 measures up to 1.3 cm on series 1101 image 85. This appear s similar to slightly increased in size compared to the prior study given differences in technique. T he other lesions were likely present on the recent CT but are seen to greater advantage on MRI. There is progressive increase in size and number of the mass lesions compared to the prior CT studies. Gallbladder surgically absent. Biliary system is non dilated. Pancreas is normal in morphology witho ut a discrete pancreatic mass identified. No pancreatic duct dilatation. No adrenal nodules. The sp marie is normal in size. Kidneys demonstrate no hydronephrosis. Multiple bilateral thin-walled renal c ysts are demonstrated. Nodes and vessels: No retroperitoneal or mesenteric adenopathy by size criteria. Aorta and inferior vena cava are normal in size. Bowel and peritoneum: Visualized bowel loops are normal in caliber. No intra-abdominal free fluid. Bones and soft tissues: No ventral hernias. Bone marrow is normal in overall signal. IMPRESSION: 1. Numerous peripherally enhancing mass lesions are demonstrated throughout the right and left hepati c lobes consistent with metastatic disease. These demonstrate progressive increase in size and number compared to the prior CT studies given differences in technique. Reviewed by: Sheldon Quiroz MD on 10/04/2021 11:04 AM PST Approved by: Sheldon Qiuroz MD on 10/04/2021 11:04 AM PST Station ID: [id number]
== END 2021-10-03 09:43 | disposition home or self-care (01) ==
LOC: DI 09:42
PROVIDERS: ATTEND Radiology Vascular & Interventional Radiology
DX: C18.7 Malignant neoplasm of sigmoid colon (principal); C78.7 Secondary malignant neoplasm of liver and intrahepatic bile duct
CPT/HCPCS: 74183; A9585

== ENCOUNTER 2021-10-23 10:40 | Outpatient (CLI) | payer MEDICARE, BC ==
--- NOTE | 2021-10-23 12:50 | CONSULTATION NOTE ---
Palliative Care Follow Up - Referral Referring Provider: Gilda Stoll PA-C/Dr. Sterling Su Time of Visit: 5700-1231 [place] [facility] [place] Reason: Neuropathy/Forgetfulness/Metastatic Stage IV of Signmoid - Information Sources Records reviewed: Previous records reviewed History/Review of Systems obtained from: Patient, Family (spouse, Waqas and daughter, Mahi via phone call) Exam limitations: No limitations - History of Present Illness Update Brief HPI Update: This is a steve 76-year-old female who was seen and evaluated today at [place] [facility] regarding peripheral neuropathy, metastatic sigmoid adenocarcinoma and concerns for forgetfulness with her spouse, Waqas present. Provider wore N95 mask. Please see detailed history dictated in HPI from 12/13/2020. The patient has demonstrated progressive disease with abdominal MRI performed with and without contrast on 10/03/2021 for pending at procedure demonstrated "numerous peripherally enhancing mass lesions are demonstrated throughout the right and left hepatic lobes consistent with metastatic disease. These demonstrate progressive increase in size and number compared to the prior CT studies given the differences in technique."The patient is scheduled for Y 90 therapy at [place] with mapping on 11/26 and the procedure on 12/03. Her Avastin is being held 6 weeks prior. She reports no trepidation regarding this pending procedure. Up until this point she has had minimal symptom burden due to her disease as well as from chemotherapy outside of fatigue and neuropathy. On last evaluation her duloxetine dose was increased and she reports that this helped with the stiffness and numbness in her fingers. She is not going outside to utilize her exercise bike as it has been 2 cold and damp to exercise. The cold will exacerbate her arthralgias most pacifically to her knees. She continues to use her Voltaren gel approximately 2-3 times per week. The patient's daughter expressed concerns regarding forgetfulness. This is hit or miss with regarding the patient sharpness with her recall per Mahi. Recently, the patient required reorientation as to why she was going to [place] for the pending Y 90 therapy and what this would entail. However today, the patient was able to clearly articulate why she would be going to [place] and nuances related to the procedure indicating higher complexity of understanding and executive functioning. The patient does perceive that she has had some increase in her forgetfulness over the last several months. However, she does not perceive this as being difficult to navigate and manage. For example, she reports that sometimes she will go into the kitchen and forget why. She denies double vision, blurred vision, or headaches and dizziness. She previously had a CT of the head in March 2021 and this was negative for brain metastases. She is presently working on the [employer] and is not having any reported difficulty with adding numbers nor is she having to start on top stop her task. 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 Social History - Living Situation Living arrangement: At home Living Situation: With spouse/s.o. Support System: Grew up in [place]. 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 She and her , Waqas have been for 51 years. They have 1 daughter, Mahi who is the patient's career education teacher coordinator with contact number [phone]. The patient and her moved to [facility] on the property of third daughter in 2017 after the patient recovered from bacterial spinal meningitis. She has 1 grandson, Michael. Medications/Allergies - Medications Home Medications: Ambulatory Orders Medication Instructions Recorded Confirmed lisinopriL [Lisinopril] 20 mg PO DAILY 11/26/18 10/09/21 Multivitamin [Multiple Vitamins] 1 each PO DAILY 08/25/19 10/09/21 Vitamin E (Dl,Tocopheryl Acet) 400 unit PO DAILY 08/25/19 10/09/21 [Vitamin E] Spironolactone [Aldactone] 12.5 mg PO DAILY tablet 09/02/19 10/09/21 carvediloL [Coreg] 25 mg PO BID tablet 09/02/19 10/09/21 Acetaminophen [Tylenol] 500 mg PO QID MDD NTE 3g/day 10/25/20 10/09/21 Lidocaine/Prilocain 2.5% Cream 5 applic TOP UD #1 gm 11/13/20 10/09/21 [Emla 2.5% Cream] OLANZapine [Zyprexa] 5 mg PO UD #24 tab 11/13/20 10/09/21 Prochlorperazine Maleate 10 mg PO Q6HR PRN #30 tab 11/13/20 10/09/21 [Compazine] ondansetron HCL [Zofran] 4 mg PO Q6HR PRN #30 tab 11/13/20 10/09/21 polyethylene glycoL 3350 [Miralax] 8.5 g PO DAILY 12/16/20 10/09/21 Diclofenac Sodium [Voltaren] 2 - 4 g TP TID PRN MDD NTE 12/20/20 10/09/21 32g/day/all sources Naproxen Sodium [Aleve] 220 mg PO DAILY 01/02/21 10/09/21 Furosemide [Lasix] 20 mg PO DAILY 02/13/21 10/09/21 Aspirin [Searcy Aspirin] 1 tab PO DAILY 02/22/21 10/09/21 Mupirocin 2% Oint [Bactroban 2% 1 applic TOP BID #50 gm 02/22/21 10/09/21 Oint] DULoxetine [Cymbalta] 40 mg PO DAILY 03/27/21 10/09/21 Nystatin 1 applic TP BID MDD x2 weeks under 10/01/21 10/09/21 breasts - Allergies Allergies/Adverse Reactions: Allergies Allergy/AdvReac Type Severity Reaction Status Date / Time No Known Drug Allergies Allergy Verified 05/08/21 09:37 Review of Systems - Constitutional Constitutional: reports: Weight stable (per report; 104.3kg today 10/23/2021). denies: Fever - Eyes Eyes: reports: Corrective lenses. denies: Blurred vision, Vision loss, Dipolpia - Ears, Nose & Throat Ears, Nose & Throat: reports: Hearing loss. denies: Hearing aids, Mouth lesions - Cardiovascular Cardiovascular: reports: Edema (controlled with compression hose and oral diuretics). denies: Chest pain - Respiratory Respiratory: denies: Cough - Gastrointestinal Gastrointestinal: reports: Good appetite. denies: Abdominal pain, Constipation, Nausea, Vomiting - Genitourinary Genitourinary: reports: Nocturia. denies: Dysuria - Musculoskeletal Musculoskeletal: reports: Stiffness (greatest first thing in AM, improved, see HPI), Joint pain (most specifically b/l knees), Assistive devices (rollator and cane) - Integumentary Integumentary: reports: Other (dryness to right great toe--stopped applying aquaphor) - Neurological Neurological: reports: General weakness, Numbness (neuropathy), Memory problems. denies: Headache, Dizziness - Psychiatric Psychiatric: denies: Depression - Hematologic/Lymphatic Hematologic/Lymph: reports: Anemia (due to chemotherapy--stable) - All Other Systems All Other Systems: reports: Reviewed and negative Physical Exam - Vital Signs Temperature: 36.5 C Pulse Rate: 61 Blood Pressure: 107/62 - Physical Exam General Appearance: positive: No acute distress, Alert, Other (overweight) Eyes Bilateral: positive: Other (+corrective lenses) ENT: positive: No signs of dehydration Neck: positive: Trachea midline Cardiovascular: positive: Regular rate & rhythm, No murmur Respiratory: positive: No respiratory distress, Breath sounds nml Abdomen: positive: Non-tender, Soft, Nml bowel sounds, Obese. negative: Guarding Skin: positive: Dryness (removed bandaid from right greattoe with cracking skin to posterior aspect and no erythema or discharge) Extremities: positive: Pedal edema (Trace BLE edema with compression hose in place) Neurologic/Psychiatric: positive: Oriented x3 (SLUMS preformed today ), Mood/affect nml Palliative Care - POLST Patient has POLST: No Pain: No pain Tiredness/Fatigue: None Drowsiness/Sedation: None Nausea: None Anorexia: None Dyspnea: None Depression: None Anxiety: None Feelings of wellbeing/Perceived Quality of Life: Good Sleep: Sleeps well Constipation: No - Palliative Care Discussion: Patient concedes to some forgetfulness and concerns were highlighted by the patient's daughter that tends to wax and wane with her memory. There has been some gradual decline over several months that is perceived by both the patient and daughter. The patient does not perceive that this impacts her function and capabilities. SL UMS performed today scoring 25 out of 30 with mild impairment. The patient was able to articulate and express complexities regarding her pending Y 90 therapy and therefore, at the present time we will continue to monitor. Previous CT scan of the head in March 2021 was negative for metastases. The patient herself continues with minimal symptom burden and recognizes that her present therapy is palliative in nature. We will need to continue to build upon the patient's goals as much of the care coordination regarding the patient's treatment and navigation falls to the patient's daughter, Mahi. It would be assistive for the patient's spouse and daughter to have a clear sense of her wishes for the time that the patient may be unable to speak for herself regarding management. 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 She continues to have minimal symptom burden related to her oncology diagnosis outside of fatigue and neuropathy. Neuropathy has positively responded to dose increase of duloxetine. She is also presenting with some forgetfulness with SL UMS performed today at . Palliative care will continue to build rapport, explore goals of care, provide care coordination and symptom management as well as anticipatory guidance. Recommendations/Counseling Done: 1. Forgetfulness. Waxes and wanes. Recognized by the patient but does not impact to her functional status. Today was able to clearly articulate pending plans regarding Y 90 therapy demonstrating higher executive functioning and complexities. SL UMS performed out of . CT of the head in April 09, 2021 - for brain metastases. Discussed with patient, spouse and daughter via phone that if patient were to have visual changes, headaches, or worsening cognition would wish to proceed with imaging of the brain likely MRI keeping in mind that the patient has titanium plate to the skull. This was reviewed with patient's oncologist today. All parties verbalized understanding. Continue to monitor. 2. Neuropathy to bilateral hands and feet. History of oxaliplatin contributing. Tolerated dose increase of duloxetine to 40 mg daily. Continue to monitor and adjust dose according to tube patient's report to optimize comfort. 3. Xerosis to feet. Discussed reinitiating Aquaphor to lock in moisture and hydrate feet to be applied at least once daily with understanding verbalized. 4. Relapsed metastatic sigmoid: Adenocarcinoma. Diagnosed 09/2020. Began FOLFOX therapy with initial treatment 12/19/2020. Began Avastin therapy on 06/05/2021. Restaging scans on 08/21/2021 demonstrated ongoing progression with liver metastases and pulmonary metastases. Status post abdominal MRI on 10/03/2021. Pending Y 90 therapy beginning 11/26/2021 with Avastin on hold. Continue to be followed by oncology. 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 Contacted the patient's daughterMahi at [phone] to update her regarding plan with questions answered and addressed. Disclaimer: The chart note was formulated using voice recognition technology and unfortunately sound alike errors may occur.
== END 2021-10-23 10:41 | disposition home or self-care (01) ==
LOC: PC 10:40
PROVIDERS: ATTEND Nurse Practitioner Family
DX: Z51.5 Encounter for palliative care (principal); R41.3 Other amnesia; G62.9 Polyneuropathy, unspecified; C18.7 Malignant neoplasm of sigmoid colon; C78.7 Secondary malignant neoplasm of liver and intrahepatic bile duct; C78.00 Secondary malignant neoplasm of unspecified lung
CPT/HCPCS: 99215

== ENCOUNTER 2021-11-14 14:00 | Outpatient (CLI) | payer MEDICARE, BC ==
--- NOTE | 2021-11-14 17:58 | CONSULTATION NOTE ---
Palliative Care Follow Up - Referral Referring Provider: Gilda Stoll PA-C/Dr. Sterling Su Time of Visit: [id number] Referral setting: Home Referral Reason: Neuropathy/Metastatic Stage IV of Sigmoid/ACP - Information Sources Records reviewed: Previous records reviewed History/Review of Systems obtained from: Patient, Family (daughterMahi and spouse, Waqas) Exam limitations: No limitations - History of Present Illness Update Brief HPI Update: This is a steve 76-year-old female who was seen and evaluated today within her home for follow-up regarding peripheral neuropathy, metastatic sigmoid adenocarcinoma and advance care planning with her spouse, Waqas and daughters, Mahi present. Provider wore N95 mask. Please see detailed history dictated in HPI from 12/13/2020. The patient has demonstrated progressive disease with an abdominal MRI provide a performed with and without contrast on 10/03/2021 and is to be having Y 90 therapy at [facility] with mapping on 11/26 and her first procedure in 12/03. Her Avastin is presently being held. She was seen by her oncologist on 11/06 and is scheduled for a repeat CT scan for further staging before Y 90 therapy on 11/18 and follow-up with her oncologist on 11/20. Daughter is talking about having her dose of chemo on 12/04 held as she is to go for her first Y 90 therapy on 12/03 and concerns for help the patient would be able to tolerate everything. The patient herself is not frightened by the procedure and recognizes that this is to slow progression but does not take away the underlying disease. She has underlying neuropathy that was exacerbated by oxaliplatin and that was discontinued. She no longer has any tingling but reports numbness most specifically from her last knuckle out with her fingers. She denies dropping anything recently. She is presently on duloxetine which is controlling her symptoms at 40 mg/day. The cold will exacerbate her arthralgias most pacifically to her knees. She continues to use her Voltaren gel during the week for relief. She does continue to utilize her stationary bike when she can. However, it is outside and she will only go out and utilize this if it is warmer or the sun is present. She continues to have cracking often when with her skin to her right great toe. She continues to apply Aquaphor routinely to it and will heal up and then crack again. She denies any discharge or redness. 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 Social History - Living Situation Living arrangement: At home Living Situation: With spouse/s.o. Support System: Grew up in [place]. 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 She and her , Waqas have been for 51 years. They have 1 daughter, Mahi who is the patient's critical care unit manager coordinator with contact number [phone]. The patient and her moved to [facility] on the property of their daughter in 2017 after the patient recovered from bacterial spinal meningitis. She has 1 grandson, Michael. Patient's daughter has taken over managing the counts and pain all the bills. However, the patient continues to regularly check the accounts online. Medications/Allergies - Medications Home Medications: Ambulatory Orders Medication Instructions Recorded Confirmed lisinopriL [Lisinopril] 20 mg PO DAILY 11/26/18 11/06/21 Multivitamin [Multiple Vitamins] 1 each PO DAILY 08/25/19 11/06/21 Vitamin E (Dl,Tocopheryl Acet) 400 unit PO DAILY 08/25/19 11/06/21 [Vitamin E] Spironolactone [Aldactone] 12.5 mg PO DAILY tablet 09/02/19 11/06/21 carvediloL [Coreg] 25 mg PO BID tablet 09/02/19 11/06/21 Acetaminophen [Tylenol] 500 mg PO QID MDD NTE 3g/day 10/25/20 11/06/21 Lidocaine/Prilocain 2.5% Cream 5 applic TOP UD #1 gm 11/13/20 11/06/21 [Emla 2.5% Cream] OLANZapine [Zyprexa] 5 mg PO UD #24 tab 11/13/20 11/06/21 Prochlorperazine Maleate 10 mg PO Q6HR PRN #30 tab 11/13/20 11/06/21 [Compazine] ondansetron HCL [Zofran] 4 mg PO Q6HR PRN #30 tab 11/13/20 11/06/21 polyethylene glycoL 3350 [Miralax] 8.5 g PO DAILY 12/16/20 11/06/21 Diclofenac Sodium [Voltaren] 2 - 4 g TP TID PRN MDD NTE 12/20/20 11/06/21 32g/day/all sources Naproxen Sodium [Aleve] 220 mg PO DAILY 01/02/21 11/06/21 Furosemide [Lasix] 20 mg PO DAILY 02/13/21 11/06/21 Aspirin [[place] Aspirin] 1 tab PO DAILY 02/22/21 11/06/21 Mupirocin 2% Oint [Bactroban 2% 1 applic TOP BID #50 gm 02/22/21 11/06/21 Oint] DULoxetine [Cymbalta] 40 mg PO DAILY 03/27/21 11/06/21 Nystatin 1 applic TP BID MDD x2 weeks under 10/01/21 11/06/21 breasts - Allergies Allergies/Adverse Reactions: Allergies Allergy/AdvReac Type Severity Reaction Status Date / Time No Known Drug Allergies Allergy Verified 05/08/21 09:37 Review of Systems - Constitutional Constitutional: reports: Weight stable (per report; 104.3kg today 10/23/2021). denies: Fever - Eyes Eyes: reports: Corrective lenses - Ears, Nose & Throat Ears, Nose & Throat: reports: Hearing loss. denies: Hearing aids - Cardiovascular Cardiovascular: reports: Edema (controlled with compression hose and oral diuretics). denies: Chest pain - Respiratory Respiratory: denies: Wheezing - Gastrointestinal Gastrointestinal: reports: Diarrhea (one episode recently that resolved), Good appetite. denies: Abdominal pain, Constipation, Nausea - Genitourinary Genitourinary: reports: Nocturia. denies: Dysuria - Musculoskeletal Musculoskeletal: reports: Stiffness (greatest first thing in AM), Joint pain (most specifically b/l knees), Assistive devices (rollator and cane that she will use out of the home otherwise will hold onto gallagher in the home or counters) - Integumentary Integumentary: reports: Other (dryness to right great toe, see HPI) - Neurological Neurological: reports: General weakness, Numbness (neuropathy to tips of fingers), Memory problems. denies: Headache - Psychiatric Psychiatric: reports: Depression - Hematologic/Lymphatic Hematologic/Lymph: reports: Anemia (due to chemotherapy--stable) - All Other Systems All Other Systems: reports: Reviewed and negative Physical Exam - Vital Signs Temperature: 36.3 C Pulse Rate: 77 O2 Saturation: 97 (on RA) Blood Pressure: 117/62 - Physical Exam General Appearance: positive: No acute distress, Alert, Other (overweight) Eyes Bilateral: positive: Other (+corrective lenses) ENT: positive: No signs of dehydration Neck: positive: Trachea midline Cardiovascular: positive: Regular rate & rhythm, No murmur Respiratory: positive: No respiratory distress, Breath sounds nml Abdomen: positive: Non-tender, Soft, Nml bowel sounds, Obese. negative: Guarding Skin: positive: Dryness (removed bandaid from right greattoe with cracking skin to posterior aspect and no erythema or discharge---applied aquaphor to site. Note some cracking to nails of hands with dryness.), Other (+hemosiderin staining to RLLE > LLE) Extremities: positive: Pedal edema (Trace BLE edema) Neurologic/Psychiatric: positive: Oriented x3 (SLUMS preformed 10/23/2021), Mood/affect nml, Other (Will hold onto counters or the wall when ambulating in the home) Palliative Care - POLST Patient has POLST: No POLST Status: Full Code Pain: Comment (Stable with b/l knees and neuropathy to hands) Constipation: No - Palliative Care Discussion: In light of the patient's upcoming Y 90 therapy procedure in early November 2021 lengthy discussion was had today regarding the patient's goals of care with her spouse and daughter present. The patient has never been a worrier and she is not concerned regarding the upcoming procedure. She perceives that this will assist with keeping the cancer at bay but will not take away her underlying cancer. She is aware that she has a terminal diagnosis but at the present time is looking for extension of time. Brought up POLST which the patient does not have completed in the home. She reports that how she feels physically with her health at this moment in time she would want to have a trial of CPR to see if it would be possible to recover. If this were not to be possible to reverse any underlying condition that she would not want to be on machines for life sustaining support. She does have a living will in place that would also be available for reference. All parties felt this was helpful conversation to have in light of the patient's upcoming procedure so that everyone knew where the patient's present thoughts were. Impression and Recommendations - Palliative Care Impression: This is a steve 72-year-old female with relapsed metastatic stage IV sigmoid colon adenocarcinoma with pulmonary and hepatic metastases with pending Y 90 therapy. She continues to have minimal symptom burden related to her oncology diagnosis outside of fatigue and neuropathy to her fingertips. Lengthy discussion had today regarding advanced care planning and presently the patient wishes to be a full code and trial to reverse any potential conditions at the present time. She is aware that this decision is not set in stone and may be changed at any time. Palliative care will continue to build rapport, explore goals of care, provide care coordination and symptom management as well as anticipatory guidance. Recommendations/Counseling Done: 1. Xerosis to feet specifically, right great toe. Continues to wax and wane. Discussed daily application of Aquaphor to lock in moisture and hydrate her feet with understanding verbalized. Neuropathy and chemotherapy contributing factors. 2. Cracking of nails due to chemotherapy. Advised to continue hydration of hands with application of Aquaphor in the evenings. 3. Neuropathy to bilateral hands. History of oxaliplatin contributing. Continue duloxetine 40 mg daily. Continue to monitor and adjust dose according to patient's report to optimize comfort. 4. Relapsed metastatic sigmoid adenocarcinoma. Diagnosed 09/2020. Began FOLFOX therapy 1 initial treatment 12/19/2020. Began Avastin therapy on 06/05/2021. Restaging scans 08/21/2021 demonstrated ongoing progression with liver metastases and pulmonary mets metastases. Status post abdominal MRI on 10/03/2021. Repeat CT scans for staging . To begin Y 90 therapy on 12/03 with Avastin on hold. Continue to be followed by oncology. 5. Advanced care planning. Reviewed goals regarding POLST. Patient does not have a POLST completed at the present time. She recognizes that she has a terminal condition and any interventions at this time is to reduce the progression of her underlying oncologic diagnosis but there will be no resolution. She continues to be optimistic to have quantity of time as she continues to have enjoyment within her life and continues to move forward. She wishes to be a full code and have a trial for interventions including CPR to see if she can recover cover if possible. However, she is very clear that if things were not reversible with support she would not wish to be on machines sustaining her life and then would would request that her family remove life supporting measures. Patient is aware that as time move forward if she wishes to reevaluate and assess based on how she is feeling as disease progresses we can reapproach this discussion. Supportive and empathetic listening provided. Total time spent 50 minutes with greater than 50% of the spent in counseling and coordination of care with the patient, spouse, and daughter; review of advance care planning with POLST and goals of care reviewed; physical examination; supportive listening; symptom management and anticipatory guidance. Disclaimer: The chart note was formulated using voice recognition technology and unfortunately sound alike errors may occur.
== END 2021-11-14 14:01 | disposition home or self-care (01) ==
LOC: PC 14:00
PROVIDERS: ATTEND Nurse Practitioner Family
DX: Z51.5 Encounter for palliative care (principal); L85.3 Xerosis cutis; L60.3 Nail dystrophy; G62.0 Drug-induced polyneuropathy; T45.1X5A Adverse effect of antineoplastic and immunosuppressive drugs, initial encounter; C18.7 Malignant neoplasm of sigmoid colon; C78.7 Secondary malignant neoplasm of liver and intrahepatic bile duct; C78.00 Secondary malignant neoplasm of unspecified lung
CPT/HCPCS: 99349

== ENCOUNTER 2022-01-16 15:35 | Outpatient (CLI) | payer MEDICARE, BC ==
--- NOTE | 2022-01-16 19:28 | CONSULTATION NOTE ---
Palliative Care Follow Up - Referral Referring Provider: Dr. Sterling Su Time of Visit: [phone] Referral setting: Home Referral Reason: Neuropathy/Metastatic Stage IV of Sigmoid/ACP - Information Sources Records reviewed: Previous records reviewed History/Review of Systems obtained from: Patient, Family (spouse, Waqas) Exam limitations: No limitations - History of Present Illness Update Brief HPI Update: This is a steve 76-year-old female who is seen and evaluated today within her home for follow-up regarding peripheral neuropathy, metastatic sigmoid adenocarcinoma and advance care planning with her spouse, Waqas present. Provider wore N95 mask. Please see detailed history dictated in HPI from 12/13/2020. Patient has undergone 2 cycles of Y 90 in November 2021 and December 2021. Overall, she finds that she tolerated this well. After this last cycle of Y 90 she did note some discomfort in her abdomen that has subsequently abated. She did have scans performed on 01/[address] of abdomen pelvis demonstrating stable hepatic metastatic disease and a CT of the chest demonstrating "further progression of bilateral pulmonary nodules. No mediastinal or hilar adenopathy." To begin first cycle of FOLFIRI on 01/29 with holding of Avastin until 02/12/2022. Patient reports that she continues to have neuropathy to her hands or feet no better no worse. Presently controlled with duloxetine. She continues to feel that her sleep can be variable in the evenings. She consistently takes 1 to 2-hour nap in the afternoon and wakes up feeling rested. She reports no change to her appetite. The patient's daughter has previously reported some forgetfulness. The patient is aware of her forgetfulness and functions fine with reminder or reorientation regarding a reminder. 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 Social History - Living Situation Living arrangement: At home Living Situation: With spouse/s.o. Support System: Grew up in [place]. 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 She and her , Waqas have been for 51 years. They have 1 daughter, Mahi who is the patient's healthcare analyst coordinator with contact number [phone]. The patient and her moved to [facility] on the property of their daughter in 2017 after the patient recovered from bacterial spinal meningitis. She has 1 grandson, Michael. Daughter will be out of town the beginning of January. Daughter, Mahi checks on patient and spouse almost daily. She is signed up with [employer]. Medications/Allergies - Medications Home Medications: Ambulatory Orders Medication Instructions Recorded Confirmed lisinopriL [Lisinopril] 20 mg PO DAILY 11/26/18 01/15/22 Multivitamin [Multiple Vitamins] 1 each PO DAILY 08/25/19 01/15/22 Vitamin E (Dl,Tocopheryl Acet) 400 unit PO DAILY 08/25/19 01/15/22 [Vitamin E] Spironolactone [Aldactone] 12.5 mg PO DAILY tablet 09/02/19 01/15/22 carvediloL [Coreg] 25 mg PO BID tablet 09/02/19 01/15/22 Acetaminophen [Tylenol] 500 mg PO QID MDD NTE 3g/day 10/25/20 01/15/22 Lidocaine/Prilocain 2.5% Cream 5 applic TOP UD #1 gm 11/13/20 01/15/22 [Emla 2.5% Cream] OLANZapine [Zyprexa] 5 mg PO UD #24 tab 11/13/20 01/15/22 Prochlorperazine Maleate 10 mg PO Q6HR PRN #30 tab 11/13/20 01/15/22 [Compazine] ondansetron HCL [Zofran] 4 mg PO Q6HR PRN #30 tab 11/13/20 01/15/22 polyethylene glycoL 3350 [Miralax] 8.5 g PO DAILY 12/16/20 01/15/22 Diclofenac Sodium [Voltaren] 2 - 4 g TP TID PRN MDD NTE 12/20/20 01/15/22 32g/day/all sources Naproxen Sodium [Aleve] 220 mg PO DAILY 01/02/21 01/15/22 Furosemide [Lasix] 20 mg PO DAILY 02/13/21 01/15/22 Aspirin [[place] Aspirin] 1 tab PO DAILY 02/22/21 01/15/22 Mupirocin 2% Oint [Bactroban 2% 1 applic TOP BID #50 gm 02/22/21 01/15/22 Oint] DULoxetine [Cymbalta] 40 mg PO DAILY 03/27/21 01/15/22 Nystatin 1 applic TP BID MDD x2 weeks under 10/01/21 01/15/22 breasts - Allergies Allergies/Adverse Reactions: Allergies Allergy/AdvReac Type Severity Reaction Status Date / Time No Known Drug Allergies Allergy Verified 05/08/21 09:37 Review of Systems - Constitutional Constitutional: reports: Weight stable ( 104.3kg 10/23/2021). denies: Fever - Eyes Eyes: reports: Corrective lenses - Ears, Nose & Throat Ears, Nose & Throat: reports: Hearing loss. denies: Hearing aids - Cardiovascular Cardiovascular: denies: Chest pain, Edema (controlled with compression hose and oral diuretics) - Respiratory Respiratory: denies: Cough - Gastrointestinal Gastrointestinal: reports: Good appetite. denies: Abdominal pain (see HPI, had symptoms after last y90 that has resolved), Constipation, Nausea, Vomiting - Genitourinary Genitourinary: reports: Nocturia. denies: Dysuria - Musculoskeletal Musculoskeletal: reports: Stiffness, Joint pain (most specifically b/l knees), Assistive devices (rollator and cane that she will use out of the home otherwise will hold onto gallagher in the home or counters) - Integumentary Integumentary: reports: Other (dryness to right great toe--applies aquaphor daily and this will resolve and then return.) - Neurological Neurological: reports: General weakness, Numbness (neuropathy to tips of fingers and feet), Memory problems. denies: Headache - Psychiatric Psychiatric: reports: Depression - Hematologic/Lymphatic Hematologic/Lymph: reports: Anemia (due to chemotherapy--stable) - All Other Systems All Other Systems: reports: Reviewed and negative Physical Exam - Vital Signs Temperature: 36.4 C Pulse Rate: 68 O2 Saturation: 95 (on RA) Blood Pressure: 112/64 - Physical Exam General Appearance: positive: No acute distress, Alert, Other (overweight) Eyes Bilateral: positive: Other (+corrective lenses) ENT: positive: No signs of dehydration Neck: positive: Trachea midline Cardiovascular: positive: Regular rate & rhythm, No murmur Respiratory: positive: No respiratory distress, Breath sounds nml Abdomen: positive: Non-tender, Soft, Nml bowel sounds, Obese Skin: positive: Dryness (bandaid to right greattoe), Other (+hemosiderin staining to RLLE > LLE) Extremities: positive: Pedal edema (Trace BLE edema) Neurologic/Psychiatric: positive: Oriented x3 (SLUMS preformed 10/23/2021), Mood/affect nml Palliative Care - POLST Patient has POLST: No POLST Status: Full Code Feelings of wellbeing/Perceived Quality of Life: Good Sleep: Variable sleep pattern Constipation: No - Palliative Care Discussion: Patient feels that she continues to have minimal side effects related to chemotherapy. Therefore, with the addition of irinotecan she does not perceive any trepidation. She realizes that this medication may have additional side effects however, as she perceives the present regimen is clearly working she wishes to move forward. At any point that she had serious complications or was unable to enjoy her life that she would consider stopping chemotherapy. Results - Lab Results Lab results reviewed: Yes Lab and Imaging Results: 01/14/2022 Sodium 136, potassium 4.4, BUN 25, creatinine 0.7, alk phos 122, WBC 7.3, hemoglobin 11.7, hematocrit 37.1%, platelet 180, Impression and Recommendations - Palliative Care Impression: This is a steve 76-year-old female with relapsed metastatic stage IV sigmoid colon adenocarcinoma with pulmonary and hepatic metastases status post Y 90 therapy. She continues to have minimal symptom burden related to her oncology diagnosis outside of neuropathy and fatigue. She continues to wish to move forward with chemotherapy and weigh benefits versus burdens that any point she had serious complications she would consider discontinuation. Palliative care will continue to provide care coordination, symptom management as well as anticipatory guidance. Recommendations/Counseling Done: 1. Neuropathy to bilateral hands. History of oxaliplatin contributing. Continue duloxetine 40 mg daily. Continue to monitor and adjust dose according to patient's report to optimize comfort. 2. Arthralgias. Most pacifically to bilateral knees. Treatment related and due to underlying osteoarthritis. Continue topical Voltaren gel as prescribed. Continue to use Aleve as needed with food and use sparingly. Continue acetaminophen not to exceed 3000 mg daily from all sources. Continue duloxetine 40 mg daily for underlying arthralgias. Continue to monitor and fall precautions. 3. Fatigue. Treatment related. Continue to encourage pacing activities for energy conservation. 4. Xerosis to feet specifically, right great toe. Continues to wax and wane. Continue application of Aquaphor daily for moisturization. Neuropathy and chemotherapy contributing factors. 5. Relapsed metastatic sigmoid adenocarcinoma. Diagnosed 09/2020. Began FOLFOX therapy initial treatment 12/19/2020. Began Avastin therapy on 06/05/2021. Status post Y 90 treatment. To begin first cycle of FOLFIRI 01/29/2022. Continue to be followed by oncology. Total time spent 45 minutes with greater than 50% of the spent in counseling and coordination of care with the patient and spouse; examination of patient; discussion regarding weighing benefits versus burdens of interventions; and anticipatory guidance. DaughterMahi unable to attend visit today due to illness and conversation with had a prior to visit. Patient wishes to follow-up with palliative care after next staging scans in February 2022 or sooner if concerns. Disclaimer: The chart note was formulated using voice recognition technology and unfortunately sound alike errors may occur.
== END 2022-01-16 15:36 | disposition home or self-care (01) ==
LOC: PC 15:35
PROVIDERS: ATTEND Nurse Practitioner Family
DX: Z51.5 Encounter for palliative care (principal); C18.7 Malignant neoplasm of sigmoid colon; G62.9 Polyneuropathy, unspecified; M17.0 Bilateral primary osteoarthritis of knee; C78.00 Secondary malignant neoplasm of unspecified lung; C78.7 Secondary malignant neoplasm of liver and intrahepatic bile duct; R53.83 Other fatigue; L85.3 Xerosis cutis
CPT/HCPCS: 99349

== ENCOUNTER 2022-02-13 14:45 | Outpatient (CLI) | payer MEDICARE, BC ==
--- NOTE | 2022-02-13 16:26 | CONSULTATION NOTE ---
Palliative Care Follow Up - Referral Referring Provider: Dr. Sterling Su Time of Visit: 6028-2213 Referral setting: Home Referral Reason: Neuropathy/Metastatic Stage IV of sigmoid/ACP - Information Sources Records reviewed: Previous records reviewed History/Review of Systems obtained from: Patient, Family (spouse, Waqas and daughter, Mahi) - History of Present Illness Update Brief HPI Update: This is a steve 76-year-old female who was seen and evaluated today within her home for follow-up regarding peripheral neuropathy, metastatic sigmoid adenocarcinoma and advance care planning with her spouse, Waqas and daughter, Mahi present. Please see detailed history dictated in HPI from 12/13/2020 for full details. Patient has not gone 2 cycles of Y 90 in December 08 09 January 2022. She has subsequently transition to second line FOLFIRI on 01/29 after this transition the patient had 10 bowel movements over the course of the day that were small in size and did not perceive his sheryl diarrhea. She did eventually take Imodium which has reduced her frequency back to normal which is typically 3 times per day. She denies any abdominal pain or discomfort and passing her bowels. Her daughter has perceived that there is been an increase in the patient's abdominal girth. The patient herself reports that she is having to button her shirt in a different area. She was seen by her PCP on Thursday who does not perceive that this change is related to the patient's underlying colon cancer but instead sedentary lifestyle per the patient's report. She reports that her appetite is "too good." She also continues to perceive that she has minimal symptom burden related to chemotherapy outside of fatigue and neuropathy which is presently managed with duloxetine. 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 Social History - Living Situation Living arrangement: At home Living Situation: With spouse/s.o. Support System: Grew up in [place]. 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 She and her , Waqas have been for 51 years. They have 1 daughter, Mahi who is the patient's urgent care technician coordinator with contact number [phone]. The patient and her moved to [facility] on the property of their daughter in 2017 after the patient recovered from bacterial spinal meningitis. She has 1 grandson, Michael. Daughter, Mahi checks on patient and spouse almost daily. Spouse has had to assume making meals and grocery shopping. Patient typically lays out ingredients for this patient's spouse to prepare the meals and spouse will become frustrated regarding this and would like to trial Meals on Wheels however the patient herself is avoidant regarding this. The family has interviewed a home health agency to have an aide come to the home once a week while Mahi is out of town in February to March to provide support. Medications/Allergies - Medications Home Medications: Ambulatory Orders Medication Instructions Recorded Confirmed lisinopriL [Lisinopril] 20 mg PO DAILY 11/26/18 02/06/22 Multivitamin [Multiple Vitamins] 1 each PO DAILY 08/25/19 02/06/22 Vitamin E (Dl,Tocopheryl Acet) 400 unit PO DAILY 08/25/19 02/06/22 [Vitamin E] Spironolactone [Aldactone] 12.5 mg PO DAILY tablet 09/02/19 02/06/22 carvediloL [Coreg] 25 mg PO BID tablet 09/02/19 02/06/22 Acetaminophen [Tylenol] 500 mg PO QID MDD NTE 3g/day 10/25/20 02/06/22 Lidocaine/Prilocain 2.5% Cream 5 applic TOP UD #1 gm 11/13/20 02/06/22 [Emla 2.5% Cream] OLANZapine [Zyprexa] 5 mg PO UD #24 tab 11/13/20 02/06/22 Prochlorperazine Maleate 10 mg PO Q6HR PRN #30 tab 11/13/20 02/06/22 [Compazine] ondansetron HCL [Zofran] 4 mg PO Q6HR PRN #30 tab 11/13/20 02/06/22 polyethylene glycoL 3350 [Miralax] 8.5 g PO DAILY 12/16/20 02/06/22 Diclofenac Sodium [Voltaren] 2 - 4 g TP TID PRN MDD NTE 12/20/20 02/06/22 32g/day/all sources Naproxen Sodium [Aleve] 220 mg PO DAILY 01/02/21 02/06/22 Furosemide [Lasix] 20 mg PO DAILY 02/13/21 02/06/22 Aspirin [Shelby Aspirin] 1 tab PO DAILY 02/22/21 02/06/22 Mupirocin 2% Oint [Bactroban 2% 1 applic TOP BID #50 gm 02/22/21 02/06/22 Oint] DULoxetine [Cymbalta] 40 mg PO DAILY 03/27/21 02/06/22 Nystatin 1 applic TP BID MDD x2 weeks under 10/01/21 02/06/22 breasts - Allergies Allergies/Adverse Reactions: Allergies Allergy/AdvReac Type Severity Reaction Status Date / Time No Known Drug Allergies Allergy Verified 05/08/21 09:37 Review of Systems - Constitutional Constitutional: reports: Fatigue, Weight stable ( 104.3kg 10/23/2021). denies: Fever, Poor appetite - Eyes Eyes: reports: Corrective lenses - Ears, Nose & Throat Ears, Nose & Throat: reports: Hearing loss. denies: Hearing aids, Mouth lesions - Cardiovascular Cardiovascular: reports: Edema (trace BLE, has not been consistently wearing her compression hose). denies: Chest pain - Respiratory Respiratory: denies: Cough - Gastrointestinal Gastrointestinal: reports: Good appetite. denies: Abdominal pain, Constipation, Diarrhea (see HPI for further details), Nausea, Vomiting - Genitourinary Genitourinary: reports: Nocturia. denies: Dysuria - Musculoskeletal Musculoskeletal: reports: Stiffness, Joint pain (most specifically b/l knees and has not been using her stationary excercise bike), Assistive devices (rollator and cane that she will use out of the home otherwise will hold onto gallagher in the home or counters) - Integumentary Integumentary: reports: Other (dryness to right great toe--applies aquaphor daily and this will resolve and then return, presently improved) - Neurological Neurological: reports: General weakness, Numbness (neuropathy to tips of fingers and feet), Memory problems. denies: Headache - Psychiatric Psychiatric: reports: Depression - Endocrine Endocrine: denies: Intolerance to cold - Hematologic/Lymphatic Hematologic/Lymph: reports: Anemia (due to chemotherapy--stable) - All Other Systems All Other Systems: reports: Reviewed and negative (additional ROS from daughter, Mahi) Physical Exam - Vital Signs Temperature: 36.6 C Pulse Rate: 68 O2 Saturation: 98 (on RA) Blood Pressure: 131/64 - Physical Exam General Appearance: positive: No acute distress, Alert, Other (overweight) Eyes Bilateral: positive: Other (+corrective lenses) ENT: positive: No signs of dehydration Neck: positive: Trachea midline Cardiovascular: positive: Regular rate & rhythm, No murmur Respiratory: positive: No respiratory distress, Breath sounds nml Abdomen: positive: Non-tender, Soft, Nml bowel sounds, Obese, Other (Ascities not appreciated on abdominal examination). negative: Mass, Distended Skin: positive: Dryness (stable dryness to right greattoe without scab or cracking), Other (+hemosiderin staining to RLLE > LLE) Extremities: positive: Pedal edema (Trace BLE edema) Neurologic/Psychiatric: positive: Oriented x3 (SLUMS preformed 10/23/2021), Mood/affect nml Palliative Care - POLST Patient has POLST: No POLST Status: Full Code Pain: No pain - Palliative Care Discussion: Patient was supportive of daughter reviewed her most recent visit with oncology and her understanding regarding prognosis as this is something that he is weighing on her mind. Given where she is and her clinical course she may have 6 months to a year and a half and given she has had minimal to no side effects per her perception she is open and amenable to continue with chemotherapy. She does relay that she wishes to continue to weigh benefits versus burdens regarding any trial of continuation recognizing that at any point she may discontinue this intervention and has a support of her family. She becomes frustrated regarding her lack of independence. She perceives if Meals on Wheels were to be obtained this is a further lack of independence and taking away from her role that she previously took pride and albert in performing over decades. Continue to strive to work with communication between the patient and her spouse to achieve and neutral ground regarding next steps. She is open to having a trial of the home health aide coming in during the time that her daughter is out of town however does not perceive that she needs any additional assistance at this time but does recognize that their goal, point in time that she will need more assistance and it would be best to have build rapport and establish relationship with someone so they are not unfamiliar before that time comes. She wishes to take it 1 day at a time and trial this home health aide and then make a decision past that point. Impression and Recommendations - Palliative Care Impression: This is a steve 76-year-old female with relapsed metastatic stage IV sigmoid colon adenocarcinoma with pulmonary and hepatic metastases status post Y 90 therapy. She continues to have minimal symptom burden related to her oncology diagnosis outside of chemotherapy and fatigue however, did recently have frequent defecation that has resolved after one-time use of Imodium. She continues to wish to move forward chemotherapy weighing benefits versus burdens at any point if she has serious complications she would consider discontinuation. Patient continues to have a strong desire to maintain her independence and sense of self. Palliative care will continue provide care coordination, symptom management as well as anticipatory guidance. Recommendations/Counseling Done: 1..Neuropathy to bilateral hands. History of oxaliplatin contributing. Continue duloxetine 40 mg daily. Continue to monitor and adjust dose according to the patient's report to optimize comfort. 2. Irinotecan side effects. Had some reports increased defecation that resolved after use of Imodium. Continue to encourage use of Imodium as needed for frequent bowel movements. 3.Arthralgias. Most pacifically to bilateral knees. Treatment related and due to underlying osteoarthritis. Continue topical Voltaren gel as prescribed as needed. Continue use of Aleve as needed with food and use sparingly. Continue acetaminophen not to exceed 3000 mg daily from all sources. Continue duloxetine 40 mg daily for underlying arthralgias. Continue to monitor and fall precautions. 4. Edema. Most appreciated to bilateral lower extremity edema. No evidence of ascites on abdominal examination by reviewed signs and symptoms regarding this. Continue furosemide 20 mg daily and spironolactone 12.5 mg daily if increased edema discussed we will do a trial of increase of spironolactone to 25 mg once daily and all parties aware. Continue to monitor. 5. Grief reaction. Patient demonstrating appropriate grief regarding functional decline due to effects of chemotherapy related to her energy level and loss of former identity. Offered support from palliative care drill press operator numerical control however declines. Continues to be open to having support from her daughter in navigating ways to continue to have independence. 6. Relapsed metastatic sigmoid adenocarcinoma diagnosed 09/2020. Status post Y 90 treatment x2 cycles. Presently on FOLFIRI cycle beginning 01/29/2022 to have repeat MRI for interval restaging 03/10/2022. Continue to be followed by oncology. Total time spent 60 minutes with greater than 50% of the spent in counseling coronation of care with the patient, daughter, and spouse; supportive and empathetic listening; setting expectations regarding functional capabilities and ways to maintain and continue independence; examination of patient; and anticipatory guidance. Disclaimer: The chart note was formulated using voice recognition technology and unfortunately sound alike errors may occur.
== END 2022-02-13 14:46 | disposition home or self-care (01) ==
LOC: PC 14:45
PROVIDERS: ATTEND Nurse Practitioner Family
DX: Z51.5 Encounter for palliative care (principal); G62.0 Drug-induced polyneuropathy; T45.1X5A Adverse effect of antineoplastic and immunosuppressive drugs, initial encounter; K52.1 Toxic gastroenteritis and colitis; M17.0 Bilateral primary osteoarthritis of knee; R60.0 Localized edema; F43.20 Adjustment disorder, unspecified; C18.7 Malignant neoplasm of sigmoid colon; C79.9 Secondary malignant neoplasm of unspecified site
CPT/HCPCS: 99350